=== PATIENT | female | born 1975 | race Caucasian/White ===

== ENCOUNTER 2023-11-06 14:30 | Emergency (ER) | payer BC, SELFPAY ==
[2023-11-06 14:32] VITALS: BP 127/82
[2023-11-06 15:23] LABS: % Basophils 0.5 % (0-2); % Eosinophils 1.4 % (0-6); % Immature Granulocytes 0.3 % (0-0.5); % Lymphocytes 10.4 % (20.5-51.1); % Monocytes 7.4 % (1.7-9.3); Absolute Basophils 0.1 10^3/uL (0-0.2); Absolute Eosinophils 0.2 10^3/uL (0-0.7); Absolute Lymphocytes 1.2 10^3/uL (1.2-3.4); Absolute Monocytes 0.9 10^3/uL (0.1-0.6); Absolute Neutrophils 9.5 10^3/uL (1.4-6.5); Hematocrit 40.9 % (37.0-47.0); Hemoglobin 13.7 g/dL (12.0-16.0); Mean Corp Hgb Conc. 33.5 g/dL (33.0-37.0); Mean Corpuscular Hgb 31.1 pg (27.0-31.0); Mean Platelet Volume 9.7 fL (7.4-10.4); Nucleated Red Blood Cells % 0 %; Platelet Count 326 10^3/uL (130-400); Red Cell Dist. Width 13.9 % (11.5-14.5); White Blood Cell Count 11.9 10^3/uL (4.8-10.8)
[2023-11-06 15:39] LABS: ALT (SGPT) 36 U/L (0-35); AST (SGOT) 44 U/L (14-36); Alkaline Phosphatase 41 U/L (38-126); Blood Urea Nitrogen 17 mg/dl (7-17); Calcium 9.9 mg/dl (8.4-10.2); Carbon Dioxide 29 mmol/L (22-30); Chloride 100 mmol/L (98-107); Glucose 119 mg/dl (70-99); Potassium 3.7 mmol/L (3.5-5.1); Sodium 139 mmol/L (135-145); Total Bilirubin 0.7 mg/dl (0.2-1.3); Total Protein 6.9 g/dl (6.3-8.2); eGFR > 60.00
[2023-11-06 15:49] LABS: Troponin I < 0.012 ng/ml
[2023-11-06 17:15] VITALS: BMI 37.0
[2023-11-06 17:21] VITALS: BP 145/67
[2023-11-06] MEDS: NSS 1000 IV (17:23)
[2023-11-06] MEDS: PEPCID 20 MG IV (17:23)
[2023-11-06] MEDS: ZOFRAN 4 MG IV (17:23)
[2023-11-06] MEDS: MAALOX 40 PO (17:24)
[2023-11-06 17:46] VITALS: BP 112/62
[2023-11-06 18:00] VITALS: BP 117/65
[2023-11-06 18:48] LABS: Troponin I < 0.012 ng/ml
[2023-11-06 19:00] VITALS: BP 120/67
--- NOTE | 2023-11-06 20:03 | ED.GENMED ---
History of Present Illness
General
Chief Complaint: Chest Pain
Source: patient
Exam Limitations: none
Time Seen by Provider: 11/06/23 16:43
Nursing documentation reviewed up to this point in time: agreed with
Travel History
Have you had any contact with someone who has COVID-19?: No
Do you have any symptoms of coronavirus? Fever > 100 degrees, chills, cough, shortness of breath, sore throat, loss of taste or smell, muscle aches, or headache?: No
History of Present Illness
History of Present Illness:
48-year-old female presenting the emergency department today with concerns of chest discomfort to left chest achiness rating to the left shoulder since yesterday claims that she also was vomiting yesterday and thinks he may have inhaled bile. She
denies significant shortness of breath fevers abdominal pain.
Past History
Past History
ED Past Medical History: Asthma, Cancer (ovarian), GERD, Hypercholesterolemia, Hypothyroidism, Psychiatric (anxiety, Bipolar, PTSD, Depression) and Other (Migraines, Sleep apnea uses CPAP, Bowel obstruction, Fissure, )
ED Past Surgical History: , Gynecological (hysterectomy, bilateral oophorectomy. Breast augmentation, ectopic , exploratory laparotomy with lymph node removal and lysis of adhesions in the right hemipelvis) and Other
(Abdominoplasty 2020, Hernia, Spincterotomy, Deviated septum surgery, Total hysterectomy)
Social History
Tobacco: Former smoker
Alcohol: None
Personal:
Living: with family
Employment: Not employed
Family History
Family History: Other (CAD, diabetes, thyroid disease, renal failure)
Review of Systems
Review of Systems
Allergies reviewed?: Yes
All Other Systems: ROS reviewed and negative except as documented in HPI and ROS
Phy Exam
Physical Exam
Physical Exam:
GENERAL: Alert , in no apparent distress
EYE: pupils equal and reactive
NECK: Supple, no significant adenopathy.
ENT: o/p clr, mmm.
CARDIAC: Regular rate and rhythm .
LUNGS: Clear breath sounds bilaterally, no acute respiratory distress, no wheezes/rales/rhonchi
ABDOMEN: Soft, without focal tenderness, no r/g, no cvat
NEUROLOGICAL: Alert and oriented, no focal neuro deficits
SKIN: Warm and dry, skin intact.
MUSCULOSKELETAL: No edema, well perfused.
PSYCH: Normal and appropriate interaction.
Scores
Heart Score for Chest Pain Patients
STEMI patient?: No
History: Slightly or Non-Suspicious
ECG: Normal
Age: >45 - <65 years
Risk Factors: 1 or 2 Risk Factors
Troponin: </= Normal Limit
Heart Score for Chest Pain Patients: 2
Heart Score Risk: 2.5% MACE over next 6 weeks
Course
Orders/Labs/Results
Orders:
Orders
11/06/23 14:34
EKG [Electrocardiogram (*1)] Urgent
Reason for Study: Chest Pain
EKG- Treatment ONCE
11/06/23 15:15
CMP [Comprehensive Metabolic Panel] Urgent
Complete Blood Count/With Diff Urgent
Troponin I Urgent
11/06/23 17:00
Chest [CR Chest - 2 Views ] Urgent
Comment:
Reason For Exam: sob
11/06/23 17:08
Famotidine [Pepcid] 20 mg IV NOW STA
Mag Hydrox/Al Hydrox/Simeth [Maalox] 30 ml Phenobarb/Hyoscy/Atropine/Scop [] 10 ml PO NOW
11/06/23 17:09
0.9% Sodium Chloride 1000 ml [Nss] 1,000 ml IV BOLUS
Ondansetron Injectable [Zofran] 4 mg IV NOW STA
11/06/23 17:11
Mag Hydrox/Al Hydrox/Simeth [Maalox] 30 ml .ROUTE .[facility]
Phenobarb/Hyoscy/Atropine/Scop [] 10 ml .ROUTE .[facility]
11/06/23 18:02
EKG [Electrocardiogram (*1)] Urgent
Reason for Study: Chest Pain
EKG- Treatment ONCE
11/06/23 18:14
Troponin I Urgent
11/06/23 20:02
Ketorolac [Toradol] 30 mg IV NOW STA
Abnormal Lab Results
11/06/23
15:15
WBC 11.9 H 10^3/uL
(4.8-10.8)
MCH 31.1 H pg
(27.0-31.0)
Absolute Neuts (auto) 9.5 H 10^3/uL
(1.4-6.5)
Absolute Monos (auto) 0.9 H 10^3/uL
(0.1-0.6)
Neutrophils % 80.0 H %
(42.2-75.2)
Lymphocytes % 10.4 L %
(20.5-51.1)
Creatinine 1.1 H mg/dL
(0.6-1.0)
Glucose 119 H mg/dl
(70-99)
AST 44 H U/L
(14-36)
ALT 36 H U/L
(0-35)
11/06/23 15:15
11/06/23 15:15
Vital Signs
Initial and Last Documented VS:
Initial Vital Signs
Temp Pulse Resp BP Pulse Ox
98.2 F 81 18 127/82 98
11/06/23 14:32 11/06/23 14:32 11/06/23 14:32 11/06/23 14:32 11/06/23 14:32
Last Documented Vital Signs
Temp Pulse Resp BP Pulse Ox
98.2 F 80 31 117/65 96
11/06/23 14:32 11/06/23 18:15 11/06/23 18:15 11/06/23 18:00 11/06/23 18:15
MDM/Problems Addressed
MDM/Problems Addressed:
48-year-old female presenting to the emergency department today with concerns of left-sided chest discomfort with radiation to left shoulder. On arrival vital signs normal heart rate normal pulse ox normal respiratory rate normal no history of
blood clots leg swelling. Patient generally well-appearing very slight white count 11.9 otherwise labs unremarkable troponin negative x 2 EKG normal x 2 chest x-ray without emergent findings. No signs of emergent process patient stable for
outpatient follow-up advised for close primary care follow-up return precautions given.
*Critical Care Note
Total Time (30-74mins, 75-104mins- exclusive of procedures): Not Applicable
ED Attending Note
-
Portions of this chart may have been created with voice recognition software.� Occasional wrong word or��sound alike� substitutions may have occurred due to the inherent limitations of voice recognition software.
Discharge Plan
Departure
Patient Disposition: Home (Routine Discharge)
Date of Disposition: 11/06/23
Time of Disposition: 20:04
Patient with high blood pressure during this ER visit?: No
Condition: Good
Covid-19: Not Applicable
Discharge Problem:
Chest pain
Instructions: Chest Pain PCP Follow Up
Prescriptions:
No Action
docusate sodium 100 MG capsule
300 mg PO HS
sertraline 100 MG tablet
100 mg PO HS
fenofibrate 160 MG tablet
160 mg PO HS
levothyroxine 175 MCG tablet
150 mcg PO HS
acetaminophen 325 MG tablet
650 mg PO DAILYPRN PRN (Reason: mild pain)
alprazolam 1 MG tablet
2 mg PO HS
Patient Comments:
06/28/2020: last filled 05/02/20, 60 tabs for 30 days from [place]
prazosin 1 MG capsule
4 mg PO HS
Vraylar 3 MG capsule
3 mg PO HS
famotidine 20 mg Tablet
20 mg PO HS
cholecalciferol (vitamin D3) [Vitamin D3] 125 mcg (5,000 unit) Tablet
5,000 unit PO HS
fluticasone propion-salmeterol [Advair Diskus] 500-50 mcg/dose Blister With Device
1 inh INHALATION BID PRN (Reason: ASTHMA)
trazodone 50 mg Tablet
50 mg PO HS
albuterol sulfate [ProAir HFA] 90 mcg/actuation Hfa Aerosol Inhaler
3 inh INHALATION PRN PRN (Reason: ASTHMA)
Rx Instructions:
Q3h if needed
ondansetron HCl 4 mg tablet
4 mg PO Q8H PRN (Reason: nausea and vomiting) 4 Days Qty: 12 0RF
diphenoxylate-atropine [Lomotil] 2.5-0.025 mg tablet
1 tab PO DAILY PRN (Reason: diarrhea) Qty: 10 0RF
omeprazole
40 mg PO DAILY
prednisone 50 mg tablet
50 mg PO DAILY Qty: 5 0RF
Referrals:
Jolanta Saavedra CRNP [Family Provider] -
Activity Restrictions/Additional Instructions:
You came to the emergency department today with concerns of chest discomfort. Here had a reassuring evaluation. Please have close with the primary care doctor. Return to the emergency department for any worsening, new or concerning symptoms.
Interventions
Interventions:
*Risk Screen - Suicide Last Done: 11/06/23 14:32
*General Assessment Last Done: 11/06/23 14:32
*Neglect/Abuse Screening Last Done: 11/06/23 14:32
ED- Fall Risk Assessment Last Done: 11/06/23 17:03
*ED COVID-19 Vaccine History Last Done: 11/06/23 14:32
ED- Cardiac Assessment Last Done: 11/06/23 17:15
[2023-11-06] MEDS: TORADOL 30 MG IV (20:07)
== END 2023-11-06 20:26 | disposition home or self-care (01) ==
LOC: EMR 14:30
PROVIDERS: Physician Assistant; EMERGENCY PHYSICIAN Student in an Organized Health Care Education/Training Program; FAMILY PHYSICIAN Nurse Practitioner Adult Health
DX: R07.89 Other chest pain (principal); J45.909 Unspecified asthma, uncomplicated; K21.9 Gastro-esophageal reflux disease without esophagitis; E78.00 Pure hypercholesterolemia, unspecified; E03.9 Hypothyroidism, unspecified; F31.9 Bipolar disorder, unspecified; F43.10 Post-traumatic stress disorder, unspecified; G47.30 Sleep apnea, unspecified; Z82.49 Family history of ischemic heart disease and other diseases of the circulatory system; Z83.3 Family history of diabetes mellitus; Z83.49 Family history of other endocrine, nutritional and metabolic diseases; Z85.43 Personal history of malignant neoplasm of ovary; Z87.59 Personal history of other complications of pregnancy, childbirth and the puerperium; Z87.891 Personal history of nicotine dependence; Z90.710 Acquired absence of both cervix and uterus; Z90.722 Acquired absence of ovaries, bilateral
CPT/HCPCS: 99283; 96374; 96375; 96361; 71046; 80053; 84484; 85025; 93005

== ENCOUNTER 2023-12-03 09:57 | Emergency (ER) | payer BC, SELFPAY ==
[2023-12-03 10:07] VITALS: BP 136/84
--- NOTE | 2023-12-03 11:00 | ED.GENMED ---
History of Present Illness
<Evelyn Browning PA-C - Last Filed: 12/03/23 17:59>
General
Chief Complaint: Throat Problem
Source: patient
Exam Limitations: none
Time Seen by Provider: 12/03/23 10:58
Nursing documentation reviewed up to this point in time: agreed with
Travel History
Have you had any contact with someone who has COVID-19?: No
Do you have any symptoms of coronavirus? Fever > 100 degrees, chills, cough, shortness of breath, sore throat, loss of taste or smell, muscle aches, or headache?: No
History of Present Illness
History of Present Illness:
48-year-old female with past medical history of asthma, hypertension, hyperlipidemia, GERD presenting emergency department today with right-sided neck/throat pain for the past 2 weeks. Patient originally saw her primary care provider who tested her
for flu/strep, patient tested negative at that time. Patient was started on 10-day course amoxicillin, patient stopped this last Friday. Patient saw her primary again a few days ago, who arranged for an ENT appointment for her in December.
However, patient states that her pain gets worse with each day, and she cannot swallow due to the severe pain, and she has pain turning her neck or opening her jaw. Patient describes the pain as a tearing in her neck. Patient has never had
anything like this before. Patient denies fevers or chills, abdominal pain, nausea, vomiting, coughing, shortness of breath, chest pain. Patient did not take anything today for the pain because of the severe pain with swallowing.
Past History
<Evelyn Browning PA-C - Last Filed: 12/03/23 17:59>
Past History
ED Past Medical History: Asthma, Cancer (ovarian), GERD, Hypercholesterolemia, Hypothyroidism, Psychiatric (anxiety, Bipolar, PTSD, Depression) and Other (Migraines, Sleep apnea uses CPAP, Bowel obstruction, Fissure, )
ED Past Surgical History: , Gynecological (hysterectomy, bilateral oophorectomy. Breast augmentation, ectopic , exploratory laparotomy with lymph node removal and lysis of adhesions in the right hemipelvis) and Other
(Abdominoplasty 2020, Hernia, Spincterotomy, Deviated septum surgery, Total hysterectomy)
Social History
Tobacco: Former smoker
Alcohol: None
Personal:
Living: with family
Employment: Not employed
Family History
Family History: Other (CAD, diabetes, thyroid disease, renal failure)
Review of Systems
<RORY Moreno Last Filed: 12/03/23 17:59>
Review of Systems
All Other Systems: ROS reviewed and negative except as documented in HPI and ROS
Phy Exam
<RORY Moreno Last Filed: 12/03/23 17:59>
Physical Exam
Physical Exam:
Vitals: Vital signs are stable, patient is afebrile
General: Patient is well appearing, no acute distress
Skin: No rashes or lesions. I am not able to appreciate any swelling of the right side of neck.
Head: Normocephalic, atraumatic
Eyes: Conjunctiva clear bilaterally
Nose: Nose are patent bilaterally
Throat/Mouth: Mild tonsillar hypertrophy, no pharyngeal erythema, no uvula deviation. No tenderness palpation of the lower teeth and gums bilaterally. No tenderness palpation of the mandible
Neck: Significant tenderness palpation of the right anterior neck. No palpable masses, no lymphadenopathy.
Cardiac: Regular rate and rhythm, no murmurs
Peripheral Vascular: No carotid bruits bilaterally
Pulm: Normal respiratory effort, no wheezes, rales, rhonchi
Neuro: CN II-XII intact. AAOx3.
Course
<RORY Moreno Last Filed: 12/03/23 17:59>
Orders/Labs/Results
Orders:
Orders
12/03/23 11:34
CT Neck Angio W/wo Iv Contrast Urgent
Comment:
Reason For Exam: tearing right sided anterior neck pain
12/03/23 13:14
Ketorolac [Toradol] 15 mg IV NOW STA
12/03/23 14:07
Rapid Strep Group A Urgent
CHASITY Source: Throat/Pharynx
Specimen Description:
Date Specimen was Collected: 12/03/23
Time Specimen was Collected: 14:00
Vital Signs
Initial and Last Documented VS:
Initial Vital Signs
Temp Pulse Resp BP Pulse Ox
98.3 F 80 18 136/84 96
12/03/23 10:07 12/03/23 10:07 12/03/23 10:07 12/03/23 10:07 12/03/23 10:07
Last Documented Vital Signs
Temp Pulse Resp BP Pulse Ox
98.3 F 78 18 137/80 98
12/03/23 10:07 12/03/23 14:43 12/03/23 14:43 12/03/23 14:43 12/03/23 14:43
<Randall Lewis, DO - Last Filed: 12/03/23 13:49>
Orders/Labs/Results
Orders:
Orders
12/03/23 11:34
CT Neck Angio W/wo Iv Contrast Urgent
Comment:
Reason For Exam: tearing right sided anterior neck pain
12/03/23 13:14
Ketorolac [Toradol] 15 mg IV NOW STA
12/03/23 14:07
Rapid Strep Group A Urgent
CHASITY Source: Throat/Pharynx
Specimen Description:
Date Specimen was Collected: 12/03/23
Time Specimen was Collected: 14:00
Vital Signs
Initial and Last Documented VS:
Initial Vital Signs
Temp Pulse Resp BP Pulse Ox
98.3 F 80 18 136/84 96
12/03/23 10:07 12/03/23 10:07 12/03/23 10:07 12/03/23 10:07 12/03/23 10:07
Last Documented Vital Signs
Temp Pulse Resp BP Pulse Ox
98.3 F 78 18 137/80 98
12/03/23 10:07 12/03/23 14:43 12/03/23 14:43 12/03/23 14:43 12/03/23 14:43
<Evelyn Browning PA-C - Last Filed: 12/03/23 17:59>
MDM/Problems Addressed
Differential Diagnosis Includes:
Differentials include PROGRAMMING SPECIALIST, pharyngitis, carotid dissection, lymphadenopathy, parotitis, submandibular gland infection, lymphoma, cervical muscle strain
MDM/Problems Addressed:
neck pain
Chronic conditions affecting care: HTN, Psychiatric illness and Other (hyperlipidemia )
Acute Exacerbation and/or Progression of Chronic Illness: HTN and Other (hyperlipidemia)
<Evelyn Browning PA-C - Last Filed: 12/03/23 17:59>
*Pulse Oximetry
Patient hypoxic: no
*Critical Care Note
Total Time (30-74mins, 75-104mins- exclusive of procedures): Not Applicable
Data Reviewed
Review of Other/Old Records Reveals: Records (Reviewed ER physician documentation from 11/06/2023, reviewed ER physician documentation from 09/27/2023)
Source: patient and records
<Evelyn Browning PA-C - Last Filed: 12/03/23 17:59>
Patient Management
Escalation/DeEscalation of care consider admission/obs:
48-year-old female with past medical history of asthma, hypertension, hyperlipidemia, GERD presenting emergency department today with right-sided neck/throat pain for the past 2 weeks. Patient originally saw her primary care provider who tested her
for flu/strep, patient tested negative at that time. Patient describes the pain in her neck is tearing and hurts when she turns her neck. She received a CT angiography study of her neck which was negative for carotid artery dissection, negative
for gross focal fluid collection or abnormal soft tissue gas. Patient's pain slightly improved with Toradol. Patient states that she cannot take prednisone because it makes her suicidal. I advised patient to alternate Tylenol and Motrin for pain
control, as well as trying Benadryl. Patient does have a follow-up with an ENT specialist next month, patient will keep a follow-up. Patient medically stable for discharge
ED Attending Note
<Evelyn Browning PA-C - Last Filed: 12/03/23 17:59>
-
Portions of this chart may have been created with voice recognition software.� Occasional wrong word or��sound alike� substitutions may have occurred due to the inherent limitations of voice recognition software.
<Randall Lewis DO - Last Filed: 12/03/23 13:49>
ED Attending Note
Patient seen and examined by attending physician: Yes
I performed a history and physical exam of patient and discussed management with resident, I reviewed resident's note and agree with documented findings and plan of care.: Yes
ED Attending Note:
I have reviewed and agree with history and treatment plan by Evelyn Browning. My exam reveals mild tenderness palpation on right submandibular region. No masses felt. CT geography no acute findings. Stable for discharge. Suspect viral cause.
Follow-up with ENT.
Discharge Plan
Departure
Patient Disposition: Home (Routine Discharge)
Date of Disposition: 12/03/23
Time of Disposition: 14:42
Patient with high blood pressure during this ER visit?: Yes
Condition: Good
Discharge Problem:
Neck pain on right side, Throat pain
Instructions: Neck pain, Sore Throat, Adult (DC), BLOOD PRESSURE
Prescriptions:
No Action
docusate sodium 100 MG capsule
300 mg PO HS
sertraline 100 MG tablet
100 mg PO HS
fenofibrate 160 MG tablet
160 mg PO HS
levothyroxine 175 MCG tablet
150 mcg PO HS
acetaminophen 325 MG tablet
650 mg PO DAILYPRN PRN (Reason: mild pain)
alprazolam 1 MG tablet
2 mg PO HS
Patient Comments:
06/28/2020: last filled 05/02/20, 60 tabs for 30 days from [place]
prazosin 1 MG capsule
4 mg PO HS
Vraylar 3 MG capsule
3 mg PO HS
famotidine 20 mg Tablet
20 mg PO HS
cholecalciferol (vitamin D3) [Vitamin D3] 125 mcg (5,000 unit) Tablet
5,000 unit PO HS
fluticasone propion-salmeterol [Advair Diskus] 500-50 mcg/dose Blister With Device
1 inh INHALATION BID PRN (Reason: ASTHMA)
trazodone 50 mg Tablet
50 mg PO HS
albuterol sulfate [ProAir HFA] 90 mcg/actuation Hfa Aerosol Inhaler
3 inh INHALATION PRN PRN (Reason: ASTHMA)
Rx Instructions:
Q3h if needed
ondansetron HCl 4 mg tablet
4 mg PO Q8H PRN (Reason: nausea and vomiting) 4 Days Qty: 12 0RF
diphenoxylate-atropine [Lomotil] 2.5-0.025 mg tablet
1 tab PO DAILY PRN (Reason: diarrhea) Qty: 10 0RF
omeprazole
40 mg PO DAILY
prednisone 50 mg tablet
50 mg PO DAILY Qty: 5 0RF
Referrals:
Jolanta Saavedra CRNP [Family Provider] -
Srinivasan Aguirre MD [Active] - Call in 1-3 days for appt
Activity Restrictions/Additional Instructions:
Please follow-up with your ENT appointment next month.
I have provided you with a referral for a new ENT to see if you can get in with them sooner. Please call tomorrow for an appointment, please let them know you were seen in the emergency department.
We gave you Toradol in the ER. Toradol is an NSAID. Please wait 4 hours before taking another NSAID (Ibuprofen). I recommended alternating acetaminophen and ibuprofen for your pain. Please do not exceed 4 g of acetaminophen in 1 day. Please do not
exceed 1200 mg of ibuprofen per day. You can also try Benadryl, which would be 25 mg every 4-6 hours. Please do not try when taking Benadryl, it can make you drowsy.
Please follow up with your primary care provider. Please return for any concerns.
Interventions
Interventions:
*Risk Screen - Suicide Last Done: 12/03/23 13:49
*General Assessment Last Done: 12/03/23 13:49
*Neglect/Abuse Screening Last Done: 12/03/23 13:49
ED- Fall Risk Assessment Last Done: 12/03/23 13:42
*ED COVID-19 Vaccine History Last Done: 12/03/23 10:09
*Nursing Disposition Last Done: 12/03/23 14:13
ED-EENT Assessment Last Done: 12/03/23 13:50
ED- Pulmonary Assessment Last Done: 12/03/23 13:50
Discharge Date and Time
Discharge Date/Time: 12/03/23 14:44
[2023-12-03] MEDS: TORADOL 15 MG IV (13:39)
[2023-12-03 13:52] VITALS: BMI 37.3
[2023-12-03 14:43] VITALS: BP 137/80
== END 2023-12-03 14:44 | disposition home or self-care (01) ==
LOC: EMR 09:57
PROVIDERS: EMERGENCY PHYSICIAN Emergency Medicine; FAMILY PHYSICIAN Nurse Practitioner Adult Health
DX: M54.2 Cervicalgia (principal); R07.0 Pain in throat; J45.909 Unspecified asthma, uncomplicated; I10 Essential (primary) hypertension; E78.00 Pure hypercholesterolemia, unspecified; K21.9 Gastro-esophageal reflux disease without esophagitis; E03.9 Hypothyroidism, unspecified; F31.9 Bipolar disorder, unspecified; F43.10 Post-traumatic stress disorder, unspecified; G47.30 Sleep apnea, unspecified; Z82.49 Family history of ischemic heart disease and other diseases of the circulatory system; Z83.3 Family history of diabetes mellitus; Z83.49 Family history of other endocrine, nutritional and metabolic diseases; Z85.43 Personal history of malignant neoplasm of ovary; Z87.59 Personal history of other complications of pregnancy, childbirth and the puerperium; Z87.891 Personal history of nicotine dependence; Z90.710 Acquired absence of both cervix and uterus; Z90.722 Acquired absence of ovaries, bilateral
CPT/HCPCS: 99284; 96374; 70498; 87070; 87880; Q9967

== ENCOUNTER → 2023-12-18 10:37 | Outpatient (REF) | payer BC, SELFPAY | LOC: RAD 10:37 | PROVIDERS: ATTENDING PHYSICIAN Internal Medicine Gastroenterology | DX: R19.7 Diarrhea, unspecified (principal) | CPT/HCPCS: 74019 ==

== ENCOUNTER 2023-12-19 10:56 | Emergency (ER) | payer BC, SELFPAY ==
[2023-12-19 11:07] VITALS: BP 129/85
--- NOTE | 2023-12-19 11:30 | ED.GENMED ---
History of Present Illness
General
Chief Complaint: Breathing Problem
Source: patient
Exam Limitations: none
Time Seen by Provider: 12/19/23 11:15
Travel History
Have you had any contact with someone who has COVID-19?: No
Do you have any symptoms of coronavirus? Fever > 100 degrees, chills, cough, shortness of breath, sore throat, loss of taste or smell, muscle aches, or headache?: No
History of Present Illness
History of Present Illness:
See MDM
Past History
Past History
ED Past Medical History: Asthma, Cancer (ovarian), GERD, Hypercholesterolemia, Hypothyroidism, Psychiatric (anxiety, Bipolar, PTSD, Depression) and Other (Migraines, Sleep apnea uses CPAP, Bowel obstruction, Fissure, )
ED Past Surgical History: , Gynecological (hysterectomy, bilateral oophorectomy. Breast augmentation, ectopic , exploratory laparotomy with lymph node removal and lysis of adhesions in the right hemipelvis) and Other
(Abdominoplasty 2020, Hernia, Spincterotomy, Deviated septum surgery, Total hysterectomy)
Social History
Tobacco: Former smoker
Alcohol: None
Personal:
Living: with family
Employment: Not employed
Family History
Family History: Other (CAD, diabetes, thyroid disease, renal failure)
Phy Exam
Physical Exam
Physical Exam:
See MDM
Scores
Heart Failure Risk
Heart Failure Risk Score: Not Applicable
Course
Orders/Labs/Results
Orders:
Orders
12/19/23 11:10
Electrocardiogram (*1) Urgent
Reason for Study: Shortness of Breath
EKG- Treatment ONCE
12/19/23 11:29
Amoxicillin 875 mg/Clav 125 mg [Augmentin 875 mg/125 mg] 1 tablet PO NOW STA
Ipratropium/Albuterol Sulfate [Duoneb] 3 ml INH R NOW STA
CR Chest - 2 Views Urgent
Comment:
Reason For Exam: Aspiration, R sided wheezing
12/19/23 12:49
Diazepam [Valium] 5 mg PO NOW STA
Vital Signs
Initial and Last Documented VS:
Initial Vital Signs
Temp Pulse Resp BP Pulse Ox
98.4 F 87 18 129/85 98
12/19/23 11:07 12/19/23 11:07 12/19/23 11:07 12/19/23 11:07 12/19/23 11:07
Last Documented Vital Signs
Temp Pulse Resp BP Pulse Ox
98.4 F 87 18 129/85 98
12/19/23 11:07 12/19/23 11:07 12/19/23 11:07 12/19/23 11:07 12/19/23 11:07
MDM/Problems Addressed
Differential Diagnosis Includes:
HPI and MDM Narrative:
48-year-old female presenting with shortness of breath and cough. Patient has been dealing with worsening reflux. She intermittently wakes up throughout the night and vomits. GI is aware and is closely following. She has endoscopy scheduled in 2
weeks. Patient states she woke up last night and believes she aspirated some of her vomit
On exam, patient does have wheezing to the right midlung. Will obtain x-ray but otherwise start DuoNeb and Augmentin
Physical exam
General: Well appearing and non-toxic
HEENT: protecting airway
Neck: appears supple
CV: No evidence of cyanosis
Resp: No accessory muscle use. Wheezing to right midlung
Abd: Non-distended
Extremities: No deformities
Neuro: alert
Psych: Normal affect
Skin: Intact
Problems Addressed including Acute and Chronic Conditions affecting care:
1. Aspiration pneumonitis
Acuity: acute
Prognosis: stable
Details: Will start Augmentin and breathing treatments. Will obtain chest x-ray
Updates
Chest x-ray appears clear. On reassessment, patient now complaining of back spasm which is likely from coughing. Will give 1 dose of Valium.
Differential Diagnosis (but not limited to): Aspiration, pneumonitis
Testing considered: Blood work
Drug therapy (if applicable): OTC meds, please see d/c instruction regarding Rx drugs
Amount and/or Complexity of Data Reviewed
Clinical info obtained from: Patient
External data reviewed: N/A
Labs I independently reviewed (but not limited to): N/A
Radiology: X-ray independently reviewed: No pneumonia noted
Pulse Ox: not hypoxic
EKG independently reviewed: N/A
Therapist Asst: N/A
Critical Care: N/A
Risk of Complication:
Social Determinants of health: Good social support
Discussed with other providers: N/A
Escalation of Care includes Admit/Obs: After being observed in the Emergency Department, pt stable for discharge.
Occasional wrong word or 'sound a like' substitutions may have occurred due to the inherent limitations of voice recognition software. Read the chart carefully and recognize, using context, where substitutions have occurred.
*Critical Care Note
Total Time (30-74mins, 75-104mins- exclusive of procedures): Not Applicable
ED Attending Note
-
Portions of this chart may have been created with voice recognition software.� Occasional wrong word or��sound alike� substitutions may have occurred due to the inherent limitations of voice recognition software.
Discharge Plan
Departure
Patient Disposition: Home (Routine Discharge)
Date of Disposition: 12/19/23
Time of Disposition: 12:49
Patient with high blood pressure during this ER visit?: No
Discharge Problem:
Aspiration pneumonitis
Prescriptions:
New
albuterol sulfate [ProAir HFA] 90 mcg/actuation Hfa Aerosol Inhaler
1 puff INHALATION Q4HPRN PRN (Reason: shortness of breath) Qty: 8.5 0RF
amoxicillin-pot clavulanate 875-125 mg tablet
1 tab PO BID Qty: 14 0RF
No Action
docusate sodium 100 MG capsule
300 mg PO HS
sertraline 100 MG tablet
100 mg PO HS
fenofibrate 160 MG tablet
160 mg PO HS
levothyroxine 175 MCG tablet
150 mcg PO HS
acetaminophen 325 MG tablet
650 mg PO DAILYPRN PRN (Reason: mild pain)
alprazolam 1 MG tablet
2 mg PO HS
Patient Comments:
06/28/2020: last filled 05/02/20, 60 tabs for 30 days from [facility]
prazosin 1 MG capsule
4 mg PO HS
Vraylar 3 MG capsule
3 mg PO HS
famotidine 20 mg Tablet
20 mg PO HS
cholecalciferol (vitamin D3) [Vitamin D3] 125 mcg (5,000 unit) Tablet
5,000 unit PO HS
fluticasone propion-salmeterol [Advair Diskus] 500-50 mcg/dose Blister With Device
1 inh INHALATION BID PRN (Reason: ASTHMA)
trazodone 50 mg Tablet
50 mg PO HS
albuterol sulfate [ProAir HFA] 90 mcg/actuation Hfa Aerosol Inhaler
3 inh INHALATION PRN PRN (Reason: ASTHMA)
Rx Instructions:
Q3h if needed
ondansetron HCl 4 mg tablet
4 mg PO Q8H PRN (Reason: nausea and vomiting) 4 Days Qty: 12 0RF
diphenoxylate-atropine [Lomotil] 2.5-0.025 mg tablet
1 tab PO DAILY PRN (Reason: diarrhea) Qty: 10 0RF
omeprazole
40 mg PO DAILY
prednisone 50 mg tablet
50 mg PO DAILY Qty: 5 0RF
Activity Restrictions/Additional Instructions:
Please return for any worsening symptoms.
You may return at any time if you have further concerns.
Please follow up with your doctor at the first available appointment, preferably this week.
Thank you for choosing [facility].
Interventions
Interventions:
*Risk Screen - Suicide Last Done: 12/19/23 11:09
*General Assessment Last Done: 12/19/23 11:09
*Neglect/Abuse Screening Last Done: 12/19/23 11:09
Discharge Date and Time
Print Language: FAROESE
[2023-12-19 11:39] VITALS: BMI 37.3
[2023-12-19 11:40] VITALS: BP 119/85
[2023-12-19] MEDS: AUGMENTIN 875 MG/125 MG 1 TABLET PO (11:41)
[2023-12-19] MEDS: DUONEB 3 ML INH (11:41)
[2023-12-19 12:00] VITALS: BP 118/60
[2023-12-19 13:06] VITALS: BP 108/64
[2023-12-19] MEDS: VALIUM 5 MG PO (13:11)
[2023-12-19 13:15] VITALS: BP 108/64
--- NOTE | 2023-12-19 13:15 | EDRN ---
Reviewed discharge instructions with patient. Verbalized understanding. Ambulated with steady gait to the lobby.
== END 2023-12-19 13:20 | disposition home or self-care (01) ==
LOC: EMR 10:56
PROVIDERS: EMERGENCY PHYSICIAN Student in an Organized Health Care Education/Training Program; FAMILY PHYSICIAN Nurse Practitioner Adult Health
DX: J69.0 Pneumonitis due to inhalation of food and vomit (principal); R06.2 Wheezing; M62.830 Muscle spasm of back; R06.02 Shortness of breath; R05.9 Cough, unspecified; K21.9 Gastro-esophageal reflux disease without esophagitis; E03.9 Hypothyroidism, unspecified; E78.00 Pure hypercholesterolemia, unspecified; J45.909 Unspecified asthma, uncomplicated; F41.9 Anxiety disorder, unspecified; F32.A Depression, unspecified; F31.9 Bipolar disorder, unspecified; F43.10 Post-traumatic stress disorder, unspecified; G47.30 Sleep apnea, unspecified; G43.909 Migraine, unspecified, not intractable, without status migrainosus; Z85.43 Personal history of malignant neoplasm of ovary; Z87.891 Personal history of nicotine dependence; Z88.1 Allergy status to other antibiotic agents; Z88.5 Allergy status to narcotic agent; Z91.013 Allergy to seafood; Z88.2 Allergy status to sulfonamides; Z88.8 Allergy status to other drugs, medicaments and biological substances; Z91.048 Other nonmedicinal substance allergy status
CPT/HCPCS: 99283; 94640; 71046; 93005

== ENCOUNTER → 2023-12-25 06:32 | Day surgery (SDC) | payer BC, SELFPAY | LOC: GI 06:32 | PROVIDERS: ATTENDING PHYSICIAN Internal Medicine Gastroenterology | DX: R10.13 Epigastric pain (principal); K31.89 Other diseases of stomach and duodenum; K29.50 Unspecified chronic gastritis without bleeding | CPT/HCPCS: 43239; 88305; 88342 ==

== ENCOUNTER 2023-12-27 18:37 | Emergency (ER) | payer BC, SELFPAY ==
[2023-12-27 18:39] VITALS: BP 155/85; BMI 37.3
--- NOTE | 2023-12-27 19:50 | ED.GENMED ---
History of Present Illness
General
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
Source: patient
Exam Limitations: none
Time Seen by Provider: 12/27/23 19:17
Travel History
Have you had any contact with someone who has COVID-19?: No
Do you have any symptoms of coronavirus? Fever > 100 degrees, chills, cough, shortness of breath, sore throat, loss of taste or smell, muscle aches, or headache?: No
History of Present Illness
History of Present Illness:
This is a 48 year old female that comes in with multiple complaints. States that she has had vomiting for over 6 weeks. States that she just had an endoscopy on and they think this is gastroparesis. States that now she thinks she has a
hemorrhoid or an abscess in the perineal area. States that when she is vomiting she is also getting pain in the right lower abd along her incision line and she feels a bubble. States that she has pain there with vomiting. States that she has also
occasionally felt SOB with vomiting. States that she also has diarrhea. Denies any fever, chills, chest pain, nausea, headache, dizziness, urinary burning.
Past History
Past History
ED Past Medical History: Asthma, Cancer (ovarian and cervical cancer ), GERD, Hypercholesterolemia, Hypothyroidism, Psychiatric (anxiety, Bipolar, PTSD, Depression) and Other (Migraines, Sleep apnea uses CPAP, Bowel obstruction, Fissure, Eczema)
ED Past Surgical History: , Gynecological (hysterectomy, bilateral oophorectomy. Breast augmentation, ectopic , exploratory laparotomy with lymph node removal and lysis of adhesions in the right hemipelvis) and Other
(Abdominoplasty 2020, Hernia, Spincterotomy, Deviated septum surgery, Hemorrhoids)
Social History
Tobacco: Former smoker
Alcohol: None
Personal:
Living: with family
Employment: Not employed
Family History
Family History: Other (CAD, diabetes, thyroid disease, renal failure)
Review of Systems
Review of Systems
All Other Systems: ROS reviewed and negative except as documented in HPI and ROS
Constitutional: Reports no symptoms; Denies fever or chills
EENT: Reports no symptoms
Respiratory: Reports trouble breathing (occasionally with vomiting); Denies cough
Cardiac: Denies chest pain
ABD/GI: Reports abdominal pain (Right lower abd), vomiting and diarrhea; Denies nausea
: Reports no symptoms; Denies dysuria, frequency or urgency
Musculoskeletal: Reports no symptoms
Skin: Reports no symptoms
Neurological: Reports no symptoms; Denies dizzy or headache
Psychiatric: Reports no symptoms
Phy Exam
General Physical Exam
General Presentation: well appearing and no apparent distress
General age: appears stated age
General Skin: warm and dry
General Habitus: normal
General Mental: alert
General Hydration: appears well hydrated
ENT Exam
ENT Exam: TM's normal, pharynx normal and neck supple
Eye Exam
Eye Exam: EOMI
Cardiovascular Exam
Cardiovascular Exam: regular rate/rhythm, no edema, no murmur and normal peripheral pulses
Pulmonary Exam
Pulmonary Exam: lungs clear, no respiratory distress, no rales, chest non tender, no crackles, no rhonchi, no wheezing and no cough
Gastrointestinal Exam
Gastrointestinal Exam: normal bowel sounds, soft, no organomegaly, no pulsatile mass, non distended, tender (scare tissue noted along incision line with small lump palpable. ) and other (Obese, Perineal area with hemorrhoid at the proximal rectal
area. Tender to palpation. Negative for any abscess. )
Musculoskeletal Exam
Musculoskeletal Exam: full ROM and no edema
Skin Exam
Skin Exam: normal color, warm/dry, no rash and no petechia
Psychiatric Exam
Psychiatric Exam: normal mood/affect
Course
Orders/Labs/Results
Orders:
Orders
12/27/23 19:49
CT Abd/pelvis W Iv Cont Urgent
Comment:
Reason For Exam: rIGHT LOWER ABD PAIN
Ketorolac [Toradol] 30 mg IV NOW STA
12/27/23 19:50
0.9% Sodium Chloride 500 ml [Nss] 500 ml IV BOLUS
12/27/23 19:51
Complete Blood Count/With Diff Urgent
Comprehensive Metabolic Panel Urgent
12/27/23 19:53
Urinalysis Reflex To Culture Urgent
Date Specimen was Collected: 12/27/23
Time Specimen was Collected: 19:52
Urine Microscopic Reflex Cult Urgent
Abnormal Lab Results
12/27/23 12/27/23
19:51 19:53
MCHC 32.8 L g/dL
(33.0-37.0)
Absolute Monos (auto) 0.7 H 10^3/uL
(0.1-0.6)
Monocytes % 11.0 H %
(1.7-9.3)
Creatinine 1.2 H mg/dL
(0.6-1.0)
AST 42 H U/L
(14-36)
ALT 45 H U/L
(0-35)
Leukocyte Esterase Rfl Trace A
(Negative)
12/27/23 19:51
12/27/23 19:51
Cr slightly elevated. AST/ALT elevation, Urine negative for infection.
Vital Signs
Initial and Last Documented VS:
Initial Vital Signs
Temp Pulse Resp BP Pulse Ox
98.2 F 88 16 155/85 99
12/27/23 18:39 12/27/23 18:39 12/27/23 18:39 12/27/23 18:39 12/27/23 18:39
Last Documented Vital Signs
Temp Pulse Resp BP Pulse Ox
98.7 F 71 16 141/74 99
12/27/23 21:10 12/27/23 21:10 12/27/23 21:10 12/27/23 21:10 04/13/24 21:10
MDM/Problems Addressed
Differential Diagnosis Includes:
Hemorrhoids, Scar Tissue, Appendicitis
MDM/Problems Addressed:
This is a 48 year old female that comes in with c/o right lower abd pain and possible a hemorrhoid or abscess in the perineal area.
Explained to patient that this is not an abscess that it appears to be a hemorrhoid. Patient to follow up with Colorectal for further evaluation. Will get CT for RLQ pain and medicate for pain.
Back into see patient. Reviewed CT findings. Explained that this could be the inguinal hernia that she is feeling or adhesion have developed again. Patient can follow up with Dr. Gonzalez for her rectal pain and use the Lidocaine cream that she was
given. Return with any concerns.
Chronic conditions affecting care:
history of Hemorrhoids, Rectal surgery
Acute Exacerbation and/or Progression of Chronic Illness:
Hemorrhoids, rectal surgery
*Radiology
Radiology exam reviewed: radiology read reviewed (CT night hawk-Normal heart size. No pleural effusion. 12mm nodular focus of consolidation posterolateral right lwoer lobe is new, possible reflecting postinflammatory change, but indeterminate. NO
free air or fluid. Posterior right hepatic lobe indeterminate 1cm hypoenhancing lesion axial image 17), all reviewed NAD by ED Provider (CT cont-stable. Contracted gallbladder and biliary tree unremarkable. Other solid organs are unremarkable. No
perineal inflammation or fluid collection identified. Hysterectomy with no adnexal mass. Minimally filled urinary bladder unremarkable. Mild fecal loading with normal appendix. Stomach and ) and other (CT cont-small boel are unremarkable. Vessels
unremarkable. Small-fat containing bilateral inguinal hernias stable. Minimal rectus diastasis. Fat-containing hernia along lower lateral right rectus muscle without inflammatory change stable. No acute osseous findings. )
*Pulse Oximetry
Patient hypoxic: no
*EKG
Interpreted by ED Provider?: NA
Rate: EKG- N/A
*Donor Technician Interpretation
Rate: Donor Technician- N/A
*Critical Care Note
Total Time (30-74mins, 75-104mins- exclusive of procedures): Not Applicable
ED Attending Note
-
Portions of this chart may have been created with voice recognition software.� Occasional wrong word or��sound alike� substitutions may have occurred due to the inherent limitations of voice recognition software.
Discharge Plan
Departure
Patient Disposition: Home (Routine Discharge)
Date of Disposition: 12/27/23
Time of Disposition: 22:39
Patient with high blood pressure during this ER visit?: Yes
Condition: Good
Covid-19: Not Applicable
Discharge Problem:
Bilateral inguinal hernia
Instructions: Groin Hernia (DC), BLOOD PRESSURE
Prescriptions:
No Action
docusate sodium 100 MG capsule
300 mg PO HS
sertraline 100 MG tablet
100 mg PO HS
fenofibrate 160 MG tablet
160 mg PO HS
levothyroxine 175 MCG tablet
150 mcg PO HS
acetaminophen 325 MG tablet
650 mg PO DAILYPRN PRN (Reason: mild pain)
alprazolam 1 MG tablet
2 mg PO HS
Patient Comments:
06/28/2020: last filled 05/02/20, 60 tabs for 30 days from [facility]
prazosin 1 MG capsule
4 mg PO HS
Vraylar 3 MG capsule
3 mg PO HS
famotidine 20 mg Tablet
20 mg PO HS
cholecalciferol (vitamin D3) [Vitamin D3] 125 mcg (5,000 unit) Tablet
5,000 unit PO HS
fluticasone propion-salmeterol [Advair Diskus] 500-50 mcg/dose Blister With Device
1 inh INHALATION BID PRN (Reason: ASTHMA)
trazodone 50 mg Tablet
50 mg PO HS
albuterol sulfate [ProAir HFA] 90 mcg/actuation Hfa Aerosol Inhaler
3 inh INHALATION PRN PRN (Reason: ASTHMA)
Rx Instructions:
Q3h if needed
ondansetron HCl 4 mg tablet
4 mg PO Q8H PRN (Reason: nausea and vomiting) 4 Days Qty: 12 0RF
diphenoxylate-atropine [Lomotil] 2.5-0.025 mg tablet
1 tab PO DAILY PRN (Reason: diarrhea) Qty: 10 0RF
omeprazole
40 mg PO DAILY
prednisone 50 mg tablet
50 mg PO DAILY Qty: 5 0RF
albuterol sulfate [ProAir HFA] 90 mcg/actuation Hfa Aerosol Inhaler
1 puff INHALATION Q4HPRN PRN (Reason: shortness of breath) Qty: 8.5 0RF
amoxicillin-pot clavulanate 875-125 mg tablet
1 tab PO BID Qty: 14 0RF
Referrals:
Conrad Gonzalez MD [Active] - Follow up in 2-3 days
Jolanta Saavedra CRNP [Family Provider] - Call in 1-3 days for appt
Activity Restrictions/Additional Instructions:
As discussed, your blood work shows that our liver enzymes are slightly elevated. Your urine is negative for infection. Your CT shows that you have bilateral inguinal hernia's. This may be what you are feeling with vomiting or this could also be
adhesion that have formed again. Please follow up with Dr. Gonzalez for the hemorrhoidal pain. Use the Lidocaine cream that you have been given and sitz baths to help decrease any swelling. IF YOU HAVE ANY OTHER CONCERNS PLEASE RETURN TO THE EMERGENCY
ROOM.
Interventions
Interventions:
*Risk Screen - Suicide Last Done: 12/27/23 18:39
*General Assessment Last Done: 12/27/23 19:36
*Neglect/Abuse Screening Last Done: 12/27/23 18:39
ED- Fall Risk Assessment Last Done: 12/27/23 19:36
*ED COVID-19 Vaccine History Last Done: 12/27/23 18:39
ED-Female Genitourinary Assessment Last Done: 12/27/23 19:36
Discharge Date and Time
Print Language: SAMOAN
[2023-12-27] MEDS: NSS 500 IV (19:53)
[2023-12-27] MEDS: TORADOL 30 MG IV (19:54)
[2023-12-27 20:04] LABS: % Basophils 1.6 % (0-2); % Eosinophils 2.5 % (0-6); % Immature Granulocytes 0.2 % (0-0.5); % Lymphocytes 32.6 % (20.5-51.1); % Neutrophils 52.1 % (42.2-75.2); Absolute Basophils 0.1 10^3/uL (0-0.2); Absolute Eosinophils 0.2 10^3/uL (0-0.7); Absolute Lymphocytes 2.1 10^3/uL (1.2-3.4); Absolute Monocytes 0.7 10^3/uL (0.1-0.6); Absolute Neutrophils 3.3 10^3/uL (1.4-6.5); Hemoglobin 13.1 g/dL (12.0-16.0); Mean Corp Hgb Conc. 32.8 g/dL (33.0-37.0); Mean Corpuscular Hgb 30.6 pg (27.0-31.0); Mean Corpuscular Volume 93.5 fL (81.0-99.0); Mean Platelet Volume 9.9 fL (7.4-10.4); Nucleated Red Blood Cells % 0 %; Platelet Count 313 10^3/uL (130-400); Red Blood Cell Count 4.28 10^6/uL (4.20-5.40); Red Cell Dist. Width 13.8 % (11.5-14.5); White Blood Cell Count 6.4 10^3/uL (4.8-10.8)
[2023-12-27 20:17] LABS: ALT (SGPT) 45 U/L (0-35); AST (SGOT) 42 U/L (14-36); Albumin 4.3 g/dl (3.5-5.0); Alkaline Phosphatase 42 U/L (38-126); Blood Urea Nitrogen 14 mg/dl (7-17); Calcium 10.1 mg/dl (8.4-10.2); Carbon Dioxide 30 mmol/L (22-30); Chloride 102 mmol/L (98-107); Estimated Creatinine Clearance 73 ml/min; Glucose 98 mg/dl (70-99); Potassium 4.1 mmol/L (3.5-5.1); Sodium 136 mmol/L (135-145); Total Bilirubin 0.5 mg/dl (0.2-1.3); Total Protein 7.1 g/dl (6.3-8.2); eGFR 55.84
[2023-12-27 20:41] LABS: Urine Albumin Negative (Neg - Trace); Urine Bilirubin Negative (Negative); Urine Character Slightly Cloudy (Clear); Urine Color Yellow; Urine Glucose Negative (Negative); Urine Ketone Negative (Negative); Urine Leukocyte Trace (Negative); Urine Nitrite Negative (Negative); Urine Occult Blood Negative (Negative); Urine Specific Gravity 1.015 (<1.030); Urine Urobilinogen Negative (Neg - 1+)
[2023-12-27 20:50] LABS: Urine Amorphous Seen; Urine Red Blood Cell None Seen /HPF (0-2); Urine White Cell 0-2 /HPF (0-5)
[2023-12-27 21:10] VITALS: BP 141/74
== END 2023-12-27 22:51 | disposition home or self-care (01) ==
LOC: EMR 18:37
PROVIDERS: Clinical Nurse Specialist Family Health; EMERGENCY PHYSICIAN Student in an Organized Health Care Education/Training Program; FAMILY PHYSICIAN Nurse Practitioner Adult Health
DX: K40.20 Bilateral inguinal hernia, without obstruction or gangrene, not specified as recurrent (principal); R03.0 Elevated blood-pressure reading, without diagnosis of hypertension; Z87.891 Personal history of nicotine dependence
CPT/HCPCS: 99285; 96374; 96361; 74177; 80053; 81003; 81015; 85025; Q9967

== ENCOUNTER 2024-01-05 18:29 | Emergency (ER) | payer BC, SELFPAY ==
[2024-01-05 18:33] VITALS: BP 111/77
[2024-01-05 22:45] VITALS: BMI 37.4
[2024-01-05 22:48] VITALS: BP 140/84
[2024-01-05 22:52] LABS: % Immature Granulocytes 0.2 % (0-0.5); % Lymphocytes 20.4 % (20.5-51.1); % Monocytes 7.9 % (1.7-9.3); % Neutrophils 67.5 % (42.2-75.2); Absolute Basophils 0.1 10^3/uL (0-0.2); Absolute Eosinophils 0.2 10^3/uL (0-0.7); Absolute Lymphocytes 1.7 10^3/uL (1.2-3.4); Absolute Monocytes 0.6 10^3/uL (0.1-0.6); Absolute Neutrophils 5.5 10^3/uL (1.4-6.5); Hemoglobin 13.6 g/dL (12.0-16.0); Mean Corp Hgb Conc. 34.9 g/dL (33.0-37.0); Mean Corpuscular Volume 88.8 fL (81.0-99.0); Mean Platelet Volume 9.7 fL (7.4-10.4); Nucleated Red Blood Cells % 0 %; Platelet Count 335 10^3/uL (130-400); Red Blood Cell Count 4.39 10^6/uL (4.20-5.40); Red Cell Dist. Width 13.6 % (11.5-14.5); White Blood Cell Count 8.1 10^3/uL (4.8-10.8)
[2024-01-05 23:07] LABS: ALT (SGPT) 36 U/L (0-35); AST (SGOT) 35 U/L (14-36); Albumin 4.5 g/dl (3.5-5.0); Alkaline Phosphatase 44 U/L (38-126); Blood Urea Nitrogen 21 mg/dl (7-17); Calcium 10.1 mg/dl (8.4-10.2); Carbon Dioxide 30 mmol/L (22-30); Chloride 101 mmol/L (98-107); Estimated Creatinine Clearance 67 ml/min; Glucose 121 mg/dl (70-99); Potassium 4.3 mmol/L (3.5-5.1); Sodium 135 mmol/L (135-145); Total Bilirubin 0.5 mg/dl (0.2-1.3); Total Protein 7.4 g/dl (6.3-8.2); eGFR 50.72
--- NOTE | 2024-01-05 23:12 | ED.GENMED ---
History of Present Illness
General
Chief Complaint: Abdominal Pain
Source: patient
Exam Limitations: none
Time Seen by Provider: 01/05/24 22:19
Travel History
Have you had any contact with someone who has COVID-19?: No
Do you have any symptoms of coronavirus? Fever > 100 degrees, chills, cough, shortness of breath, sore throat, loss of taste or smell, muscle aches, or headache?: No
History of Present Illness
History of Present Illness:
This is a 48 year old female that comes in with c/o right lower abd pain. States that she is having trouble having a BM as she has pain in the right lower abd when she has to push. State that she did see Dr. Mantilla and she has a follow up in March
for further evaluation. States that her pain is getting worse. State that she has pressure in the right groin. States that she has nausea and she did have diarrhea. States that she also is being treated for a UTI and started on Antibiotics 2 days
ago. Denies any fever, chills, chest pain, SOB, vomiting, headache, dizziness, urinary burning.
Past History
Past History
ED Past Medical History: Asthma, Cancer (ovarian and cervical cancer ), GERD, Hypercholesterolemia, Hypothyroidism, Psychiatric (anxiety, Bipolar, PTSD, Depression) and Other (Migraines, Sleep apnea uses CPAP, Bowel obstruction, Fissure, Eczema)
ED Past Surgical History: , Gynecological (hysterectomy, bilateral oophorectomy. Breast augmentation, ectopic , exploratory laparotomy with lymph node removal and lysis of adhesions in the right hemipelvis) and Other
(Abdominoplasty 2020, Hernia, Spincterotomy, Deviated septum surgery, Hemorrhoids)
Social History
Tobacco: Former smoker
Alcohol: None
Personal:
Living: with family
Employment: Not employed
Family History
Family History: Other (CAD, diabetes, thyroid disease, renal failure)
Review of Systems
Review of Systems
All Other Systems: ROS reviewed and negative except as documented in HPI and ROS
Constitutional: Reports no symptoms; Denies fever or chills
EENT: Reports no symptoms
Respiratory: Reports no symptoms; Denies cough or trouble breathing
Cardiac: Reports no symptoms; Denies chest pain
ABD/GI: Reports abdominal pain, nausea and diarrhea; Denies vomiting
: Reports no symptoms; Denies dysuria, frequency or urgency
Musculoskeletal: Reports no symptoms
Skin: Reports no symptoms
Neurological: Reports no symptoms; Denies dizzy or headache
Psychiatric: Reports no symptoms
Phy Exam
General Physical Exam
General Presentation: mild distress
General age: appears stated age
General Skin: warm and dry
General Habitus: normal
General Mental: alert
General Hydration: appears well hydrated
ENT Exam
ENT Exam: TM's normal, pharynx normal and neck supple
Eye Exam
Eye Exam: EOMI
Cardiovascular Exam
Cardiovascular Exam: regular rate/rhythm, no edema, no murmur and normal peripheral pulses
Pulmonary Exam
Pulmonary Exam: lungs clear, no respiratory distress, no rales, chest non tender, no crackles, no rhonchi, no wheezing and no cough
Gastrointestinal Exam
Gastrointestinal Exam: normal bowel sounds, soft, no organomegaly, no pulsatile mass, non distended and tender (Tender right lower tenderness with palpation)
Musculoskeletal Exam
Musculoskeletal Exam: full ROM and no edema
Skin Exam
Skin Exam: normal color, warm/dry, no rash and no petechia
Psychiatric Exam
Psychiatric Exam: normal mood/affect
Course
Orders/Labs/Results
Orders:
Orders
01/05/24 22:47
Complete Blood Count/With Diff Urgent
Comprehensive Metabolic Panel Urgent
01/05/24 23:10
Ketorolac [Toradol] 30 mg IV NOW STA
01/05/24 23:35
Lactic Acid Urgent
Abnormal Lab Results
01/05/24 01/05/24
22:47 23:35
Lymphocytes % 20.4 L %
(20.5-51.1)
BUN 21 H mg/dl
(7-17)
Creatinine 1.3 H mg/dL
(0.6-1.0)
Glucose 121 H mg/dl
(70-99)
Lactic Acid 0.6 L mmol/L
(0.7-2.0)
ALT 36 H U/L
(0-35)
01/05/24 22:47
01/05/24 22:47
Slight Dehydration. Glucose nonfasting. Lactic acid normal at 0.6,
Vital Signs
Initial and Last Documented VS:
Initial Vital Signs
Temp Pulse Resp BP Pulse Ox
98.2 F 99 22 111/77 97
01/05/24 18:33 01/05/24 18:33 01/05/24 18:33 01/05/24 18:33 01/05/24 18:33
Last Documented Vital Signs
Temp Pulse Resp BP Pulse Ox
98.2 F 85 20 140/84 96
01/05/24 18:33 01/05/24 22:48 01/05/24 22:48 01/05/24 22:48 01/05/24 22:48
MDM/Problems Addressed
Differential Diagnosis Includes:
Adhesion, Hernia
MDM/Problems Addressed:
This is a 48 year old female that comes in with c/o right lower abd pain. Patient states that when she pushes to have a BM she has discomfort. Patient was here on the and had a CT scan. State that she saw Dr. Mantilla after this and was to go
back to see him in March,
Explained to patient that she just had a CT which shows that her hernia's are fat filled. Patient lactic acid is normal. Encouraged patient to increase her water intake. Continue with her stool softners. Follow up with Dr. Mantilla. Return with any
concerns.
Chronic conditions affecting care:
Hernia
Acute Exacerbation and/or Progression of Chronic Illness:
Hernia
*Pulse Oximetry
Patient hypoxic: no
*EKG
Interpreted by ED Provider?: NA
Rate: EKG- N/A
*Binder Selector Interpretation
Rate: Binder Selector- N/A
*Critical Care Note
Total Time (30-74mins, 75-104mins- exclusive of procedures): Not Applicable
ED Attending Note
-
Portions of this chart may have been created with voice recognition software.� Occasional wrong word or��sound alike� substitutions may have occurred due to the inherent limitations of voice recognition software.
Discharge Plan
Departure
Patient Disposition: Home (Routine Discharge)
Date of Disposition: 01/06/24
Time of Disposition: 00:32
Patient with high blood pressure during this ER visit?: Yes
Condition: Good
Covid-19: Not Applicable
Discharge Problem:
Inguinal hernia
Instructions: Groin Hernia (DC), BLOOD PRESSURE
Prescriptions:
No Action
docusate sodium 100 MG capsule
300 mg PO HS
sertraline 100 MG tablet
100 mg PO HS
fenofibrate 160 MG tablet
160 mg PO HS
levothyroxine 175 MCG tablet
150 mcg PO HS
acetaminophen 325 MG tablet
650 mg PO DAILYPRN PRN (Reason: mild pain)
alprazolam 1 MG tablet
2 mg PO HS
Patient Comments:
06/28/2020: last filled 05/02/20, 60 tabs for 30 days from [facility]
prazosin 1 MG capsule
4 mg PO HS
Vraylar 3 MG capsule
3 mg PO HS
famotidine 20 mg Tablet
20 mg PO HS
cholecalciferol (vitamin D3) [Vitamin D3] 125 mcg (5,000 unit) Tablet
5,000 unit PO HS
fluticasone propion-salmeterol [Advair Diskus] 500-50 mcg/dose Blister With Device
1 inh INHALATION BID PRN (Reason: ASTHMA)
trazodone 50 mg Tablet
50 mg PO HS
albuterol sulfate [ProAir HFA] 90 mcg/actuation Hfa Aerosol Inhaler
3 inh INHALATION PRN PRN (Reason: ASTHMA)
Rx Instructions:
Q3h if needed
ondansetron HCl 4 mg tablet
4 mg PO Q8H PRN (Reason: nausea and vomiting) 4 Days Qty: 12 0RF
diphenoxylate-atropine [Lomotil] 2.5-0.025 mg tablet
1 tab PO DAILY PRN (Reason: diarrhea) Qty: 10 0RF
omeprazole
40 mg PO DAILY
prednisone 50 mg tablet
50 mg PO DAILY Qty: 5 0RF
albuterol sulfate [ProAir HFA] 90 mcg/actuation Hfa Aerosol Inhaler
1 puff INHALATION Q4HPRN PRN (Reason: shortness of breath) Qty: 8.5 0RF
amoxicillin-pot clavulanate 875-125 mg tablet
1 tab PO BID Qty: 14 0RF
Referrals:
Jolanta Saavedra CRNP [Family Provider] -
Activity Restrictions/Additional Instructions:
As discussed, you will need to follow up with Dr. Mantilla. Your blood work shows very slight Dehydration. Please increase your water intake to 8-8oz glasses daily. Continue with your stool softeners. Continue to alternate with Tylenol and Ibuprofen
for pain. IF YOU HAVE ANY OTHER CONCERNS PLEASE RETURN TO THE EMERGENCY ROOM
Interventions
Interventions:
*Risk Screen - Suicide Last Done: 01/05/24 18:30
*General Assessment Last Done: 01/05/24 18:30
*Neglect/Abuse Screening Last Done: 01/05/24 18:30
ED- Fall Risk Assessment Last Done: 01/05/24 22:58
*ED COVID-19 Vaccine History Last Done: 04/22/24 22:46
RT-Xamtjq-Jgtjdrcvvt Assessment Last Done: 01/05/24 22:58
Discharge Date and Time
Print Language: YAKUT
[2024-01-05] MEDS: TORADOL 30 MG IV (23:43)
[2024-01-06 00:04] LABS: Lactic Acid 0.6 mmol/L (0.7-2.0)
[2024-01-06 00:05] VITALS: BP 115/53
== END 2024-01-06 00:40 | disposition home or self-care (01) ==
LOC: EMR 18:29
PROVIDERS: Clinical Nurse Specialist Family Health; EMERGENCY PHYSICIAN Emergency Medicine; FAMILY PHYSICIAN Nurse Practitioner Adult Health
DX: K40.90 Unilateral inguinal hernia, without obstruction or gangrene, not specified as recurrent (principal); R11.0 Nausea; R19.7 Diarrhea, unspecified; R03.0 Elevated blood-pressure reading, without diagnosis of hypertension; N39.0 Urinary tract infection, site not specified; J45.909 Unspecified asthma, uncomplicated; E78.00 Pure hypercholesterolemia, unspecified; E03.9 Hypothyroidism, unspecified; F31.9 Bipolar disorder, unspecified; F43.10 Post-traumatic stress disorder, unspecified; G47.30 Sleep apnea, unspecified; K21.9 Gastro-esophageal reflux disease without esophagitis; Z85.41 Personal history of malignant neoplasm of cervix uteri; Z85.43 Personal history of malignant neoplasm of ovary; Z87.891 Personal history of nicotine dependence; Z88.1 Allergy status to other antibiotic agents; Z88.5 Allergy status to narcotic agent; Z91.013 Allergy to seafood; Z88.2 Allergy status to sulfonamides; Z88.8 Allergy status to other drugs, medicaments and biological substances; Z91.048 Other nonmedicinal substance allergy status
CPT/HCPCS: 99284; 96374; 80053; 83605; 85025

== ENCOUNTER → 2024-01-08 08:57 | Outpatient (REF) | payer BC, SELFPAY | LOC: RAD 08:57 | PROVIDERS: ATTENDING PHYSICIAN Internal Medicine Critical Care Medicine; FAMILY PHYSICIAN Nurse Practitioner Adult Health | DX: R93.89 Abnormal findings on diagnostic imaging of other specified body structures (principal); R91.1 Solitary pulmonary nodule | CPT/HCPCS: 71250 ==

== ENCOUNTER 2024-01-19 12:42 | Emergency (ER) | payer BC, SELFPAY ==
[2024-01-19 12:49] VITALS: BP 120/80
[2024-01-19 13:01] LABS: % Basophils 1.5 % (0-2); % Eosinophils 2.7 % (0-6); % Immature Granulocytes 0.2 % (0-0.5); % Lymphocytes 37.4 % (20.5-51.1); % Monocytes 8.4 % (1.7-9.3); % Neutrophils 49.8 % (42.2-75.2); Absolute Basophils 0.1 10^3/uL (0-0.2); Absolute Eosinophils 0.1 10^3/uL (0-0.7); Absolute Lymphocytes 1.8 10^3/uL (1.2-3.4); Absolute Monocytes 0.4 10^3/uL (0.1-0.6); Absolute Neutrophils 2.4 10^3/uL (1.4-6.5); Hematocrit 41.5 % (37.0-47.0); Mean Corp Hgb Conc. 33.7 g/dL (33.0-37.0); Mean Corpuscular Hgb 30.5 pg (27.0-31.0); Mean Corpuscular Volume 90.4 fL (81.0-99.0); Mean Platelet Volume 9.6 fL (7.4-10.4); Nucleated Red Blood Cells % 0 %; Platelet Count 329 10^3/uL (130-400); Red Blood Cell Count 4.59 10^6/uL (4.20-5.40); Red Cell Dist. Width 13.2 % (11.5-14.5); White Blood Cell Count 4.8 10^3/uL (4.8-10.8)
[2024-01-19 13:13] LABS: ALT (SGPT) 44 U/L (0-35); AST (SGOT) 55 U/L (14-36); Albumin 4.5 g/dl (3.5-5.0); Alkaline Phosphatase 40 U/L (38-126); Blood Urea Nitrogen 17 mg/dl (7-17); Calcium 9.8 mg/dl (8.4-10.2); Carbon Dioxide 29 mmol/L (22-30); Chloride 104 mmol/L (98-107); Glucose 113 mg/dl (70-99); Lipase 281 U/L (23-300); Potassium 3.9 mmol/L (3.5-5.1); Sodium 137 mmol/L (135-145); Total Bilirubin 0.4 mg/dl (0.2-1.3); Total Protein 7.4 g/dl (6.3-8.2); eGFR > 60.00
[2024-01-19] MEDS: OMNIPAQUE 50 ML PO (16:26)
[2024-01-19] MEDS: DILAUDID 0.5 MG IV (16:27)
[2024-01-19] MEDS: TORADOL 15 MG IV (16:27)
[2024-01-19] MEDS: NSS 1000 IV (16:29)
[2024-01-19] MEDS: ZOFRAN 4 MG IV (16:29)
[2024-01-19 16:37] VITALS: BP 133/76
[2024-01-19 16:39] VITALS: BMI 37.7
[2024-01-19 17:00] VITALS: BP 118/61
[2024-01-19 18:00] VITALS: BP 131/114
[2024-01-19 19:09] VITALS: BP 116/62
[2024-01-19 20:00] VITALS: BP 103/91
--- NOTE | 2024-01-19 20:43 | ED.GENMED ---
History of Present Illness
General
Chief Complaint: Abdominal Pain
Source: patient
Exam Limitations: none
Time Seen by Provider: 01/19/24 15:36
Travel History
Have you had any contact with someone who has COVID-19?: No
Do you have any symptoms of coronavirus? Fever > 100 degrees, chills, cough, shortness of breath, sore throat, loss of taste or smell, muscle aches, or headache?: No
History of Present Illness
History of Present Illness:
Patient with ongoing abdominal pain for months. However worse in the right lower quadrant and became much worse in the last 48 hours in the right lower quadrant. Scheduled for hernia and mesh repair surgery in February. Per the patient, her surgeon
feels it is the mesh that is causing the issue. No diarrhea no constipation no fever appetite has been relatively well
Past History
Past History
ED Past Medical History: Asthma, Cancer (ovarian and cervical cancer ), GERD, Hypercholesterolemia, Hypothyroidism, Psychiatric (anxiety, Bipolar, PTSD, Depression) and Other (Migraines, Sleep apnea uses CPAP, Bowel obstruction, Fissure, Eczema)
ED Past Surgical History: , Gynecological (hysterectomy, bilateral oophorectomy. Breast augmentation, ectopic , exploratory laparotomy with lymph node removal and lysis of adhesions in the right hemipelvis) and Other
(Abdominoplasty 2020, Hernia, Spincterotomy, Deviated septum surgery, Hemorrhoids)
Social History
Tobacco: Former smoker
Alcohol: None
Personal:
Living: with family
Employment: Not employed
Family History
Family History: Other (CAD, diabetes, thyroid disease, renal failure)
Review of Systems
Review of Systems
All Other Systems: Not applicable
Constitutional: Denies fever
Respiratory: Reports no symptoms
: Reports no symptoms
Phy Exam
Physical Exam
Physical Exam:
GENERAL: Alert and oriented in no apparent distress
EYE: Orbits normal.
NECK: Supple
CARDIAC: Regular rate and rhythm without any obvious murmurs.
LUNGS: Clear breath sounds,normal
ABDOMEN: Soft, elevated BMI. Bowel sounds present. Tenderness right lower quadrant near the incision palak. No clear-cut hernia or incarcerated hernia
NEUROLOGICAL: Alert and oriented , grossly non-focal
SKIN: Warm and dry, no rash or lesion, no discoloration, skin intact.
MUSCULOSKELETAL: No edema,no deformity.Good color
PSYCH: Normal and appropriate interaction.
Course
Orders/Labs/Results
Orders:
Orders
01/19/24 12:55
Complete Blood Count/With Diff Urgent
Comprehensive Metabolic Panel Urgent
Lipase Urgent
01/19/24 16:20
CT Abd/pel W Iv And Oral Contr Urgent
Comment:
Reason For Exam: Known hernias. Severe right inguinal/right lower
IV Insert/Care/Rem.- Treatment PRN
0.9% Sodium Chloride 1000 ml [Nss] 1,000 ml IV BOLUS
HYDROmorphone [Dilaudid] 0.5 mg IV NOW STA
Iohexol [Omnipaque] See Protocol PO NOW STA
Ketorolac [Toradol] 15 mg IV NOW STA
Ondansetron Injectable [Zofran] 4 mg IV NOW STA
Abnormal Lab Results
01/19/24
12:55
Creatinine 1.1 H mg/dL
(0.6-1.0)
Glucose 113 H mg/dl
(70-99)
AST 55 H U/L
(14-36)
ALT 44 H U/L
(0-35)
01/19/24 12:55
01/19/24 12:55
Vital Signs
Initial and Last Documented VS:
Initial Vital Signs
Temp Pulse Resp BP Pulse Ox
98.2 F 83 16 120/80 98
01/19/24 12:49 01/19/24 12:49 01/19/24 12:49 01/19/24 12:49 01/19/24 12:49
Last Documented Vital Signs
Temp Pulse Resp BP Pulse Ox
98.2 F 68 27 103/91 100
01/19/24 12:49 01/19/24 20:45 01/19/24 20:45 01/19/24 20:00 01/19/24 20:30
*Critical Care Note
Total Time (30-74mins, 75-104mins- exclusive of procedures): Not Applicable
Data Reviewed
Review of Other/Old Records Reveals: Labs, Records, Radiology Studies and Progress Notes
Update Note
Update Note:
Patient has remained stable and nontoxic. No acute findings on CT. No incarcerated hernia. Discussed previously with surgery. Pain management close follow-up. Patient is comfortable with this approach
ED Attending Note
-
Portions of this chart may have been created with voice recognition software.� Occasional wrong word or��sound alike� substitutions may have occurred due to the inherent limitations of voice recognition software.
Discharge Plan
Departure
Patient Disposition: Home (Routine Discharge)
Date of Disposition: 01/19/24
Time of Disposition: 20:44
Patient with high blood pressure during this ER visit?: Yes
Discharge Problem:
Recurring abdominal pain, History of hernia/mesh
Instructions: Abdominal Pain
Prescriptions:
New
hydrocodone-acetaminophen 5-300 mg tablet
1 tab PO Q8H PRN (Reason: Pain) Qty: 10 0RF
ondansetron 4 mg tablet,disintegrating
4 mg PO TIDPRN PRN (Reason: nausea/vomiting) Qty: 10 0RF
No Action
docusate sodium 100 MG capsule
300 mg PO HS
sertraline 100 MG tablet
100 mg PO HS
fenofibrate 160 MG tablet
160 mg PO HS
levothyroxine 175 MCG tablet
150 mcg PO HS
acetaminophen 325 MG tablet
650 mg PO DAILYPRN PRN (Reason: mild pain)
alprazolam 1 MG tablet
2 mg PO HS
Patient Comments:
06/28/2020: last filled 05/02/20, 60 tabs for 30 days from [facility]
prazosin 1 MG capsule
4 mg PO HS
Vraylar 3 MG capsule
3 mg PO HS
famotidine 20 mg Tablet
20 mg PO HS
cholecalciferol (vitamin D3) [Vitamin D3] 125 mcg (5,000 unit) Tablet
5,000 unit PO HS
fluticasone propion-salmeterol [Advair Diskus] 500-50 mcg/dose Blister With Device
1 inh INHALATION BID PRN (Reason: ASTHMA)
trazodone 50 mg Tablet
50 mg PO HS
albuterol sulfate [ProAir HFA] 90 mcg/actuation Hfa Aerosol Inhaler
3 inh INHALATION PRN PRN (Reason: ASTHMA)
Rx Instructions:
Q3h if needed
ondansetron HCl 4 mg tablet
4 mg PO Q8H PRN (Reason: nausea and vomiting) 4 Days Qty: 12 0RF
diphenoxylate-atropine [Lomotil] 2.5-0.025 mg tablet
1 tab PO DAILY PRN (Reason: diarrhea) Qty: 10 0RF
omeprazole
40 mg PO DAILY
prednisone 50 mg tablet
50 mg PO DAILY Qty: 5 0RF
albuterol sulfate [ProAir HFA] 90 mcg/actuation Hfa Aerosol Inhaler
1 puff INHALATION Q4HPRN PRN (Reason: shortness of breath) Qty: 8.5 0RF
amoxicillin-pot clavulanate 875-125 mg tablet
1 tab PO BID Qty: 14 0RF
Referrals:
Jolanta Saavedra CRNP [Family Provider] -
Home Mantilla MD [Active] - Tomorrow
Interventions
Interventions:
*Risk Screen - Suicide Last Done: 01/19/24 16:39
*General Assessment Last Done: 01/19/24 16:39
*Neglect/Abuse Screening Last Done: 01/19/24 16:39
ED- Fall Risk Assessment Last Done: 01/19/24 16:48
*ED COVID-19 Vaccine History Last Done: 01/19/24 16:39
*Nursing Disposition Last Done: 01/19/24 20:59
BR-Uowrhu-Tyshnduglf Assessment Last Done: 01/19/24 16:39
Discharge Date and Time
Discharge Date/Time: 01/19/24 20:59
Print Language: GREENLANDIC
== END 2024-01-19 20:59 | disposition home or self-care (01) ==
LOC: EMR 12:42
PROVIDERS: Emergency Medicine; EMERGENCY PHYSICIAN Emergency Medicine; FAMILY PHYSICIAN Nurse Practitioner Adult Health
DX: R10.9 Unspecified abdominal pain (principal); R03.0 Elevated blood-pressure reading, without diagnosis of hypertension; Z87.891 Personal history of nicotine dependence
CPT/HCPCS: 99285; 96374; 96375 ×2; 96361; 74177; 80053; 83690; 85025; Q9967

== ENCOUNTER → 2024-01-26 | Outpatient (REF) | payer BC, SELFPAY | LOC: DHSLP | PROVIDERS: ATTENDING PHYSICIAN Internal Medicine Critical Care Medicine; FAMILY PHYSICIAN Nurse Practitioner Adult Health | DX: G47.33 Obstructive sleep apnea (adult) (pediatric) (principal); R09.02 Hypoxemia | CPT/HCPCS: 95800 ==

== ENCOUNTER 2024-01-30 06:09 | Day surgery (SDC) | payer BC, SELFPAY ==
[2024-01-30] VITALS (12 sets, daily range): BP systolic 87–118; BP diastolic 53–69; BMI 42.2
[2024-01-30] MEDS: NORMOSOL-R 1000 IV (07:30)
--- NOTE | 2024-01-30 10:43 | W.IMMPOSTOP ---
Surgical Immed Post Op Note
-
Primary Surgeon: Annalee
Assisting: Anni PRATT
Pre-op Diagnosis: Recurrent ventral incisional hernia
Post-op Diagnosis: Same
Procedure Performed: Excision foreign body (old mesh); repair recurrent ventral incisional hernia; lysis of adhesions (70 min)
Anesthesia Type: GETA
Specimen / Cultures: None
Estimated Blood Loss: 10cc
Complications: None immediate
Operative Findings: Wad of mesh and scar tethered to several loops of small bowel in the right lower quadrant. Careful lysis with cold mike was uneventful. The outer layer was wrapped in the rectus muscle fibers. Old dual layer mesh completely
excised intact. No discrete defect identified superficial to the old mesh, however the tissue was thinned out and weak. This area was reinforced with 11cm round ventralight ST.
--- NOTE | 2024-01-30 10:56 | OR.RPT ---
Operative Report
Operative Report
Primary Surgeon: Annalee
Assisting: Anni PRATT
Pre-op Diagnosis: Recurrent ventral incisional hernia
Post-op Diagnosis: Same
Procedure Performed: Excision foreign body (old mesh); repair recurrent ventral incisional hernia; lysis of adhesions (70 min)
Anesthesia Type: GETA
Specimen / Cultures: None
Estimated Blood Loss: 10cc
Complications: None immediate
Operative Findings: Wad of mesh and scar tethered to several loops of small bowel in the right lower quadrant. Careful lysis with cold mike was uneventful. The outer layer was wrapped in the rectus muscle fibers. Old dual layer mesh completely
excised intact. No discrete defect identified superficial to the old mesh, however the tissue was thinned out and weak in a round area of about 8cm in diameter. This area was reinforced with 11cm round ventralight ST.
Indications:� This 49F developed�right lower quadrant pain. Cross sectional imaging did not reveal a good explanation, though there was evidence her previous mesh was malpositioned. Exploratory surgery waas planned with a likely excision of old mesh
and probable repair recurrent ventral incisional hernia. Repair was thus indicated and laparoscopic approach was elected.
Description of procedure:� The patient was marked in preop at the point of maximal pain and then taken to the operating room and the correct site of surgery was verified. General anesthesia was induced and the patient was placed supine on the
operating table with arms tucked.� The patient�s abdomen was prepped and draped in standard sterile fashion. A time-out was completed verifying correct patient, procedure, site, positioning, and implants and special equipment prior to beginning this
procedure. A stab incision was made in the left upper quadrant, a Veress needle was inserted and proper position was confirmed by aspiration and saline drop test. Following this, pneumoperitoneum was created with insufflation of carbon dioxide to 12
mmHg. Then a 8mm robotic trocar was inserted right of midline above of the umbilicus. A laparoscope was inserted and the area of initial trocar entry and Veress needle placement were both inspected and free of trauma. Two 8mm trocars were then
placed a hand's breadth on either side of the initial trocar under direct visualization.
An area of old mesh, scar and small bowel was identified deep to the marked area of the patient's pain. The small bowel was carefully lysed with blunt sweeps and cold mike. This took about 70 mins in total to dissect all the bowel off the mesh and
abdominal wall and create adequate safe working space. Some adhesions remained left of midline, these were not disturbed. The old mesh was then excised completely from the abdominal wall. The left side port was upsized to 12mm. A roughly 8cm round
area of weakened fascia was reinforced with an 11cm round ventralight ST mesh passed through the 12mm trocar and secured circumferentially to the abdominal wall with 2-0 PDS stratafix suture. An inner crown was created with the same suture, and a
monocryl stratafix 2-0 suture was then used to bring up the edge of the peritoneum over the outer edge of the mesh and secure it to the undersurface of the mesh. The entire bottom edge of the mesh was covered with peritoneum this way. A
transversus abdominis plane block was performed under laparoscopic vision using decadron/marcaine. The 12mm trocar site was closed laparoscopically with 2-0 PFDS suture. After ensuring adequate hemostasis, the trocars were removed and the
pneumoperitoneum allowed to escape. The trocar incisions were closed at the skin level using 4-0 monocryl and topical skin adhesive. The patient tolerated the procedure well and was taken to the postanesthesia care unit in stable condition.
The assistance of Anni PRATT was required due to the complexity of the procedure. During the procedure he assisted with retraction, resection, and closure of the wound.
--- NOTE | 2024-01-30 11:11 | SUR.PHASEI ---
02 sats low on arrival to PACU, 86-87 on 6/l via NC. Simple mask placed at 15l/min flow. Dr Steiner made aware of sats of 89%. No orders. Maria R Card RN BSN.
[2024-01-30] MEDS: ZOFRAN 4 MG IV (11:31)
--- NOTE | 2024-01-30 11:34 | SUR.PHASEI ---
Patient has Dilaudid listed as an allergy, TT DR Steiner as Dilaudid ordered for pain. Waiting for reply. Maria R Card RN BSN.
--- NOTE | 2024-01-30 11:42 | SUR.PHASEI ---
Given permission fron Dr Steiner to give Dilaudid despite it being listed as an allergy. Mraia R peck RN BSN.
[2024-01-30] MEDS: DILAUDID 0.5 MG IV ×2 (11:44→12:02)
== END 2024-01-30 13:19 | disposition home or self-care (01) ==
LOC: SDS 06:09
PROVIDERS: ATTENDING PHYSICIAN Surgery
DX: K43.2 Incisional hernia without obstruction or gangrene (principal)
CPT/HCPCS: 49613; C1781

== ENCOUNTER 2024-02-07 02:49 | Observation (INO) | payer BC, SELFPAY ==
[2024-02-06 21:14] VITALS: BP 121/89
--- NOTE | 2024-02-06 21:49 | ED.GENMED ---
History of Present Illness
General
Chief Complaint: Post Operative Problem(s)
Source: patient and records
Time Seen by Provider: 02/06/24 21:27
Travel History
Have you had any contact with someone who has COVID-19?: No
Do you have any symptoms of coronavirus? Fever > 100 degrees, chills, cough, shortness of breath, sore throat, loss of taste or smell, muscle aches, or headache?: No
History of Present Illness
History of Present Illness:
49-year-old female presenting to the emergency department for evaluation of generalized abdominal discomfort, persistent vomiting, diminished p.o. intake and unable to have a bowel movement. She had hernia repair performed last Friday here and
states she has had pain since but had still been able to have bowel movements and had intermittent nausea but today has had multiple episodes of vomiting despite oral Zofran. She has attempted Motrin, Tylenol and Vicodin with no relief of pain.
She has not had any fevers. Patient notes that she feels very bloated and distended, has not had any flatulence nor bowel movement today.
Past History
Past History
ED Past Medical History: Asthma, Cancer (ovarian and cervical cancer ), GERD, Hypercholesterolemia, Hypothyroidism, Psychiatric (anxiety, Bipolar, PTSD, Depression) and Other (Migraines, Sleep apnea uses CPAP, Bowel obstruction, Fissure, Eczema)
ED Past Surgical History: , Gynecological (hysterectomy, bilateral oophorectomy. Breast augmentation, ectopic , exploratory laparotomy with lymph node removal and lysis of adhesions in the right hemipelvis) and Other
(Abdominoplasty 2020, Hernia, Spincterotomy, Deviated septum surgery, Hemorrhoids)
Social History
Tobacco: Former smoker
Alcohol: None
Drug: None
Personal:
Living: with family
Employment: Not employed
Family History
Family History: Other (CAD, diabetes, thyroid disease, renal failure)
Review of Systems
Review of Systems
All Other Systems: ROS reviewed and negative except as documented in HPI and ROS
Phy Exam
Physical Exam
Physical Exam:
GENERAL: Alert , appears to be in pain and quite uncomfortable
EYE: clear conjunctiva b/l
HEAD: NCAT
ENT: o/p clr, mmm.
CARDIAC: Regular rate and rhythm .
LUNGS: Clear breath sounds bilaterally, no acute respiratory distress, no wheezes/rales/rhonchi
ABDOMEN: Firm, distended, well-healing surgical wounds without any evidence for surrounding cellulitic changes or infection. The left most abdominal incision has the most surrounding ecchymosis. Hypoactive bowel sounds
NEUROLOGICAL: Alert and oriented
SKIN: Warm and dry, skin intact.
MUSCULOSKELETAL: well perfused.
PSYCH: Normal and appropriate interaction.
Scores
Heart Failure Risk
Heart Failure Risk Score: Not Applicable
Heart Score for Chest Pain Patients
STEMI patient?: Not applicable
Withdrawal Assessment of Alcohol
Withdrawal Assessment Completed?: Not applicable
Course
Orders/Labs/Results
Orders:
Orders
02/06/24 21:36
0.9% Sodium Chloride 1000 ml [Nss] 1,000 ml IV BOLUS
HYDROmorphone [Dilaudid] 1 mg IV NOW STA
Ondansetron Injectable [Zofran] 4 mg IV NOW STA
Test Result ONCE
CR Obstruct Series W/pa Chest Urgent
Comment:
Reason For Exam: hernia repair, abd pain, vomiting, ? ileus
02/06/24 22:33
Complete Blood Count/With Diff Urgent
Comprehensive Metabolic Panel Urgent
HCG, Serum Qualitative Screen Urgent
Lipase Urgent
02/06/24 23:05
Pantoprazole [Protonix IV] 40 mg IV NOW STA
02/06/24 23:14
Ondansetron Injectable [Zofran] 4 mg IV NOW STA
02/06/24 23:31
Acetaminophen [Tylenol] 650 mg PO NOW STA
02/07/24 00:00
CT Abd/pelvis W Iv Cont Urgent
Reason For Exam: recent surgery, N/V, cannot tolerate PO
02/07/24 00:24
Ketorolac [Toradol] 30 mg IV NOW STA
Prochlorperazine [Compazine] 10 mg IV NOW STA
Abnormal Lab Results
02/06/24
22:33
MCH 31.1 H pg
(27.0-31.0)
Eosinophils % 9.3 H %
(0-6)
Carbon Dioxide 32 H mmol/L
(22-30)
Creatinine 1.3 H mg/dL
(0.6-1.0)
Glucose 109 H mg/dl
(70-99)
Calcium 10.6 H mg/dl
(8.4-10.2)
AST 69 H U/L
(14-36)
ALT 82 H U/L
(0-35)
02/06/24 22:33
02/06/24 22:33
Vital Signs
Initial and Last Documented VS:
Initial Vital Signs
Pulse Resp BP Pulse Ox
120 24 121/89 98
02/06/24 21:14 02/06/24 21:14 02/06/24 21:14 02/06/24 21:14
Last Documented Vital Signs
Pulse Resp BP Pulse Ox
120 24 108/70 94
02/06/24 21:14 02/06/24 21:14 02/06/24 23:00 02/06/24 23:30
MDM/Problems Addressed
Differential Diagnosis Includes:
Ileus, obstruction, postoperative pain, medication side effect
MDM/Problems Addressed:
49-year-old female presenting to the emergency department for evaluation of increased abdominal pain, nausea and vomiting and diminished p.o. intake in the setting of recent hernia repair. Her abdomen is firm and distended. Obstruction versus
ileus are certainly high on differential. Will treat patient's symptoms with Dilaudid (noted to have taken this before but states she needs Zofran with this for nausea), Zofran and fluids. X-ray of the abdomen ordered.
*Radiology
Radiology exam reviewed: radiology read reviewed
*Pulse Oximetry
Patient hypoxic: no
*Critical Care Note
Total Time (30-74mins, 75-104mins- exclusive of procedures): Not Applicable
Data Reviewed
Review of Other/Old Records Reveals: Labs, Records and Discharge Summary
Patient Management
Discussion with other providers: Hospitalist and Electrical Supervisor
Escalation/DeEscalation of care consider admission/obs:
Patient continuously uncomfortable despite multiple rounds of medications. Treated with additional Toradol and Compazine however still symptomatic. CT does not show any evidence of any acute complications. Given her persistent pain, mild acute
kidney injury and still remaining difficulty tolerating p.o. I do not feel patient can be safely dispositioned home. I discussed case with general surgery who requests the house provider to place orders and they will evaluate the patient in the
morning.
ED Attending Note
-
Portions of this chart may have been created with voice recognition software.� Occasional wrong word or��sound alike� substitutions may have occurred due to the inherent limitations of voice recognition software.
Discharge Plan
Departure
Patient Disposition: Admit
Date of Disposition: 02/07/24
Time of Disposition: 00:59
Presentation/result/management discussed w/ accepting MD/DO: Annalee
Discharge Problem:
Post-operative pain, CARMEN (acute kidney injury), Nausea and vomiting
Prescriptions:
No Action
docusate sodium 100 MG capsule
200 mg PO HS
sertraline 100 MG tablet
100 mg PO HS
fenofibrate 160 MG tablet
160 mg PO HS
acetaminophen 325 MG tablet
650 mg PO DAILYPRN PRN (Reason: mild pain)
alprazolam 1 MG tablet
2 mg PO HS
Patient Comments:
06/28/2020: last filled 05/02/20, 60 tabs for 30 days from [place]
prazosin 1 MG capsule
2 mg PO HS
Vraylar 3 MG capsule
3 mg PO HS
ondansetron 4 mg tablet,disintegrating
4 mg PO TIDPRN PRN (Reason: nausea/vomiting) Qty: 10 0RF
famotidine [Pepcid] 40 mg Tablet
40 mg PO HS
pantoprazole [Protonix] 40 mg Tablet,Delayed Release (Dr/Ec)
40 mg PO HS
trazodone 150 mg Tablet
150 mg PO HS
levothyroxine 150 mcg Tablet
150 mcg PO HS
fluticasone propion-salmeterol [Advair Diskus] 500-50 mcg/dose Blister With Device
2 inh INHALATION BID
cholecalciferol (vitamin D3) [Vitamin D3] 125 mcg (5,000 unit) Tablet
125 mcg PO HS
albuterol sulfate [ProAir HFA] 90 mcg/actuation HFA aerosol inhaler
2 puff INHALATION Q4HPRN PRN (Reason: shortness of breath)
oxycodone 5 mg tablet
5 - 10 mg PO Q4HPRN PRN (Reason: moderate to severe pain) Qty: 20 0RF
oxycodone 5 mg tablet
5 - 10 mg PO Q4HPRN PRN (Reason: moderate to severe pain) Qty: 20 0RF
Referrals:
Jolanta Saavedra CRNP [Family Provider] -
Interventions
Interventions:
*Risk Screen - Suicide Last Done: 02/06/24 21:14
*General Assessment Last Done: 02/06/24 21:14
*Neglect/Abuse Screening Last Done: 02/06/24 21:14
ED-Skin Assessment Last Done: 02/06/24 22:30
Discharge Date and Time
Print Language: TUVALUAN
[2024-02-06] MEDS: ZOFRAN 4 MG IV ×2 (22:36→23:16)
[2024-02-06] MEDS: DILAUDID 1 MG IV (22:38)
[2024-02-06] MEDS: NSS 1000 IV (22:39)
[2024-02-06 22:40] LABS: % Basophils 0.9 % (0-2); % Eosinophils 9.3 % (0-6); % Immature Granulocytes 0.5 % (0-0.5); % Lymphocytes 26.7 % (20.5-51.1); % Monocytes 6.8 % (1.7-9.3); % Neutrophils 55.8 % (42.2-75.2); Absolute Basophils 0.1 10^3/uL (0-0.2); Absolute Eosinophils 0.7 10^3/uL (0-0.7); Absolute Monocytes 0.5 10^3/uL (0.1-0.6); Absolute Neutrophils 4.2 10^3/uL (1.4-6.5); Hematocrit 39.7 % (37.0-47.0); Hemoglobin 13.7 g/dL (12.0-16.0); Mean Corp Hgb Conc. 34.5 g/dL (33.0-37.0); Mean Corpuscular Hgb 31.1 pg (27.0-31.0); Mean Corpuscular Volume 90.2 fL (81.0-99.0); Mean Platelet Volume 9.4 fL (7.4-10.4); Nucleated Red Blood Cells % 0 %; Platelet Count 345 10^3/uL (130-400); Red Cell Dist. Width 13.5 % (11.5-14.5); White Blood Cell Count 7.5 10^3/uL (4.8-10.8)
[2024-02-06 22:44] VITALS: BP 110/97
[2024-02-06 22:55] LABS: HCG, Serum Qualitative Screen Negative
[2024-02-06 23:00] VITALS: BP 108/70
[2024-02-06 23:03] LABS: ALT (SGPT) 82 U/L (0-35); AST (SGOT) 69 U/L (14-36); Albumin 4.6 g/dl (3.5-5.0); Alkaline Phosphatase 47 U/L (38-126); Blood Urea Nitrogen 17 mg/dl (7-17); Calcium 10.6 mg/dl (8.4-10.2); Carbon Dioxide 32 mmol/L (22-30); Chloride 98 mmol/L (98-107); Glucose 109 mg/dl (70-99); Lipase 273 U/L (23-300); Potassium 4.5 mmol/L (3.5-5.1); Sodium 139 mmol/L (135-145); Total Bilirubin 0.4 mg/dl (0.2-1.3); Total Protein 7.8 g/dl (6.3-8.2); eGFR 50.41
[2024-02-06] MEDS: PROTONIX IV 40 MG IV (23:11)
[2024-02-07] MEDS: TORADOL 30 MG IV (00:28)
[2024-02-07] MEDS: COMPAZINE 10 MG IV (00:28)
--- NOTE | 2024-02-07 01:53 | HPS.HSE ---
Family Physician
-
Family Physician: RAYMON Gomes
Chief Complaint
-
Abdominal pain, nausea, and vomiting
History of Present Illness
a 49 years old female present in ER with a complain of abdominal pain, nausea and vomiting. Patient had hernia repair that done last Friday and per patient she has abdominal pain that associated with nausea and vomiting since then. Patient mentioned
that her pain mostly at the LT side of abdomen where is the surgery site is and lower abdominal pain, she also feels that her belly is distended than usual. Patient had up to 15 episode of vomiting today despite oral Zofran. Patient was able move
her bowels Friday and small amount of bowel movement yesterday. Patient took Motrin, Tylenol, and Vicodin at home with no relief. Denied chest pain, SOB, urinary symptoms, or any other symptoms.
Medical History
Past Medical History
Past Medical History: Reports Asthma, Cancer (Ovarian and cervical cancer ), GERD, Hypercholesterolemia, Hyperthyroidism, Psychiatric (anxiety, Bipolar, PTSD, Depression ) and Other (Migraines, Sleep apnea uses CPAP, Bowel obstruction, Fissure,
Eczema)
Past Surgical History: Reports , Gynocological (hysterectomy, bilateral oophorectomy. Breast augmentation, ectopic , exploratory laparotomy with lymph node removal and lysis of adhesions in the right hemipelvis) and Other
(Abdominoplasty 2020, Hernia, Spincterotomy, Deviated septum surgery, Hemorrhoids)
Social History
Tobacco: Former Smoker
Alcohol: None
Drug: None
Personal:
Living: With Family
Employment: Not Employed
Family History
Family History: Not pertinent
Allergies / Home Medications
Allergies reflects when Allergies were last updated in [employer].
Home Medications with original date entered in [employer]
Allergy/Medication List:
Patient Allergies
Allergy/AdvReac Type Severity Reaction Status Date / Time
adhesive Allergy Rash Verified 01/30/24 07:12
doxycycline Allergy Shortness Verified 01/30/24 07:12
of Breath
escitalopram [From Lexapro] Allergy Tongue Verified 01/30/24 07:12
Swelling
hydromorphone [From Dilaudid] Allergy Itching Verified 01/30/24 07:12
methylprednisolone Allergy Rash Verified 01/30/24 07:12
[From Medrol]
prednisone Allergy suicidal Verified 01/30/24 07:12
tendencies
shellfish derived Allergy Anaphylaxis Verified 01/30/24 07:12
Sulfa (Sulfonamide Allergy Swelling, Verified 01/30/24 07:12
Antibiotics) vomits
triazolam Allergy anger Verified 01/30/24 07:12
issues,
'lashes
out'
Home Medications Table - record
�Medication �Instructions �Recorded �Confirmed
docusate sodium 100 mg capsule 200 mg PO HS Constipation 07/30/17 01/30/24
acetaminophen 325 mg tablet 650 mg PO DAILYPRN PRN mild pain 06/28/20 01/26/24
alprazolam 1 mg tablet 2 mg PO HS Mental Health/Anxiety 06/28/20 01/30/24
cariprazine 3 mg capsule (Vraylar) 3 mg PO HS Mental Health/Anxiety 06/28/20 01/30/24
fenofibrate 160 mg tablet 160 mg PO HS elevated triglycerides 06/28/20 01/30/24
prazosin 1 mg capsule 2 mg PO HS 06/28/20 01/30/24
sertraline 100 mg tablet 100 mg PO HS Mental Health/Anxiety 06/28/20 01/30/24
ondansetron 4 mg disintegrating 4 mg PO TIDPRN PRN nausea/vomiting 01/19/24 01/30/24
tablet #10 tabs
albuterol sulfate 90 mcg/actuation 2 puff inhalation Q4HPRN PRN 01/26/24 01/30/24
aerosol inhaler (ProAir HFA) shortness of breath
cholecalciferol (vitamin D3) 125 125 mcg PO HS 01/26/24 01/30/24
mcg (5,000 unit) tablet (Vitamin
D3)
famotidine 40 mg tablet (Pepcid) 40 mg PO HS 01/26/24 01/30/24
fluticasone 500 mcg-salmeterol 50 2 inh inhalation BID 01/26/24 01/30/24
mcg/dose blistr powdr for
inhalation (Advair Diskus)
levothyroxine 150 mcg tablet 150 mcg PO HS 01/26/24 01/30/24
pantoprazole 40 mg tablet,delayed 40 mg PO HS 01/26/24 01/30/24
release (Protonix)
trazodone 150 mg tablet 150 mg PO HS 01/26/24 01/30/24
oxycodone 5 mg tablet 5 - 10 mg (1 - 2 x 5 mg) PO Q4HPRN 01/30/24
PRN moderate to severe pain #20
tabs
oxycodone 5 mg tablet 5 - 10 mg (1 - 2 x 5 mg) PO Q4HPRN 02/05/24
PRN moderate to severe pain #20
tabs
Review of Systems
-
A 12 point ROS was completed and negative except as noted: Yes
Constitutional: Reports Chills
EENT: Reports No Symptoms
Respiratory: Reports No Symptoms
Cardiac: Reports No Symptoms
Abdomen/GI: Reports Abdominal Pain, Nausea, Vomiting and Pain
: Reports No Symptoms
Musculoskeletal: Reports No Symptoms
Skin: Reports No Symptoms
Neurological: Reports No Symptoms
Endocrine: Reports No Symptoms
Hematologic/Lymphatic: Reports No Symptoms
Psych: Reports Calm
Physical Exam
Vital Signs
Vital Signs
Pulse Resp BP Pulse Ox
120 24 108/70 94
02/06/24 21:14 02/06/24 21:14 02/06/24 23:00 02/06/24 23:30
Physical Exam
General: Pain
Respiratory: Clear
Cardiac: Regular Rhythm
GI: Tender (L side of abdomen incision site and lower abdomen), Distended and Other (hypoactive bowel sounds, ecchymosis noted at the lower of the abdomen. Incision site looks clean, dry, and no discharge noted. )
Musculoskeletal: No Edema
Neuro: Awake and AO x 3
Psych: Calm
Laboratory Results
-
02/06/24 22:33
02/06/24:
Laboratory Results
Total Bilirubin 0.4 mg/dl (0.2-1.3) 02/06/24:
AST 69 U/L (14-36) H 02/06/24:
ALT 82 U/L (0-35) H 02/06/24:
Alkaline Phosphatase 47 U/L (38-126) 02/06/24:
Lipase 273 U/L (23-300) 02/06/24:33
Data Reviewed
-
CT Scan: Discussed with Patient
Impression/Plan
-
Abdomen/ PLVS CT Shows
Changes of the RLQ ventral hernia mesh repair with small amount of loculated fluids associated with the mesh.
Areas of subcutaneous infiltration/small volume blood products, without terry-off collections.
Small amount extraperitoneal gas in the upper anterior abdomen, likely residual from recent surgery . No significant eddi pneumoperitoneum.
-No evidence of bowel obstruction, appendix is unremarkable. No signs of colitis.
Indeterminate RT hepatic lobe lesion again demonstrated.
Hysterectomy
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
Fat containing LT groin hernia.
On exam patient has firm distended abdomen with hypoactive bowel sound and ecchymosis noted at the lower side of the abdomen. Tenderness at the LT side of the abdomen around incision site and at the lower side of the abdomen.
IMPRESSION:
Postoperative complication (abdominal pain, nausea and vomiting), CARMEN.
possible ileus, versus obstruction.
PLAN:
Admit/observation/ med-surg (Dr. Mantilla/ surgical service)
NPO
IVF
Antiemetics
Analgesics as needed
CARMEN ---> Cr level 1.3 on admission received NSS bolus in ER will continue IVF and will repeat lab in am.
Asthma will continue with home meds
Anxiety, PTSD, Bipolar, Depression C/W home meds
Hypothyroidism C/W home meds
Hypercholesteremia C/W home meds
GERD C/W home meds
DVT prophylaxis SCDs
Code status Full code
--- NOTE | 2024-02-07 03:12 | W.PN.UPDATE ---
Update Note
Progress Note Update
At 3:10 am called to the patient`s room as the patient requested to leave AMA. Spoke to the patient, discussed the the risk of leaving AMA. Patient decided to leave AMA stating that she can see the surgeon outpatient and she has scheduled
appointment with Dr. Mantilla this Friday. AMA form signed, witnessed by the assigned nurse, and kept in the chart.
== END 2024-02-09 03:00 | disposition left against medical advice (07) ==
LOC: ED 02:49
PROVIDERS: Physician Assistant Medical; ADMITTING PHYSICIAN Surgery; EMERGENCY PHYSICIAN Emergency Medicine; FAMILY PHYSICIAN Nurse Practitioner Adult Health
DX: G89.18 Other acute postprocedural pain (principal); R10.9 Unspecified abdominal pain; R11.2 Nausea with vomiting, unspecified; K59.00 Constipation, unspecified; R14.0 Abdominal distension (gaseous); N17.9 Acute kidney failure, unspecified; F31.9 Bipolar disorder, unspecified; F41.9 Anxiety disorder, unspecified; J45.909 Unspecified asthma, uncomplicated; F43.10 Post-traumatic stress disorder, unspecified; E78.00 Pure hypercholesterolemia, unspecified; G47.30 Sleep apnea, unspecified; E03.9 Hypothyroidism, unspecified; K21.9 Gastro-esophageal reflux disease without esophagitis; G43.909 Migraine, unspecified, not intractable, without status migrainosus; Z79.890 Hormone replacement therapy; Z79.51 Long term (current) use of inhaled steroids; Z85.43 Personal history of malignant neoplasm of ovary; Z85.41 Personal history of malignant neoplasm of cervix uteri; Z87.891 Personal history of nicotine dependence; Z83.3 Family history of diabetes mellitus; Z83.49 Family history of other endocrine, nutritional and metabolic diseases; Z82.49 Family history of ischemic heart disease and other diseases of the circulatory system
CPT/HCPCS: 74022; 74177; 80053; 83690; 84703; 85025; 96361; 96374; 96375; 96376; 99285; G0378; Q9967

== ENCOUNTER 2024-02-20 17:57 | Emergency (ER) | payer BC, SELFPAY ==
[2024-02-20 17:59] VITALS: BP 131/81
[2024-02-20 19:02] VITALS: BP 121/67
[2024-02-20 19:05] VITALS: BMI 37.3
[2024-02-20] MEDS: ANTIVERT 25 MG PO (19:45)
--- NOTE | 2024-02-20 19:46 | ED.GENMED ---
History of Present Illness
General
Chief Complaint: Fainting/Passed Out
Source: patient
Exam Limitations: none
Time Seen by Provider: 02/20/24 19:12
Travel History
Have you had any contact with someone who has COVID-19?: No
Do you have any symptoms of coronavirus? Fever > 100 degrees, chills, cough, shortness of breath, sore throat, loss of taste or smell, muscle aches, or headache?: No
History of Present Illness
History of Present Illness:
49-year-old female presents with syncope x 2 earlier today. First episode was around 1230 this afternoon. She was urinating stood up to pull her pants up and passed out and found her self on the floor. She is uncertain if she hit her head. But
since then she has had dizziness which she describes as a room spinning she has been nauseous and has had vomiting as well. She was just walking in the house and passed out again. Again with dizziness. She denies chest pain or palpitations. She
denies shortness of breath. Of note, patient had a hernia repair with mesh revision on January 27 this year. Since falling this morning she has had increased pain in the upper abdomen. No fever.
Past History
Past History
ED Past Medical History: Asthma, Cancer (ovarian and cervical cancer ), GERD, Hypercholesterolemia, Hypothyroidism, Psychiatric (anxiety, Bipolar, PTSD, Depression) and Other (Migraines, Sleep apnea uses CPAP, Bowel obstruction, Fissure, Eczema)
ED Past Surgical History: , Gynecological (hysterectomy, bilateral oophorectomy. Breast augmentation, ectopic , exploratory laparotomy with lymph node removal and lysis of adhesions in the right hemipelvis) and Other
(Abdominoplasty 2020, Hernia, Spincterotomy, Deviated septum surgery, Hemorrhoids)
Social History
Tobacco: Former smoker
Alcohol: None
Drug: None
Personal:
Living: with family
Employment: Not employed
Family History
Family History: Other (CAD, diabetes, thyroid disease, renal failure)
Phy Exam
Physical Exam
Physical Exam:
General: Well-appearing female no acute respiratory distress
HEENT: Normocephalic pupils equal round reactive to light TMs normal
Heart: Regular rate and rhythm no murmurs
Lungs: Clear no wheeze or rales
Abdomen is sof but tender to the upper abdomen both sides. Mild guarding no rebound tenderness normal bowel soundt
Neurologic: Alert and oriented no facial asymmetry subtle horizontal nystagmus noted. Nik-Hallpike reproduces dizziness more so to the right than the left. No focal deficit otherwise
Course
Orders/Labs/Results
Orders:
Orders
02/20/24 18:05
Electrocardiogram (*1) Urgent
Reason for Study: Chest Pain
EKG- Treatment ONCE
02/20/24 19:35
CT Head W/o Iv Contrast Urgent
Comment:
Reason For Exam: dizzy, syncope
02/20/24 19:36
CT Abd/pelvis W Iv Cont Urgent
Comment:
Reason For Exam: abdominal pain, recent hernia repair
02/20/24 19:37
Meclizine [Antivert] 25 mg PO NOW STA
Ondansetron Injectable [Zofran] 4 mg IV NOW STA
02/20/24 19:38
0.9% Sodium Chloride 1000 ml [Nss] 1,000 ml IV BOLUS
02/20/24 19:45
Complete Blood Count/With Diff Urgent
Comprehensive Metabolic Panel Urgent
Lipase Urgent
Abnormal Lab Results
02/20/24
19:45
BUN 20 H mg/dl
(7-17)
Creatinine 1.2 H mg/dL
(0.6-1.0)
Glucose 103 H mg/dl
(70-99)
ALT 36 H U/L
(0-35)
Alkaline Phosphatase 37 L U/L
(38-126)
Lipase 356 H U/L
(23-300)
02/20/24 19:45
02/20/24 19:45
Vital Signs
Initial and Last Documented VS:
Initial Vital Signs
Temp Pulse Resp BP Pulse Ox
98.0 F 81 20 131/81 97
02/20/24 17:59 02/20/24 17:59 02/20/24 17:59 02/20/24 17:59 02/20/24 17:59
Last Documented Vital Signs
Temp Pulse Resp BP Pulse Ox
98.0 F 74 15 111/74 96
02/20/24 17:59 02/20/24 23:15 02/20/24 23:15 02/20/24 23:00 02/20/24 23:15
MDM/Problems Addressed
Differential Diagnosis Includes:
Syncope x 2 with dizziness and nausea. Question vasovagal versus arrhythmia versus electrolyte abnormality or anemia.
Dizziness question possible vertigo versus central cause. CT pending
Abdominal pain. Question strain from fall versus recurrent hernia CT abdomen pelvis pending.
Will check labs. Patient was admitted briefly about 2 weeks ago for possible acute kidney injury patient ended up leaving on her own account at that time. I reviewed the records from this visit
*Critical Care Note
Total Time (30-74mins, 75-104mins- exclusive of procedures): Not Applicable
Update Note
Update Note:
CT head without significant finding. CT abdomen pelvis shows postsurgical changes and a lung nodule. This information relayed to the patient. She already saw the information on her portal before he got back into the room. She is feeling much
better after treatment here with hydration Zofran and meclizine. Suspect possible positional vertigo causing nausea and vomiting and vasovagal episodes.
ED Attending Note
-
Portions of this chart may have been created with voice recognition software.� Occasional wrong word or��sound alike� substitutions may have occurred due to the inherent limitations of voice recognition software.
Discharge Plan
Departure
Patient Disposition: Home (Routine Discharge)
Date of Disposition: 02/20/24
Time of Disposition: 23:24
Patient with high blood pressure during this ER visit?: No
Discharge Problem:
Nausea and vomiting
Instructions: Syncope (Fainting) (DC)
Prescriptions:
New
ondansetron HCl 4 mg tablet
4 mg PO Q8H PRN (Reason: nausea and vomiting) Qty: 10 0RF
meclizine 25 mg tablet
25 mg PO TID PRN (Reason: dizziness) Qty: 10 0RF
No Action
docusate sodium 100 MG capsule
200 mg PO HS
sertraline 100 MG tablet
100 mg PO HS
fenofibrate 160 MG tablet
160 mg PO HS
acetaminophen 325 MG tablet
650 mg PO DAILYPRN PRN (Reason: mild pain)
alprazolam 1 MG tablet
2 mg PO HS
Patient Comments:
06/28/2020: last filled 05/02/20, 60 tabs for 30 days from [place]
prazosin 1 MG capsule
2 mg PO HS
Vraylar 3 MG capsule
3 mg PO HS
ondansetron 4 mg tablet,disintegrating
4 mg PO TIDPRN PRN (Reason: nausea/vomiting) Qty: 10 0RF
famotidine [Pepcid] 40 mg Tablet
40 mg PO HS
pantoprazole [Protonix] 40 mg Tablet,Delayed Release (Dr/Ec)
40 mg PO HS
trazodone 150 mg Tablet
150 mg PO HS
levothyroxine 150 mcg Tablet
150 mcg PO HS
fluticasone propion-salmeterol [Advair Diskus] 500-50 mcg/dose Blister With Device
2 inh INHALATION BID
cholecalciferol (vitamin D3) [Vitamin D3] 125 mcg (5,000 unit) Tablet
125 mcg PO HS
albuterol sulfate [ProAir HFA] 90 mcg/actuation HFA aerosol inhaler
2 puff INHALATION Q4HPRN PRN (Reason: shortness of breath)
oxycodone 5 mg tablet
5 - 10 mg PO Q4HPRN PRN (Reason: moderate to severe pain) Qty: 20 0RF
oxycodone 5 mg tablet
5 - 10 mg PO Q4HPRN PRN (Reason: moderate to severe pain) Qty: 20 0RF
oxycodone 5 mg tablet
5 - 10 mg PO Q4HPRN PRN (Reason: moderate to severe pain) Qty: 15 0RF
oxycodone 5 mg tablet
5 - 10 mg PO Q4HPRN PRN (Reason: moderate to severe pain) Qty: 15 0RF
Referrals:
Jolanta Saavedra CRNP [Family Provider] -
Activity Restrictions/Additional Instructions:
Stay hydrated. Use Zofran if needed for nausea and meclizine if needed for dizziness. Return if worse otherwise follow-up with your doctor and surgeon
Interventions
Interventions:
*Risk Screen - Suicide Last Done: 02/20/24 17:59
*General Assessment Last Done: 02/20/24 17:59
*Neglect/Abuse Screening Last Done: 02/20/24 17:59
ED- Fall Risk Assessment Last Done: 02/20/24 19:05
*ED COVID-19 Vaccine History Last Done: 02/20/24 19:05
ED- Cardiac Assessment Last Done: 02/20/24 23:05
ED- Neurological Assessment Last Done: 02/20/24 23:05
Discharge Date and Time
Print Language: BELARUSIAN
[2024-02-20] MEDS: ZOFRAN 4 MG IV (19:54)
[2024-02-20] MEDS: NSS 1000 IV (19:54)
[2024-02-20 20:00] VITALS: BP 123/66
[2024-02-20 20:00] LABS: % Basophils 1.3 % (0-2); % Eosinophils 3.8 % (0-6); % Immature Granulocytes 0.2 % (0-0.5); % Lymphocytes 29.3 % (20.5-51.1); % Monocytes 7.1 % (1.7-9.3); % Neutrophils 58.3 % (42.2-75.2); Absolute Basophils 0.1 10^3/uL (0-0.2); Absolute Eosinophils 0.2 10^3/uL (0-0.7); Absolute Lymphocytes 1.6 10^3/uL (1.2-3.4); Absolute Monocytes 0.4 10^3/uL (0.1-0.6); Absolute Neutrophils 3.3 10^3/uL (1.4-6.5); Hematocrit 38.9 % (37.0-47.0); Mean Corp Hgb Conc. 33.4 g/dL (33.0-37.0); Mean Corpuscular Hgb 30.8 pg (27.0-31.0); Mean Corpuscular Volume 92.2 fL (81.0-99.0); Mean Platelet Volume 9.7 fL (7.4-10.4); Nucleated Red Blood Cells % 0 %; Platelet Count 339 10^3/uL (130-400); Red Blood Cell Count 4.22 10^6/uL (4.20-5.40); Red Cell Dist. Width 13.3 % (11.5-14.5); White Blood Cell Count 5.6 10^3/uL (4.8-10.8)
[2024-02-20 20:31] LABS: ALT (SGPT) 36 U/L (0-35); AST (SGOT) 31 U/L (14-36); Albumin 4.6 g/dl (3.5-5.0); Alkaline Phosphatase 37 U/L (38-126); Blood Urea Nitrogen 20 mg/dl (7-17); Calcium 9.9 mg/dl (8.4-10.2); Carbon Dioxide 30 mmol/L (22-30); Chloride 101 mmol/L (98-107); Estimated Creatinine Clearance 72 ml/min; Glucose 103 mg/dl (70-99); Lipase 356 U/L (23-300); Potassium 4.3 mmol/L (3.5-5.1); Sodium 139 mmol/L (135-145); Total Bilirubin 0.4 mg/dl (0.2-1.3); Total Protein 7.3 g/dl (6.3-8.2); eGFR 55.49
[2024-02-20 22:57] VITALS: BP 111/65
[2024-02-20 23:00] VITALS: BP 111/74
== END 2024-02-20 23:35 | disposition home or self-care (01) ==
LOC: EMR 17:57
PROVIDERS: Physician Assistant; EMERGENCY PHYSICIAN Student in an Organized Health Care Education/Training Program; FAMILY PHYSICIAN Nurse Practitioner Adult Health
DX: R55 Syncope and collapse (principal); R11.2 Nausea with vomiting, unspecified; R10.10 Upper abdominal pain, unspecified; W18.30XA Fall on same level, unspecified, initial encounter; R91.1 Solitary pulmonary nodule; J45.909 Unspecified asthma, uncomplicated; K21.9 Gastro-esophageal reflux disease without esophagitis; E78.00 Pure hypercholesterolemia, unspecified; E03.9 Hypothyroidism, unspecified; F31.9 Bipolar disorder, unspecified; F41.9 Anxiety disorder, unspecified; F43.10 Post-traumatic stress disorder, unspecified; F32.A Depression, unspecified; G43.909 Migraine, unspecified, not intractable, without status migrainosus; G47.30 Sleep apnea, unspecified; Z85.41 Personal history of malignant neoplasm of cervix uteri; Z85.43 Personal history of malignant neoplasm of ovary; Z87.891 Personal history of nicotine dependence; Z88.1 Allergy status to other antibiotic agents; Z88.5 Allergy status to narcotic agent; Z91.013 Allergy to seafood; Z88.2 Allergy status to sulfonamides; Z88.8 Allergy status to other drugs, medicaments and biological substances; Z91.048 Other nonmedicinal substance allergy status
CPT/HCPCS: 99285; 96361; 96374; 70450; 74177; 80053; 83690; 85025; 93005; Q9967

== ENCOUNTER 2024-04-07 14:50 | Emergency (ER) | payer BC, SELFPAY ==
[2024-04-07 15:05] VITALS: BP 123/87; BMI 36.2
[2024-04-07 16:42] VITALS: BP 148/83
--- NOTE | 2024-04-07 16:57 | ED.GENMED ---
History of Present Illness
General
Chief Complaint: Cough
Source: patient
Exam Limitations: none
Time Seen by Provider: 04/07/24 16:57
Nursing documentation reviewed up to this point in time: agreed with
History of Present Illness
History of Present Illness:
49-year-old female with history of Bipolar, Depression, PTSD, sleep apnea using CPAP, asthma, HLD, GERD, IBS, Evelyn's thyroiditis, hx cervical and ovarian CA, pulmonary nodule on 02/[address] presents for 3 days of cough and pain in the right mid
thoracic area of her back, worse with cough 'like someone is punching me in the area.' She denies fever or chills. Denies productive cough. Denies chest pain. Does feel short of breath if she bends over to pick something up but not if she squats
to pick something up.
She has a history of chronic dizziness and is followed by neurologist Dr. Vyas and has an MRI of her brain scheduled for tomorrow and an EEG scheduled for next week.
She saw her water plant maintenance mechanic Dr. Alvarenga for an incidental right lung nodule and he scheduled her for follow up in June.
Her PCP Dr. Awad referred pt to Oncologist Dr. Peterson who ordered PET scan for 04/22 due to her hx of cancer.
Past History
Past History
ED Past Medical History: Asthma, Cancer (ovarian and cervical cancer ), GERD, Hypercholesterolemia, Hypothyroidism, Psychiatric (anxiety, Bipolar, PTSD, Depression) and Other (Migraines, Sleep apnea uses CPAP, Bowel obstruction, Fissure, Eczema)
ED Past Surgical History: , Gynecological (hysthysterectomy, bilateral oophorectomy. Breast augmentation, ectopic , exploratory laparotomy with lymph node removal and lysis of adhesions in the right hemipelvis) and Other
(Abdominoplasty 2020, Hernia, Spincterotomy, Deviated septum surgery, Hemorrhoids)
Social History
Tobacco: Former smoker
Alcohol: None
Drug: None
Personal:
Living: with family
Employment: Not employed
Family History
Family History: Other (CAD, diabetes, thyroid disease, renal failure)
Review of Systems
Review of Systems
Allergies reviewed?: Yes
All Other Systems: ROS reviewed and negative except as documented in HPI and ROS
Constitutional: Denies fever or chills
EENT: Denies sore throat
Respiratory: Reports cough; Denies trouble breathing
Cardiac: Denies chest pain
ABD/GI: Denies abdominal pain, nausea, vomiting or diarrhea
: Denies dysuria, difficulty voiding or urgency
Musculoskeletal: Reports back pain (Right mid thorax area)
Skin: Reports no symptoms
Neurological: Reports no symptoms
Phy Exam
Physical Exam
Physical Exam:
GENERAL: No acute distress. A&Ox3.
CONSTITUTIONAL: Afebrile.
EYES: Clear, conjunctivae normal
ENMT: moist mucus membranes, Pharynx nl
RESPIRATORY: Regular respirations, nonlabored, lungs clear. Pulse ox 98% room air. Dry hacking cough noted
CARDIOVASCULAR: Regular rate and rhythm, no murmurs, no rubs.
GI: Soft, nontender, normal BS
MUSCULOSKELETAL: Moves with ease. Well perfused.
SKIN: Warm, dry, pink
PSYCH: Normal mood and affect. Well kept, interactive and appropriate
NEUROLOGIC: Awake, alert and oriented. No focal neurological deficits
Course
Orders/Labs/Results
Orders:
Orders
04/07/24 18:03
COVID-19 Antigen Urgent
Source: Nasal Swab
Complete Blood Count/With Diff Urgent
Comprehensive Metabolic Panel Urgent
D-Dimer Urgent
04/07/24 19:45
CR Chest - 2 Views Urgent
Comment:
Reason For Exam: cough pain right mid thorax
Abnormal Lab Results
04/07/24
18:03
MCH 31.2 H pg
(27.0-31.0)
Carbon Dioxide 31 H mmol/L
(22-30)
Creatinine 1.2 H mg/dL
(0.6-1.0)
Glucose 118 H mg/dl
(70-99)
AST 56 H U/L
(14-36)
ALT 51 H U/L
(0-35)
04/07/24 18:03
04/07/24 18:03
Vital Signs
Initial and Last Documented VS:
Initial Vital Signs
Temp Pulse Resp BP Pulse Ox
97.2 F 75 18 123/87 98
04/07/24 15:05 04/07/24 15:05 04/07/24 15:05 04/07/24 15:05 04/07/24 15:05
Last Documented Vital Signs
Temp Pulse Resp BP Pulse Ox
98 F 73 26 128/67 98
04/07/24 16:42 04/07/24 19:45 04/07/24 19:45 04/07/24 19:00 04/07/24 19:45
MDM/Problems Addressed
Differential Diagnosis Includes:
Pneumonia, viral URI, PE, musculoskeletal pain
MDM/Problems Addressed:
49-year-old female with history of Bipolar, Depression, PTSD, sleep apnea using CPAP, asthma, HLD, GERD, IBS, Evelyn's thyroiditis, hx cervical and ovarian CA, pulmonary nodule on 02/[address] presents for 3 days of cough and pain in the right mid
thoracic area of her back, worse with cough 'like someone is punching me in the area.' She denies fever or chills. Denies productive cough. Denies chest pain. Does feel short of breath if she bends over to pick something up but not if she squats
to pick something up.
She has a history of chronic dizziness and is followed by neurologist Dr. Vyas and has an MRI of her brain scheduled for tomorrow and an EEG scheduled for next week.
She saw her water plant maintenance mechanic Dr. Alvarenga for an incidental right lung nodule and he scheduled her for follow up in June.
Her PCP Dr. Awad referred pt to Oncologist Dr. Peterson who ordered PET scan for 04/22 due to her hx of cancer.
she has no known active cancer now
Will check dimer to rule out PE
7:45 PM:
D dimer normal
CBC normal
CMP with no clinically significant abnormality creatinine is at her baseline, chronic mild elevation of AST and ALT
COVID-negative D-dimer negative
CXR: NAD
Thoracic back pain most likely musculoskeletal from her coughing spells
Given rx for Tessalon Perles
Pt ambulated out with normal gait.
*Critical Care Note
Total Time (30-74mins, 75-104mins- exclusive of procedures): Not Applicable
ED Attending Note
-
Portions of this chart may have been created with voice recognition software.� Occasional wrong word or��sound alike� substitutions may have occurred due to the inherent limitations of voice recognition software.
Discharge Plan
Departure
Patient Disposition: Home (Routine Discharge)
Date of Disposition: 04/07/24
Time of Disposition: 20:39
Patient with high blood pressure during this ER visit?: No
Condition: Good
Discharge Problem:
Cough in adult, Musculoskeletal back pain
Instructions: Cough, Adult ED, Musculoskeletal Pain
Prescriptions:
New
benzonatate 100 mg capsule
100 mg PO TID PRN (Reason: Cough) Qty: 20 0RF
No Action
docusate sodium 100 MG capsule
200 mg PO HS
sertraline 100 MG tablet
100 mg PO HS
fenofibrate 160 MG tablet
160 mg PO HS
acetaminophen 325 MG tablet
650 mg PO DAILYPRN PRN (Reason: mild pain)
alprazolam 1 MG tablet
2 mg PO HS
Patient Comments:
06/28/2020: last filled 05/02/20, 60 tabs for 30 days from [place]
prazosin 1 MG capsule
2 mg PO HS
Vraylar 3 MG capsule
3 mg PO HS
ondansetron 4 mg tablet,disintegrating
4 mg PO TIDPRN PRN (Reason: nausea/vomiting) Qty: 10 0RF
famotidine [Pepcid] 40 mg Tablet
40 mg PO HS
pantoprazole [Protonix] 40 mg Tablet,Delayed Release (Dr/Ec)
40 mg PO HS
trazodone 150 mg Tablet
150 mg PO HS
levothyroxine 150 mcg Tablet
150 mcg PO HS
fluticasone propion-salmeterol [Advair Diskus] 500-50 mcg/dose Blister With Device
2 inh INHALATION BID
cholecalciferol (vitamin D3) [Vitamin D3] 125 mcg (5,000 unit) Tablet
125 mcg PO HS
albuterol sulfate [ProAir HFA] 90 mcg/actuation HFA aerosol inhaler
2 puff INHALATION Q4HPRN PRN (Reason: shortness of breath)
oxycodone 5 mg tablet
5 - 10 mg PO Q4HPRN PRN (Reason: moderate to severe pain) Qty: 20 0RF
oxycodone 5 mg tablet
5 - 10 mg PO Q4HPRN PRN (Reason: moderate to severe pain) Qty: 20 0RF
oxycodone 5 mg tablet
5 - 10 mg PO Q4HPRN PRN (Reason: moderate to severe pain) Qty: 15 0RF
oxycodone 5 mg tablet
5 - 10 mg PO Q4HPRN PRN (Reason: moderate to severe pain) Qty: 15 0RF
ondansetron HCl 4 mg tablet
4 mg PO Q8H PRN (Reason: nausea and vomiting) Qty: 10 0RF
meclizine 25 mg tablet
25 mg PO TID PRN (Reason: dizziness) Qty: 10 0RF
Referrals:
D'Erik,Huma, COOK MESS [Family Provider] -
Activity Restrictions/Additional Instructions:
As we discussed, there is nothing worrisome in your workup here today.
Your back pain is probably musculoskeletal pain from your cough.
Try the Tessalon Perles for your cough
You chest xray is normal.
Your d dimer is normal, no sign of a blood clot
Your lab work shows nothing worrisome.
Your Covid test is negative.
Keep your upcoming appointments with your doctors.
Interventions
Interventions:
*Risk Screen - Suicide Last Done: 04/07/24 15:05
*General Assessment Last Done: 04/07/24 18:08
*Neglect/Abuse Screening Last Done: 04/07/24 15:05
*ED COVID-19 Vaccine History Last Done: 04/07/24 18:08
*Nursing Disposition Last Done: 04/07/24 21:00
ED- Pulmonary Assessment Last Done: 04/07/24 18:09
Discharge Date and Time
Discharge Date/Time: 04/07/24 21:00
Print Language: TAJIK
[2024-04-07 18:10] LABS: % Basophils 0.8 % (0-2); % Eosinophils 2.8 % (0-6); % Immature Granulocytes 0.2 % (0-0.5); % Lymphocytes 28.8 % (20.5-51.1); % Monocytes 6.4 % (1.7-9.3); Absolute Basophils 0.1 10^3/uL (0-0.2); Absolute Eosinophils 0.2 10^3/uL (0-0.7); Absolute Lymphocytes 1.7 10^3/uL (1.2-3.4); Absolute Monocytes 0.4 10^3/uL (0.1-0.6); Absolute Neutrophils 3.7 10^3/uL (1.4-6.5); Hematocrit 39.5 % (37.0-47.0); Hemoglobin 13.8 g/dL (12.0-16.0); Mean Corp Hgb Conc. 34.9 g/dL (33.0-37.0); Mean Corpuscular Hgb 31.2 pg (27.0-31.0); Mean Corpuscular Volume 89.2 fL (81.0-99.0); Mean Platelet Volume 9.7 fL (7.4-10.4); Nucleated Red Blood Cells % 0 %; Platelet Count 336 10^3/uL (130-400); Red Blood Cell Count 4.43 10^6/uL (4.20-5.40); Red Cell Dist. Width 13.5 % (11.5-14.5); White Blood Cell Count 6.1 10^3/uL (4.8-10.8)
[2024-04-07 18:16] VITALS: BP 135/65
[2024-04-07 18:26] LABS: ALT (SGPT) 51 U/L (0-35); AST (SGOT) 56 U/L (14-36); Albumin 4.8 g/dl (3.5-5.0); Alkaline Phosphatase 42 U/L (38-126); Blood Urea Nitrogen 14 mg/dl (7-17); Calcium 10.1 mg/dl (8.4-10.2); Carbon Dioxide 31 mmol/L (22-30); Chloride 100 mmol/L (98-107); Estimated Creatinine Clearance 71 ml/min; Glucose 118 mg/dl (70-99); Potassium 3.9 mmol/L (3.5-5.1); Sodium 139 mmol/L (135-145); Total Bilirubin 0.5 mg/dl (0.2-1.3); Total Protein 7.6 g/dl (6.3-8.2); eGFR 55.49
[2024-04-07 18:27] LABS: COVID-19 Antigen Negative (Negative)
[2024-04-07 18:29] LABS: D-Dimer < 0.27 ug/mlFEU (0.00-0.50)
[2024-04-07 19:00] VITALS: BP 128/67
== END 2024-04-07 21:00 | disposition home or self-care (01) ==
LOC: EMR 14:50
PROVIDERS: Registered Nurse; EMERGENCY PHYSICIAN Emergency Medicine; FAMILY PHYSICIAN Nurse Practitioner Adult Health
DX: R05.9 Cough, unspecified (principal); M54.9 Dorsalgia, unspecified; F31.9 Bipolar disorder, unspecified; Z87.891 Personal history of nicotine dependence; E78.00 Pure hypercholesterolemia, unspecified; K21.9 Gastro-esophageal reflux disease without esophagitis; Z11.52 Encounter for screening for COVID-19
CPT/HCPCS: 99284; 71046; 80053; 85025; 85379; 87811

== ENCOUNTER → 2024-04-08 11:18 | Outpatient (REF) | payer BC, SELFPAY | LOC: PAVMRI 11:18 | PROVIDERS: ATTENDING PHYSICIAN Specialist; FAMILY PHYSICIAN Nurse Practitioner Adult Health | DX: R55 Syncope and collapse (principal) | CPT/HCPCS: 70553; A9575 ==

== ENCOUNTER 2024-05-14 14:46 | Emergency (ER) | payer BC, SELFPAY ==
[2024-05-14 14:49] VITALS: BP 124/91
[2024-05-14 16:21] VITALS: BMI 35.9
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
[2024-05-14 16:39] VITALS: BP 119/75
[2024-05-14 17:00] VITALS: BP 106/73
[2024-05-14 18:03] LABS: % Basophils 0.7 % (0-2); % Eosinophils 2.4 % (0-6); % Immature Granulocytes 0.3 % (0-0.5); % Lymphocytes 20.1 % (20.5-51.1); % Monocytes 5.5 % (1.7-9.3); Absolute Basophils 0.1 10^3/uL (0-0.2); Absolute Eosinophils 0.2 10^3/uL (0-0.7); Absolute Lymphocytes 1.8 10^3/uL (1.2-3.4); Absolute Monocytes 0.5 10^3/uL (0.1-0.6); Absolute Neutrophils 6.3 10^3/uL (1.4-6.5); Hematocrit 40.8 % (37.0-47.0); Hemoglobin 14.2 g/dL (12.0-16.0); Mean Corp Hgb Conc. 34.8 g/dL (33.0-37.0); Mean Corpuscular Hgb 30.5 pg (27.0-31.0); Mean Corpuscular Volume 87.7 fL (81.0-99.0); Mean Platelet Volume 9.4 fL (7.4-10.4); Nucleated Red Blood Cells % 0 %; Platelet Count 372 10^3/uL (130-400); Red Blood Cell Count 4.65 10^6/uL (4.20-5.40); Red Cell Dist. Width 13.4 % (11.5-14.5); White Blood Cell Count 8.9 10^3/uL (4.8-10.8)
--- NOTE | 2024-05-14 18:07 | ED.GENMED ---
History of Present Illness
General
Chief Complaint: Fall
Time Seen by Provider: 05/14/24 17:18
History of Present Illness
History of Present Illness:
49-year-old female presents the emergency department for evaluation of multiple injuries after a syncopal event. She is currently being worked up on outpatient basis for her syncope, has previously seen neurology and undergone an EEG that was
unremarkable, also following with cardiology and had a negative Holter monitor. Upcoming plan is for an echocardiogram. She apparently syncopized after standing up from the toilet, did strike her head. She is complaining of left shoulder pain
with paresthesia-like pain radiating to the left hand as well as left knee pain.
Past History
Past History
ED Past Medical History: Asthma, Cancer (ovarian and cervical cancer ), GERD, Hypercholesterolemia, Hypothyroidism, Psychiatric (anxiety, Bipolar, PTSD, Depression) and Other (Migraines, Sleep apnea uses CPAP, Bowel obstruction, Fissure, Eczema)
ED Past Surgical History: , Gynecological (hysthysterectomy, bilateral oophorectomy. Breast augmentation, ectopic , exploratory laparotomy with lymph node removal and lysis of adhesions in the right hemipelvis) and Other
(Abdominoplasty 2020, Hernia, Spincterotomy, Deviated septum surgery, Hemorrhoids)
Social History
Tobacco: Former smoker
Alcohol: None
Drug: None
Personal:
Living: with family
Employment: Not employed
Family History
Family History: Other (CAD, diabetes, thyroid disease, renal failure)
Review of Systems
Review of Systems
Allergies reviewed?: Yes
All Other Systems: ROS reviewed and negative except as documented in HPI and ROS
Phy Exam
Physical Exam
Physical Exam:
GEN: Well appearing, NAD, WDWN
HEENT: Oral mucosa moist, no scleral icterus
Cardiac: Regular rate
Lung: No respiratory distress, no tachypnea
MSK: No gross deformity or injuries. The left shoulder is diffusely tender to palpation with no focal tenderness. The left shoulder is unable to be assessed otherwise based on range of motion due to pain. She does have intact sensation to the
left fingers and a strong radial pulse
Skin: Good color, no pallor or jaundice, no rashes
Neuro: AO x3, moves all extremities freely
Psych: Calm, cooperative
Course
Orders/Labs/Results
Orders:
Orders
05/14/24 14:53
Electrocardiogram (*1) Urgent
Reason for Study: Vertigo / Dizzy
EKG- Treatment ONCE
05/14/24 15:04
CT Cervical Spine W/o Iv Contr Urgent
Comment:
Reason For Exam: head strike
CT Head W/o Iv Contrast Urgent
Comment:
Reason For Exam: head strike
CR Knee - Left 4 Or More View* Urgent
Comment:
Reason For Exam: injury
CR Shoulder, Trauma - Left Urgent
Reason For Exam: injury
05/14/24 17:38
Complete Blood Count/With Diff Urgent
Comprehensive Metabolic Panel Urgent
05/14/24 18:44
Ketorolac [Toradol] 15 mg IV NOW STA
05/14/24 18:49
Ketorolac [Toradol] 30 mg IM NOW STA
05/14/24 19:03
Sling Left-Treatment ONCE
Abnormal Lab Results
05/14/24
17:38
Lymphocytes % 20.1 L %
(20.5-51.1)
AST 45 H U/L
(14-36)
ALT 46 H U/L
(0-35)
05/14/24 17:38
05/14/24 17:38
Vital Signs
Initial and Last Documented VS:
Initial Vital Signs
Temp Pulse Resp BP Pulse Ox
98.0 F 97 16 124/91 98
05/14/24 14:49 05/14/24 14:49 05/14/24 14:49 05/14/24 14:49 05/14/24 14:49
Last Documented Vital Signs
Temp Pulse Resp BP Pulse Ox
98.0 F 76 19 108/72 98
05/14/24 14:49 05/14/24 19:00 05/14/24 19:00 05/14/24 19:00 05/14/24 14:49
MDM/Problems Addressed
MDM/Problems Addressed:
Likely some component of vasovagal syncope, she is not obviously orthostatic in the emergency department and standing blood pressure measurement myself was 126/71. She has no evidence for acute osseous abnormality left shoulder but the superior
subluxation noted on x-ray may suggest a rotator cuff injury versus a transient dislocation normal since reduced. Patient is placed in a sling due to degree of discomfort. The radicular pain likely indicates brachial neuritis versus axillary nerve
injury but she has no obvious distal deficits concerning for severe neurologic injury. Will recommend close orthopedic follow-up. Syncope workup can be continued as an outpatient as planned
*Critical Care Note
Total Time (30-74mins, 75-104mins- exclusive of procedures): Not Applicable
ED Attending Note
-
Portions of this chart may have been created with voice recognition software.� Occasional wrong word or��sound alike� substitutions may have occurred due to the inherent limitations of voice recognition software.
Discharge Plan
Departure
Patient Disposition: Home (Routine Discharge)
Date of Disposition: 05/14/24
Time of Disposition: 18:53
Patient with high blood pressure during this ER visit?: No
Discharge Problem:
Sprain of left shoulder, Syncope
Instructions: Rotator Cuff Injury (DC)
Prescriptions:
New
diclofenac sodium 75 mg tablet,delayed release (DR/EC)
75 mg PO BID Qty: 20 0RF
hydrocodone-acetaminophen 5-325 mg tablet
1 tab PO Q8H PRN (Reason: pain) Qty: 8 0RF
No Action
docusate sodium 100 MG capsule
200 mg PO HS
sertraline 100 MG tablet
100 mg PO HS
fenofibrate 160 MG tablet
160 mg PO HS
acetaminophen 325 MG tablet
650 mg PO DAILYPRN PRN (Reason: mild pain)
alprazolam 1 MG tablet
2.5 mg PO HS
Vraylar 3 MG capsule
3 mg PO HS
ondansetron 4 mg tablet,disintegrating
4 mg PO TIDPRN PRN (Reason: nausea/vomiting) Qty: 10 0RF
famotidine [Pepcid] 40 mg Tablet
40 mg PO HS
pantoprazole [Protonix] 40 mg Tablet,Delayed Release (Dr/Ec)
40 mg PO HS
trazodone 150 mg Tablet
150 mg PO HS
levothyroxine 150 mcg Tablet
150 mcg PO HS
fluticasone propion-salmeterol [Advair Diskus] 500-50 mcg/dose Blister With Device
2 inh INHALATION DAILYPRN PRN (Reason: allergies)
cholecalciferol (vitamin D3) [Vitamin D3] 125 mcg (5,000 unit) Tablet
125 mcg PO HS
meclizine 25 mg tablet
25 mg PO TID PRN (Reason: dizziness) Qty: 10 0RF
ibuprofen 800 mg Tablet
800 mg PO DAILYPRN PRN (Reason: pain/headache)
gabapentin 300 mg Capsule
300 mg PO HS
Repatha Syringe 140 mg/mL Syringe
140 mg SC Q2W
Zepbound 5 mg/0.5 mL Pen Injector
5 mg SC WE
Referrals:
Meliton Constantino MD [Active] -
UNKNOWN - PT DOES,NOT KNOW [Family Provider] -
Interventions
Interventions:
*Risk Screen - Suicide Last Done: 05/14/24 14:49
*General Assessment Last Done: 05/14/24 14:49
*Neglect/Abuse Screening Last Done: 05/14/24 14:49
ED- Fall Risk Assessment Last Done: 05/14/24 16:43
*ED COVID-19 Vaccine History Last Done: 05/14/24 14:49
*Nursing Disposition Last Done: 05/14/24 19:18
ED-Musculoskeletal Assessment Last Done: 05/14/24 16:43
ED- Neurological Assessment Last Done: 05/14/24 16:43
ED-Skin Assessment Last Done: 05/14/24 16:43
Discharge Date and Time
Discharge Date/Time: 05/14/24 19:18
Print Language: KHMER
[2024-05-14 18:13] LABS: ALT (SGPT) 46 U/L (0-35); AST (SGOT) 45 U/L (14-36); Albumin 4.8 g/dl (3.5-5.0); Alkaline Phosphatase 48 U/L (38-126); Blood Urea Nitrogen 16 mg/dl (7-17); Calcium 10.1 mg/dl (8.4-10.2); Carbon Dioxide 28 mmol/L (22-30); Chloride 103 mmol/L (98-107); Estimated Creatinine Clearance 84 ml/min; Glucose 91 mg/dl (70-99); Potassium 4.2 mmol/L (3.5-5.1); Sodium 143 mmol/L (135-145); Total Bilirubin 0.6 mg/dl (0.2-1.3); Total Protein 7.5 g/dl (6.3-8.2); eGFR > 60.00
[2024-05-14] MEDS: TORADOL 30 MG IM (18:54)
[2024-05-14 19:00] VITALS: BP 108/72
== END 2024-05-14 19:18 | disposition home or self-care (01) ==
LOC: EMR 14:46
PROVIDERS: Physician Assistant; EMERGENCY PHYSICIAN Emergency Medicine
DX: R55 Syncope and collapse (principal); S43.402A Unspecified sprain of left shoulder joint, initial encounter; M25.562 Pain in left knee; W19.XXXA Unspecified fall, initial encounter; Z87.891 Personal history of nicotine dependence
CPT/HCPCS: 99285; 96372; 70450; 72125; 73030; 73564; 80053; 85025; 93005

== ENCOUNTER → 2024-06-02 12:51 | Outpatient (REF) | payer BC, SELFPAY | LOC: RAD 12:51 | PROVIDERS: ATTENDING PHYSICIAN Surgery | DX: R10.31 Right lower quadrant pain (principal) | CPT/HCPCS: 74177; Q9967 ==

== ENCOUNTER 2024-06-03 16:16 | Emergency (ER) | payer BC, SELFPAY ==
[2024-06-03 16:23] VITALS: BP 149/93
--- NOTE | 2024-06-03 17:13 | ED.GENMED ---
History of Present Illness
General
Chief Complaint: Allergic Reaction
Time Seen by Provider: 06/03/24 17:00
History of Present Illness
History of Present Illness:
49-year-old female presents the emergency department for evaluation of facial paresthesias and difficulty breathing after receiving a steroid injection in her left arm yesterday. Denies any difficulty swallowing or speech difficulty. No chest pain
or coughing. No rashes or skin itching.
Past History
Past History
ED Past Medical History: Asthma, Cancer (ovarian and cervical cancer ), GERD, Hypercholesterolemia, Hypothyroidism, Psychiatric (anxiety, Bipolar, PTSD, Depression) and Other (Migraines, Sleep apnea uses CPAP, Bowel obstruction, Fissure, Eczema)
ED Past Surgical History: , Gynecological (hysthysterectomy, bilateral oophorectomy. Breast augmentation, ectopic , exploratory laparotomy with lymph node removal and lysis of adhesions in the right hemipelvis) and Other
(Abdominoplasty 2020, Hernia, Spincterotomy, Deviated septum surgery, Hemorrhoids)
Social History
Tobacco: Former smoker
Alcohol: None
Drug: None
Personal:
Living: with family
Employment: Not employed
Family History
Family History: Other (CAD, diabetes, thyroid disease, renal failure)
Review of Systems
Review of Systems
Allergies reviewed?: Yes
All Other Systems: ROS reviewed and negative except as documented in HPI and ROS
Phy Exam
Physical Exam
Physical Exam:
GEN: Well appearing, NAD, WDWN
HEENT: Oral mucosa moist, no scleral icterus, oropharynx patent with no oral lesions, no swelling
Cardiac: Regular rate
Lung: No respiratory distress, no tachypnea, lungs clear to auscultation
MSK: No gross deformity or injuries
Skin: Good color, no pallor or jaundice, no rashes
Neuro: AO x3, moves all extremities freely
Psych: Calm, cooperative
Sepsis
Sepsis Screening
Sepsis Assessment: Sepsis Ruled Out
Sepsis Screen
Sepsis Screen: Sepsis Ruled Out
Date: 06/03/24
Time: 22:55
Course
Orders/Labs/Results
Orders:
Orders
06/03/24 17:12
Diphenhydramine [Benadryl] 25 mg IV NOW STA
Famotidine [Pepcid] 20 mg IV NOW STA
06/03/24 17:23
Complete Blood Count/With Diff Urgent
Comprehensive Metabolic Panel Urgent
Influenza A+B Rapid Molecular Urgent
CHASITY Source: Nasal Swab
Specimen Description:
Abnormal Lab Results
06/03/24
17:23
Absolute Neuts (auto) 7.0 H 10^3/uL
(1.4-6.5)
Neutrophils % 78.3 H %
(42.2-75.2)
Lymphocytes % 15.4 L %
(20.5-51.1)
Carbon Dioxide 20 L mmol/L
(22-30)
Creatinine 1.3 H mg/dL
(0.6-1.0)
Glucose 110 H mg/dl
(70-99)
Calcium 10.6 H mg/dl
(8.4-10.2)
AST 43 H U/L
(14-36)
ALT 44 H U/L
(0-35)
Total Protein 8.3 H g/dl
(6.3-8.2)
Albumin 5.4 H g/dl
(3.5-5.0)
06/03/24 17:23
06/03/24 17:23
Vital Signs
Initial and Last Documented VS:
Initial Vital Signs
Temp Pulse Resp BP Pulse Ox
97.8 F 83 16 149/93 100
06/03/24 16:23 06/03/24 16:23 06/03/24 16:23 06/03/24 16:23 06/03/24 16:23
Last Documented Vital Signs
Temp Pulse Resp BP Pulse Ox
97.8 F 74 20 116/71 100
06/03/24 16:23 06/03/24 18:40 06/03/24 18:30 06/03/24 18:40 06/03/24 18:40
MDM/Problems Addressed
MDM/Problems Addressed:
No objective signs of anaphylaxis or angioedema, patient's did reports a fever earlier in the day thus labs were obtained, workup was grossly unremarkable and she is improved after antihistamine therapy. Facial paresthesias very well could be
secondary to steroid administration yesterday
*Critical Care Note
Total Time (30-74mins, 75-104mins- exclusive of procedures): Not Applicable
ED Attending Note
-
Portions of this chart may have been created with voice recognition software.� Occasional wrong word or��sound alike� substitutions may have occurred due to the inherent limitations of voice recognition software.
Discharge Plan
Departure
Patient Disposition: Home (Routine Discharge)
Date of Disposition: 06/03/24
Time of Disposition: 18:31
Patient with high blood pressure during this ER visit?: No
Discharge Problem:
Facial paresthesia
Instructions: Paresthesia (DC)
Prescriptions:
No Action
docusate sodium 100 MG capsule
200 mg PO HS
sertraline 100 MG tablet
100 mg PO HS
fenofibrate 160 MG tablet
160 mg PO HS
acetaminophen 325 MG tablet
650 mg PO DAILYPRN PRN (Reason: mild pain)
alprazolam 1 MG tablet
2.5 mg PO HS
Vraylar 3 MG capsule
3 mg PO HS
ondansetron 4 mg tablet,disintegrating
4 mg PO TIDPRN PRN (Reason: nausea/vomiting) Qty: 10 0RF
famotidine [Pepcid] 40 mg Tablet
40 mg PO HS
pantoprazole [Protonix] 40 mg Tablet,Delayed Release (Dr/Ec)
40 mg PO HS
trazodone 150 mg Tablet
150 mg PO HS
levothyroxine 150 mcg Tablet
150 mcg PO HS
fluticasone propion-salmeterol [Advair Diskus] 500-50 mcg/dose Blister With Device
2 inh INHALATION DAILYPRN PRN (Reason: allergies)
cholecalciferol (vitamin D3) [Vitamin D3] 125 mcg (5,000 unit) Tablet
125 mcg PO HS
meclizine 25 mg tablet
25 mg PO TID PRN (Reason: dizziness) Qty: 10 0RF
ibuprofen 800 mg Tablet
800 mg PO DAILYPRN PRN (Reason: pain/headache)
gabapentin 300 mg Capsule
300 mg PO HS
Repatha Syringe 140 mg/mL Syringe
140 mg SC Q2W
Zepbound 5 mg/0.5 mL Pen Injector
5 mg SC WE
diclofenac sodium 75 mg tablet,delayed release (DR/EC)
75 mg PO BID Qty: 20 0RF
hydrocodone-acetaminophen 5-325 mg tablet
1 tab PO Q8H PRN (Reason: pain) Qty: 8 0RF
Referrals:
Jolanta Saavedra CRNP [Family Provider] -
Interventions
Interventions:
*Risk Screen - Suicide Last Done: 06/03/24 17:15
*General Assessment Last Done: 06/03/24 17:15
*Neglect/Abuse Screening Last Done: 06/03/24 17:15
ED- Fall Risk Assessment Last Done: 06/03/24 17:47
*ED COVID-19 Vaccine History Last Done: 06/03/24 17:15
*Nursing Disposition Last Done: 06/03/24 18:40
ED- Cardiac Assessment Last Done: 06/03/24 17:46
ED- Pulmonary Assessment Last Done: 06/03/24 17:46
ED-Skin Assessment Last Done: 06/03/24 17:46
Discharge Date and Time
Discharge Date/Time: 06/03/24 18:41
Print Language: KOSOVAN
[2024-06-03 17:15] VITALS: BMI 36.1
[2024-06-03] MEDS: BENADRYL 25 MG IV (17:32)
[2024-06-03] MEDS: PEPCID 20 MG IV (17:32)
[2024-06-03 17:33] VITALS: BP 96/83
[2024-06-03 17:39] LABS: % Basophils 0.9 % (0-2); % Eosinophils 0.1 % (0-6); % Immature Granulocytes 0.3 % (0-0.5); % Lymphocytes 15.4 % (20.5-51.1); % Neutrophils 78.3 % (42.2-75.2); Absolute Basophils 0.1 10^3/uL (0-0.2); Absolute Lymphocytes 1.4 10^3/uL (1.2-3.4); Absolute Monocytes 0.5 10^3/uL (0.1-0.6); Hematocrit 42.2 % (37.0-47.0); Hemoglobin 14.6 g/dL (12.0-16.0); Mean Corp Hgb Conc. 34.6 g/dL (33.0-37.0); Mean Corpuscular Hgb 30.4 pg (27.0-31.0); Mean Corpuscular Volume 87.9 fL (81.0-99.0); Mean Platelet Volume 9.8 fL (7.4-10.4); Nucleated Red Blood Cells % 0 %; Platelet Count 395 10^3/uL (130-400); Red Cell Dist. Width 13.3 % (11.5-14.5)
[2024-06-03 17:48] LABS: ALT (SGPT) 44 U/L (0-35); AST (SGOT) 43 U/L (14-36); Albumin 5.4 g/dl (3.5-5.0); Alkaline Phosphatase 52 U/L (38-126); Blood Urea Nitrogen 17 mg/dl (7-17); Calcium 10.6 mg/dl (8.4-10.2); Carbon Dioxide 20 mmol/L (22-30); Chloride 103 mmol/L (98-107); Estimated Creatinine Clearance 65 ml/min; Glucose 110 mg/dl (70-99); Sodium 144 mmol/L (135-145); Total Bilirubin 0.7 mg/dl (0.2-1.3); Total Protein 8.3 g/dl (6.3-8.2); eGFR 50.41
[2024-06-03 18:00] VITALS: BP 116/71
[2024-06-03 18:40] VITALS: BP 116/71
== END 2024-06-03 18:41 | disposition home or self-care (01) ==
LOC: EMR 16:16
PROVIDERS: Physician Assistant; EMERGENCY PHYSICIAN Student in an Organized Health Care Education/Training Program; FAMILY PHYSICIAN Nurse Practitioner Adult Health
DX: R20.2 Paresthesia of skin (principal); Z87.891 Personal history of nicotine dependence
CPT/HCPCS: 99284; 96374; 96375; 80053; 85025; 87502

== ENCOUNTER 2024-06-07 09:36 | Emergency (ER) | payer BC, SELFPAY ==
[2024-06-07 09:52] VITALS: BP 141/83
[2024-06-07 11:18] VITALS: BMI 36.3
[2024-06-07 11:24] LABS: % Basophils 0.9 % (0-2); % Eosinophils 0.4 % (0-6); % Immature Granulocytes 0.3 % (0-0.5); % Lymphocytes 20.7 % (20.5-51.1); % Monocytes 9.9 % (1.7-9.3); % Neutrophils 67.8 % (42.2-75.2); Absolute Basophils 0.1 10^3/uL (0-0.2); Absolute Lymphocytes 1.7 10^3/uL (1.2-3.4); Absolute Monocytes 0.8 10^3/uL (0.1-0.6); Absolute Neutrophils 5.4 10^3/uL (1.4-6.5); Hematocrit 42.6 % (37.0-47.0); Hemoglobin 14.5 g/dL (12.0-16.0); Mean Corpuscular Hgb 30.3 pg (27.0-31.0); Mean Corpuscular Volume 88.9 fL (81.0-99.0); Mean Platelet Volume 9.8 fL (7.4-10.4); Nucleated Red Blood Cells % 0 %; Platelet Count 334 10^3/uL (130-400); Red Blood Cell Count 4.79 10^6/uL (4.20-5.40); Red Cell Dist. Width 13.2 % (11.5-14.5)
--- NOTE | 2024-06-07 11:44 | ED.GENMED ---
History of Present Illness
General
Chief Complaint: Fainting/Passed Out
Source: patient
Exam Limitations: none
Time Seen by Provider: 06/07/24 10:53
Nursing documentation reviewed up to this point in time: agreed with
History of Present Illness
History of Present Illness:
49-year-old female with past medical history of thyroid disease IBS hyperlipidemia asthma anxiety bipolar frequent syncopal episodes with unclear etiology presenting to the emergency department today after syncopal episode a few hours prior to
arrival. She close she woke up went to the bathroom felt lightheaded and warm part of the ground hit her head. Her heard a thump and she quickly awakened thereafter. Denies any chest pain palpitations shortness of breath prior. Now feels
ongoing lightheadedness and left-sided facial pressure. She also vomited 2 times today. Had similar episodes multiple times over the past few months. Has been seen by neurology had an MRI EEG as well as cardiology assessment which included a
Holter monitor. No specific explanation for symptoms.
Past History
Past History
ED Past Medical History: Asthma, Cancer (ovarian and cervical cancer ), GERD, Hypercholesterolemia, Hypothyroidism, Psychiatric (anxiety, Bipolar, PTSD, Depression) and Other (Migraines, Sleep apnea uses CPAP, Bowel obstruction, Fissure, Eczema)
ED Past Surgical History: , Gynecological (hysthysterectomy, bilateral oophorectomy. Breast augmentation, ectopic , exploratory laparotomy with lymph node removal and lysis of adhesions in the right hemipelvis) and Other
(Abdominoplasty 2020, Hernia, Spincterotomy, Deviated septum surgery, Hemorrhoids)
Social History
Tobacco: Former smoker
Alcohol: None
Drug: None
Personal:
Living: with family
Employment: Not employed
Family History
Family History: Other (CAD, diabetes, thyroid disease, renal failure)
Review of Systems
Review of Systems
Allergies reviewed?: Yes
All Other Systems: ROS reviewed and negative except as documented in HPI and ROS
Phy Exam
Physical Exam
Physical Exam:
GENERAL: Alert , in no apparent distress
EYE: pupils equal and reactive
NECK: Supple, no significant adenopathy.
ENT: o/p clr, mmm.
CARDIAC: Regular rate and rhythm .
LUNGS: Clear breath sounds bilaterally, no acute respiratory distress, no wheezes/rales/rhonchi
ABDOMEN: Soft, without focal tenderness, no r/g, no cvat
NEUROLOGICAL: Alert and oriented, no focal neuro deficits
SKIN: Warm and dry, skin intact.
MUSCULOSKELETAL: No edema, well perfused.
PSYCH: Normal and appropriate interaction.
Course
Orders/Labs/Results
Orders:
Orders
06/07/24 09:42
Electrocardiogram (*1) Urgent
Reason for Study: Syncope
06/07/24 09:43
EKG- Treatment ONCE
06/07/24 09:57
CT Head W/o Iv Contrast Urgent
Comment:
Reason For Exam: passed out and hit head + dizzines vomitied twice
06/07/24 10:57
Test Result ONCE
06/07/24 11:15
Beta Hcg Serum Qualitative Screen [HCG, Serum Qualitative Screen] Urgent
CBC/With Diff [Complete Blood Count/With Diff] Urgent
CMP [Comprehensive Metabolic Panel] Urgent
TSH Reflex To Free T4 Urgent
Troponin I Urgent
06/07/24 11:49
Test Result ONCE
06/07/24 11:58
0.9% Sodium Chloride 1000 ml [Nss] 1,000 ml IV BOLUS
Diphenhydramine [Benadryl] 50 mg IV NOW STA
Ketorolac [Toradol] 15 mg IV NOW STA
Metoclopramide [Reglan] 10 mg IV NOW STA
06/07/24 12:21
HCG, Urine Qualitative Screen Urgent
Date Specimen was Collected: 06/07/24
Time Specimen was Collected: 12:10
Urinalysis Reflex To Culture Urgent
Date Specimen was Collected: 06/07/24
Time Specimen was Collected: 12:10
Urine Microscopic Reflex Cult Urgent
06/07/24 13:03
Ondansetron Injectable [Zofran] 4 mg IV NOW STA
06/07/24 13:06
Orthostatic VS- Treatment ONCE
Abnormal Lab Results
06/07/24 06/07/24
11:15 12:21
Absolute Monos (auto) 0.8 H 10^3/uL
(0.1-0.6)
Monocytes % 9.9 H %
(1.7-9.3)
BUN 21 H mg/dl
(7-17)
Creatinine 1.2 H mg/dL
(0.6-1.0)
Glucose 102 H mg/dl
(70-99)
Calcium 10.4 H mg/dl
(8.4-10.2)
Leukocyte Esterase Rfl Trace A
(Negative)
Urine Bacteria (Reflex) Few A
(Negative)
06/07/24 11:15
06/07/24 11:15
Vital Signs
Initial and Last Documented VS:
Initial Vital Signs
Temp Pulse Resp BP Pulse Ox
98.2 F 88 16 141/83 98
06/07/24 09:52 06/07/24 09:52 06/07/24 09:52 06/07/24 09:52 06/07/24 09:52
Last Documented Vital Signs
Temp Pulse Resp BP Pulse Ox
98.2 F 71 18 125/89 100
06/07/24 09:52 06/07/24 11:46 06/07/24 11:46 06/07/24 11:46 06/07/24 11:46
MDM/Problems Addressed
MDM/Problems Addressed:
49-year-old female presenting to the emergency department after syncopal episode after going to the bathroom earlier this morning. Denies chest pain shortness of breath loss of consciousness was very brief she believes she hit her head. Normal
neurologic evaluation here no visible signs of trauma. Vital signs are normal on arrival. Patient's had a workup via neurology as well as cardiology for previous syncopal episodes over the past few months with no findings. Physical examination
normal here. Head CT obtained without acute abnormalities EKG is normal. No evidence of emergent pathology. Patient has had a extensive workup for syncope as an outpatient she is advised for continued outpatient follow-up return precautions given.
*Critical Care Note
Total Time (30-74mins, 75-104mins- exclusive of procedures): Not Applicable
ED Attending Note
-
Portions of this chart may have been created with voice recognition software.� Occasional wrong word or��sound alike� substitutions may have occurred due to the inherent limitations of voice recognition software.
Discharge Plan
Departure
Patient Disposition: Home (Routine Discharge)
Date of Disposition: 06/07/24
Time of Disposition: 14:55
Patient with high blood pressure during this ER visit?: No
Condition: Good
Covid-19: Not Applicable
Discharge Problem:
Syncope
Instructions: Syncope (Fainting) (DC)
Prescriptions:
No Action
docusate sodium 100 MG capsule
200 mg PO HS
sertraline 100 MG tablet
100 mg PO HS
fenofibrate 160 MG tablet
160 mg PO HS
acetaminophen 325 MG tablet
650 mg PO DAILYPRN PRN (Reason: mild pain)
alprazolam 1 MG tablet
2.5 mg PO HS
Vraylar 3 MG capsule
3 mg PO HS
ondansetron 4 mg tablet,disintegrating
4 mg PO TIDPRN PRN (Reason: nausea/vomiting) Qty: 10 0RF
famotidine [Pepcid] 40 mg Tablet
40 mg PO HS
pantoprazole [Protonix] 40 mg Tablet,Delayed Release (Dr/Ec)
40 mg PO HS
trazodone 150 mg Tablet
150 mg PO HS
levothyroxine 150 mcg Tablet
150 mcg PO HS
fluticasone propion-salmeterol [Advair Diskus] 500-50 mcg/dose Blister With Device
2 inh INHALATION DAILYPRN PRN (Reason: allergies)
cholecalciferol (vitamin D3) [Vitamin D3] 125 mcg (5,000 unit) Tablet
125 mcg PO HS
meclizine 25 mg tablet
25 mg PO TID PRN (Reason: dizziness) Qty: 10 0RF
ibuprofen 800 mg Tablet
800 mg PO DAILYPRN PRN (Reason: pain/headache)
gabapentin 300 mg Capsule
300 mg PO HS
Repatha Syringe 140 mg/mL Syringe
140 mg SC Q2W
Zepbound 5 mg/0.5 mL Pen Injector
5 mg SC WE
diclofenac sodium 75 mg tablet,delayed release (DR/EC)
75 mg PO BID Qty: 20 0RF
hydrocodone-acetaminophen 5-325 mg tablet
1 tab PO Q8H PRN (Reason: pain) Qty: 8 0RF
Referrals:
NONE,* [Family Provider] -
Activity Restrictions/Additional Instructions:
You came to the emergency department today after syncopal episode. Here you had a reassuring assessment. Please follow closely with cardiology and primary care doctor. Return to the emergency department for any worsening, new or concerning
symptoms.
Interventions
Interventions:
*Risk Screen - Suicide Last Done: 06/07/24 09:56
*General Assessment Last Done: 06/07/24 11:18
*Neglect/Abuse Screening Last Done: 06/07/24 09:52
ED- Cardiac Assessment Last Done: 06/07/24 11:18
ED- Neurological Assessment Last Done: 06/07/24 11:18
Discharge Date and Time
Print Language: BERMUDIAN
[2024-06-07 11:46] VITALS: BP 125/89
[2024-06-07 11:49] LABS: ALT (SGPT) 34 U/L (0-35); AST (SGOT) 30 U/L (14-36); Albumin 4.8 g/dl (3.5-5.0); Alkaline Phosphatase 44 U/L (38-126); Blood Urea Nitrogen 21 mg/dl (7-17); Calcium 10.4 mg/dl (8.4-10.2); Carbon Dioxide 28 mmol/L (22-30); Chloride 100 mmol/L (98-107); Estimated Creatinine Clearance 71 ml/min; Glucose 102 mg/dl (70-99); Potassium 4.6 mmol/L (3.5-5.1); Sodium 143 mmol/L (135-145); Total Bilirubin 0.6 mg/dl (0.2-1.3); Total Protein 7.4 g/dl (6.3-8.2); eGFR 55.49
[2024-06-07 11:50] LABS: Troponin I < 0.012 ng/ml
[2024-06-07 11:58] LABS: HCG, Serum Qualitative Screen Negative
[2024-06-07] MEDS: NSS 1000 IV (12:06)
[2024-06-07] MEDS: TORADOL 15 MG IV (12:06)
[2024-06-07] MEDS: REGLAN 10 MG IV (12:06)
[2024-06-07] MEDS: BENADRYL 50 MG IV (12:07)
[2024-06-07 12:30] LABS: Urine Albumin Trace (Neg - Trace); Urine Bilirubin Negative (Negative); Urine Character Clear (Clear); Urine Color Yellow; Urine Glucose Negative (Negative); Urine Ketone Negative (Negative); Urine Leukocyte Trace (Negative); Urine Nitrite Negative (Negative); Urine Occult Blood Negative (Negative); Urine Specific Gravity 1.025 (<1.030); Urine Urobilinogen Negative (Neg - 1+)
[2024-06-07 12:43] LABS: Urine Bacteria Few (Negative); Urine Mucus Many; Urine Red Blood Cell 0-2 /HPF (0-2); Urine White Cell 0-2 /HPF (0-5)
[2024-06-07 12:45] LABS: HCG, Urine Qualitative Screen Negative
[2024-06-07] MEDS: ZOFRAN 4 MG IV (13:19)
[2024-06-07 13:36] VITALS: BP 116/67; BP 122/69; BP 125/73; PULSE 62; PULSE 66
== END 2024-06-07 15:11 | disposition home or self-care (01) ==
LOC: EMR 09:36
PROVIDERS: Physician Assistant; EMERGENCY PHYSICIAN Emergency Medicine
DX: R55 Syncope and collapse (principal); E03.9 Hypothyroidism, unspecified; E78.00 Pure hypercholesterolemia, unspecified; G47.30 Sleep apnea, unspecified; J45.909 Unspecified asthma, uncomplicated; K21.9 Gastro-esophageal reflux disease without esophagitis; Z85.41 Personal history of malignant neoplasm of cervix uteri; Z87.891 Personal history of nicotine dependence
CPT/HCPCS: 99284; 96374; 96375; 96361; 70450; 80053; 81003; 81015; 81025; 84443; 84484; 84703; 85025; 93005

== ENCOUNTER 2024-06-08 18:06 | Emergency (ER) | payer BC, SELFPAY ==
[2024-06-08 18:09] VITALS: BP 137/84
[2024-06-08 18:28] LABS: % Basophils 0.3 % (0-2); % Eosinophils 0.7 % (0-6); % Immature Granulocytes 0.2 % (0-0.5); % Lymphocytes 19.6 % (20.5-51.1); % Monocytes 10.3 % (1.7-9.3); % Neutrophils 68.9 % (42.2-75.2); Absolute Eosinophils 0.1 10^3/uL (0-0.7); Absolute Lymphocytes 1.8 10^3/uL (1.2-3.4); Absolute Monocytes 0.9 10^3/uL (0.1-0.6); Absolute Neutrophils 6.2 10^3/uL (1.4-6.5); Hematocrit 41.6 % (37.0-47.0); Mean Corp Hgb Conc. 33.7 g/dL (33.0-37.0); Mean Corpuscular Hgb 31.2 pg (27.0-31.0); Mean Corpuscular Volume 92.7 fL (81.0-99.0); Mean Platelet Volume 9.5 fL (7.4-10.4); Nucleated Red Blood Cells % 0 %; Platelet Count 354 10^3/uL (130-400); Red Blood Cell Count 4.49 10^6/uL (4.20-5.40); Red Cell Dist. Width 13.2 % (11.5-14.5)
[2024-06-08 18:45] LABS: ALT (SGPT) 29 U/L (0-35); AST (SGOT) 24 U/L (14-36); Albumin 4.8 g/dl (3.5-5.0); Alkaline Phosphatase 42 U/L (38-126); Blood Urea Nitrogen 28 mg/dl (7-17); Calcium 9.9 mg/dl (8.4-10.2); Carbon Dioxide 30 mmol/L (22-30); Chloride 100 mmol/L (98-107); Glucose 116 mg/dl (70-99); Lipase 1071 U/L (23-300); Potassium 4.4 mmol/L (3.5-5.1); Sodium 141 mmol/L (135-145); Total Bilirubin 0.4 mg/dl (0.2-1.3); Total Protein 7.3 g/dl (6.3-8.2); eGFR > 60.00
[2024-06-08 19:18] VITALS: BP 159/93
--- NOTE | 2024-06-08 20:04 | ED.GENMED ---
History of Present Illness
General
Chief Complaint: Rectal Bleeding
Source: patient
Time Seen by Provider: 06/08/24 19:37
History of Present Illness
History of Present Illness:
49-year-old female presents to the emergency room complaining of a pressure or fullness feeling in her lower abdomen, blood on the toilet paper, urgency to urinate and dribbling of urine. Patient also states that she has had many 'syncopal'
episodes over the past several weeks. She has been evaluated by multiple specialist including cardiology and neurology without a clear cause. Patient psychiatrist suspects it may be related to trazodone that she is taking and therefore it is being
weaned off. Today the patient noted blood when she urinated. She wiped after urinating and noted blood on the toilet paper. She had not attempted to have a bowel movement. Of note the patient has had a hysterectomy and bilateral oophorectomy.
This occurred a couple more times. No blood in her urine that she is observed. notes there is tremendous mount of stress in their lives. Currently patient is nauseous. Patient was seen here yesterday after a syncopal episode.
Past History
Past History
ED Past Medical History: Asthma, Cancer (ovarian and cervical cancer ), GERD, Hypercholesterolemia, Hypothyroidism, Psychiatric (anxiety, Bipolar, PTSD, Depression) and Other (Migraines, Sleep apnea uses CPAP, Bowel obstruction, Fissure, Eczema)
ED Past Surgical History: , Gynecological (hysthysterectomy, bilateral oophorectomy. Breast augmentation, ectopic , exploratory laparotomy with lymph node removal and lysis of adhesions in the right hemipelvis) and Other
(Abdominoplasty 2020, Hernia, Spincterotomy, Deviated septum surgery, Hemorrhoids)
Social History
Tobacco: Former smoker
Alcohol: None
Drug: None
Personal:
Living: with family
Employment: Not employed
Family History
Family History: Other (CAD, diabetes, thyroid disease, renal failure)
Phy Exam
Physical Exam
Physical Exam:
General: Awake, Alert, Oriented X3. No acute distress, anxious
Vitals: unremarkable
Head: Atraumatic
Eyes: Pupils equal, EOMI
Throat: Airway intact, no exudates
Neck: Trachea midline
Lungs: Clear and equal b/l
Heart: Regular rate, no murmurs
Abd: Soft, no significant tenderness on palpation, No pulsatile mass
Rectal: Small amount of bright red blood on rectal exam, normal stool
Neuro: Nonfocal
Skin: Warm, dry, no rash
Extremities: pulses equal b/l, no edema
Course
Orders/Labs/Results
Orders:
Orders
06/08/24 18:12
Electrocardiogram (*1) Urgent
Reason for Study: Syncope
EKG- Treatment ONCE
06/08/24 18:23
Type+Screen Urgent
Complete Blood Count/With Diff Urgent
Comprehensive Metabolic Panel Urgent
Lipase Urgent
06/08/24 19:24
ABO2 Urgent
BBK Wristband Number:
Associate notified that ABO2 has been ordered: [id number]
Date: 06/08/24
Time: 18:28
Restorative Aide ID: [id number]
06/08/24 19:55
CT Abd/pel W Iv And Oral Contr Urgent
Comment:
Reason For Exam: abdominal pain, elevated lipase, blood per rectum
Iohexol [Omnipaque] See Protocol PO NOW STA
06/08/24 20:04
0.9% Sodium Chloride 1000 ml [Nss] 1,000 ml IV BOLUS
Ondansetron Injectable [Zofran] 4 mg IV NOW STA
06/08/24 20:14
Urinalysis Reflex To Culture Urgent
Date Specimen was Collected: 06/08/24
Time Specimen was Collected: 20:13
06/08/24 21:00
Acetaminophen [Tylenol] 1,000 mg .ROUTE .[facility] [email or web address]
06/08/24 21:01
Acetaminophen [Tylenol] 1,000 mg PO NOW STA
06/08/24 22:20
Ondansetron Injectable [Zofran] 4 mg .ROUTE .[facility]
06/08/24 22:22
Ondansetron Injectable [Zofran] 4 mg IV NOW STA
06/08/24 23:01
Dicyclomine [Bentyl] 20 mg PO NOW STA
Abnormal Lab Results
06/08/24
18:23
MCH 31.2 H pg
(27.0-31.0)
Absolute Monos (auto) 0.9 H 10^3/uL
(0.1-0.6)
Lymphocytes % 19.6 L %
(20.5-51.1)
Monocytes % 10.3 H %
(1.7-9.3)
BUN 28 H mg/dl
(7-17)
Creatinine 1.1 H mg/dL
(0.6-1.0)
Glucose 116 H mg/dl
(70-99)
Lipase 1071 H* U/L
(23-300)
06/08/24 18:23
06/08/24 18:23
Vital Signs
Initial and Last Documented VS:
Initial Vital Signs
Temp Pulse Resp BP Pulse Ox
98.2 F 89 18 137/84 99
06/08/24 18:09 06/08/24 18:09 06/08/24 18:09 06/08/24 18:09 06/08/24 18:09
Last Documented Vital Signs
Temp Pulse Resp BP Pulse Ox
98.2 F 71 21 128/88 100
06/08/24 18:09 06/09/24 00:25 06/09/24 00:25 06/09/24 00:25 06/09/24 00:25
MDM/Problems Addressed
Differential Diagnosis Includes:
Anal fissure, hemorrhoid, colitis
MDM/Problems Addressed:
Patient presents with lower abdominal cramping and some blood on the toilet paper not associate with a bowel movement. Labs sent in triage included a lipase. Patient does not have a presentation which would lead me to believe the patient had
pancreatitis. Her lipase is elevated at 1071. Unclear what the clinical significance of this is. A CT was performed which does not show any evidence for pancreatic inflammation. Patient did have some nausea vomiting after consuming contrast.
The CT scan showed moderately distended stomach. The patient did vomit after CAT scan. Previous hospitalizations reviewed and there was some consideration for gastroparesis in the past. There is no evidence of an unstable process requiring
hospitalization. Patient is feeling better at the time of. She can follow-up with GI as an outpatient. Recommend she get the lipase repeated in 2 to 4 weeks.
*Pulse Oximetry
Patient hypoxic: no
*EKG
Interpreted by ED Provider?: Yes
Heart Rate: 78
Rate: normal
Rhythm: sinus
[place]: normal axis
Interval: normal interval
QRS Pattern: normal QRS
Ischemia: no ischemia
*Director Of Field Sales Interpretation
Rate: normal
Interpretation: normal
Rhythm: sinus
*Critical Care Note
Total Time (30-74mins, 75-104mins- exclusive of procedures): Not Applicable
ED Attending Note
-
Portions of this chart may have been created with voice recognition software.� Occasional wrong word or��sound alike� substitutions may have occurred due to the inherent limitations of voice recognition software.
Discharge Plan
Departure
Patient Disposition: Home (Routine Discharge)
Date of Disposition: 06/09/24
Time of Disposition: 00:21
Patient with high blood pressure during this ER visit?: Yes
Condition: Good
Discharge Problem:
Bleeding hemorrhoid, Abdominal pain
Instructions: Hemorrhoids (DC), Abdominal Pain
Prescriptions:
No Action
docusate sodium 100 MG capsule
200 mg PO HS
sertraline 100 MG tablet
100 mg PO HS
fenofibrate 160 MG tablet
160 mg PO HS
acetaminophen 325 MG tablet
650 mg PO DAILYPRN PRN (Reason: mild pain)
alprazolam 1 MG tablet
2 mg PO HS
Vraylar 3 MG capsule
3 mg PO HS
ondansetron 4 mg tablet,disintegrating
4 mg PO TIDPRN PRN (Reason: nausea/vomiting) Qty: 10 0RF
famotidine [Pepcid] 40 mg Tablet
40 mg PO HS
pantoprazole [Protonix] 40 mg Tablet,Delayed Release (Dr/Ec)
40 mg PO HS
trazodone 150 mg Tablet
150 mg PO HS
Patient Comments:
06/08/24: Patient had plans to decrease dose to 100mg tonight.
levothyroxine 150 mcg Tablet
150 mcg PO HS
cholecalciferol (vitamin D3) [Vitamin D3] 125 mcg (5,000 unit) Tablet
125 mcg PO HS
gabapentin 300 mg Capsule
300 mg PO HS
Repatha Syringe 140 mg/mL Syringe
140 mg SC Q2W
Zepbound 5 mg/0.5 mL Pen Injector
5 mg SC WE
Patient Comments:
06/08/24: patient has plans to decrease dosage to 2.5mg tomorrow(06/09/24)
meloxicam 15 mg Tablet
15 mg PO DAILYPRN PRN (Reason: moderate pain)
fluticasone propion-salmeterol [Wixela Inhub] 500-50 mcg/dose Blister With Device
1 inh INHALATION R DAILY
meclizine 25 mg tablet
25 mg PO TIDPRN PRN (Reason: dizziness)
Referrals:
NONE,* [Family Provider] -
Interventions
Interventions:
*Risk Screen - Suicide Last Done: 06/08/24 18:09
*General Assessment Last Done: 06/08/24 18:09
*Neglect/Abuse Screening Last Done: 06/08/24 18:09
ED- Fall Risk Assessment Last Done: 06/09/24 00:30
*ED COVID-19 Vaccine History Last Done: 06/08/24 18:09
*Nursing Disposition Last Done: 06/09/24 00:30
ZL-Kmfvir-Xgpgbpzryj Assessment Last Done: 06/08/24 20:15
ED- Cardiac Assessment Last Done: 06/08/24 20:15
ED- Pulmonary Assessment Last Done: 06/08/24 20:15
Discharge Date and Time
Discharge Date/Time: 06/09/24 00:30
Print Language: VINCENTIAN
[2024-06-08] MEDS: NSS 1000 IV (20:09)
[2024-06-08] MEDS: ZOFRAN 4 MG IV ×2 (20:09→22:22)
[2024-06-08] MEDS: OMNIPAQUE 50 ML PO (20:11)
[2024-06-08 20:21] LABS: Urine Albumin Negative (Neg - Trace); Urine Bilirubin Negative (Negative); Urine Character Clear (Clear); Urine Color Yellow; Urine Glucose Negative (Negative); Urine Ketone Negative (Negative); Urine Leukocyte Negative (Negative); Urine Nitrite Negative (Negative); Urine Occult Blood Negative (Negative); Urine Specific Gravity 1.015 (<1.030); Urine Urobilinogen Negative (Neg - 1+); Urine pH 6.5 (5.0-9.0)
[2024-06-08 21:00] VITALS: BP 150/70
[2024-06-08] MEDS: TYLENOL 1000 MG PO (21:02)
[2024-06-08] MEDS: BENTYL 20 MG PO (23:10)
[2024-06-08 23:48] VITALS: BP 160/78
[2024-06-09 00:25] VITALS: BP 128/88
== END 2024-06-09 00:30 | disposition home or self-care (01) ==
LOC: EMR 18:06
PROVIDERS: Student in an Organized Health Care Education/Training Program; EMERGENCY PHYSICIAN Emergency Medicine
DX: K64.9 Unspecified hemorrhoids (principal); R10.9 Unspecified abdominal pain; J45.909 Unspecified asthma, uncomplicated; K21.9 Gastro-esophageal reflux disease without esophagitis; E03.9 Hypothyroidism, unspecified; E78.00 Pure hypercholesterolemia, unspecified; F31.9 Bipolar disorder, unspecified; F41.9 Anxiety disorder, unspecified; F43.10 Post-traumatic stress disorder, unspecified; G47.30 Sleep apnea, unspecified; Z82.49 Family history of ischemic heart disease and other diseases of the circulatory system; Z83.3 Family history of diabetes mellitus; Z83.49 Family history of other endocrine, nutritional and metabolic diseases; Z85.41 Personal history of malignant neoplasm of cervix uteri; Z85.43 Personal history of malignant neoplasm of ovary; Z87.19 Personal history of other diseases of the digestive system; Z87.891 Personal history of nicotine dependence; Z90.722 Acquired absence of ovaries, bilateral
CPT/HCPCS: 99284; 74177; 80053; 81003; 83690; 85025; 86850; 86900; 86901; 93005; Q9967

== ENCOUNTER 2024-06-12 15:51 | Inpatient (IN) | payer BC, SELFPAY ==
[2024-06-11] VITALS (7 sets, daily range): BP systolic 109–150; BP diastolic 61–92; BMI 35.1
--- NOTE | 2024-06-11 11:30 | ED.GENMED ---
History of Present Illness
General
Chief Complaint: Abdominal Pain
Source: patient, records, previous radiology exam and previous hospital records
Exam Limitations: none
Time Seen by Provider: 06/11/24 10:48
Nursing documentation reviewed up to this point in time: agreed with
History of Present Illness
History of Present Illness:
49-year-old female returns for evaluation of abdominal pain nausea vomiting
She has had hysterectomy she has had inflamed abdominal mesh removed
History of mental illness thyroid disease, nondrinker non-smoker, seen here few days ago with rectal pain and bleeding had a CAT scan blood work that revealed elevated lipase, discharge to home, apparently her CAT scan did not show any inflammation
around her pancreas, she was in contact with her GI and her PCP there is concerned that she could have been constipated told to take some stool softeners, she does not feel constipated states she moves her bowels every day, states she has been
vomiting, does have some pain up in the right upper abdomen and back previously when she was being worked up for her abdominal hernia issue she was told that she could have gallbladder issue her gallbladder was never removed,
Past History
Past History
ED Past Medical History: Asthma, Cancer (ovarian and cervical cancer ), GERD, Hypercholesterolemia, Hypothyroidism, Psychiatric (anxiety, Bipolar, PTSD, Depression) and Other (Migraines, Sleep apnea uses CPAP, Bowel obstruction, Fissure, Eczema)
ED Past Surgical History: , Gynecological (hysthysterectomy, bilateral oophorectomy. Breast augmentation, ectopic , exploratory laparotomy with lymph node removal and lysis of adhesions in the right hemipelvis) and Other
(Abdominoplasty 2020, Hernia, Spincterotomy, Deviated septum surgery, Hemorrhoids)
Social History
Tobacco: Former smoker
Alcohol: None
Drug: None
Personal:
Living: with family
Employment: Not employed
Family History
Family History: Other (CAD, diabetes, thyroid disease, renal failure)
Review of Systems
Review of Systems
All Other Systems: Not applicable
Constitutional: Reports fever and fatigue
Respiratory: Reports no symptoms
Cardiac: Denies chest pain
ABD/GI: Reports abdominal pain, nausea and vomiting; Denies diarrhea
: Reports no symptoms
Musculoskeletal: Reports no symptoms
Skin: Reports no symptoms
Neurological: Reports no symptoms
Endocrine: Reports no symptoms
Phy Exam
Physical Exam
Physical Exam:
Physical Exam
General: no apparent distress, not acutely ill
Neck: No jaundice
Heart: s1/s2 regular rate and rhythm, no murmur. equal radial pulses.
Lungs: no acute respiratory distress. clear bilaterally
Abdomen: Mild tenderness in the right mid the right upper abdomen
Neuro: alert and oriented. no focal neurological deficits
Skin: no rash
Psychiatric: well kept. interactive and cooperative
Extremities: no edema.
Course
Orders/Labs/Results
Orders:
Orders
06/11/24 10:49
Test Result ONCE
06/11/24 11:21
US Abdomen Complete/Upper Urgent
Comment:
Reason For Exam: pain
06/11/24 11:22
Complete Blood Count/With Diff Urgent
Comprehensive Metabolic Panel Urgent
HCG, Serum Qualitative Screen Urgent
Lipase Urgent
06/11/24 11:34
0.9% Sodium Chloride 1000 ml [Nss] 1,000 ml IV BOLUS
Ondansetron Injectable [Zofran] 4 mg IV NOW STA
Pantoprazole [Protonix IV] 40 mg IV NOW STA
06/11/24 12:46
Electrocardiogram (*1) Urgent
Reason for Study: Abdominal Pain
EKG- Treatment ONCE
06/11/24 14:28
Obstruct Series W/PA Chest [CR Obstruct Series W/pa Chest] Urgent
Comment:
Reason For Exam: vomitign
06/11/24 14:32
Promethazine [Phenergan] 25 mg 0.9% Sodium Chloride 50 ml [Nss] 50 ml IV NOW
Abnormal Lab Results
06/11/24
11:22
Monocytes % 9.5 H %
(1.7-9.3)
Carbon Dioxide 32 H mmol/L
(22-30)
BUN 24 H mg/dl
(7-17)
Creatinine 1.2 H mg/dL
(0.6-1.0)
Lipase 606 H U/L
(23-300)
06/11/24 11:22
06/11/24 11:22
Vital Signs
Initial and Last Documented VS:
Initial Vital Signs
Temp Pulse Resp BP Pulse Ox
97.8 F 84 18 125/92 98
06/11/24 10:24 06/11/24 10:24 06/11/24 10:24 06/11/24 10:24 06/11/24 10:24
Last Documented Vital Signs
Temp Pulse Resp BP Pulse Ox
97.8 F 73 14 126/82 96
06/11/24 10:24 06/11/24 13:30 06/11/24 13:30 06/11/24 13:00 06/11/24 13:30
*Critical Care Note
Total Time (30-74mins, 75-104mins- exclusive of procedures): Not Applicable
Update Note
Update Note:
Update labs noted lipase is trending down ultrasound noted CT report from recently noted
2:30 PM labs noted including lipase which is trending down ultrasound report noted patient still nauseous with mid abdominal pain will try antiemetic Phenergan, and obstruction series
4 PM x-ray noted patient still not feeling well tells me is her third visit is keeps getting sent home she is afraid she is going to come back again not unreasonable to admit her at this point
ED Attending Note
-
Portions of this chart may have been created with voice recognition software.� Occasional wrong word or��sound alike� substitutions may have occurred due to the inherent limitations of voice recognition software.
Discharge Plan
Departure
Patient Disposition: Home (Routine Discharge)
Date of Disposition: 06/11/24
Time of Disposition: 15:51
Patient with high blood pressure during this ER visit?: No
Condition: Fair
Discharge Problem:
CARMEN (acute kidney injury), Nausea and vomiting, Abdominal pain
Prescriptions:
No Action
docusate sodium 100 MG capsule
200 mg PO HS
sertraline 100 MG tablet
100 mg PO HS
fenofibrate 160 MG tablet
160 mg PO HS
acetaminophen 325 MG tablet
650 mg PO DAILYPRN PRN (Reason: mild pain)
alprazolam 1 MG tablet
2 mg PO HS
Vraylar 3 MG capsule
3 mg PO HS
ondansetron 4 mg tablet,disintegrating
4 mg PO TIDPRN PRN (Reason: nausea/vomiting) Qty: 10 0RF
famotidine [Pepcid] 40 mg Tablet
40 mg PO HS
pantoprazole [Protonix] 40 mg Tablet,Delayed Release (Dr/Ec)
40 mg PO HS
trazodone 150 mg Tablet
150 mg PO HS
Patient Comments:
06/08/24: Patient had plans to decrease dose to 100mg tonight.
levothyroxine 150 mcg Tablet
150 mcg PO HS
cholecalciferol (vitamin D3) [Vitamin D3] 125 mcg (5,000 unit) Tablet
125 mcg PO HS
gabapentin 300 mg Capsule
300 mg PO HS
Repatha Syringe 140 mg/mL Syringe
140 mg SC Q2W
Zepbound 5 mg/0.5 mL Pen Injector
5 mg SC WE
Patient Comments:
06/08/24: patient has plans to decrease dosage to 2.5mg tomorrow(06/09/24)
meloxicam 15 mg Tablet
15 mg PO DAILYPRN PRN (Reason: moderate pain)
fluticasone propion-salmeterol [Wixela Inhub] 500-50 mcg/dose Blister With Device
1 inh INHALATION R DAILY
meclizine 25 mg tablet
25 mg PO TIDPRN PRN (Reason: dizziness)
oxycodone 5 mg tablet
5 mg PO Q6H PRN (Reason: Pain) Qty: 30 0RF
Referrals:
Jolanta Saavedra CRNP [Family Provider] -
Interventions
Interventions:
*Risk Screen - Suicide Last Done: 06/11/24 10:25
*General Assessment Last Done: 06/11/24 10:25
*Neglect/Abuse Screening Last Done: 06/11/24 10:25
DO-Bfwaej-Ivdcindwgd Assessment Last Done: 06/11/24 11:49
Discharge Date and Time
Print Language: CENTRAL AFRICAN
[2024-06-11 11:34] LABS: % Basophils 0.3 % (0-2); % Eosinophils 0.9 % (0-6); % Immature Granulocytes 0.3 % (0-0.5); % Lymphocytes 24.9 % (20.5-51.1); % Monocytes 9.5 % (1.7-9.3); % Neutrophils 64.1 % (42.2-75.2); Absolute Eosinophils 0.1 10^3/uL (0-0.7); Absolute Lymphocytes 1.6 10^3/uL (1.2-3.4); Absolute Monocytes 0.6 10^3/uL (0.1-0.6); Absolute Neutrophils 4.2 10^3/uL (1.4-6.5); Hemoglobin 13.8 g/dL (12.0-16.0); Mean Corp Hgb Conc. 33.7 g/dL (33.0-37.0); Mean Corpuscular Hgb 30.1 pg (27.0-31.0); Mean Corpuscular Volume 89.5 fL (81.0-99.0); Mean Platelet Volume 9.4 fL (7.4-10.4); Nucleated Red Blood Cells % 0 %; Platelet Count 361 10^3/uL (130-400); Red Blood Cell Count 4.58 10^6/uL (4.20-5.40); Red Cell Dist. Width 13.4 % (11.5-14.5); White Blood Cell Count 6.5 10^3/uL (4.8-10.8)
[2024-06-11 11:50] LABS: HCG, Serum Qualitative Screen Negative
[2024-06-11 11:56] LABS: ALT (SGPT) 25 U/L (0-35); AST (SGOT) 22 U/L (14-36); Albumin 4.5 g/dl (3.5-5.0); Alkaline Phosphatase 45 U/L (38-126); Blood Urea Nitrogen 24 mg/dl (7-17); Calcium 9.8 mg/dl (8.4-10.2); Carbon Dioxide 32 mmol/L (22-30); Chloride 99 mmol/L (98-107); Glucose 94 mg/dl (70-99); Potassium 4.3 mmol/L (3.5-5.1); Sodium 143 mmol/L (135-145); Total Bilirubin 0.5 mg/dl (0.2-1.3); Total Protein 6.9 g/dl (6.3-8.2); eGFR 55.49
[2024-06-11] MEDS: ZOFRAN 4 MG IV (12:25)
[2024-06-11] MEDS: PROTONIX IV 40 MG IV (12:26)
[2024-06-11] MEDS: NSS 1000 IV ×2 (12:29→20:31)
[2024-06-11 12:42] LABS: Lipase 606 U/L (23-300)
[2024-06-11] MEDS: PHENERGAN 51 MG IV (15:08)
--- NOTE | 2024-06-11 16:05 | HPS.HSE ---
Family Physician
-
Family Physician: RAYMON Gomes
Chief Complaint
-
Abdominal pain, persistent nausea, vomiting
History of Present Illness
49-year-old female who was seen in the ED 2 days ago complaining of abdominal cramping with nausea vomiting with lipase [address] did not show any evidence of pancreatic inflammation. Her lipase today is noted to be down at 606.
Previous hospitalization showed consideration for gastroparesis but she reports she was unable to complete the gastric emptying study due to texture issues trying to eat oatmeal that she vomited up.. She reports she has an appointment with GI on
June 17. She returns today to the ER for reoccurrence of abdominal pain right lower quadrant to right flank with nausea and vomiting along with temperature last night 100.7 then 100.4 this a.m. at 630 relieved with Tylenol. She reports
talking to her PCP who was concerned she was constipated advised her to take some stool softeners daily. She states she took MiraLAX yesterday had loose stool then to normal brown solid bowel movements. She reports to the ER she did not feel
constipated and has had bowel movements every day except for vomiting with some pain in her right upper abdomen. She also reports urinary frequency with dribbling past several days no hematuria although does have some right flank pain. No history
of renal calculi. Recent imaging studies including CT, ultrasound and obstruction series showed no renal calculi. Her past medical history of suspected gastroparesis, ovarian and cervical cancer status post hysterectomy bilateral oophorectomy
exploratory lap with lymph node removal and lysis of adhesions in the right hemipelvis, asthma, GERD, HLD, CKD 3 A, hypothyroidism, PTSD, bipolar disorder, anxiety, depression, migraines, sleep apnea/CPAP, bowel obstruction, fissure, eczema, former
smoker
Medical History
Past Medical History
Past Medical History: Reports Asthma, Cancer (Ovarian and cervical cancer ), GERD, Hypercholesterolemia, Hyperthyroidism, Psychiatric (anxiety, Bipolar, PTSD, Depression ) and Other (Migraines, Sleep apnea uses CPAP, Bowel obstruction, Fissure,
Eczema)
Additional Past Medical History:
asthma
GERD
Suspected gastroparesis
HLD
CKD 3 A
Hypothyroidism
PTSD
bipolar disorder
anxiety
depression
migraines
sleep apnea/CPAP
bowel obstruction 2020 self resolved
fissure
eczema
former smoker
Past Surgical History: Reports Other
Additional Past Surgical History:
Hysterectomy
Bilateral oophorectomy
Breast augmentation
Ectopic
Exploratory lap with lymph node removal and lysis of adhesions of the right hemipelvis
Abdominoplasty 2020
Hernia repair
Sphincterectomy
Deviated septum repair
Hemorrhoidectomy
Social History
Tobacco: Former Smoker (10 years 2 pack a day quit 2006)
Alcohol: None
Drug: None
Personal:
Living: With Family
Employment: Not Employed
Family History
Family History: Other (Mother [place] 69, father multiple myeloma age 71 history of kidney stone closing renal failure reportedly 1 brother patient estranged from)
Allergies / Home Medications
Allergies reflects when Allergies were last updated in [facility].
Home Medications with original date entered in [facility]
Allergy/Medication List:
Allergies
Allergy/AdvReac Type Severity Reaction Status Date / Time
adhesive Allergy Rash Verified 06/08/24 18:12
doxycycline Allergy Shortness Verified 06/08/24 18:12
of Breath
escitalopram [From Lexapro] Allergy Tongue Verified 06/08/24 18:12
Swelling
hydromorphone [From Dilaudid] Allergy Itching Verified 06/08/24 18:12
methylprednisolone Allergy Rash Verified 06/08/24 18:12
[From Medrol]
prednisone Allergy suicidal Verified 06/08/24 18:12
tendencies
shellfish derived Allergy Anaphylaxis Verified 06/08/24 18:12
Sulfa (Sulfonamide Allergy Swelling, Verified 06/08/24 18:12
Antibiotics) vomits
triazolam Allergy anger Verified 06/08/24 18:12
issues,
'lashes
out'
Home Medications
docusate sodium 100 mg capsule 200 mg PO HS Constipation 07/30/17
acetaminophen 325 mg tablet 650 mg PO DAILYPRN PRN mild pain 06/28/20
alprazolam 1 mg tablet 2 mg PO HS Mental Health/Anxiety 06/28/20
cariprazine 3 mg capsule (Vraylar) 3 mg PO HS Mental Health/Anxiety 06/28/20
fenofibrate 160 mg tablet 160 mg PO HS elevated triglycerides 06/28/20
sertraline 100 mg tablet 100 mg PO HS Mental Health/Anxiety 06/28/20
ondansetron 4 mg disintegrating tablet 4 mg PO TIDPRN PRN nausea/vomiting #10 tabs 01/19/24
cholecalciferol (vitamin D3) 125 mcg (5,000 unit) tablet (Vitamin D3) 125 mcg PO HS Supplement 01/26/24
famotidine 40 mg tablet (Pepcid) 40 mg PO HS Gastrointestinal Issue 01/26/24
levothyroxine 150 mcg tablet 150 mcg PO HS Thyroid 01/26/24
pantoprazole 40 mg tablet,delayed release (Protonix) 40 mg PO HS Gastrointestinal Issue 01/26/24
trazodone 150 mg tablet 150 mg PO HS sleep 01/26/24
evolocumab 140 mg/mL subcutaneous syringe (Repatha Syringe) 140 mg SC Q2W 05/14/24
gabapentin 300 mg capsule 300 mg PO HS 05/14/24
tirzepatide (weight loss) 5 mg/0.5 mL subcutaneous pen injector (Zepbound) 5 mg SC WE 05/14/24
fluticasone 500 mcg-salmeterol 50 mcg/dose blistr powdr for inhalation (Wixela Inhub) 1 inh inhalation R DAILY 06/08/24
meclizine 25 mg tablet 25 mg PO TIDPRN PRN dizziness 06/08/24
meloxicam 15 mg tablet 15 mg PO DAILYPRN PRN moderate pain 06/08/24
oxycodone 5 mg tablet 5 mg PO Q6HPRN PRN moderate pain 06/11/24
Review of Systems
-
History Source: Patient
A 12 point ROS was completed and negative except as noted: Yes
Constitutional: Reports Fever (Yesterday and this a.m. 100.4 subjective); Denies Chills
EENT: Denies Sore Throat or Runny Nose
Respiratory: Denies Cough or Trouble Breathing
Cardiac: Denies Chest Pain, Diaphoresis, Palpitations or Syncope
Abdomen/GI: Reports Abdominal Pain (Right flank, right upper right lower quadrant), Nausea, Vomiting and Constipated (Had bowel movement x 2 formed yesterday after MiraLAX); Denies Diarrhea, Bloody Stools, Black Stools or Anorexia
: Reports Frequency and Flank Pain (Right); Denies Dysuria, Incontinence, Difficulty Voiding, Urgency or Bleeding
Musculoskeletal: Denies Joint Pain, Joint Swelling or Edema
Skin: Denies Itching
Neurological: Denies Dizzy, Headache or Weakness
Endocrine: Reports No Symptoms
Hematologic/Lymphatic: Reports No Symptoms
Psych: Reports Calm
Physical Exam
Vital Signs
Vital Signs
Temp Pulse Resp BP Pulse Ox
97.8 F 73 14 126/82 96
06/11/24 10:24 06/11/24 13:30 06/11/24 13:30 06/11/24 13:00 06/11/24 13:30
Physical Exam
General: Conversant and Obese; No Fever or Chills
HEENT: NormoCephalic, Anicteric, PERRLA, [place] Conjunctivae and No Ptosis
Respiratory: Clear; No Wheezes, Rales or Rhonchi
Cardiac: S1/S2 and Regular Rhythm; No Murmur, Rub, Gallop or Peripheral Edema
GI: Soft, Non Distended, Normal Bowel Sounds, Tender (Right flank, right upper quadrant, right lower quadrant no rebound tenderness) and No Hepatosplenomegaly
Rectal: Deferred by Provider
Genito-urinary: Deferred by me
Musculoskeletal: No Clubbing, No Cyanosis and No Edema
Skin: Warm and Dry; No Rash or Jaundice
Neuro: AO x 3, No Motor Deficits, Cranial Nerves Intact and No Sensory Deficits; No Slurred Speech, Facial Droop or Tremors
Psych: Calm
Laboratory Results
-
06/11/24 11:22
06/11/24 11:22
Laboratory Results
Total Bilirubin 0.5 mg/dl (0.2-1.3) 06/11/24 11:22
AST 22 U/L (14-36) 06/11/24 11:22
ALT 25 U/L (0-35) 06/11/24 11:22
Alkaline Phosphatase 45 U/L (38-126) 06/11/24 11:22
Lipase 606 U/L (23-300) H 06/11/24 11:22
Impression/Plan
-
Impression/plan:
Observation MedSurg
#Intractable abdominal pain with nausea vomiting likely secondary to Acute constipation /IBS hx versus acute on chronic gastroparesis
-Patient denies any diarrhea was told constipated on CT took MiraLAX yesterday with 2 large formed brown stool
#Hx of bowel obstruction 2020 self resolved while inpatient
-Will give Reglan
-IV Zofran as needed
-IV NSS
-cont ppi
-Urinalysis on 06/08/2024 negative
-Colace, senna, MiraLAX
-Consult GI
Abdominal ultrasound
1. No evidence of cholelithiasis, acute cholecystitis, or biliary ductal dilation.
2. Diffuse fatty infiltration of the liver, also seen on prior CT.
CT abdomen pelvis with IV oral contrast 06/08/2024:
1. Moderate distention of the stomach without evidence for gastric outlet obstruction.
2. Moderate diffuse hepatic steatosis.
3. Previous anterior abdominal wall hernia repair.
4. Previous SOLOMON-BSO.
#Recent elevated lipase�unclear etiology but improving
Lipase 1071 on 06/09/2024> 606 today 06/11/2024
-
#CKD 3 A
Creat 1.2/bun 32 appears baseline
-Follow bmp
#Asthma-no acute exacerbation
-Continue Wixela or equivalent
#GERD
-IV PPI, continue Pepcid 40 mg at bedtime
# HLD
-Patient on Repatha 140 Mg SQ every 2 weeks
#Hypothyroidism
-Continue levothyroxine 150 mcg p.o. daily, continue fenofibrate
#PTSD
#Bipolar disorder
#Anxiety/Depression
-Continue alprazolam 2 mg p.o. at bedtime, Zoloft 100 mg at bedtime, Vraylar 3 mg at bedtime
#Migraines hx-no current headache
#Sleep apnea/CPAP
#Obesity due to excess calorie consumption
Patient on Zepbound 5 mg subcu Wednesdays last dose 2 weeks ago
#Insomnia
-Continue trazodone 150 mg at bedtime, gabapentin 300 mg at bedtime
Other PMH:
Ovarian and cervical cancer status post hysterectomy bilateral oophorectomy exploratory lap with lymph node removal and lysis of adhesions in the right hemipelvis
Bowel obstruction
Fissure
Eczema
Former smoker quit 2006 prior 10-year 2 pack a day
DVT prophylaxis
SCDs
Full code
--- NOTE | 2024-06-11 18:22 | W.PN.UPDATE ---
Update Note
Progress Note Update
The patient is seen and examined. I have reviewed the patient's history and physical by Cyn, and agree with this, along with her assessment and plan of care. Please see her note for details. The patient has had intractable nausea, some vomiting,
and right-sided abdominal pain, seen here several time this month;
CT imaging 06/08 showed:
1. Moderate distention of the stomach without evidence for gastric outlet obstruction.
2. Moderate diffuse hepatic steatosis.
3. Previous anterior abdominal wall hernia repair.
4. Previous SOLOMON-BSO.
US 05/2024 w fatty liver, no gallstones
VSS, AF
CV RRR, no m/r/g
Lungs CTA b/l no w/r/r
Abd, soft, no peritoneal signs
A/P
#N/v, abdominal pain, possibly due to gastroparesis from recent Wegovy (she stopped this 2 weeks ago), versus delayed emptying
-consider emptying study
-GI consultation appreciated
-supportive management , bowel regimen
-capsaicin apply to abdomen
-IVF, NPO for now
-trial of IV Reglan
[2024-06-11] MEDS: REGLAN 10 MG IV (20:30)
[2024-06-11] MEDS: ZOSTRIX-HP 0.075% CREAM 1 APPLIC TOPICAL (20:35)
[2024-06-11] MEDS: TRICOR 145 MG PO (22:20)
[2024-06-11] MEDS: XANAX 2 MG PO (22:20)
[2024-06-11] MEDS: PROTONIX 40 MG PO (22:20)
[2024-06-11] MEDS: SENOKOT-S 1 TABLET PO (22:20)
[2024-06-11] MEDS: NEURONTIN 300 MG PO (22:20)
[2024-06-11] MEDS: PEPCID 40 MG PO (22:21)
[2024-06-11] MEDS: ZOLOFT 100 MG PO (22:21)
[2024-06-11] MEDS: VITAMIN D3 (cholecalciferol) 125 MCG PO (22:21)
[2024-06-11] MEDS: SYNTHROID 150 MCG PO (22:21)
[2024-06-11] MEDS: DESYREL 150 MG PO (22:21)
[2024-06-11] MEDS: ZOSTRIX-HP 0.075% CREAM TOPICAL (22:22)
[2024-06-11] MEDS: TYLENOL 650 MG PO (22:23)
--- NOTE | 2024-06-12 06:03 | PTCARENOTE ---
~20:35 This RN applied Capsaicin to pt's right side abdomen. Less than 30 minutes after application, pt reports the site of application is 'burning, itching, and hot.' On assessment, skin is red. Pt reports 'scratching' the site of application. This
RN cleaned the site of application with soap and water. Notified RAYMON Gannon. No new orders at this time. Pt reports relief of 'burning and itching but it's still hot.' Pt is given an ice pack. Reassessment of site of application, redness
decreased. Plan of care ongoing.
[2024-06-12] MEDS: NSS 1000 IV ×2 (06:46→20:08)
[2024-06-12] MEDS: ADVAIR HFA 230/21 MCG INHALER 2 PUFF INH (07:21)
[2024-06-12 07:30] VITALS: BP 126/62
[2024-06-12] MEDS: REGLAN 10 MG IV ×3 (07:46→23:11)
[2024-06-12 08:00] LABS: % Basophils 0.3 % (0-2); % Immature Granulocytes 0.3 % (0-0.5); % Lymphocytes 22.2 % (20.5-51.1); % Monocytes 6.4 % (1.7-9.3); % Neutrophils 69.8 % (42.2-75.2); Absolute Eosinophils 0.1 10^3/uL (0-0.7); Absolute Lymphocytes 1.4 10^3/uL (1.2-3.4); Absolute Monocytes 0.4 10^3/uL (0.1-0.6); Absolute Neutrophils 4.4 10^3/uL (1.4-6.5); Hematocrit 36.7 % (37.0-47.0); Hemoglobin 12.7 g/dL (12.0-16.0); Mean Corp Hgb Conc. 34.6 g/dL (33.0-37.0); Mean Corpuscular Hgb 31.6 pg (27.0-31.0); Mean Corpuscular Volume 91.3 fL (81.0-99.0); Mean Platelet Volume 9.6 fL (7.4-10.4); Nucleated Red Blood Cells % 0 %; Platelet Count 285 10^3/uL (130-400); Red Blood Cell Count 4.02 10^6/uL (4.20-5.40); Red Cell Dist. Width 13.3 % (11.5-14.5); White Blood Cell Count 6.3 10^3/uL (4.8-10.8)
[2024-06-12 08:14] LABS: ALT (SGPT) 20 U/L (0-35); AST (SGOT) 20 U/L (14-36); Albumin 3.7 g/dl (3.5-5.0); Alkaline Phosphatase 39 U/L (38-126); Blood Urea Nitrogen 22 mg/dl (7-17); Calcium 8.9 mg/dl (8.4-10.2); Carbon Dioxide 25 mmol/L (22-30); Chloride 105 mmol/L (98-107); Estimated Creatinine Clearance 83 ml/min; Glucose 82 mg/dl (70-99); Sodium 142 mmol/L (135-145); Total Bilirubin 0.5 mg/dl (0.2-1.3); Total Protein 5.9 g/dl (6.3-8.2); eGFR > 60.00
[2024-06-12] MEDS: ZOSTRIX-HP 0.075% CREAM TOPICAL ×4 (09:00→23:13)
[2024-06-12] MEDS: SENOKOT-S PO (09:00)
--- NOTE | 2024-06-12 09:21 | CON.GI ---
Addendum entered and electronically signed by Berkley Greene MD 06/12/24 14:32:
I saw and examined the patient.
The INVESTIGATOR VICE's note was reviewed and I agree with the note.
Comment: This is a 48-year-old female with past medical history of cervical cancer s/p tx, ovarian cancer in her late 20'/early 30s status post hysterectomy/ oophorectomy/ chemotherapy and radiation(genetic testing neg per patient) also has a
history of ex lap with KIRSTIN abdominoplasty, hernia repair, GERD, sleep apnea on CPAP rest as below known to Dr. Monahan as outpatient who has been having recurrent symptoms of abdominal pain, n/ vomiting and has had extensive workup in the recent past.
She also had multiple visits to the ER for multiple symptoms recently. She had rectal bleeding about 2 days prior to admission and is also been having symptoms of right sided pain with nausea vomiting which prompted her to come into the ER. She
started Zepbound about 3 months ago and last dose was 3 weeks ago and also recently on Repatha. No fevers or chills. No melena. She was scheduled for a gastric emptying scan but she says that she was unable to tolerate the consistency of the
oatmeal given so was unable to complete the test. Had recent imaging study including CAT scan and ultrasound with no obvious etiology found for the pain no bowel obstruction noted she also had an obstruction series which was negative from
yesterday. No gallstones also noted on ultrasound.
Assessment and plan 1. recurrent refractory symptoms of intermittent episodes of epigastric and right-sided abdominal pain with nausea and vomiting ? functional, ? related to decreased motility and possible gastroparesis will reschedule for gastric
emptying scan as outpatient. Continue supportive care IV hydration and Zofran continue PPI. Also was r/o for partial small bowel obstruction she does have prior history of surgery and pain could also be related to adhesions and possibly radiation
enteritis although there was no colitis or enteritis seen on recent CT. Her lipase was elevated but pancreas appeared normal on recent imaging and no GS seen either on US. will repeat lipase tomorrow if still elevated may need MRI. May also be
related to Zepbound. given her chronic symptoms of nausea vomiting likely will not be a candidate for GLP 1 agonist's.
2.Constipation continue MiraLAX and senna follow-up with Dr. Monahan after discharge
Original Note:
Consultation
-
Date/Time Consultation Requested: 06/12/24924
Date/Time Consultation Performed: 06/12/24924
Requesting Provider: Orquidea Bowden MD
Performing Provider: RAYMON Cid, Berkley Greene MD
Reason for Consultation: nausea
Medical History
Chief Complaint / HPI
Chief Complaint: nausea/vomiting
History of Present Illness:
Pt is a 48yo with hx suspected gastroparesis, ovarian/cervical CA,- surgery/chemo/radiation, prior hysterectomy/oophorectomy, exp lap with KIRSTIN/abdominoplasty, hernia repair, GERD, sleep apnea-cpap, CKD, anxiety/bipolar, fissures,
hemorrhoidectomy with onset of abdominal pain with nausea/vomiting. In review of records she is noted with periods symptoms. She admits to recent bout over last 1-2 weeks some worsening symptoms with difficulty eating. she also admit to some
abdominal pain with pressure with radiation to right flank, recent rectal bleeding now resolved and diarrhea with recent concern for constipation with laxative use. She has attempted gastric emptying scan in past with inability to tolerate
oatmeal. In review of recent labs she was noted with lipase 1071 on 06/08 then 606 on 06/11. She has had multiple recent ER visit with parathesia, rectal bleeding and now nausea/vomiting. She has had multiple diagnostic testing with 06/11 mild
colonic stool burden, 06/11 US fatty liver No evidence of cholelithiasis, acute cholecystitis, or biliary ductal dilation., 06/08 CT stomach distention without GOO, fatty liver, post surg anatomy, 06/02 CT with limited without oral contrast- small
inguinal hernia,The liver and spleen are within the limits of normal in size. There is mild diffuse decreased hepatic attenuation. There is no focal abnormality of the gallbladder or pancreas and no findings to suggest biliary tract dilatation. Pt
also admits to recent start of Zepbound with last dose 3 weeks ago and total of 3 doses taken and repatha 2-3 months ago.
Pt otherwise admits to stable GERD on PPI and Pepcid. She has completed EGD 12/2023 erythema in antrum otherwise neg, colon 2021 with hemorrhoids, flex 2022 with hemorrhoid neg bx.
Past Medical History
Past Medical History: Asthma, Cancer (ovarian/cervical CA with prior surgery, chemo and radiation), GERD, Hypercholesterolemia, Renal Failure (CKD), Psychiatric (anxiety/bipolar disorder, PTSD, depression) and Other (migraines, sleep apnea, C-pap,
bowel obstruction, fissure, exzema, suspected gastroparesis )
Past Surgical History: Gynecological (hysterectomy, oophorectomy, breast Augmentation, ectopic ) and Other (exp lap with lymph node removal and lysis of adhesions right hemipelvis, abdominoplasty, hernia repair, deviated septum repair,
hemorrhoidectomy)
Social History
Tobacco: Non-Smoker
Alcohol: None
Drug: None
Personal:
Living: With Family
Family History
Family History: Other (father with colon CA in 60's. )
Allergies / Home Medications
Allergy/AdvReac Type Severity Reaction Status Date / Time
adhesive Allergy Rash Verified 06/08/24 18:12
doxycycline Allergy Shortness Verified 06/08/24 18:12
of Breath
escitalopram [From Lexapro] Allergy Tongue Verified 06/08/24 18:12
Swelling
hydromorphone [From Dilaudid] Allergy Itching Verified 06/08/24 18:12
methylprednisolone Allergy Rash Verified 06/08/24 18:12
[From Medrol]
prednisone Allergy suicidal Verified 06/08/24 18:12
tendencies
shellfish derived Allergy Anaphylaxis Verified 06/08/24 18:12
Sulfa (Sulfonamide Allergy Swelling, Verified 06/08/24 18:12
Antibiotics) vomits
triazolam Allergy anger Verified 06/08/24 18:12
issues,
'lashes
out'
�Medication �Instructions �Recorded
docusate sodium 100 mg capsule 200 mg PO HS Constipation 07/30/17
acetaminophen 325 mg tablet 650 mg PO DAILYPRN PRN mild pain 06/28/20
alprazolam 1 mg tablet 2 mg PO HS Mental Health/Anxiety 06/28/20
cariprazine 3 mg capsule (Vraylar) 3 mg PO HS Mental Health/Anxiety 06/28/20
fenofibrate 160 mg tablet 160 mg PO HS elevated triglycerides 06/28/20
sertraline 100 mg tablet 100 mg PO HS Mental Health/Anxiety 06/28/20
ondansetron 4 mg disintegrating 4 mg PO TIDPRN PRN nausea/vomiting 01/19/24
tablet #10 tabs
cholecalciferol (vitamin D3) 125 125 mcg PO HS Supplement 01/26/24
mcg (5,000 unit) tablet (Vitamin
D3)
famotidine 40 mg tablet (Pepcid) 40 mg PO HS Gastrointestinal Issue 01/26/24
levothyroxine 150 mcg tablet 150 mcg PO HS Thyroid 01/26/24
pantoprazole 40 mg tablet,delayed 40 mg PO HS Gastrointestinal Issue 01/26/24
release (Protonix)
trazodone 150 mg tablet 150 mg PO HS sleep 01/26/24
evolocumab 140 mg/mL subcutaneous 140 mg SC Q2W High Cholesterol 05/14/24
syringe (Repatha Syringe)
gabapentin 300 mg capsule 300 mg PO HS neuropathic pain 05/14/24
tirzepatide (weight loss) 5 mg/0.5 5 mg SC WE weight loss 05/14/24
mL subcutaneous pen injector
(Zepbound)
fluticasone 500 mcg-salmeterol 50 1 inh inhalation R DAILY 06/08/24
mcg/dose blistr powdr for Lung/Breathing Issues
inhalation (Wixela Inhub)
meclizine 25 mg tablet 25 mg PO TIDPRN PRN dizziness 06/08/24
meloxicam 15 mg tablet 15 mg PO DAILYPRN PRN moderate pain 06/08/24
oxycodone 5 mg tablet 5 mg PO Q6HPRN PRN moderate pain 06/11/24
Review of Systems
-
History Source: Patient
Constitutional: Reports Fever (low grade )
EENT: Reports No Symptoms
Respiratory: Reports No Symptoms
Abdomen/GI: Reports Abdominal Pain, Nausea, Vomiting, Diarrhea and Constipated
: Reports Difficulty Voiding
Musculoskeletal: Reports No Symptoms
Skin: Reports No Symptoms
Neurological: Reports Weakness
Endocrine: Reports No Symptoms
Hematologic/Lymphatic: Reports No Symptoms
Vital Signs
Temp Pulse Resp BP Pulse Ox
97.9 F 73 18 126/62 94
06/12/24 07:30 06/12/24 07:30 06/12/24 07:30 06/12/24 07:30 06/12/24 07:30
Physical Exam
Exam
General: Well Developed, Well Nourished and No Apparent Distress
HEENT: Normocephalic and Anicteric
Respiratory: Clear
Cardiac: Regular Rhythm
GI: Soft, Non Distended and Tender (diffuse upper abdomen )
Rectal: Deferred by Provider
Musculoskeletal: No Clubbing and No Cyanosis
Skin: Warm and Dry
Neuro: Awake, Alert and AO x 3
Psych: Calm
Results
WBC 6.3 10^3/uL (4.8-10.8) 06/12/24 07:10
Hgb 12.7 g/dL (12.0-16.0) 06/12/24 07:10
Hct 36.7 % (37.0-47.0) L 06/12/24 07:10
MCV 91.3 fL (81.0-99.0) 06/12/24 07:10
Plt Count 285 10^3/uL (130-400) D 06/12/24 07:10
Absolute Neuts (auto) 4.4 10^3/uL (1.4-6.5) 06/12/24 07:10
Sodium 142 mmol/L (135-145) 06/12/24 07:10
Potassium 4.0 mmol/L (3.5-5.1) 06/12/24 07:10
Chloride 105 mmol/L (98-107) 06/12/24 07:10
Carbon Dioxide 25 mmol/L (22-30) 06/12/24 07:10
BUN 22 mg/dl (7-17) H 06/12/24 07:10
Creatinine 1.0 mg/dL (0.6-1.0) 06/12/24 07:10
Calcium 8.9 mg/dl (8.4-10.2) 06/12/24 07:10
Total Bilirubin 0.5 mg/dl (0.2-1.3) 06/12/24 07:10
AST 20 U/L (14-36) 06/12/24 07:10
ALT 20 U/L (0-35) 06/12/24 07:10
Alkaline Phosphatase 39 U/L (38-126) 06/12/24 07:10
Lipase 606 U/L (23-300) H 06/11/24 11:22
Diagnostic Image Results:
06/11/24 CR Obstruct Series W/pa Chest
IMPRESSION: No acute disease of the chest.
No evidence of intestinal obstruction.
Mild fecal material in the colon.
06/11/24 US Abdomen Complete/Upper
1. No evidence of cholelithiasis, acute cholecystitis, or biliary ductal dilation.
2. Diffuse fatty infiltration of the liver, also seen on prior CT.
06/08/24 CT Abd/pel W Iv And Oral Contr
1. Moderate distention of the stomach without evidence for gastric outlet obstruction.
2. Moderate diffuse hepatic steatosis.
3. Previous anterior abdominal wall hernia repair.
4. Previous SOLOMON-BSO.
06/02 - CT Abd/pelvis W Iv Cont
Unremarkable appendix.
Limited evaluation of intestinal tract without oral contrast, without intestinal obstruction or free air.
Small bilateral fat only containing inguinal hernias.
Decrease in size now subcentimeter right lower lobe groundglass opacity and additional 0.2 cm right lower lobe pulmonary nodule lateral which likely obscured on prior study by some subsegmental atelectasis
The liver and spleen are within the limits of normal in size. There is mild diffuse decreased hepatic attenuation. There is no focal abnormality of the gallbladder or pancreas and no findings to suggest biliary tract dilatation
Prior GI Procedures:
EGD: 12/2023- DO - Normal esophagus. Biopsied.
- Z-line regular, 38 cm from the incisors.
- Erythematous mucosa in the antrum. Biopsied.
- Normal examined duodenum. Biopsied.
bx neg
Colonoscopy: 01/222 do - Hemorrhoids found on perianal exam.
- The entire examined rectum and sigmoid colon is
normal. Random biopsies taken.
- No specimens collected.
repeat 5 years
sigmoidosocpy: 06/2023 do - Hemorrhoids found on perianal exam.
- The entire examined rectum and sigmoid colon is
normal. Random biopsies taken.
- No specimens collected.
Assessment / Plan
-
Pt is a 48yo with hx suspected gastroparesis, ovarian/cervical CA surgery/chemo/radiation, prior hysterectomy/oophorectomy, exp lap with KIRSTIN/abdominoplasty, hernia repair, GERD, sleep apnea-cpap, CKD, anxiety/bipolar, fissures, hemorrhoidectomy
with onset of abdominal pain with nausea/vomiting. In review of records she is noted with periods symptoms. She admits to recent bout over last 1-2 weeks some worsening symptoms with difficulty eating. she also admit to some abdominal pain with
pressure with radiation to right flank , recent rectal bleeding now resolved and diarrhea with recent concern for constipation with laxative use. She has attempted gastric emptying scan in past with inability to tolerate oatmeal. In review of
recent labs she was noted with lipase 1071 on 06/08 then 606 on 06/11. She has had multiple recent ER visit with parathesia, rectal bleeding and now nausea/vomiting. She has had multiple diagnostic testing with 06/11 mild colonic stool burden, 06/11
US fatty liver No evidence of cholelithiasis, acute cholecystitis, or biliary ductal dilation., 06/08 CT stomach distention without GOO, fatty liver, post surg anatomy, 06/02 CT with limited without oral contrast- small inguinal hernia,The liver and
spleen are within the limits of normal in size. There is mild diffuse decreased hepatic attenuation. There is no focal abnormality of the gallbladder or pancreas and no findings to suggest biliary tract dilatation. Pt also admits to recent start of
Zepbound with last dose 3 weeks ago and total of 3 doses taken and repatha 2-3 months ago.
-Right sided abdominal pain
-nausea/vomiting with some chronic syptoms
-elevated lipase with normal pancreas on imaging
-suspected gastroparesis-- CT 06/08 with stomach distention without GOO
-recent start of Zepbound and Repatha
-hx ovarian/cervical CA with prior radiation/chemo/surgery
-recent rectal bleeding with hx fissures, hemorrhoids
-constipation
other med problems:
-Prior hysterectomy/oophorectomy, exp lap with KIRSTIN/abdominoplasty, hernia repair
-GERD
-sleep apnea
-CKD
-anxiety/bipolar
-fatty liver
-obesity
PLAN:
Pt some chronic intermittent symptoms related to baseline gastroparesis, adhesive disease with hx multiple surgeries, cervical/ovarian CA with prior chemo/rad, vs other
she now has worsening symptoms with lipase elevation in setting of new Zepbound and repatha-- would be concerned this is playing a role along with constipation
imaging not noted with pancreatitis or gallbladder pathology
start clear diet with supplement advance to gastroparesis diet (low in fat and in nondigestible (insoluble) fiber; avoid carbonated beverages, avoid ETOH and smoking.
consider eventual formal gastric emptying scan with alternative to oatmeal if able
discussed staying off of Zepbound-- less likely Repatha as only 2 % nausea risk
reglan as needed , pt also given capsaicin cream QID
cont PPI and pepcid -- change protonix to AM as not effective without eating will give dose now prior to lunch
monitor for recurrent rectal bleeding ? hemorrhoidal
avoid constipation - cont mIralax daily and senna BID
NSAID avoidance
due follow up this week with Dr. Monahan 06/17 - monitor need for close follow up vs reschedule
Zepound: per up to date
Gastrointestinal: Abdominal distention (3% to 4%), abdominal pain (5% to 10%)�, dyspepsia (5% to 10%)�, eructation (3% to 5%), flatulence (1% to 4%), gallbladder disease (acute; including biliary colic, cholecystectomy [0.2%]� cholecystitis
[0.2%]�and cholelithiasis [<=%])), gastroesophageal reflux disease (2% to 5%) Frequency not defined: Gastrointestinal: Acute pancreatitis, increased serum amylase, increase serum lipase
repatha
Gastrointestinal: Gastroenteritis (children, adolescents, adults: 3% to 6%), nausea (2%)
-
-
Thank you for consultation and allowing me to participate in the patient's care. Please call the medical receptionist biller GI physician during the after hours with any questions or concerns.
[2024-06-12] MEDS: TORADOL 15 MG IV (10:29)
[2024-06-12 10:40] LABS: Urine Albumin Negative (Neg - Trace); Urine Bilirubin Negative (Negative); Urine Character Clear (Clear); Urine Color Yellow; Urine Glucose Negative (Negative); Urine Ketone Negative (Negative); Urine Leukocyte 1+ (Negative); Urine Nitrite Negative (Negative); Urine Occult Blood Negative (Negative); Urine Specific Gravity 1.015 (<1.030); Urine Urobilinogen Negative (Neg - 1+); Urine pH 6.5 (5.0-9.0)
[2024-06-12 11:01] LABS: Urine Squamous Cell >30 /LPF (Few); Urine Urothelial Cell 0-2 /LPF (FEW)
[2024-06-12 11:09] LABS: Urine Bacteria Few (Negative); Urine Red Blood Cell None Seen /HPF (0-2)
[2024-06-12] MEDS: PROTONIX IV 40 MG IV (11:12)
[2024-06-12] MEDS: MORPHINE SULFATE 1 MG IV ×2 (14:58→21:01)
[2024-06-12] MEDS: ZOFRAN 4 MG IV (14:58)
[2024-06-12 15:00] VITALS: BP 114/70
--- NOTE | 2024-06-12 15:18 | W.PN.HOSP.TC ---
Today's Communication/Plan
-
continue supportive care
trial of dulcolax suppos
Assessment / Plan
Assessment / Plan
1. Intractable nausea/vomiting
Possible recovering pancreatitis
r/o Ileus
h/o of SBO
-patient was in ER 06/08 for abd pain/n/v and lipase elevated to ~1100, CT a/p did not show pancreatic inflammation.
-patient was discharged home with f/u in GI office
-came back for persistent n/v and repeat lipase improving to ~ 600
-Abd xr did not show distended bowel loops
-Clinically patient may had an episode of acute pancreatitis that patient possibly recovering from
-On exam does not have BS, not passing gas from morning, developing ileus? monitor.
-Potential differential of Zepbound related n/v, last dose on 05/25, half life of ~ 5 days and should get low level by 06/14-06/19
-Repeat abd imaging if clinically not improved in next 24-48 hrs.
-Continue on symptomatic care with anti-emetics/IVF/Pain meds for now
-GI consulted and help appreciated
2. Constipation
-cant tolerate oral meds, try Dulcolax suppository
3 CKD 3 A
-Cr close to baseline, continue monitor
Asthma-no acute exacerbation
GERD
HLD
Hypothyroidism
PTSD
Bipolar disorder
Anxiety/Depression
Migraines hx-no current headache
Sleep apnea/CPAP
Obesity due to excess calorie consumption
Insomnia
Ovarian and cervical cancer status post hysterectomy bilateral oophorectomy exploratory lap with lymph node removal and lysis of adhesions in the right hemipelvis
Bowel obstruction
Fissure
Eczema
Former smoker quit 2006 prior 10-year 2 pack a day
DVT prophylaxis -SCDs
Full code
Change to inpatient level.
Anticipated Discharge: 24 - 48 hours
Subjective/Interval History
-
Date of Service: June 12, 2024
having significant abd pain/nausea/vomiting
afebrile in night
Objective Data
-
Labs:
Laboratory Results
06/12/24
07:10
WBC 6.3
Hgb 12.7
Hct 36.7 L
Plt Count 285 D
Sodium 142
Potassium 4.0
Chloride 105
Carbon Dioxide 25
BUN 22 H
Creatinine 1.0
Glucose 82
Calcium 8.9
Total Bilirubin 0.5
AST 20
ALT 20
Alkaline Phosphatase 39
Vital Signs:
Vital Signs
Temp Pulse Resp BP Pulse Ox
97.9 F 73 18 126/62 94
06/12/24 07:30 06/12/24 07:30 06/12/24 07:30 06/12/24 07:30 06/12/24 07:30
I&O
06/11/24 06/12/24 06/13/24
06:59 06:59 06:59
Intake Total 1200 / 1200
Balance 1200 / 1200
Review of Systems
-
Respiratory: Reports No Symptoms
Cardiac: Reports No Symptoms
Abdomen/GI: Reports No Symptoms
Physical Exam
-
General: No Apparent Distress and Comfortable
HEENT: Negative Oxygen
Respiratory: Clear to Auscultation
Cardiac: Regular Rhythm and S1/S2; Negative Murmur or Rub
GI: Soft and Tender; Negative Distended
Musculoskeletal: No Edema
Neuro: Awake, Alert, Oriented, No Motor Deficits and Nonfocal/Grossly Intact
Psych: Calm
--- NOTE | 2024-06-12 15:21 | CM ---
CM met with pt beside
Pt resides with her spouse, 14 y/o dtr, and inlaws in a 2SH with 4+2 ALENA
Full flight to second floor
Pt is independent with her ADLs
Only DMEs is working nebulizer
Pt notes general financial difficulties
[email or web address] placed in dc folder per her request
PCP- Jolanta Saavedra
Rx- [facility]
Pt is OBS- OBS form completed
Copy provided to pt
Discharge Disposition- anticipate home no needs
[2024-06-12] MEDS: SENOKOT-S 1 TABLET PO (18:21)
[2024-06-12 23:07] VITALS: BP 127/75
[2024-06-12] MEDS: NEURONTIN 300 MG PO (23:09)
[2024-06-12] MEDS: ZOLOFT 100 MG PO (23:09)
[2024-06-12] MEDS: TRICOR 145 MG PO (23:09)
[2024-06-12] MEDS: XANAX 2 MG PO (23:10)
[2024-06-12] MEDS: VITAMIN D3 (cholecalciferol) 125 MCG PO (23:10)
[2024-06-12] MEDS: DESYREL 150 MG PO (23:10)
[2024-06-12] MEDS: PEPCID 40 MG PO (23:10)
[2024-06-12] MEDS: SYNTHROID 150 MCG PO (23:10)
[2024-06-13] MEDS: NSS 1000 IV ×2 (06:21→12:31)
[2024-06-13] MEDS: MORPHINE SULFATE 1 MG IV ×3 (06:25→18:13)
[2024-06-13] MEDS: ADVAIR HFA 230/21 MCG INHALER 2 PUFF INH (06:58)
[2024-06-13 07:24] LABS: Hematocrit 33.8 % (37.0-47.0); Hemoglobin 11.4 g/dL (12.0-16.0); Mean Corp Hgb Conc. 33.7 g/dL (33.0-37.0); Mean Corpuscular Hgb 30.5 pg (27.0-31.0); Mean Corpuscular Volume 90.4 fL (81.0-99.0); Mean Platelet Volume 9.8 fL (7.4-10.4); Platelet Count 293 10^3/uL (130-400); Red Blood Cell Count 3.74 10^6/uL (4.20-5.40); Red Cell Dist. Width 13.4 % (11.5-14.5); White Blood Cell Count 5.7 10^3/uL (4.8-10.8)
[2024-06-13 07:49] VITALS: BP 119/52
[2024-06-13] MEDS: ZOSTRIX-HP 0.075% CREAM TOPICAL ×4 (07:50→22:00)
[2024-06-13] MEDS: REGLAN 10 MG IV (07:52)
[2024-06-13] MEDS: PROTONIX 40 MG PO (07:53)
[2024-06-13] MEDS: SENOKOT-S 1 TABLET PO ×2 (07:53→21:53)
[2024-06-13 08:07] LABS: Blood Urea Nitrogen 23 mg/dl (7-17); Calcium 8.5 mg/dl (8.4-10.2); Carbon Dioxide 23 mmol/L (22-30); Chloride 107 mmol/L (98-107); Estimated Creatinine Clearance 76 ml/min; Glucose 86 mg/dl (70-99); Potassium 4.2 mmol/L (3.5-5.1); Sodium 140 mmol/L (135-145); eGFR > 60.00
[2024-06-13 08:55] LABS: Lipase 332 U/L (23-300)
[2024-06-13] MEDS: TORADOL 15 MG IV (10:09)
--- NOTE | 2024-06-13 11:18 | W.PN.GI.CBS2 ---
Today's Communication / Plan
-
advance diet and OK for DC if tolerates
f/u as OP as scheduled with DR. Monahan
Assessment / Plan
-
Pt is a 48yo with hx suspected gastroparesis, ovarian/cervical CA surgery/chemo/radiation, prior hysterectomy/oophorectomy, exp lap with KIRSTIN/abdominoplasty, hernia repair, GERD, sleep apnea-cpap, CKD, anxiety/bipolar, fissures, hemorrhoidectomy
with onset of abdominal pain with nausea/vomiting. In review of records she is noted with periods symptoms. She admits to recent bout over last 1-2 weeks some worsening symptoms with difficulty eating. she also admit to some abdominal pain with
pressure with radiation to right flank , recent rectal bleeding now resolved and diarrhea with recent concern for constipation with laxative use. She has attempted gastric emptying scan in past with inability to tolerate oatmeal. In review of
recent labs she was noted with lipase 1071 on 06/08 then 606 on 06/11. She has had multiple recent ER visit with parathesia, rectal bleeding and now nausea/vomiting. She has had multiple diagnostic testing with 06/11 mild colonic stool burden, 06/11
US fatty liver No evidence of cholelithiasis, acute cholecystitis, or biliary ductal dilation., 06/08 CT stomach distention without GOO, fatty liver, post surg anatomy, 06/02 CT with limited without oral contrast- small inguinal hernia,The liver and
spleen are within the limits of normal in size. There is mild diffuse decreased hepatic attenuation. There is no focal abnormality of the gallbladder or pancreas and no findings to suggest biliary tract dilatation. Pt also admits to recent start of
Zepbound with last dose 3 weeks ago and total of 3 doses taken and repatha 2-3 months ago.
-Right sided abdominal pain
-nausea/vomiting with some chronic syptoms
-elevated lipase with normal pancreas on imaging
-suspected gastroparesis-- CT 06/08 with stomach distention without GOO
-recent start of Zepbound and Repatha
-hx ovarian/cervical CA with prior radiation/chemo/surgery
-recent rectal bleeding with hx fissures, hemorrhoids
-constipation
other med problems:
-Prior hysterectomy/oophorectomy, exp lap with KIRSTIN/abdominoplasty, hernia repair
-GERD
-sleep apnea
-CKD
-anxiety/bipolar
-fatty liver
-obesity
PLAN:
Pt some chronic intermittent symptoms related to baseline gastroparesis, adhesive disease with hx multiple surgeries, cervical/ovarian CA with prior chemo/rad, vs other
she now has worsening symptoms with lipase elevation in setting of new Zepbound-- would be concerned this is playing a role along with constipation
imaging not noted with pancreatitis or gallbladder pathology
start clear diet with supplement advance to gastroparesis diet (low in fat and in nondigestible (insoluble) fiber; avoid carbonated beverages, avoid ETOH and smoking.
consider eventual formal gastric emptying scan with alternative to oatmeal if able
discussed staying off of Zepbound-- less likely Repatha as only 2 % nausea risk
reglan as needed , pt also given capsaicin cream QID
cont PPI and pepcid
monitor for recurrent rectal bleeding ? hemorrhoidal
avoid constipation - cont mIralax daily and senna BID
NSAID avoidance
due follow up this week with Dr. Monahan 06/17
If tolerates diet OK to DC home today or in AM
Subjective
Subjective
Date of Service: June 13, 2024
No further nausea or vomiting still complains of right sided abdominal pain
Objective
Data Reviewed
Laboratory Data:
Laboratory Results
06/13/24 05:22
06/13/24 05:22
Laboratory Results
Total Bilirubin 0.5 mg/dl (0.2-1.3) 06/12/24 07:10
AST 20 U/L (14-36) 06/12/24 07:10
ALT 20 U/L (0-35) 06/12/24 07:10
Alkaline Phosphatase 39 U/L (38-126) 06/12/24 07:10
Lipase 332 U/L (23-300) H 06/13/24 05:22
Vital Signs and I&O:
Vital Signs
Temp Pulse Resp BP Pulse Ox
97.9 F 75 18 119/52 96
06/13/24 07:49 06/13/24 07:49 06/13/24 07:49 06/13/24 07:49 06/13/24 07:49
I&O
06/12/24 06/13/24 06/14/24
06:59 06:59 06:59
Intake Total 1200 / 1200 1440 / 1440
Balance 1200 / 1200 1440 / 1440
Physical Exam
Physical Exam
Cardiology: Normal Sinus Rhythm
Pulmonary: Clear
GI: Soft, Non Distended, Tender (Mild epigastric and right upper quadrant tenderness) and Normal Bowel Sounds
[2024-06-13] MEDS: ROXICODONE 5 MG PO ×2 (12:31→22:00)
--- NOTE | 2024-06-13 13:38 | W.PN.HOSP.TC ---
Today's Communication/Plan
-
continue Reglan
provide Dulcolax suppository
lipase continue to improve
further abd imaging in 24-48 hrs if no improvement
Assessment / Plan
Assessment / Plan
1. Intractable nausea/vomiting
Possible recovering pancreatitis
r/o Ileus
h/o of SBO
-patient was in ER 06/08 for abd pain/n/v and lipase elevated to ~1100, CT a/p did not show pancreatic inflammation.
-patient was discharged home with f/u in GI office
-came back for persistent n/v and repeat lipase improving and 332 today
-Abd xr did not show distended bowel loops
-Clinically patient may had an episode of acute pancreatitis that patient possibly recovering from
-Potential differential of Zepbound related n/v, last dose on 05/25, half life of ~ 5 days and should get low level by 06/14-06/19
-Continue on symptomatic care with anti-emetics/IVF/Pain meds for now
-Abd xr showing some stool in colon, no ileus/obstruction.
-GI consulted and help appreciated
2. Constipation
-provide dulcolax suppository
3 CKD 3 A
-Cr close to baseline, continue monitor
Asthma-no acute exacerbation
GERD
HLD
Hypothyroidism
PTSD
Bipolar disorder
Anxiety/Depression
Migraines hx-no current headache
Sleep apnea/CPAP
Obesity due to excess calorie consumption
Insomnia
Ovarian and cervical cancer status post hysterectomy bilateral oophorectomy exploratory lap with lymph node removal and lysis of adhesions in the right hemipelvis
Bowel obstruction
Fissure
Eczema
Former smoker quit 2006 prior 10-year 2 pack a day
DVT prophylaxis -SCDs
Full code
Remain symptomatic and will need further monintoring
Anticipated Discharge: 24 - 48 hours
Subjective/Interval History
-
Date of Service: June 13, 2024
continues to have right sided abd pain
continues to have nausea/no vomiting
poor apetite
Objective Data
-
Labs:
Laboratory Results
06/13/24
05:22
WBC 5.7
Hgb 11.4 L
Hct 33.8 L
Plt Count 293
Sodium 140
Potassium 4.2
Chloride 107
Carbon Dioxide 23
BUN 23 H
Creatinine 1.1 H
Glucose 86
Calcium 8.5
Vital Signs:
Vital Signs
Temp Pulse Resp BP Pulse Ox
97.9 F 75 18 119/52 96
06/13/24 07:49 06/13/24 07:49 06/13/24 07:49 06/13/24 07:49 06/13/24 07:49
I&O
06/12/24 06/13/24 06/14/24
06:59 06:59 06:59
Intake Total 1200 / 1200 1440 / 1440
Balance 1200 / 1200 1440 / 1440
Review of Systems
-
Respiratory: Reports No Symptoms
Cardiac: Reports No Symptoms
Abdomen/GI: Reports Abdominal Pain, Nausea and Constipated; Denies Vomiting
Physical Exam
-
General: No Apparent Distress and Comfortable
HEENT: Negative Oxygen
Respiratory: Clear to Auscultation
Cardiac: Regular Rhythm and S1/S2; Negative Murmur or Rub
GI: Soft and Tender; Negative Distended
Musculoskeletal: No Edema
Neuro: Awake, Alert, Oriented, No Motor Deficits and Nonfocal/Grossly Intact
Psych: Calm
[2024-06-13 16:00] VITALS: BP 125/70
[2024-06-13] MEDS: ZOFRAN 4 MG IV (18:13)
[2024-06-13] MEDS: NON-FORMULARY ITEM PO ×2 (19:37→21:57)
[2024-06-13] MEDS: XANAX 2 MG PO (21:53)
[2024-06-13] MEDS: NEURONTIN 300 MG PO (21:53)
[2024-06-13] MEDS: ZOLOFT 100 MG PO (21:54)
[2024-06-13] MEDS: DESYREL 150 MG PO (21:54)
[2024-06-13] MEDS: VITAMIN D3 (cholecalciferol) 125 MCG PO (21:54)
[2024-06-13] MEDS: TRICOR 145 MG PO (21:54)
[2024-06-13] MEDS: SYNTHROID 150 MCG PO (21:54)
[2024-06-13] MEDS: PEPCID 40 MG PO (21:55)
[2024-06-13] MEDS: NON-FORMULARY ITEM 3 MG PO (21:57)
[2024-06-13] MEDS: DUPHALAC/CHRONULAC 20 GRAMS PO (21:59)
[2024-06-13 22:35] VITALS: BP 120/48
[2024-06-14] MEDS: ZOFRAN 4 MG IV ×2 (06:10→12:31)
[2024-06-14] MEDS: TORADOL 15 MG IV (06:11)
[2024-06-14] MEDS: ADVAIR HFA 230/21 MCG INHALER 2 PUFF INH (07:17)
[2024-06-14 08:00] VITALS: BP 143/70
[2024-06-14 08:06] LABS: Hematocrit 36.3 % (37.0-47.0); Hemoglobin 12.1 g/dL (12.0-16.0); Mean Corp Hgb Conc. 33.3 g/dL (33.0-37.0); Mean Corpuscular Hgb 30.5 pg (27.0-31.0); Mean Corpuscular Volume 91.4 fL (81.0-99.0); Mean Platelet Volume 9.7 fL (7.4-10.4); Platelet Count 326 10^3/uL (130-400); Red Blood Cell Count 3.97 10^6/uL (4.20-5.40); Red Cell Dist. Width 13.7 % (11.5-14.5)
[2024-06-14 08:22] LABS: Blood Urea Nitrogen 17 mg/dl (7-17); Carbon Dioxide 28 mmol/L (22-30); Chloride 106 mmol/L (98-107); Estimated Creatinine Clearance 70 ml/min; Glucose 85 mg/dl (70-99); Sodium 141 mmol/L (135-145); eGFR 55.49
[2024-06-14] MEDS: DUPHALAC/CHRONULAC 20 GRAMS PO ×2 (08:44→15:02)
[2024-06-14] MEDS: SENOKOT-S 1 TABLET PO (08:45)
[2024-06-14] MEDS: PROTONIX 40 MG PO ×2 (08:45→21:58)
[2024-06-14] MEDS: ZOSTRIX-HP 0.075% CREAM TOPICAL ×3 (08:47→18:28)
[2024-06-14] MEDS: TYLENOL 650 MG PO (08:52)
--- NOTE | 2024-06-14 08:59 | W.PN.GI.CBS2 ---
Addendum entered and electronically signed by Berkley Greene MD 06/14/24 16:52:
Discussed with pharmacist given that she is also on Vraylar increased risk of TD with Reglan and Compazine and Vraylar also increased risk of EPS and NMS will DC Compazine and Zofran and use Reglan, she is going to continue on Vraylar but still need
to watch for dystonic movements and EPS symptoms.
Addendum entered and electronically signed by Berkley Greene MD 06/14/24 15:59:
Was called back to see patient since she was unable to tolerate the low residue diet and also to discuss with her who I did talk to at length over the telephone. Symptoms may be related to possible ileus and gastroparesis versus cyclic
vomiting syndrome. Recent CT and obstruction series were negative for bowel obstruction and ultrasound was negative for gallstones. started on Reglan today and if symptoms are not improving may need to consider inpatient gastric emptying scan off
of Reglan. Will switch Zofran to Compazine has had some improvement in the past with this but will need to watch for tardive dyskinesia with Reglan and also anticholinergic side effects from compazine and QTc monitoring. She is also on other
psychiatric medications. May need to consider evaluation at a tertiary center if symptoms persist and will DW Dr. Monahan also her OP. Doubt biliary dyskinesia but consider HIDA with CCK if continues to have right upper quadrant pain. Will start on
lidocaine patch. Would not recommend use of GLP-1 agonist moving forward with her symptoms of chronic nausea and vomiting. Lipase has been trending down doubt acute pancreatitis but will get MRI given persistent pain, LFTs are normal.
Original Note:
Today's Communication / Plan
-
adv diet as tolerated
f/u with Dr. Monahan as scheduled
Maalox now
chest pain eval per primary team
Assessment / Plan
-
Pt is a 48yo with hx suspected gastroparesis, ovarian/cervical CA surgery/chemo/radiation, prior hysterectomy/oophorectomy, exp lap with KIRSTIN/abdominoplasty, hernia repair, GERD, sleep apnea-cpap, CKD, anxiety/bipolar, fissures, hemorrhoidectomy
with onset of abdominal pain with nausea/vomiting. In review of records she is noted with periods symptoms. She admits to recent bout over last 1-2 weeks some worsening symptoms with difficulty eating. she also admit to some abdominal pain with
pressure with radiation to right flank , recent rectal bleeding now resolved and diarrhea with recent concern for constipation with laxative use. She has attempted gastric emptying scan in past with inability to tolerate oatmeal. In review of
recent labs she was noted with lipase 1071 on 06/08 then 606 on 06/11. She has had multiple recent ER visit with parathesia, rectal bleeding and now nausea/vomiting. She has had multiple diagnostic testing with 06/11 mild colonic stool burden, 06/11
US fatty liver No evidence of cholelithiasis, acute cholecystitis, or biliary ductal dilation., 06/08 CT stomach distention without GOO, fatty liver, post surg anatomy, 06/02 CT with limited without oral contrast- small inguinal hernia,The liver and
spleen are within the limits of normal in size. There is mild diffuse decreased hepatic attenuation. There is no focal abnormality of the gallbladder or pancreas and no findings to suggest biliary tract dilatation. Pt also admits to recent start of
Zepbound with last dose 3 weeks ago and total of 3 doses taken and repatha 2-3 months ago.
-Right sided abdominal pain
-nausea/vomiting with some chronic syptoms
-elevated lipase with normal pancreas on imaging
-suspected gastroparesis-- CT 06/08 with stomach distention without GOO
-recent start of Zepbound and Repatha
-hx ovarian/cervical CA with prior radiation/chemo/surgery
-recent rectal bleeding with hx fissures, hemorrhoids
-constipation
other med problems:
-Prior hysterectomy/oophorectomy, exp lap with KIRSTIN/abdominoplasty, hernia repair
-GERD
-sleep apnea
-CKD
-anxiety/bipolar
-fatty liver
-obesity
PLAN:
chronic intermittent symptoms of RUQ pain/n/v related to ? gastroparesis, adhesive disease with hx multiple surgeries,( cervical/ovarian CA with prior chemo/rad), functional exacerbated by anxiety, constipation
worsening symptoms with lipase elevation in setting of new Zepbound-- would be concerned this is playing a role along with constipation
imaging not noted with pancreatitis or gallbladder pathology
advance to gastroparesis diet (low in fat and in nondigestible (insoluble) fiber; avoid carbonated beverages, avoid ETOH and smoking.
consider eventual formal gastric emptying scan with alternative to oatmeal if able
discussed staying off of Zepbound-- less likely Repatha as only 2 % nausea risk
reglan as needed , pt also given capsaicin cream QID
cont PPI and pepcid
cont mIralax daily and senna BID, lactulose also added, X ray yesterday neg for PSBO/ileus
NSAID avoidance
chest pain today ? from GERD/anxiety primary team informed may need EKG and troponins
due follow up this week with Dr. Monahan 06/17
If tolerates diet OK to DC home today if chest pain w/u neg and resolves
GI will s/o and will be available as needed
Subjective
Subjective
Date of Service: June 14, 2024
She is having mild chest pain no diaphoresis or shortness of breath.
She says she had a bowel movement today
Objective
Data Reviewed
Laboratory Data:
Laboratory Results
06/14/24 06:57
06/14/24 06:57
Laboratory Results
Total Bilirubin 0.5 mg/dl (0.2-1.3) 06/12/24 07:10
AST 20 U/L (14-36) 06/12/24 07:10
ALT 20 U/L (0-35) 06/12/24 07:10
Alkaline Phosphatase 39 U/L (38-126) 06/12/24 07:10
Lipase 332 U/L (23-300) H 06/13/24 05:22
Vital Signs and I&O:
Vital Signs
Temp Pulse Resp BP Pulse Ox
97.5 F 63 20 143/70 97
06/14/24 08:00 06/14/24 08:00 06/14/24 08:00 06/14/24 08:00 06/14/24 08:00
I&O
06/13/24 06/14/24 06/15/24
06:59 06:59 06:59
Intake Total 1440 / 1440 1200 / 1200
Balance 1440 / 1440 1200 / 1200
06/13/24 Abd X ray
IMPRESSION: Abdominal radiograph is within normal limits.
Physical Exam
Physical Exam
Cardiology: Normal Sinus Rhythm
Pulmonary: Clear
GI: Soft, Non Distended, Tender (Tender in the right upper quadrant) and Normal Bowel Sounds
--- NOTE | 2024-06-14 09:13 | PTCARENOTE ---
patient is complaining of left sided chest pain she describes as 'tightness', non-radiating, at a 4/10. 143/70 pulse is 63 respirations are 20/min temp is 97.5. Hospitalist notified, EKG completed, Tylenol administered. GI is aware and a stat dose
of Maalox ordered.
[2024-06-14] MEDS: MAALOX 30 ML PO (09:17)
[2024-06-14 09:51] LABS: Troponin I < 0.012 ng/ml
[2024-06-14 10:11] LABS: Benzodiazepines Positive (Negative); Opiates Positive (Negative)
[2024-06-14 10:12] LABS: Amphetamines Negative (Negative); Barbiturates Negative (Negative); Buprenorphine Negative (Negative); Cocaine Negative (Negative); Marijuana Negative (Negative); Methadone Negative (Negative); Methamphetamines Negative (Negative); Phencyclidine Negative (Negative); Tricyclic Antidepressants Negative (Negative)
[2024-06-14] MEDS: ROXICODONE 5 MG PO (10:25)
[2024-06-14 10:45] LABS: Fentanyl, Urine Negative (Negative)
--- NOTE | 2024-06-14 12:27 | CM ---
Chart reviewed and plan is to home when stable, no needs.
Plan; Home no needs.
[2024-06-14 15:00] VITALS: BP 114/62
[2024-06-14] MEDS: REGLAN 10 MG IV (15:02)
--- NOTE | 2024-06-14 15:20 | W.PN.HOSP.TC ---
Today's Communication/Plan
-
Change back to clears
Discharge when she can tolerate PO
Assessment / Plan
Assessment / Plan
48-year-old presented to the hospital with abdominal pain nausea and vomiting. She has also had some difficulty eating. Abdominal pain.
CVS: S1-S2 normal
Chest: CTA B/L
Abdomen: Complains of mild epigastric discomfort, bowel sounds present
Extremities: No edema, normal pulses
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
# Right-sided abdominal pain
Nausea vomiting
Was recently started on Zepbound which is known to cause nausea- Can take weeks to settle.
Avoid NSAIDs
Patient is supposed to follow-up with Dr. Monahan on 06/17/2024
NOT TOLERATING SOLID DIET, SO CHANGED TO CLEARS with Clear Ensure
# History of bowel obstructions-current x-ray no obstruction
# Chest pain-EKG negative. Troponin negative. Likely secondary to GERD/nausea backwash esophagitis. Check ECHO
# Lipase 1071 on 06/08/2024-Normal pancreas on imaging
# Suspected gastroparesis CT 06/08/2024 with dilatation of the stomach without gastric outlet obstruction
# History of ovarian cervical cancer with surgery/radiation/chemo
# History of rectal fissures and hemorrhoids and constipation
# GERD-continue Pepcid, PPI
# Acute kidney injury-Avoid NSAIDs. Follow creatinine. IVF
# Sleep apnea-continue CPAP
# Hyperlipidemia on Repatha, fenofibrate as OP
# Anxiety/PTSD and bipolar disease-continue Xanax, sertraline, trazodone, Vraylar
# Asthma-continue albuterol as needed, Wixela
# History of Evelyn's thyroiditis and subsequent hypothyroidism-continue Synthroid
# Hepatic steatosis
# Obesity per BMI - Started on Zepbound
# Ex-smoker
Discussed with GI
D/W RN
Discussed with patient's who had concerns and asked if patient needs an endoscopy. Reasoning of the current treatment discussed with the patient. He is requesting a call from GI also , texted.
Time spent over 50 min
Anticipated Discharge: 24 - 48 hours
Subjective/Interval History
-
Date of Service: June 14, 2024
Objective Data
-
Labs:
Laboratory Results
06/14/24
06:57
WBC 6.0
Hgb 12.1
Hct 36.3 L
Plt Count 326
Sodium 141
Potassium 4.0
Chloride 106
Carbon Dioxide 28
BUN 17
Creatinine 1.2 H
Glucose 85
Calcium 9.0
Vital Signs:
Vital Signs
Temp Pulse Resp BP Pulse Ox
97.5 F 63 20 143/70 97
06/14/24 08:00 06/14/24 08:00 06/14/24 08:00 06/14/24 08:00 06/14/24 08:00
I&O
06/13/24 06/14/24 06/15/24
06:59 06:59 06:59
Intake Total 1440 / 1440 1200 / 1200
Balance 1440 / 1440 1200 / 1200
[2024-06-14] MEDS: NSS 1000 IV (16:50)
[2024-06-14] MEDS: LIDOCAINE 4% PATCH 1 PATCH TOPICAL (18:24)
[2024-06-14 23:02] VITALS: BP 121/66
[2024-06-15] MEDS: REGLAN 10 MG IV ×4 (00:20→23:35)
[2024-06-15] MEDS: TRICOR 145 MG PO ×2 (01:03→22:03)
[2024-06-15] MEDS: PEPCID 40 MG PO ×2 (01:03→22:03)
[2024-06-15] MEDS: XANAX 2 MG PO ×2 (01:03→22:02)
[2024-06-15] MEDS: VITAMIN D3 (cholecalciferol) 125 MCG PO ×2 (01:03→22:03)
[2024-06-15] MEDS: SENOKOT-S PO (01:03)
[2024-06-15] MEDS: SYNTHROID 150 MCG PO ×2 (01:04→22:03)
[2024-06-15] MEDS: DESYREL 150 MG PO ×2 (01:04→22:03)
[2024-06-15] MEDS: NEURONTIN 300 MG PO ×2 (01:04→22:03)
[2024-06-15] MEDS: ZOLOFT 100 MG PO ×2 (01:04→22:03)
[2024-06-15] MEDS: ZOSTRIX-HP 0.075% CREAM TOPICAL ×2 (01:06→08:17)
[2024-06-15] MEDS: NON-FORMULARY ITEM 3 MG PO ×2 (01:06→22:03)
[2024-06-15] MEDS: NSS 1000 IV ×3 (02:53→22:02)
[2024-06-15 07:05] VITALS: BP 117/58
[2024-06-15] MEDS: ADVAIR HFA 230/21 MCG INHALER 2 PUFF INH (07:20)
[2024-06-15] MEDS: LIDOCAINE 4% PATCH 1 PATCH TOPICAL (07:37)
[2024-06-15] MEDS: PROTONIX 40 MG PO ×2 (07:39→20:32)
[2024-06-15] MEDS: SENOKOT-S 1 TABLET PO ×2 (07:39→20:32)
[2024-06-15 07:50] LABS: Hematocrit 36.2 % (37.0-47.0); Hemoglobin 12.4 g/dL (12.0-16.0); Mean Corp Hgb Conc. 34.3 g/dL (33.0-37.0); Mean Corpuscular Hgb 31.6 pg (27.0-31.0); Mean Corpuscular Volume 92.3 fL (81.0-99.0); Mean Platelet Volume 9.9 fL (7.4-10.4); Platelet Count 278 10^3/uL (130-400); Red Blood Cell Count 3.92 10^6/uL (4.20-5.40); Red Cell Dist. Width 13.7 % (11.5-14.5); White Blood Cell Count 6.5 10^3/uL (4.8-10.8)
[2024-06-15 08:39] LABS: Blood Urea Nitrogen 12 mg/dl (7-17); Carbon Dioxide 24 mmol/L (22-30); Chloride 109 mmol/L (98-107); Estimated Creatinine Clearance 76 ml/min; Glucose 77 mg/dl (70-99); Magnesium 2.4 mg/dl (1.6-2.3); Potassium 4.2 mmol/L (3.5-5.1); Sodium 143 mmol/L (135-145); eGFR > 60.00
--- NOTE | 2024-06-15 09:57 | W.PN.HOSP.TC ---
Today's Communication/Plan
-
MRI ABDOMEN
ECHO results pending.
Trial of full liquids
Assessment / Plan
Assessment / Plan
48-year-old presented to the hospital with abdominal pain nausea and vomiting. She has also had some difficulty eating. Abdominal pain still present.
CVS: S1-S2 normal
Chest: CTA B/L
Abdomen: Complains of mild diffuse discomfort, bowel sounds present
Extremities: No edema, normal pulses
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
# Right-sided abdominal pain
Nausea vomiting
Was recently started on Zepbound which is known to cause nausea- Can take weeks to settle. Will not restart at discharge
Avoid NSAIDs-advised to avoid at discharge
Patient is supposed to follow-up with Dr. Monahan on 06/17/2024
Change clear liquids to full liquids and see how patient can tolerate
MRI of the abdomen ordered to evaluate the pancreas with elevation lipase on admission
Reglan IV started to treat gastroparesis-needs gastric emptying study as outpatient
PPI changed to twice daily
History of bowel obstructions-current x-ray no obstruction seen on imaging
# Chest pain-EKG negative. Troponin negative. Likely secondary to GERD/nausea backwash esophagitis. Check ECHO-Results pending
# Lipase 1071 on 06/08/2024-Normal pancreas on imaging
# Suspected gastroparesis CT 06/08/2024 with dilatation of the stomach without gastric outlet obstruction
# History of ovarian cervical cancer with surgery/radiation/chemo
# History of rectal fissures and hemorrhoids and constipation
# GERD-continue Pepcid, PPI
# Acute kidney injury-Avoid NSAIDs. Follow creatinine. IVF
# Sleep apnea-continue CPAP
# Hyperlipidemia on Repatha, fenofibrate as OP
# Anxiety/PTSD and bipolar disease-continue Xanax, sertraline, trazodone, Vraylar
# Asthma-continue albuterol as needed, Wixela or equivalant
# History of Evelyn's thyroiditis and subsequent hypothyroidism-continue Synthroid
# Hepatic steatosis
# Obesity per BMI - Started on Zepbound
# Ex-smoker
Discussed with GI
D/W RN
Discussed with patient's in detail yesterday on 06/14/2024
Anticipated Discharge: 24 - 48 hours
Subjective/Interval History
-
Date of Service: June 15, 2024
Objective Data
-
Labs:
Laboratory Results
06/15/24
06:41
WBC 6.5
Hgb 12.4
Hct 36.2 L
Plt Count 278
Sodium 143
Potassium 4.2
Chloride 109 H
Carbon Dioxide 24
BUN 12
Creatinine 1.1 H
Glucose 77
Calcium 9.0
Vital Signs:
Vital Signs
Temp Pulse Resp BP Pulse Ox
97.7 F 63 16 117/58 97
06/15/24 07:05 06/15/24 07:25 06/15/24 07:25 06/15/24 07:05 06/15/24 07:25
I&O
06/14/24 06/15/24 06/16/24
06:59 06:59 06:59
Intake Total 1200 / 1200 980 / 980 1200 / 1200
Output Total 100 / 100
Balance 1200 / 1200 880 / 880 1200 / 1200
[2024-06-15 10:04] VITALS: BMI 35.1
--- NOTE | 2024-06-15 10:16 | CM ---
Home when stable.
Plan; Home when stable, no needs, find.help.org provided to patient for resources after discharge.
--- NOTE | 2024-06-15 10:24 | PN.CDI ---
Addendum entered and electronically signed by Kristopher Stratton MD 06/15/24 13:48:
Documentation is complete at this time.
Original Note:
CDI
- -
CDI:
Physician Documentation Request
Admit Date: 06/12/24 15:51
Dear Doctor Chayito,
Patient admitted for nausea.
06/15 Hospitalist PN: 'Acute kidney injury-Avoid NSAIDs. Follow creatinine. IVF'
Laboratory Tests
06/11/24 06/12/24 06/14/24
11:22 07:10 06:57
Creatinine 1.2 H 1.0 1.2 H
The purpose of this query is not to question medical judgement, but to ensure the accuracy of the conditions reported for your patient.
There is either a lack of clinical support for this condition in the current medical record, or there is a lack of recognized standard criteria to support the condition.
Criteria for CARMEN*
1 Increase in serum creatinine by > or = to 0.3 mg/dL (> or = to 26.5 micromol/L) within 48 hours, OR
2 Increase in serum creatinine to > or = to 1.5 times baseline, which is known or presumed to have occurred within 7 days, OR
3 Urine volume < 0.5 nL/kg/hour for six hours
The request is for one of the following:
- Additional documentation to support the condition. Indicate if this is in lieu of what may be considered standard criteria, and/or support why the standard criteria may not be present for this patient.
- A more appropriate diagnosis, reflecting the patient's condition
- CARMEN remains a known or suspected condition for this patient and is further supported by (include additional documentation in the medical record)
- CARMEN has been ruled out and a more appropriate diagnosis for this patient's condition is .
- Other (please specify)
Use of terms such as suspected, likely, concern for, or probable (associated with a specific diagnosis that is being evaluated, monitored, or treated as if it exists) are acceptable and can be coded in the inpatient setting, when documented at the
time of discharge.
Thank you,
Margareth Arriaga RN, BSN
CDI Specialist
Available [facility] [place] text
Please use your independent medical judgment in providing your response.
--- NOTE | 2024-06-15 11:24 | W.PN.GI.CBS2 ---
Today's Communication / Plan
-
chronic intermittent symptoms of RUQ pain/n/v related to ? gastroparesis, adhesive disease with hx multiple surgeries including KIRSTIN/removal of mesh/hernia repair in January,,( cervical/ovarian CA with prior chemo/rad), functional exacerbated by anxiety,
constipation
-with elevated lipase check MRI to confirm no true pancreatitis with recent Zepbound use
-cont to hold Zepbound -- may take a few weeks off medication for improvement if underlying cause
-possible gastroparesis-- cont Reglan no TD noted -discussed if tolerating liquid can change to PO for more longer lasting effect as report reglan short lived effects
pt reports vomiting 06/14 -- reviewed with nursing to record all emesis and volume monitor for recurrent symptoms
ok to trial full liquid diet as not vomiting today
pt now reports pain with swallowing-- s/p EGD in December cont to monitor symptoms
consider eventual formal gastric emptying scan with alternative to oatmeal if able --need to be outpatient and hold narcotic/antiemetics/reglan for true results
if symptoms persist with distant hx radiation can consider OP MRE to exclude radiation enteritis
less likely Repatha as only 2 % nausea risk
stop capsaicin cream as pt declines use
cont PPI and pepcid
cont mIralax daily and senna BID, lactulose also added TID X ray remains stable
NSAID avoidance
chest pain work up per hospitalist
due follow up this week with Dr. Monahan 06/17 may need to reschedule
Assessment / Plan
-
Pt is a 48yo with hx suspected gastroparesis, ovarian/cervical CA surgery/chemo/radiation, prior hysterectomy/oophorectomy, exp lap with KIRSTIN/abdominoplasty, hernia repair, GERD, sleep apnea-cpap, CKD, anxiety/bipolar, fissures, hemorrhoidectomy
with onset of abdominal pain with nausea/vomiting. In review of records she is noted with periods symptoms. She admits to recent bout over last 1-2 weeks some worsening symptoms with difficulty eating. she also admit to some abdominal pain with
pressure with radiation to right flank , recent rectal bleeding now resolved and diarrhea with recent concern for constipation with laxative use. She has attempted gastric emptying scan in past with inability to tolerate oatmeal. In review of
recent labs she was noted with lipase 1071 on 06/08 then 606 on 06/11. She has had multiple recent ER visit with parathesia, rectal bleeding and now nausea/vomiting. She has had multiple diagnostic testing with 06/11 mild colonic stool burden, 06/11
US fatty liver No evidence of cholelithiasis, acute cholecystitis, or biliary ductal dilation., 06/08 CT stomach distention without GOO, fatty liver, post surg anatomy, 06/02 CT with limited without oral contrast- small inguinal hernia,The liver and
spleen are within the limits of normal in size. There is mild diffuse decreased hepatic attenuation. There is no focal abnormality of the gallbladder or pancreas and no findings to suggest biliary tract dilatation. Pt also admits to recent start of
Zepbound with last dose 3 weeks ago and total of 3 doses taken and repatha 2-3 months ago.
-Right sided abdominal pain
-nausea/vomiting with some chronic syptoms
-elevated lipase with normal pancreas on imaging
-suspected gastroparesis-- CT 06/08 with stomach distention without GOO
-recent start of Zepbound and Repatha
-hx ovarian/cervical CA with prior radiation/chemo/surgery
-recent rectal bleeding with hx fissures, hemorrhoids
-hx abdominal surgery with removal of old mesh, repair of ventral hernia, KIRSTIN 01/[address] Mantilla
-constipation
-chest pain after admission
other med problems:
-Prior hysterectomy/oophorectomy, exp lap with KIRSTIN/abdominoplasty, hernia repair
-GERD
-sleep apnea
-CKD
-anxiety/bipolar
-fatty liver
-obesity
PLAN:
chronic intermittent symptoms of RUQ pain/n/v related to ? gastroparesis, adhesive disease with hx multiple surgeries including KIRSTIN/removal of mesh/hernia repair in January,,( cervical/ovarian CA with prior chemo/rad), functional exacerbated by anxiety,
constipation
-with elevated lipase check MRI to confirm no true pancreatitis with recent Zepbound use
-cont to hold Zepbound -- may take a few weeks off medication for improvement if underlying cause
-possible gastroparesis-- cont Reglan no TD noted -discussed if tolerating liquid can change to PO for more longer lasting effect as report reglan short lived effects
pt reports vomiting 06/14 -- reviewed with nursing to record all emesis and volume monitor for recurrent symptoms
ok to trial full liquid diet as not vomiting today
pt now reports pain with swallowing-- s/p EGD in December cont to monitor symptoms
consider eventual formal gastric emptying scan with alternative to oatmeal if able --need to be outpatient and hold narcotic/antiemetics/reglan for true results
if symptoms persist with distant hx radiation can consider OP MRE to exclude radiation enteritis
less likely Repatha as only 2 % nausea risk
stop capsaicin cream as pt declines use
cont PPI and pepcid
cont mIralax daily and senna BID, lactulose also added TID X ray remains stable
NSAID avoidance
chest pain work up per hospitalist
due follow up this week with Dr. Monahan 06/17 may need to reschedule
Subjective
Subjective
Date of Service: June 15, 2024
tolerating some sips of clears advancing to full liquid lunch + stools with laxative regiment-- still with multiple complaints with some pain with swallowing, abdominal pain, and nausea . She reports vomiting yesterday x 2
Objective
Data Reviewed
Laboratory Data:
Laboratory Results
06/15/24 06:41
06/15/24 06:41
Laboratory Results
Magnesium 2.4 mg/dl (1.6-2.3) H 06/15/24 06:41
Total Bilirubin 0.5 mg/dl (0.2-1.3) 06/12/24 07:10
AST 20 U/L (14-36) 06/12/24 07:10
ALT 20 U/L (0-35) 06/12/24 07:10
Alkaline Phosphatase 39 U/L (38-126) 06/12/24 07:10
Lipase 332 U/L (23-300) H 06/13/24 05:22
Vital Signs and I&O:
Vital Signs
Temp Pulse Resp BP Pulse Ox
97.7 F 63 16 117/58 97
06/15/24 07:05 06/15/24 07:25 06/15/24 07:25 06/15/24 07:05 06/15/24 07:25
I&O
06/14/24 06/15/24 06/16/24
06:59 06:59 06:59
Intake Total 1200 / 1200 980 / 980 1200 / 1200
Output Total 100 / 100
Balance 1200 / 1200 880 / 880 1200 / 1200
Physical Exam
Physical Exam
HEENT: Anicteric and Moist mucous membranes
Cardiology: Normal Sinus Rhythm
Pulmonary: Clear
GI: Soft, Non Distended and Tender (upper abdominal tenderness )
Extremities: No Edema
Neuro: Non Focal
[2024-06-15 15:26] VITALS: BP 120/65
[2024-06-15] MEDS: TYLENOL 650 MG PO (20:30)
--- NOTE | 2024-06-15 20:59 | VATNOTE ---
CALLED TO ASSESS IV SITE IN R MAB POST MRI CONTRAST INJECTION. SITE APPEARS INFILTRATED, PINK, BLANCHED AND SWOLLEN. PT STATES IT IS PAINFUL AND FEELS'THICK'. PT STATES IT WAS SEEN AND ASSESSED BY MRI STAFF DURING SCAN. SITE REMOVED AND NEW IV
ESTABLISHED DOCUMENTED. SUGGESTED TO PCN TO APPLY WARM COMPRESSES FOR PT COMFORT. VAT TO FOLLOW.
[2024-06-15 22:42] VITALS: BP 129/75
[2024-06-16 07:10] VITALS: BP 135/76
[2024-06-16] MEDS: NSS 1000 IV (07:41)
[2024-06-16] MEDS: LIDOCAINE 4% PATCH 1 PATCH TOPICAL (07:43)
[2024-06-16] MEDS: PROTONIX 40 MG PO (07:44)
[2024-06-16] MEDS: SENOKOT-S 1 TABLET PO (07:44)
[2024-06-16] MEDS: REGLAN 10 MG IV (07:46)
[2024-06-16 07:52] LABS: Hematocrit 34.9 % (37.0-47.0); Hemoglobin 11.9 g/dL (12.0-16.0); Mean Corp Hgb Conc. 34.1 g/dL (33.0-37.0); Mean Corpuscular Hgb 30.4 pg (27.0-31.0); Mean Corpuscular Volume 89.3 fL (81.0-99.0); Mean Platelet Volume 9.4 fL (7.4-10.4); Platelet Count 302 10^3/uL (130-400); Red Blood Cell Count 3.91 10^6/uL (4.20-5.40); Red Cell Dist. Width 13.8 % (11.5-14.5); White Blood Cell Count 6.1 10^3/uL (4.8-10.8)
[2024-06-16] MEDS: ADVAIR HFA 230/21 MCG INHALER 2 PUFF INH (08:15)
--- NOTE | 2024-06-16 08:22 | W.PN.GI.CBS2 ---
Addendum entered and electronically signed by Berkley Greene MD 06/16/24 10:17:
06/15/24 MRI
IMPRESSION:
Fatty infiltration of liver. Small hepatic hemangioma. Unremarkable gallbladder. No bile duct dilatation. normal pancreas
Original Note:
Today's Communication / Plan
-
DC today if tolerates diet
Assessment / Plan
-
Pt is a 48yo with hx suspected gastroparesis, ovarian/cervical CA surgery/chemo/radiation, prior hysterectomy/oophorectomy, exp lap with KIRSTIN/abdominoplasty, hernia repair, GERD, sleep apnea-cpap, CKD, anxiety/bipolar, fissures, hemorrhoidectomy
with onset of abdominal pain with nausea/vomiting. In review of records she is noted with periods symptoms. She admits to recent bout over last 1-2 weeks some worsening symptoms with difficulty eating. she also admit to some abdominal pain with
pressure with radiation to right flank , recent rectal bleeding now resolved and diarrhea with recent concern for constipation with laxative use. She has attempted gastric emptying scan in past with inability to tolerate oatmeal. In review of
recent labs she was noted with lipase 1071 on 06/08 then 606 on 06/11. She has had multiple recent ER visit with parathesia, rectal bleeding and now nausea/vomiting. She has had multiple diagnostic testing with 06/11 mild colonic stool burden, 06/11
US fatty liver No evidence of cholelithiasis, acute cholecystitis, or biliary ductal dilation., 06/08 CT stomach distention without GOO, fatty liver, post surg anatomy, 06/02 CT with limited without oral contrast- small inguinal hernia,The liver and
spleen are within the limits of normal in size. There is mild diffuse decreased hepatic attenuation. There is no focal abnormality of the gallbladder or pancreas and no findings to suggest biliary tract dilatation. Pt also admits to recent start of
Zepbound with last dose 3 weeks ago and total of 3 doses taken and repatha 2-3 months ago.
-Right sided abdominal pain
-nausea/vomiting with some chronic syptoms
-elevated lipase with normal pancreas on imaging
-suspected gastroparesis-- CT 06/08 with stomach distention without GOO
-recent start of Zepbound and Repatha
-hx ovarian/cervical CA with prior radiation/chemo/surgery
-recent rectal bleeding with hx fissures, hemorrhoids
-hx abdominal surgery with removal of old mesh, repair of ventral hernia, KIRSTIN 01/[address] Mantilla
-constipation
-chest pain after admission
other med problems:
-Prior hysterectomy/oophorectomy, exp lap with KIRSTIN/abdominoplasty, hernia repair
-GERD
-sleep apnea
-CKD
-anxiety/bipolar
-fatty liver
-obesity
PLAN:
chronic intermittent symptoms of RUQ pain/n/v related to ? gastroparesis, adhesive disease with hx multiple surgeries including KIRSTIN/removal of mesh/hernia repair in January,,( cervical/ovarian CA with prior chemo/rad), functional exacerbated by anxiety,
constipation vs cutaneous nerve entrapment syndrome
-with elevated lipase check MRI to confirm no true pancreatitis with recent Zepbound use- results P
-cont to hold Zepbound -- may take a few weeks off medication for improvement if underlying cause
-possible gastroparesis-- DC Reglan today
-consider eventual formal gastric emptying scan with alternative to oatmeal if able --need to be outpatient and hold narcotic/antiemetics/reglan for true results
-if symptoms persist with distant hx radiation can consider OP MRE to exclude radiation enteritis
-less likely Repatha as only 2 % nausea risk
-cont PPI bid and pepcid HS, could not tolerate Carafate in past
-cont mIralax daily and senna BID, lactulose also added TID X ray remains stable
-NSAID avoidance
-due follow up this week with Dr. Monahan 06/17 patient wants to try to keep this appointment and possible DC today if MRI negative
-Had extensive lengthy discussion with patient today and also discussed with Dr. Monahan yesterday about options moving forward if her symptoms recur or persist. Would recommend a tertiary center evaluation and she is going to follow-up with Dr. Mantilla
to see if it is possible cutaneous nerve entrapment syndrome from prior mesh and hernia repair and may need referral to pain management for possible injection but she is allergic to prednisone
Subjective
Subjective
Date of Service: June 16, 2024
Still with right-sided abdominal pain nausea slightly improved last episode of vomiting was yesterday.
Awaiting results of MRI she had it last night
Objective
Data Reviewed
Laboratory Data:
Laboratory Results
06/16/24 07:19
Laboratory Results
Magnesium 2.4 mg/dl (1.6-2.3) H 06/15/24 06:41
Total Bilirubin 0.5 mg/dl (0.2-1.3) 06/12/24 07:10
AST 20 U/L (14-36) 06/12/24 07:10
ALT 20 U/L (0-35) 06/12/24 07:10
Alkaline Phosphatase 39 U/L (38-126) 06/12/24 07:10
Lipase 332 U/L (23-300) H 06/13/24 05:22
Vital Signs and I&O:
Vital Signs
Temp Pulse Resp BP Pulse Ox
97.4 F 62 18 135/76 97
06/16/24 07:10 06/16/24 08:20 06/16/24 08:20 06/16/24 07:10 06/16/24 08:20
I&O
06/15/24 06/16/24 06/17/24
06:59 06:59 06:59
Intake Total 980 / 980 6040 / 6040
Output Total 100 / 100 100 / 100
Balance 880 / 880 5940 / 5940
Physical Exam
Physical Exam
Cardiology: Normal Sinus Rhythm
Pulmonary: Clear
GI: Soft, Non Distended, Tender (RUQ and RLQ) and Normal Bowel Sounds
[2024-06-16 08:47] LABS: ALT (SGPT) 19 U/L (0-35); AST (SGOT) 20 U/L (14-36); Albumin 3.4 g/dl (3.5-5.0); Alkaline Phosphatase 31 U/L (38-126); Blood Urea Nitrogen 9 mg/dl (7-17); Calcium 9.2 mg/dl (8.4-10.2); Carbon Dioxide 27 mmol/L (22-30); Chloride 108 mmol/L (98-107); Estimated Creatinine Clearance 83 ml/min; Glucose 90 mg/dl (70-99); Potassium 4.3 mmol/L (3.5-5.1); Sodium 142 mmol/L (135-145); Total Bilirubin 0.4 mg/dl (0.2-1.3); Total Protein 5.6 g/dl (6.3-8.2); eGFR > 60.00
--- NOTE | 2024-06-16 11:35 | W.PN.HOSP.TC ---
Today's Communication/Plan
-
Advance diet as tolerated
Possible discharge later
Assessment / Plan
Assessment / Plan
#Right-sided abdominal pain
-Unclear etiology, may be related to GLP-1 agonist versus gastroparesis versus functional bowel disease
-Did have elevated lipase on admission, MRI of the abdomen was without any acute findings and no tenderness on exam
-CT scan on 06/08 showed dilation of stomach without gastric outlet obstruction suspicious for gastroparesis
-Needs gastric emptying study though likely would be falsely positive here
-GI following, planning for outpatient follow-up if she tolerates diet today
-Will continue to advance diet as tolerated, plan for outpatient gastric emptying study
-Continue with PPI, Reglan; avoid NSAIDs and GLP-1 agonist at discharge
#History of ovarian cervical cancer with surgery/radiation/chemo
-Question if previous chemotherapy could have contributed to neuropathy/gastroparesis
#GERD
-No known history of Hall's esophagus or erosive disease
-Home regimen includes PPI and antihistamine
#Asthma
-No signs of exacerbation
-Remains on LABA/ICS and as needed URIAH
#Sleep apnea
-continue CPAP
#Hyperlipidemia
-No known history of ASCVD
-Home regimen includes Repatha, fenofibrate
#History of Evelyn's thyroiditis
#Hypothyroidism
-No evidence of abnormal thyroid function at this time
-Appears stable on home Synthroid dose
#Hepatic steatosis
-Suspect this is related to metabolic state, no significant alcohol history
-Will need to follow-up as outpatient, consider SGLT inhibitor
#Anxiety/PTSD and bipolar disease
-continue Xanax, sertraline, trazodone, Vraylar
#History of rectal fissures and hemorrhoids and constipation
#Obesity per BMI
#Ex-smoker
DVT prophylaxis: SCDs
Diet advance as tolerated
CODE STATUS: Full code
Anticipated Discharge: Today
Subjective/Interval History
-
Date of Service: June 16, 2024
Seen and examined at the bedside. No acute events overnight. AFVSS this morning.
She states she feels slightly better, still has some right sided abdomen discomfort. States she is ready to try a full diet, excited about possibility of leaving hospital today.
She denies chest pain, shortness of breath, fevers or chills, abnormal bleeding or bruising, diarrhea, paresthesias or weakness, urinary issues.
Objective Data
-
Labs:
Laboratory Results
06/16/24
07:19
WBC 6.1
Hgb 11.9 L
Hct 34.9 L
Plt Count 302
Sodium 142
Potassium 4.3
Chloride 108 H
Carbon Dioxide 27
BUN 9
Creatinine 1.0
Glucose 90
Calcium 9.2
Total Bilirubin 0.4
AST 20
ALT 19
Alkaline Phosphatase 31 L
Vital Signs:
Vital Signs
Temp Pulse Resp BP Pulse Ox
97.4 F 62 18 135/76 97
06/16/24 07:10 06/16/24 08:20 06/16/24 08:20 06/16/24 07:10 06/16/24 08:20
I&O
06/15/24 06/16/24 06/17/24
06:59 06:59 06:59
Intake Total 980 / 980 6040 / 6040
Output Total 100 / 100 100 / 100
Balance 880 / 880 5940 / 5940
Review of Systems
-
History Source: Patient
All other systems: Reviewed and negative
Physical Exam
-
General: No Apparent Distress, Comfortable and Obese
HEENT: Normocephalic, Atraumatic, Moist Mucous Membranes and Anicteric
Respiratory: Clear to Auscultation and Non Labored Respirations
Cardiac: Regular Rhythm and S1/S2; Negative Murmur, Rub or Gallop
GI: Soft, Nondistended, Tender (Right-sided, no peritoneal signs) and Other; Negative Normal Bowel Sounds (Reduced to absent bowel sounds)
Musculoskeletal: No Clubbing, No Cyanosis and No Edema
Skin: Warm, Dry and Normal Turgor; Negative Rash
Neuro: AO x 3, Nonfocal/Grossly Intact and Central Nerve's Intact
Psych: Calm
Data Reviewed
-
Labs: Labs Reviewed by me and Discussed with Patient
--- NOTE | 2024-06-16 12:15 | CM ---
Home when stable.
Plan; Home at discharge.
--- NOTE | 2024-06-16 12:35 | VATNOTE ---
During routine assessment, site of IV contrast infiltrate from 06/15 assessed. Bruising and erythema noted. Pt reports discomfort at the site. Heat applied and pt instructed to ask nursing staff for heat PRN to apply to site for comfort. IV in
patent's L dorsal wrist noted to be painful, IV discontinued and heat applied for pt comfort.
[2024-06-16] MEDS: AFLURIA (36 mos+) 2024-2025 FORMULA 0.5 ML IM (14:46)
[2024-06-16 14:47] VITALS: BP 131/75
--- NOTE | 2024-06-17 13:49 | W.DCSUMMARY ---
Discharge Summary
Discharge Data
Date of Admission: 06/12/24
Date of Discharge: 06/17/24
-
Pending Results: No
Hospital Course
49-year-old female with GERD, HTN, HLD, CKD 3 AA, asthma, psychiatric issues, MADDY on CPAP, H/O bowel obstruction, H/O ovarian cancer, H/O cervical cancer, s/p SOLOMON�SPO that presented to the emergency department with intractable right-sided abdomen
pain associated with nausea and vomiting. Has had previous occurrences of similar issue. Was recently started on GLP-1 agonist for obesity and weight loss. Abdomen MRI without signs of pancreatitis or process. Previous EGD this year was without
any signs of obstruction. Recommendation made for gastric emptying study though in-hospital testing would have been likely false positive due to use of narcotics/antiemetics. Symptomatically improved gastroparesis friendly diet, increased
pantoprazole, and lidocaine patch.
Was recommended to follow-up with gastroenterology as an outpatient for gastric emptying study. Will need to be off of antiemetics and opioid medications for highest possible diagnostic yield. Does have a distant history of radiation,
gastroenterology recommending potential MRE for radiation enteritis if other testing is unyielding
Discharge Plan
-
Patient Disposition: Home (Routine Discharge)
Discharge Diagnosis/Procedures: Abdomen pain
Acute kidney injury
Condition: Good
Diet: Low Residue and Other diet
Additional Diets: gastroparesis diet (low in fat and in nondigestible (insoluble) fiber; avoid carbonated beverages, avoid alcohol
Activity: As tolerated
Driving Restrictions: No driving for 24 hours
Blood Work: None
Others Tests: Gastric emptying study, with tobacco drummer
Activity Restrictions/Additional Instructions:
Schedule follow-up appointment with primary care doctor and GI referral within 7 days of being discharged from the hospital.
Instructions: Abdominal pain in adults - Discharge instructions
Referrals:
Jolanta Saavedra CRNP [Family Provider] -
Berkley Greene MD [Active] - in less than 1 week
Additional Discharge Medication Instructions: Stop meloxicam and other NSAIDs until you see your primary care doctor
Stop Zepbound
Increased pantoprazole to 40 mg twice daily
Continue with lidocaine patch as needed for
Prescriptions:
New
lidocaine 4 % Adhesive Patch,Medicated
1 patch topical DAILY 7 Days Qty: 10 0RF
pantoprazole 40 mg Tablet,Delayed Release (Dr/Ec)
40 mg PO BID 30 Days Qty: 60 0RF
Continued
docusate sodium 100 MG capsule
200 mg PO HS
sertraline 100 MG tablet
100 mg PO HS
fenofibrate 160 MG tablet
160 mg PO HS
acetaminophen 325 MG tablet
650 mg PO DAILYPRN PRN (Reason: mild pain)
alprazolam 1 MG tablet
2 mg PO HS
Patient Comments:
06/11/2024: last filled 06/10/24, 60 tabs for 30 days from [place]
Vraylar 3 MG capsule
3 mg PO HS
ondansetron 4 mg tablet,disintegrating
4 mg PO TIDPRN PRN (Reason: nausea/vomiting) Qty: 10 0RF
famotidine [Pepcid] 40 mg Tablet
40 mg PO HS
pantoprazole [Protonix] 40 mg Tablet,Delayed Release (Dr/Ec)
40 mg PO HS
trazodone 150 mg Tablet
150 mg PO HS
Patient Comments:
06/08/24: Patient had plans to decrease dose to 100mg tonight.
levothyroxine 150 mcg Tablet
150 mcg PO HS
cholecalciferol (vitamin D3) [Vitamin D3] 125 mcg (5,000 unit) Tablet
125 mcg PO HS
gabapentin 300 mg Capsule
300 mg PO HS
Repatha Syringe 140 mg/mL Syringe
140 mg SC Q2W
fluticasone propion-salmeterol [Wixela Inhub] 500-50 mcg/dose Blister With Device
1 inh INHALATION R DAILY
meclizine 25 mg tablet
25 mg PO TIDPRN PRN (Reason: dizziness)
oxycodone 5 mg tablet
5 mg PO Q6HPRN PRN (Reason: moderate pain)
Patient Comments:
06/11/2024: last filled 02/16/24, 15 tabs for 2 days from [facility][id number]
Discontinued
Zepbound 5 mg/0.5 mL Pen Injector
5 mg SC WE
Patient Comments:
06/08/24: patient has plans to decrease dosage to 2.5mg tomorrow(06/09/24)
meloxicam 15 mg Tablet
15 mg PO DAILYPRN PRN (Reason: moderate pain)
Discharge Orders:
Discharge Patient (As Directed); Ordered 06/16/24
Ordered By: Amadeo Faust
Discharge Date and Time
Discharge Date/Time: 06/16/24 15:07
Print Language: MONGOLIAN
== END 2024-06-16 15:07 | disposition home or self-care (01) | DRG 391 ==
LOC: 4 WEST ACU 15:51
PROVIDERS: Clinical Nurse Specialist Family Health; Hospitalist; ADMITTING PHYSICIAN Internal Medicine; ATTENDING PHYSICIAN Internal Medicine; CONSULT PHYSICIAN Internal Medicine Gastroenterology; EMERGENCY PHYSICIAN Emergency Medicine; FAMILY PHYSICIAN Nurse Practitioner Adult Health; REFERRING PHYSICIAN Internal Medicine Gastroenterology
DX: K31.84 Gastroparesis (principal); K85.90 Acute pancreatitis without necrosis or infection, unspecified; N17.9 Acute kidney failure, unspecified; Z87.891 Personal history of nicotine dependence; K21.9 Gastro-esophageal reflux disease without esophagitis; J45.909 Unspecified asthma, uncomplicated; G47.33 Obstructive sleep apnea (adult) (pediatric); E78.00 Pure hypercholesterolemia, unspecified; E78.1 Pure hyperglyceridemia; K76.0 Fatty (change of) liver, not elsewhere classified; F41.9 Anxiety disorder, unspecified; F31.9 Bipolar disorder, unspecified; E66.09 Other obesity due to excess calories; Z68.35 Body mass index [BMI] 35.0-35.9, adult
CPT/HCPCS: 74018; 74022; 74183; 76700; 80048; 80053; 80306; 80307; 81003; 81015; 83690; 83735; 84484; 84703; 85025; 85027; 87086; 90686; 93005; 93306; 94640; 96361; 96374; 96375; 99285; A9575; G0008

== ENCOUNTER → 2024-07-22 15:14 | Outpatient (REF) | payer BC, SELFPAY | LOC: RAD 15:14 | PROVIDERS: ATTENDING PHYSICIAN Nurse Practitioner Adult Health | DX: R11.10 Vomiting, unspecified (principal); R06.02 Shortness of breath; R05.1 Acute cough | CPT/HCPCS: 71046 ==

== ENCOUNTER 2024-09-13 12:50 | Emergency (ER) | payer BC, SELFPAY ==
[2024-09-13 12:53] VITALS: BP 146/85
[2024-09-13 14:51] VITALS: BP 141/93
--- NOTE | 2024-09-13 17:07 | ED.GENMED ---
History of Present Illness
General
Chief Complaint: Rectal Bleeding
Time Seen by Provider: 09/13/24 16:28
History of Present Illness
History of Present Illness:
49-year-old female presents to the emergency department for evaluation of rectal bleeding associated with lower abdominal discomfort. States she developed flulike symptoms yesterday and lower abdominal discomfort. She is concerned for a possible
complication of her known inguinal hernias. No objective fevers. Did have 1 bout of vomiting but none today. Does not take any blood thinners.
Past History
Past History
ED Past Medical History: Asthma, Cancer (ovarian and cervical cancer ), GERD, Hypercholesterolemia, Hypothyroidism, Psychiatric (anxiety, Bipolar, PTSD, Depression) and Other (Migraines, Sleep apnea uses CPAP, Bowel obstruction, Fissure, Eczema)
ED Past Surgical History: , Gynecological (hysthysterectomy, bilateral oophorectomy. Breast augmentation, ectopic , exploratory laparotomy with lymph node removal and lysis of adhesions in the right hemipelvis) and Other
(Abdominoplasty 2020, Hernia, Spincterotomy, Deviated septum surgery, Hemorrhoids)
Social History
Tobacco: Former smoker
Alcohol: None
Drug: None
Personal:
Living: with family
Employment: Not employed
Family History
Family History: Other (CAD, diabetes, thyroid disease, renal failure)
Review of Systems
Review of Systems
Allergies reviewed?: Yes
All Other Systems: ROS reviewed and negative except as documented in HPI and ROS
Phy Exam
Physical Exam
Physical Exam:
GEN: Well appearing, NAD, WDWN
HEENT: Oral mucosa moist, no scleral icterus
Cardiac: Regular rate
Lung: No respiratory distress, no tachypnea
Abdomen: Soft, tender to the right lower abdomen at the incision site from prior SOLOMON/BSO
MSK: No gross deformity or injuries
Skin: Good color, no pallor or jaundice, no rashes
Neuro: AO x3, moves all extremities freely
Psych: Calm, cooperative
Course
Orders/Labs/Results
Orders:
Orders
09/13/24 17:09
Type+Screen Urgent
Complete Blood Count/With Diff Urgent
Comprehensive Metabolic Panel Urgent
PTT Urgent
Prothrombin Time Urgent
09/13/24 17:38
Ketorolac [Toradol] 15 mg IV NOW STA
09/13/24 18:23
0.9% Sodium Chloride 1000 ml [Nss] 1,000 ml IV BOLUS
Abnormal Lab Results
09/13/24
17:09
BUN 23 H mg/dl
(7-17)
Creatinine 1.2 H mg/dL
(0.6-1.0)
AST 56 H U/L
(14-36)
ALT 47 H U/L
(0-35)
09/13/24 17:09
09/13/24 17:09
Vital Signs
Initial and Last Documented VS:
Initial Vital Signs
Temp Pulse Resp BP Pulse Ox
97.7 F 85 18 146/85 96
09/13/24 12:53 09/13/24 12:53 09/13/24 12:53 09/13/24 12:53 09/13/24 12:53
Last Documented Vital Signs
Temp Pulse Resp BP Pulse Ox
97.7 F 86 16 106/77 96
09/13/24 12:53 09/13/24 17:20 09/13/24 14:51 09/13/24 19:00 09/13/24 19:00
MDM/Problems Addressed
MDM/Problems Addressed:
Suspect acute colitis, discussed pros and cons of CT scan with the patient, given recency of numerous radiating studies the patient and I elected to withhold CT which is reasonable given that she is clinically stable. She has GI follow-up in 3
days. Will send home for outpatient stool studies
*Critical Care Note
Total Time (30-74mins, 75-104mins- exclusive of procedures): Not Applicable
ED Attending Note
-
Portions of this chart may have been created with voice recognition software.� Occasional wrong word or��sound alike� substitutions may have occurred due to the inherent limitations of voice recognition software.
Discharge Plan
Departure
Patient Disposition: Home (Routine Discharge)
Date of Disposition: 09/13/24
Time of Disposition: 18:49
Patient with high blood pressure during this ER visit?: No
Discharge Problem:
Rectal bleeding
Instructions: Bloody Stools, Adult (DC)
Prescriptions:
No Action
docusate sodium 100 MG capsule
200 mg PO HS
sertraline 100 MG tablet
100 mg PO HS
fenofibrate 160 MG tablet
160 mg PO HS
acetaminophen 325 MG tablet
650 mg PO DAILYPRN PRN (Reason: mild pain)
alprazolam 1 MG tablet
2 mg PO HS
Patient Comments:
06/11/2024: last filled 06/10/24, 60 tabs for 30 days from [place]
Vraylar 3 MG capsule
3 mg PO HS
ondansetron 4 mg tablet,disintegrating
4 mg PO TIDPRN PRN (Reason: nausea/vomiting) Qty: 10 0RF
famotidine [Pepcid] 40 mg Tablet
40 mg PO HS
pantoprazole [Protonix] 40 mg Tablet,Delayed Release (Dr/Ec)
40 mg PO HS
trazodone 150 mg Tablet
150 mg PO HS
Patient Comments:
06/08/24: Patient had plans to decrease dose to 100mg tonight.
levothyroxine 150 mcg Tablet
150 mcg PO HS
cholecalciferol (vitamin D3) [Vitamin D3] 125 mcg (5,000 unit) Tablet
125 mcg PO HS
gabapentin 300 mg Capsule
300 mg PO HS
Repatha Syringe 140 mg/mL Syringe
140 mg SC Q2W
fluticasone propion-salmeterol [Wixela Inhub] 500-50 mcg/dose Blister With Device
1 inh INHALATION R DAILY
meclizine 25 mg tablet
25 mg PO TIDPRN PRN (Reason: dizziness)
oxycodone 5 mg tablet
5 mg PO Q6HPRN PRN (Reason: moderate pain)
Patient Comments:
06/11/2024: last filled 02/16/24, 15 tabs for 2 days from [id number]
lidocaine 4 % Adhesive Patch,Medicated
1 patch topical DAILY 7 Days Qty: 10 0RF
pantoprazole 40 mg Tablet,Delayed Release (Dr/Ec)
40 mg PO BID 30 Days Qty: 60 0RF
Referrals:
Jolanta Saavedra CRNP [Family Provider] -
Activity Restrictions/Additional Instructions:
Return the stool specimen at your earliest convenience
Interventions
Interventions:
*Risk Screen - Suicide Last Done: 09/13/24 12:56
*General Assessment Last Done: 09/13/24 19:28
*Neglect/Abuse Screening Last Done: 09/13/24 19:28
ED- Fall Risk Assessment Last Done: 09/13/24 19:28
*ED COVID-19 Vaccine History Last Done: 09/13/24 19:28
*Nursing Disposition Last Done: 09/13/24 19:28
MD-Cvxxwr-Zwqthqteay Assessment Last Done: 09/13/24 19:28
Discharge Date and Time
Discharge Date/Time: 09/13/24 19:39
Print Language: AMHARIC
[2024-09-13 17:20] VITALS: BP 116/94
[2024-09-13 17:31] LABS: % Basophils 1.3 % (0-2); % Immature Granulocytes 0.2 % (0-0.5); % Lymphocytes 28.3 % (20.5-51.1); % Monocytes 8.6 % (1.7-9.3); % Neutrophils 58.6 % (42.2-75.2); Absolute Basophils 0.1 10^3/uL (0-0.2); Absolute Eosinophils 0.2 10^3/uL (0-0.7); Absolute Lymphocytes 1.5 10^3/uL (1.2-3.4); Absolute Monocytes 0.5 10^3/uL (0.1-0.6); Absolute Neutrophils 3.1 10^3/uL (1.4-6.5); Hematocrit 39.4 % (37.0-47.0); Mean Corpuscular Hgb 30.4 pg (27.0-31.0); Mean Corpuscular Volume 92.3 fL (81.0-99.0); Mean Platelet Volume 9.7 fL (7.4-10.4); Nucleated Red Blood Cells % 0 %; Platelet Count 358 10^3/uL (130-400); Red Blood Cell Count 4.27 10^6/uL (4.20-5.40); Red Cell Dist. Width 13.2 % (11.5-14.5); White Blood Cell Count 5.3 10^3/uL (4.8-10.8)
[2024-09-13 17:36] LABS: ALT (SGPT) 47 U/L (0-35); AST (SGOT) 56 U/L (14-36); Albumin 4.5 g/dl (3.5-5.0); Alkaline Phosphatase 43 U/L (38-126); Blood Urea Nitrogen 23 mg/dl (7-17); Calcium 9.5 mg/dl (8.4-10.2); Carbon Dioxide 30 mmol/L (22-30); Chloride 98 mmol/L (98-107); Glucose 96 mg/dl (70-99); Potassium 4.1 mmol/L (3.5-5.1); Sodium 138 mmol/L (135-145); Total Bilirubin 0.6 mg/dl (0.2-1.3); Total Protein 7.3 g/dl (6.3-8.2); eGFR 55.49
[2024-09-13 17:45] LABS: INR 1.04; PT 14.1 Sec (11.4-14.6)
[2024-09-13 17:46] LABS: APTT 32.9 Sec (23.4-35.0)
[2024-09-13] MEDS: TORADOL 15 MG IV (17:58)
[2024-09-13 18:00] VITALS: BP 119/81
[2024-09-13] MEDS: NSS 1000 IV (18:23)
[2024-09-13 19:00] VITALS: BP 106/77
== END 2024-09-13 19:39 | disposition home or self-care (01) ==
LOC: EMR 12:50
PROVIDERS: Emergency Medicine; EMERGENCY PHYSICIAN Emergency Medicine; FAMILY PHYSICIAN Nurse Practitioner Adult Health
DX: K62.5 Hemorrhage of anus and rectum (principal); R10.30 Lower abdominal pain, unspecified; R11.10 Vomiting, unspecified; E03.9 Hypothyroidism, unspecified; E78.00 Pure hypercholesterolemia, unspecified; F31.9 Bipolar disorder, unspecified; F41.9 Anxiety disorder, unspecified; F43.10 Post-traumatic stress disorder, unspecified; G47.30 Sleep apnea, unspecified; J45.909 Unspecified asthma, uncomplicated; K21.9 Gastro-esophageal reflux disease without esophagitis; F32.A Depression, unspecified; G43.909 Migraine, unspecified, not intractable, without status migrainosus; Z85.41 Personal history of malignant neoplasm of cervix uteri; Z85.43 Personal history of malignant neoplasm of ovary; Z87.891 Personal history of nicotine dependence; Z88.1 Allergy status to other antibiotic agents; Z88.5 Allergy status to narcotic agent; Z91.013 Allergy to seafood; Z88.8 Allergy status to other drugs, medicaments and biological substances; Z91.048 Other nonmedicinal substance allergy status
CPT/HCPCS: 99284; 96374; 96361; 80053; 85025; 85610; 85730; 86850; 86900; 86901

== ENCOUNTER → 2024-09-16 10:41 | Outpatient (REF) | payer BC, SELFPAY | LOC: REG 10:41 | PROVIDERS: ATTENDING PHYSICIAN Physician Assistant; FAMILY PHYSICIAN Nurse Practitioner Adult Health; REFERRING PHYSICIAN Emergency Medicine | DX: K92.1 Melena (principal) | CPT/HCPCS: 87045; 87046; 87324; 87427; 87449 ==

== ENCOUNTER → 2024-09-21 11:14 | Outpatient (REF) | payer BC, SELFPAY | LOC: HWRAD 11:14 | PROVIDERS: ATTENDING PHYSICIAN Internal Medicine Critical Care Medicine; FAMILY PHYSICIAN Nurse Practitioner Adult Health | DX: R91.1 Solitary pulmonary nodule (principal) | CPT/HCPCS: 71250 ==

== ENCOUNTER 2024-09-24 13:30 | Emergency (ER) | payer BC, SELFPAY ==
[2024-09-24 13:31] VITALS: BP 137/85
--- NOTE | 2024-09-24 13:37 | ED.GENMED ---
ED Provider Triage
<Paramjit Gordon PA-C - Last Filed: 09/24/24 13:39>
-
Patient seen by provider in Triage?: Seen in Triage
49-year-old female presents with increased cough and shortness of breath worsening over the past several days. She had a CT scan of her chest 4 days ago. She was told she had mucous plugs. She has not been getting any mucus up despite use of
Mucinex and inhalers nebulizers and antibiotic. She notes a low-grade fever. She denies any hemoptysis. She is not anticoagulated
Vital signs are stable at triage. Will start workup with labs COVID and flu tests chest x-ray
Seen by healthcare provider at triage warrants further assessment
History of Present Illness
<Paramjit Gordon PA-C - Last Filed: 09/24/24 13:39>
General
Chief Complaint: Breathing Problem
Time Seen by Provider: 09/24/24 18:02
<Edilia Kent, [employer] - Last Filed: 09/24/24 18:41>
General
Source: patient and spouse
Exam Limitations: none
Nursing documentation reviewed up to this point in time: agreed with
History of Present Illness
History of Present Illness:
Patient to ED with complaint of chest pain, SOB. Symptoms started 1 week ago. She had a scheduled OP chest CT on Friday (monitoring nodules) and was told she has mucous plugs. She was placed on Doxycycline 100mg bid, has had 2 days worth and
reports no improvement. States he pulse ox was low at home when she would attempt ot lie flat. Denies fever/chills. Unable to take deep breaths due to pain. States pain is bilateral but reports right is worse than left. Brought to ED by spouse
for eval.
Past History
<Paramjit Gordon PA-C - Last Filed: 09/24/24 13:39>
Past History
ED Past Medical History: Asthma, Cancer (ovarian and cervical cancer ), GERD, Hypercholesterolemia, Hypothyroidism, Psychiatric (anxiety, Bipolar, PTSD, Depression) and Other (Migraines, Sleep apnea uses CPAP, Bowel obstruction, Fissure, Eczema)
ED Past Surgical History: , Gynecological (hysthysterectomy, bilateral oophorectomy. Breast augmentation, ectopic , exploratory laparotomy with lymph node removal and lysis of adhesions in the right hemipelvis) and Other
(Abdominoplasty 2020, Hernia, Spincterotomy, Deviated septum surgery, Hemorrhoids)
Social History
Tobacco: Former smoker
Alcohol: None
Drug: None
Personal:
Living: with family
Employment: Not employed
Family History
Family History: Other (CAD, diabetes, thyroid disease, renal failure)
Review of Systems
<Edilia Kent [employer] - Last Filed: 09/24/24 18:41>
Review of Systems
Allergies reviewed?: Yes
All Other Systems: ROS reviewed and negative except as documented in HPI and ROS
Constitutional: Reports no symptoms
EENT: Reports no symptoms
Respiratory: Reports trouble breathing
Cardiac: Reports chest pain
ABD/GI: Reports no symptoms
: Reports no symptoms
Musculoskeletal: Reports no symptoms
Skin: Reports no symptoms
Neurological: Reports no symptoms
Psychiatric: Reports no symptoms
Phy Exam
<Edilia Kent [employer] - Last Filed: 09/24/24 18:41>
General Physical Exam
General Presentation: well appearing and no apparent distress
General age: appears stated age
General Skin: warm and dry
General Habitus: normal
General Mental: alert
Cardiovascular Exam
Cardiovascular Exam: regular rate/rhythm and no edema
Pulmonary Exam
Pulmonary Exam: no respiratory distress, chest non tender, no rhonchi, no stridor, no wheezing and other (Pulse ox 99% RA)
Breath Sounds: Crackles: left lower and right lower
Gastrointestinal Exam
Gastrointestinal Exam: normal bowel sounds, non tender, soft and no organomegaly
Musculoskeletal Exam
Musculoskeletal Exam: full ROM and neuro vasc intact
Skin Exam
Skin Exam: normal color, warm/dry and no rash
Psychiatric Exam
Psychiatric Exam: normal mood/affect
Scores
<Edilia Kent NP - Last Filed: 09/24/24 18:41>
Heart Failure Risk
Heart Failure Risk Score: Not Applicable
Course
<Paramjit Gordon PA-C - Last Filed: 09/24/24 13:39>
Orders/Labs/Results
Orders:
Orders
09/24/24 13:36
CR Chest - 2 Views Urgent
Comment:
Reason For Exam: cough, sob
09/24/24 13:37
Electrocardiogram (*1) Urgent
Reason for Study: Shortness of Breath
EKG- Treatment ONCE
09/24/24 13:49
COVID-19 Antigen Urgent
Source: Nasal Swab
Complete Blood Count/With Diff Urgent
Comprehensive Metabolic Panel Urgent
Influenza A+B Rapid Molecular Urgent
CHASITY Source: Nasal Swab
Specimen Description:
09/24/24 18:22
Dexamethasone Pf [Decadron] 10 mg PO NOW STA
Spirometry, Incentive [Rx Incentive Spirometry] [RESP] Urgent
Frequency: q1h while awake
Abnormal Lab Results
09/24/24
13:49
RBC 4.19 L 10^6/uL
(4.20-5.40)
Immature Gran % 0.6 H %
(0-0.5)
BUN 18 H mg/dl
(7-17)
Creatinine 1.2 H mg/dL
(0.6-1.0)
Glucose 120 H mg/dl
(70-99)
AST 61 H U/L
(14-36)
ALT 50 H U/L
(0-35)
09/24/24 13:49
09/24/24 13:49
Vital Signs
Initial and Last Documented VS:
Initial Vital Signs
Temp Pulse Resp BP Pulse Ox
98.2 F 97 16 137/85 97
09/24/24 13:31 09/24/24 13:31 09/24/24 13:31 09/24/24 13:31 09/24/24 13:31
Last Documented Vital Signs
Temp Pulse Resp BP Pulse Ox
97.8 F 87 21 136/73 100
09/24/24 16:26 09/24/24 18:00 09/24/24 18:00 09/24/24 18:00 09/24/24 18:02
<Edilia Kent [employer] - Last Filed: 09/24/24 18:41>
Orders/Labs/Results
Orders:
Orders
09/24/24 13:36
CR Chest - 2 Views Urgent
Comment:
Reason For Exam: cough, sob
09/24/24 13:37
Electrocardiogram (*1) Urgent
Reason for Study: Shortness of Breath
EKG- Treatment ONCE
09/24/24 13:49
COVID-19 Antigen Urgent
Source: Nasal Swab
Complete Blood Count/With Diff Urgent
Comprehensive Metabolic Panel Urgent
Influenza A+B Rapid Molecular Urgent
CHASITY Source: Nasal Swab
Specimen Description:
09/24/24 18:22
Dexamethasone Pf [Decadron] 10 mg PO NOW STA
Spirometry, Incentive [Rx Incentive Spirometry] [RESP] Urgent
Frequency: q1h while awake
Abnormal Lab Results
09/24/24
13:49
RBC 4.19 L 10^6/uL
(4.20-5.40)
Immature Gran % 0.6 H %
(0-0.5)
BUN 18 H mg/dl
(7-17)
Creatinine 1.2 H mg/dL
(0.6-1.0)
Glucose 120 H mg/dl
(70-99)
AST 61 H U/L
(14-36)
ALT 50 H U/L
(0-35)
09/24/24 13:49
09/24/24 13:49
Vital Signs
Initial and Last Documented VS:
Initial Vital Signs
Temp Pulse Resp BP Pulse Ox
98.2 F 97 16 137/85 97
09/24/24 13:31 09/24/24 13:31 09/24/24 13:31 09/24/24 13:31 09/24/24 13:31
Last Documented Vital Signs
Temp Pulse Resp BP Pulse Ox
97.8 F 87 21 136/73 100
09/24/24 16:26 09/24/24 18:00 09/24/24 18:00 09/24/24 18:00 09/24/24 18:02
<Edilia Kent NP - Last Filed: 09/24/24 18:41>
*Radiology
Radiology exam reviewed: radiology read reviewed
*Pulse Oximetry
Patient hypoxic: no
*Critical Care Note
Total Time (30-74mins, 75-104mins- exclusive of procedures): Not Applicable
<Edilia Kent NP - Last Filed: 09/24/24 18:41>
Update Note
Update Note:
Patient to ED with complaint of bilateral chest pain, R>L x 1 week[address] Had an OP [address] of chest (hx of nodules) on Friday which revealed endobronchial thickening concerning for infection. Also bibasilar atelectasis. She was placed on DOxy, on day #2.
COntinues to remain afebrile. HRR, normotensive. No evidence of hypoxemia. NO leg pain or swelling. No DVT history. WIll pplacedon steroid taper. She states she has taken decadron and prednisone in past without issue. Unable to take
methylprednisone. She will be discharged home. Given incentive spirometer with instructions by RN. Has scheduled appt with pulmonololgy next week. Given instructions on s/s to return to ED and she is agreeable to plan.
ED Attending Note
<Paramjit Gordon PA-C - Last Filed: 09/24/24 13:39>
-
Portions of this chart may have been created with voice recognition software.� Occasional wrong word or��sound alike� substitutions may have occurred due to the inherent limitations of voice recognition software.
Discharge Plan
Departure
Patient Disposition: Home (Routine Discharge)
Date of Disposition: 09/24/24
Time of Disposition: 18:26
Patient with high blood pressure during this ER visit?: No
Condition: Good
Covid-19: Not Applicable
Discharge Problem:
Pulmonary infection
Instructions: Acute Bronchitis, Adult (DC)
Prescriptions:
New
prednisone 10 mg tablet
10 mg PO DIRECTED Qty: 14 0RF
Rx Instructions:
Take 2 tablets every 12 hours x 2 days, then 2 tablets daily x 2 days, then 1 tablet daily x 2 days.
No Action
docusate sodium 100 MG capsule
200 mg PO HS
sertraline 100 MG tablet
100 mg PO HS
fenofibrate 160 MG tablet
160 mg PO HS
acetaminophen 325 MG tablet
650 mg PO DAILYPRN PRN (Reason: mild pain)
alprazolam 1 MG tablet
2 mg PO HS
Patient Comments:
06/11/2024: last filled 06/10/24, 60 tabs for 30 days from [place]
Vraylar 3 MG capsule
3 mg PO HS
ondansetron 4 mg tablet,disintegrating
4 mg PO TIDPRN PRN (Reason: nausea/vomiting) Qty: 10 0RF
famotidine [Pepcid] 40 mg Tablet
40 mg PO HS
pantoprazole [Protonix] 40 mg Tablet,Delayed Release (Dr/Ec)
40 mg PO HS
trazodone 150 mg Tablet
150 mg PO HS
Patient Comments:
06/08/24: Patient had plans to decrease dose to 100mg tonight.
levothyroxine 150 mcg Tablet
150 mcg PO HS
cholecalciferol (vitamin D3) [Vitamin D3] 125 mcg (5,000 unit) Tablet
125 mcg PO HS
gabapentin 300 mg Capsule
300 mg PO HS
Repatha Syringe 140 mg/mL Syringe
140 mg SC Q2W
fluticasone propion-salmeterol [Wixela Inhub] 500-50 mcg/dose Blister With Device
1 inh INHALATION R DAILY
meclizine 25 mg tablet
25 mg PO TIDPRN PRN (Reason: dizziness)
oxycodone 5 mg tablet
5 mg PO Q6HPRN PRN (Reason: moderate pain)
Patient Comments:
06/11/2024: last filled 02/16/24, 15 tabs for 2 days from [id number]
lidocaine 4 % Adhesive Patch,Medicated
1 patch topical DAILY 7 Days Qty: 10 0RF
pantoprazole 40 mg Tablet,Delayed Release (Dr/Ec)
40 mg PO BID 30 Days Qty: 60 0RF
Referrals:
Jolanta Saavedra CRNP [Family Provider] - Follow up in 2-3 days
Vijay Mcallister MD [Active] - Keep scheduled appt
Activity Restrictions/Additional Instructions:
Continue Doxycycline as directed. Return to the emergency department immediately for any changes in/worsening of your symptoms
Interventions
Interventions:
*Risk Screen - Suicide Last Done: 09/24/24 13:31
*General Assessment Last Done: 09/24/24 18:03
*Neglect/Abuse Screening Last Done: 09/24/24 13:31
*ED COVID-19 Vaccine History Last Done: 09/24/24 18:03
ED- Cardiac Assessment Last Done: 09/24/24 18:00
ED- Pulmonary Assessment Last Done: 09/24/24 18:00
Discharge Date and Time
Print Language: TAJIK
[2024-09-24 14:09] LABS: % Basophils 1.4 % (0-2); % Eosinophils 3.2 % (0-6); % Immature Granulocytes 0.6 % (0-0.5); % Lymphocytes 33.2 % (20.5-51.1); % Monocytes 8.9 % (1.7-9.3); % Neutrophils 52.7 % (42.2-75.2); Absolute Basophils 0.1 10^3/uL (0-0.2); Absolute Eosinophils 0.2 10^3/uL (0-0.7); Absolute Lymphocytes 1.7 10^3/uL (1.2-3.4); Absolute Monocytes 0.5 10^3/uL (0.1-0.6); Absolute Neutrophils 2.7 10^3/uL (1.4-6.5); Hematocrit 38.8 % (37.0-47.0); Hemoglobin 12.9 g/dL (12.0-16.0); Mean Corp Hgb Conc. 33.2 g/dL (33.0-37.0); Mean Corpuscular Hgb 30.8 pg (27.0-31.0); Mean Corpuscular Volume 92.6 fL (81.0-99.0); Mean Platelet Volume 10.1 fL (7.4-10.4); Nucleated Red Blood Cells % 0 %; Platelet Count 323 10^3/uL (130-400); Red Blood Cell Count 4.19 10^6/uL (4.20-5.40); Red Cell Dist. Width 13.3 % (11.5-14.5); White Blood Cell Count 5.1 10^3/uL (4.8-10.8)
[2024-09-24 14:18] LABS: ALT (SGPT) 50 U/L (0-35); AST (SGOT) 61 U/L (14-36); Albumin 4.5 g/dl (3.5-5.0); Alkaline Phosphatase 50 U/L (38-126); Blood Urea Nitrogen 18 mg/dl (7-17); Calcium 9.3 mg/dl (8.4-10.2); Carbon Dioxide 30 mmol/L (22-30); Chloride 101 mmol/L (98-107); Glucose 120 mg/dl (70-99); Potassium 4.3 mmol/L (3.5-5.1); Sodium 141 mmol/L (135-145); Total Bilirubin 0.6 mg/dl (0.2-1.3); Total Protein 7.3 g/dl (6.3-8.2); eGFR 55.49
[2024-09-24 14:22] LABS: COVID-19 Antigen Negative (Negative)
[2024-09-24 16:26] VITALS: BP 158/87
[2024-09-24 17:56] VITALS: BP 131/88
[2024-09-24 18:00] VITALS: BP 136/73
[2024-09-24] MEDS: DECADRON 10 MG PO (18:37)
== END 2024-09-24 18:53 | disposition home or self-care (01) ==
LOC: EMR 13:30
PROVIDERS: Physician Assistant; EMERGENCY PHYSICIAN Emergency Medicine; FAMILY PHYSICIAN Nurse Practitioner Adult Health
DX: J18.9 Pneumonia, unspecified organism (principal); J45.909 Unspecified asthma, uncomplicated; K21.9 Gastro-esophageal reflux disease without esophagitis; F41.9 Anxiety disorder, unspecified; E03.9 Hypothyroidism, unspecified; E78.00 Pure hypercholesterolemia, unspecified; F31.9 Bipolar disorder, unspecified; F43.10 Post-traumatic stress disorder, unspecified; G47.30 Sleep apnea, unspecified; Z82.49 Family history of ischemic heart disease and other diseases of the circulatory system; Z83.3 Family history of diabetes mellitus; Z83.49 Family history of other endocrine, nutritional and metabolic diseases; Z85.41 Personal history of malignant neoplasm of cervix uteri; Z85.43 Personal history of malignant neoplasm of ovary; Z87.19 Personal history of other diseases of the digestive system; Z87.891 Personal history of nicotine dependence; Z90.722 Acquired absence of ovaries, bilateral
CPT/HCPCS: 99283; 71046; 80053; 85025; 87502; 87811; 93005

== ENCOUNTER 2024-10-18 06:32 | Day surgery (SDC) | payer BC, SELFPAY ==
[2024-10-18] VITALS (14 sets, daily range): BP systolic 100–130; BP diastolic 50–90; BMI 38.3
[2024-10-18] MEDS: NORMOSOL-R/PLASMALYTE-A 1000 IV (11:06)
[2024-10-18] MEDS: TRANSDERM-SCOP 1 PATCH TRANSDERM (11:13)
--- NOTE | 2024-10-18 16:38 | W.IMMPOSTOP ---
Surgical Immed Post Op Note
-
Primary Surgeon: Annalee
Assisting Surgeon: Glenda
Assisting: Zhanna VALADEZ
Pre-op Diagnosis: Incarcerated bilateral inguinal hernias
Post-op Diagnosis: Same
Procedure Performed: Robot assisted laparoscopic repair incarcerated bilateral inguinal hernias, lysis of adhesions (60 mins)
Anesthesia Type: GETA
Specimen / Cultures: None
Estimated Blood Loss: 20cc
Complications: None immediate
Operative Findings: Extensive adhesions from small bowel to old mesh, old mesh well incorporated into into abdominal wall and came down with the flap; very large round ligament lipomas bilaterally, reduced, round ligaments sacrificed; right iliac
vein densely scarred up, mesh was slit about 1cm to accommodate it, ultimately laid nice and flat around the vein; B/L MID XL 3D max
--- NOTE | 2024-10-18 16:47 | OR.RPT ---
Operative Report
Operative Report
Primary Surgeon: Annalee
Assisting Surgeon: Glenda
Assisting: Zhanna VALADEZ
Pre-op Diagnosis: Incarcerated bilateral inguinal hernias
Post-op Diagnosis: Same
Procedure Performed: Robot assisted laparoscopic repair incarcerated bilateral inguinal hernias, lysis of adhesions (60 mins)
Anesthesia Type: GETA
Specimen / Cultures: None
Estimated Blood Loss: 20cc
Complications: None immediate
Operative Findings: Extensive adhesions from small bowel to old mesh, old mesh well incorporated into into abdominal wall and came down with the flap; very large round ligament lipomas bilaterally, reduced, round ligaments sacrificed; right iliac
vein densely scarred up, mesh was slit about 1cm to accommodate it, ultimately laid nice and flat around the vein; B/L MID XL 3D max
Date of surgery: 10/18/24
Indications:� This 49F developed a symptomatic right inguinal hernia. Imaging showed a left groin hernia as well. She is known to me from prior mesh explanation and ventral incisional hernia repair. She also has a long history of chronic pain that
affects her ability to ambulate. Robot assisted laparoscopic repair of bilateral inguinal hernias was planned.
Description of procedure:� The patient was taken to the operating room and positioned into supine position. The patient�s abdomen was prepped and draped in standard sterile fashion. A time-out was completed verifying correct patient, procedure,
site, positioning, and implants and special equipment prior to beginning this procedure.
A stab incision was made in the left upper quadrant, a Veress needle was inserted and proper position was confirmed by aspiration and saline drop test. Following this, pneumoperitoneum was created with insufflation of carbon dioxide to 12 mmHg. Then
a 8mm robotic trocar was inserted above and to the left of the umbilicus. A laparoscope was inserted and the area of initial trocar entry and Veress needle placement were both inspected and no injuries were found. Two 8mm trocars were then placed
lateral to the rectus sheath under direct visualization.
A wall of omentum and small bowel was encountered, scarred up to the anterior abdominal wall and old mesh. Lysis of adhesions commenced, using gentle traction without grasping the bowel and cold mike and took 60 minutes to adequately expose the
abdominal wall.
Both inguinal regions were inspected and the median umbilical ligament, medial umbilical ligament, and lateral umbilical fold were identified. Attention was turned to the right groin. The peritoneum was incised transversely above the old mesh and a
flap was developed in the caudad direction. The mesh came down with the flap. Gonzalo�s ligament was identified ultimately dissected to its junction with the iliac vein and the space of Retzius was developed bluntly.� There was dense scarring in the
space of retzius. The dissection was continued inferiorly to the iliopubic tract, with care taken to avoid injury to the femoral branch of the genitofemoral nerve and the lateral femoral cutaneous nerve. The round ligament was parietalized and
sacrificed low.
The direct space was inspected and a hernia defect was not identified. The femoral space was inspected no defect was identified.� The indirect space was inspected and no hernia was identified. The canal was inspected and a moderate large lipoma was
identified and reduced by gentle traction. The iliac vein was scarred high in the orifice. Dr. Doshi helped with limited dissection around the vein. Ultimately the decision was made to cut a slit in the mesh to accommodate the vessel.
Attention was turned to the left groin and the above process was repeated. There was no scarring on this side. A large cord lipoma was totally reduced. The round ligament was sacrificed low.
Extra large left and right MID 3D max mesh was passed through a trocar. The mesh was placed into the preperitoneal space and moved into position to lay flat and completely cover the direct, indirect, and femoral spaces with overlap at the midline.
On the right, a slit was made in the mesh for about 1cm over the vessel and the medial and lateral flaps of mesh then laid flat and flush with the preperitoneal soft tissue. The mesh was secured into place using 2-0 vicryl suture to Gonzalo�s
ligament medially and laterally. Care was taken to avoid the inferolateral triangles containing the iliac vessels and genital nerves. The peritoneal flap with old mesh incorporated was closed over the mesh and secured with 2-0 monocryl stratafix
suture in similar positions of safety. A 14g angiocath was used to decompress the preperitoneal space revealing good seal and all mesh in good position without folding or curling.
After ensuring adequate hemostasis, the trocars were removed and the pneumoperitoneum allowed to escape. The trocar incisions were closed at the skin level using 4-0 monocryl and topical skin adhesive. All counts were correct and the patient
tolerated the procedure well and was taken to the postanesthesia care unit in stable condition.
The assistance of Zhanna VALADEZ was required due to the complexity of the procedure. During the procedure she assisted with retraction, resection, and closure of the wound.
[2024-10-18] MEDS: SUBLIMAZE 50 MCG IV ×2 (16:59→17:22)
[2024-10-18] MEDS: TYLENOL 1000 MG PO (17:11)
[2024-10-18] MEDS: SUBLIMAZE 25 MCG IV (17:59)
[2024-10-18] MEDS: LOVENOX 40 MG SC (18:37)
--- NOTE | 2024-10-18 18:46 | TRANSFER ---
Pt transferred from PACU to [facility]-. Vitals obtained, VSS, pt oriented to room. Admission complete by this RN.
--- NOTE | 2024-10-18 19:15 | SUR.PHASEI ---
medicated for pain with some relief in pacu - repositioned for comfort. Denies use of CPAP at home, kept on nasal cannula O2 with use of narcotics for pain. scopalamine patch remains behind left ear.
[2024-10-18] MEDS: COLACE 200 MG PO (21:33)
[2024-10-18] MEDS: TRICOR 145 MG PO (21:34)
[2024-10-18] MEDS: NEURONTIN 300 MG PO (21:34)
[2024-10-18] MEDS: PROTONIX 40 MG PO (21:34)
[2024-10-18] MEDS: DESYREL 150 MG PO (21:34)
[2024-10-18] MEDS: PEPCID 40 MG PO (21:35)
[2024-10-18] MEDS: ZOLOFT 100 MG PO (21:36)
[2024-10-18] MEDS: XANAX 2 MG PO (21:36)
[2024-10-18] MEDS: ROXICODONE 5 MG PO (21:38)
[2024-10-18] MEDS: NON-FORMULARY ITEM 3 MG PO (21:41)
[2024-10-18] MEDS: TYLENOL PO (23:38)
[2024-10-19] MEDS: ROXICODONE 5 MG PO (01:17)
[2024-10-19] MEDS: SYNTHROID 150 MCG PO (04:57)
[2024-10-19] MEDS: TYLENOL 1000 MG PO ×2 (04:57→10:15)
[2024-10-19] MEDS: ROXICODONE 10 MG PO (07:34)
[2024-10-19] MEDS: PROTONIX 40 MG PO (07:34)
[2024-10-19 07:53] VITALS: BP 111/59
[2024-10-19] MEDS: ADVAIR HFA 230/21 MCG INHALER 2 PUFF INH (08:07)
--- NOTE | 2024-10-19 12:40 | W.PN.GS2 ---
Today's Communication / Plan
-
DC home
Assessment / Plan
-
49F POD1 s/p RAL KIRSTIN and BIHR
AFVSS, meets criteria for DC
DC home
Subjective Data
-
Date of Service: October 19, 2024
AFVSS, pain controlled with PO meds, ambulating, voiding, passing flatus, bro LRD, denies n/v
Objective Data
-
Intake and Output
10/18/24 10/19/24 10/20/24
06:59 06:59 06:59
Intake Total 350 / 350
Balance 350 / 350
Intake:
Oral fluids 100 / 100
IV fluids (Total) 250 / 250
normosol 250 / 250
Other:
Number of approximated MODERATE 3
amounts of urine
Vital Signs
Temp Pulse Resp BP Pulse Ox
98 F 83 16 111/59 98
10/19/24 07:53 10/19/24 08:12 10/19/24 08:12 10/19/24 07:53 10/19/24 08:12
Physical Exam
-
Gen: NAD
Abd: soft, approp ttp, incisions cdi
Patient has a hall catheter: No
Patient has a central line: No
--- NOTE | 2024-10-19 12:46 | W.DS.TRANS ---
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
-
Discharge Instructions:
Discharge Diagnosis/Procedures Bilateral inguinal hernia repair
Diet No restrictions
Activity No strenuous activity
Bathing Restrictions OK to Shower
Wound Care Allow skin glue to flake off on its own
Instructions: Groin hernia repair - Discharge instructions
Stand-Alone Forms:
Changes to Home Medications: No
Discharge Medications:
DC Medications w/original date entered in [facility]
docusate sodium 100 mg capsule 200 mg PO HS Constipation 07/30/17
acetaminophen 325 mg tablet 650 mg PO DAILYPRN PRN mild pain 06/28/20
alprazolam 1 mg tablet 2 mg PO HS Mental Health/Anxiety 06/28/20
cariprazine 3 mg capsule (Vraylar) 3 mg PO HS Mental Health/Anxiety 06/28/20
fenofibrate 160 mg tablet 160 mg PO HS elevated triglycerides 06/28/20
sertraline 100 mg tablet 100 mg PO HS Mental Health/Anxiety 06/28/20
ondansetron 4 mg disintegrating tablet 4 mg PO TIDPRN PRN nausea/vomiting #10 tabs 01/19/24
cholecalciferol (vitamin D3) 125 mcg (5,000 unit) tablet (Vitamin D3) 125 mcg PO HS Supplement 01/26/24
famotidine 40 mg tablet (Pepcid) 40 mg PO HS Gastrointestinal Issue 01/26/24
levothyroxine 150 mcg tablet 150 mcg PO HS Thyroid 01/26/24
trazodone 150 mg tablet 150 mg PO HS sleep 01/26/24
gabapentin 300 mg capsule 300 mg PO HS neuropathic pain 05/14/24
fluticasone 500 mcg-salmeterol 50 mcg/dose blistr powdr for inhalation (Wixela Inhub) 1 inh inhalation R DAILY Lung/Breathing Issues 06/08/24
pantoprazole 40 mg tablet,delayed release 40 mg PO BID Gastrointestinal issue 1 month #60 tabs 06/16/24
oxycodone 5 mg tablet 5 - 10 mg (1 - 2 x 5 mg) PO Q4HPRN PRN moderate to severe pain #40 tabs 10/19/24
Home Medication Changes
Pending Results: No
--- NOTE | 2024-10-19 13:21 | CM ---
Patient seen at bedside. Patient states that she lives with and family in a 3 story home. Patient stated that she plans to go home with no needs. Patient PCP is from [facility] and [facility] on [address] Patient also has a stair lift
that is for her parents but she can use. Patient is planning for discharge home today.
Plan; home with no needs.
[2024-10-19 13:34] VITALS: BP 119/67
== END 2024-10-19 13:32 | disposition home or self-care (01) ==
LOC: SDS 06:32
PROVIDERS: ATTENDING PHYSICIAN Surgery
PROC: 0YUA4JZ Supplement Bilateral Inguinal Region with Synthetic Substitute, Percutaneous Endoscopic Approach (ICD-10-PCS; 2024-10-18)
PROC: 8E0W4CZ Robotic Assisted Procedure of Trunk Region, Percutaneous Endoscopic Approach (ICD-10-PCS; 2024-10-18)
DX: K40.00 Bilateral inguinal hernia, with obstruction, without gangrene, not specified as recurrent (principal); N73.6 Female pelvic peritoneal adhesions (postinfective); G89.29 Other chronic pain
CPT/HCPCS: 49650; 94640; C1781

== ENCOUNTER → 2024-11-23 13:25 | Outpatient (REF) | payer BC, SELFPAY | LOC: WDC 13:25 | PROVIDERS: ATTENDING PHYSICIAN Surgery; FAMILY PHYSICIAN Nurse Practitioner Adult Health | DX: Z12.31 Encounter for screening mammogram for malignant neoplasm of breast (principal) | CPT/HCPCS: 77063; 77067 ==

== ENCOUNTER → 2024-11-26 09:12 | Outpatient (REF) | payer BC, SELFPAY | LOC: RAD 09:12 | PROVIDERS: ATTENDING PHYSICIAN Surgery | DX: R10.30 Lower abdominal pain, unspecified (principal) | CPT/HCPCS: 74177; Q9967 ==

== ENCOUNTER 2025-01-14 11:29 | Emergency (ER) | payer BC, SELFPAY ==
[2025-01-14 11:31] VITALS: BP 147/79
[2025-01-14 11:52] LABS: % Basophils 1.4 % (0-2); % Eosinophils 2.8 % (0-6); % Immature Granulocytes 0.2 % (0-0.5); % Lymphocytes 28.9 % (20.5-51.1); % Monocytes 8.9 % (1.7-9.3); % Neutrophils 57.8 % (42.2-75.2); Absolute Basophils 0.1 10^3/uL (0-0.2); Absolute Eosinophils 0.1 10^3/uL (0-0.7); Absolute Lymphocytes 1.5 10^3/uL (1.2-3.4); Absolute Monocytes 0.5 10^3/uL (0.1-0.6); Absolute Neutrophils 2.9 10^3/uL (1.4-6.5); Hematocrit 41.6 % (37.0-47.0); Hemoglobin 13.8 g/dL (12.0-16.0); Mean Corp Hgb Conc. 33.2 g/dL (33.0-37.0); Mean Corpuscular Hgb 30.7 pg (27.0-31.0); Mean Corpuscular Volume 92.7 fL (81.0-99.0); Mean Platelet Volume 9.9 fL (7.4-10.4); Nucleated Red Blood Cells % 0 %; Platelet Count 330 10^3/uL (130-400); Red Blood Cell Count 4.49 10^6/uL (4.20-5.40); Red Cell Dist. Width 12.7 % (11.5-14.5); White Blood Cell Count 5.1 10^3/uL (4.8-10.8)
[2025-01-14 12:03] LABS: INR 1.01; PT 13.6 Sec (11.4-14.6)
[2025-01-14 12:04] LABS: APTT 27.8 Sec (23.4-35.0)
[2025-01-14 12:06] VITALS: BP 145/75
[2025-01-14 12:07] LABS: ALT (SGPT) 36 U/L (0-35); AST (SGOT) 33 U/L (14-36); Albumin 4.9 g/dl (3.5-5.0); Alkaline Phosphatase 38 U/L (38-126); Blood Urea Nitrogen 19 mg/dl (7-17); Calcium 10.1 mg/dl (8.4-10.2); Carbon Dioxide 28 mmol/L (22-30); Chloride 103 mmol/L (98-107); Glucose 94 mg/dl (70-99); Potassium 4.2 mmol/L (3.5-5.1); Sodium 143 mmol/L (135-145); Total Bilirubin 0.6 mg/dl (0.2-1.3); Total Protein 7.6 g/dl (6.3-8.2); eGFR > 60.00
[2025-01-14 12:10] VITALS: BP 145/75; BMI 35.9
--- NOTE | 2025-01-14 12:52 | ED.GENMED ---
History of Present Illness
General
Chief Complaint: Rectal Bleeding
Source: patient
Exam Limitations: none
Time Seen by Provider: 01/14/25 12:38
History of Present Illness
History of Present Illness:
See MDM
Past History
Past History
ED Past Medical History: Asthma, Cancer (ovarian and cervical cancer ), GERD, Hypercholesterolemia, Hypothyroidism, Psychiatric (anxiety, Bipolar, PTSD, Depression) and Other (Migraines, Sleep apnea uses CPAP, Bowel obstruction, Fissure, Eczema)
ED Past Surgical History: , Gynecological (hysthysterectomy, bilateral oophorectomy. Breast augmentation, ectopic , exploratory laparotomy with lymph node removal and lysis of adhesions in the right hemipelvis) and Other
(Abdominoplasty 2020, Hernia, Spincterotomy, Deviated septum surgery, Hemorrhoids)
Social History
Tobacco: Former smoker
Alcohol: None
Drug: None
Personal:
Living: with family
Employment: Not employed
Family History
Family History: Other (CAD, diabetes, thyroid disease, renal failure)
Phy Exam
Physical Exam
Physical Exam:
See MDM
Course
Orders/Labs/Results
Orders:
Orders
01/14/25 11:39
PTT Urgent
Prothrombin Time Urgent
01/14/25 11:40
Type+Screen Urgent
01/14/25 11:41
Complete Blood Count/With Diff Urgent
01/14/25 11:42
Comprehensive Metabolic Panel Urgent
01/14/25 12:47
CT Abd/pelvis W Iv Cont Urgent
Comment:
Reason For Exam: abd pain and rectal bleed
01/14/25 13:58
GASTROINTESTINAL CONSULT Urgent
Consulting Provider: Adela Mena
Was physician already notified: Yes
01/14/25 14:33
Ketorolac [Toradol] 30 mg IV NOW STA
Abnormal Lab Results
01/14/25
11:42
BUN 19 H mg/dl
(7-17)
Creatinine 1.1 H mg/dL
(0.6-1.0)
ALT 36 H U/L
(0-35)
01/14/25 11:41
01/14/25 11:42
Vital Signs
Initial and Last Documented VS:
Initial Vital Signs
Temp Pulse Resp BP Pulse Ox
98.5 F 85 16 147/79 98
01/14/25 11:31 01/14/25 11:31 01/14/25 11:31 01/14/25 11:31 01/14/25 11:31
Last Documented Vital Signs
Temp Pulse Resp BP Pulse Ox
98.5 F 74 16 128/70 97
01/14/25 11:31 01/14/25 13:39 01/14/25 13:39 01/14/25 14:00 01/14/25 14:00
MDM/Problems Addressed
Differential Diagnosis Includes:
HPI and MDM Narrative:
49-year-old female presenting with rectal bleeding. She noted a week or 2 of diarrhea. Over the past 2 days, she has now noted blood-tinged stool. She denies being on blood thinners. Patient states she has had this issue in the past but has had
a negative workup by GI. Patient is more concerned now she has abdominal pain and cramping. On my exam, she is a soft and nontender abdomen. Blood work is without significant clinically relevant abnormalities. Rectal exam was performed with
nurse and at bedside. No rectal fissure noted. No hemorrhoid noted. Clear mucus noted on rectal exam that is guaiac negative
Physical exam
General: Well appearing and non-toxic
HEENT: protecting airway
Neck: appears supple
CV: No evidence of cyanosis
Resp: No accessory muscle use
Abd: Non-distended. Soft nontender
Rectal: No fissure or hemorrhoid. No blood noted
Extremities: No deformities
Neuro: alert
Psych: Normal affect
Skin: Intact
Problems Addressed including Acute and Chronic Conditions affecting care:
1. Rectal bleeding and abdominal pain
Acuity: acute
Prognosis: stable
Details: Given the pain, will obtain CT. Rectal exam negative for any obvious bleeding
Updates
GI did evaluate patient and agreed patient safe for discharge
Differential Diagnosis (but not limited to): Colitis, internal hemorrhoid, diverticulosis
Testing considered: CT abdomen pelvis angiogram but low concern for brisk GI bleed
Drug therapy (if applicable): OTC meds, please see d/c instruction regarding Rx drugs
Amount and/or Complexity of Data Reviewed
Clinical info obtained from: Patient
External data reviewed: N/A
Labs I independently reviewed (but not limited to): Hemoglobin stable
Radiology: N/A
Pulse Ox: not hypoxic
EKG independently reviewed: N/A
Telephone Collector: N/A
Critical Care: N/A
Risk of Complication:
Social Determinants of health: Good social support
Discussed with other providers: Gastroenterology
Escalation of Care includes Admit/Obs: After being observed in the Emergency Department, pt stable for discharge.
Occasional wrong word or 'sound a like' substitutions may have occurred due to the inherent limitations of voice recognition software. Read the chart carefully and recognize, using context, where substitutions have occurred.
*Critical Care Note
Total Time (30-74mins, 75-104mins- exclusive of procedures): Not Applicable
ED Attending Note
-
Portions of this chart may have been created with voice recognition software.� Occasional wrong word or��sound alike� substitutions may have occurred due to the inherent limitations of voice recognition software.
Discharge Plan
Departure
Patient Disposition: Home (Routine Discharge)
Date of Disposition: 01/14/25
Time of Disposition: 15:10
Patient with high blood pressure during this ER visit?: No
Discharge Problem:
Rectal bleeding
Instructions: Bloody Stools, Adult (DC)
Prescriptions:
No Action
docusate sodium 100 MG capsule
200 mg PO HS
sertraline 100 MG tablet
100 mg PO HS
fenofibrate 160 MG tablet
160 mg PO HS
acetaminophen 325 MG tablet
650 mg PO DAILYPRN PRN (Reason: mild pain)
alprazolam 1 MG tablet
2 mg PO HS
Patient Comments:
06/11/2024: last filled 06/10/24, 60 tabs for 30 days from [place]
Vraylar 3 MG capsule
3 mg PO HS
ondansetron 4 mg tablet,disintegrating
4 mg PO TIDPRN PRN (Reason: nausea/vomiting) Qty: 10 0RF
famotidine [Pepcid] 40 mg Tablet
40 mg PO HS
trazodone 150 mg Tablet
100 mg PO HS
Patient Comments:
06/08/24: Patient had plans to decrease dose to 100mg tonight.
levothyroxine 150 mcg Tablet
150 mcg PO HS
cholecalciferol (vitamin D3) [Vitamin D3] 125 mcg (5,000 unit) Tablet
125 mcg PO HS
gabapentin 300 mg Capsule
300 mg PO HS
fluticasone propion-salmeterol [Wixela Inhub] 500-50 mcg/dose Blister With Device
1 inh INHALATION R DAILY PRN (Reason: Lung/Breathing Issues)
pantoprazole 40 mg Tablet,Delayed Release (Dr/Ec)
40 mg PO BID 30 Days Qty: 60 0RF
hyoscyamine sulfate 0.125 mg Tablet
0.125 mg PO Q4H
metoclopramide HCl [Reglan] 10 mg Tablet
10 mg PO Q4H
Referrals:
DJolanta Ponce CRNP [Family Provider] -
Activity Restrictions/Additional Instructions:
Please return for any worsening symptoms.
You may return at any time if you have further concerns.
Please follow up with your doctor at the first available appointment, preferably this week.
Please keep your appointment with your service advocate contact later this month.
Thank you for choosing [facility].
Interventions
Interventions:
*Risk Screen - Suicide Last Done: 01/14/25 11:31
*General Assessment Last Done: 01/14/25 12:11
*Neglect/Abuse Screening Last Done: 01/14/25 11:31
*ED- Fall Risk Assessment Last Done: 01/14/25 12:11
*ED COVID-19 Vaccine History Last Done: 01/14/25 12:11
AT-Upeptu-Wrfvdxailp Assessment Last Done: 01/14/25 13:03
ED- Pulmonary Assessment Last Done: 01/14/25 12:11
Discharge Date and Time
Print Language: LITHUANIAN
[2025-01-14 13:34] VITALS: BP 125/64
[2025-01-14 13:39] VITALS: BP 125/64
[2025-01-14 14:00] VITALS: BP 128/70
--- NOTE | 2025-01-14 14:33 | CON.GI ---
Consultation
-
Date/Time Consultation Requested: 01/14/25 3518
Date/Time Consultation Performed: 01/14/25 1445
Requesting Provider: Dr. Ortiz
Performing Provider: Dr. Mena / Jenny Hernandez PA-C
Reason for Consultation: rectal bleeding, abdominal pain
Medical History
Chief Complaint / HPI
Chief Complaint: abdominal pain, rectal bleeding
History of Present Illness:
Carol is a 49 year old female with a past medical history of asthma, h/o ovarian and cervical cancer (s/p hysterectomy, b/l oophorectomy), prior h/o anal fissure (s/ps fissurectomy and sphincterotomy 2021), and hemorrhoids who presented to the ER
with rectal bleeding for the past 2 days. Also complaining of lower abdominal pain, worse on the right, that feels crampy in nature. She is well-known to our GI group and follows with Dr. Monahan. I saw patient recently in October and she was
experiencing some diarrhea and episodes of fecal incontinence at that time. Stool studies then were done, normal/negative, with the exception of a mildly elevated fecal calprotectin. She had a normal colonoscopy in 2021, and flexible sigmoidoscopy
in 2022 which showed hemorrhoids. Colon biopsies were negative for microscopic colitis. It was suspected that patient had IBS. She has a prescription for Bentyl but did not take this for her current abdominal pain/cramping. She denies diarrhea now,
states her stools have been soft but formed. She did see some mucus. She currently denies any rectal pain, states this feels different from her prior anal fissure.
Workup in the ER included labs and imaging. Labs showed stable hemoglobin and no leukocytosis. CT abdomen/pelvis showed no acute abdominal process, appendix noted to be normal. The rectal bleeding has stopped. Patient feels OK to be discharged home.
Past Medical History
Past Medical History: Other (asthma, h/o ovarian and cervical cancer (s/p hysterectomy, b/l oophorectomy), prior h/o anal fissure (s/ps fissurectomy and sphincterotomy 2021), and hemorrhoids )
Social History
Tobacco: Non-Smoker
Alcohol: None
Living: With Family
Allergies / Home Medications
Allergy/AdvReac Type Severity Reaction Status Date / Time
adhesive Allergy Rash Verified 01/14/25 11:30
doxycycline Allergy Shortness Verified 01/14/25 11:30
of Breath
escitalopram [From Lexapro] Allergy Tongue Verified 01/14/25 11:30
Swelling
hydromorphone [From Dilaudid] Allergy Itching Verified 01/14/25 11:30
methylprednisolone Allergy Rash Verified 01/14/25 11:30
[From Medrol]
prednisone Allergy suicidal Verified 01/14/25 11:30
tendencies
shellfish derived Allergy Anaphylaxis Verified 01/14/25 11:30
Sulfa (Sulfonamide Allergy Swelling, Verified 01/14/25 11:30
Antibiotics) vomits
triazolam Allergy anger Verified 01/14/25 11:30
issues,
'lashes
out'
�Medication �Instructions �Recorded
docusate sodium 100 mg capsule 200 mg PO HS Constipation 07/30/17
acetaminophen 325 mg tablet 650 mg PO DAILYPRN PRN mild pain 06/28/20
alprazolam 1 mg tablet 2 mg PO HS Mental Health/Anxiety 06/28/20
cariprazine 3 mg capsule (Vraylar) 3 mg PO HS Mental Health/Anxiety 06/28/20
fenofibrate 160 mg tablet 160 mg PO HS elevated triglycerides 06/28/20
sertraline 100 mg tablet 100 mg PO HS Mental Health/Anxiety 06/28/20
ondansetron 4 mg disintegrating 4 mg PO TIDPRN PRN nausea/vomiting 01/19/24
tablet #10 tabs
cholecalciferol (vitamin D3) 125 125 mcg PO HS Supplement 01/26/24
mcg (5,000 unit) tablet (Vitamin
D3)
famotidine 40 mg tablet (Pepcid) 40 mg PO HS Gastrointestinal Issue 01/26/24
levothyroxine 150 mcg tablet 150 mcg PO HS Thyroid 01/26/24
trazodone 150 mg tablet 100 mg PO HS sleep 01/26/24
gabapentin 300 mg capsule 300 mg PO HS neuropathic pain 05/14/24
fluticasone 500 mcg-salmeterol 50 1 inh inhalation R DAILY PRN 06/08/24
mcg/dose blistr powdr for Lung/Breathing Issues
inhalation (Wixela Inhub)
pantoprazole 40 mg tablet,delayed 40 mg PO BID Gastrointestinal 06/16/24
release issue 1 month #60 tabs
hyoscyamine sulfate 0.125 mg tablet 0.125 mg PO Q4H 01/14/25
metoclopramide HCl 10 mg tablet 10 mg PO Q4H 01/14/25
(Reglan)
Review of Systems
-
History Source: Patient
All other systems: A 12 pt ROS was Negative except as stated above in HPI
Vital Signs
Temp Pulse Resp BP Pulse Ox
98.5 F 74 16 125/64 98
01/14/25 11:31 01/14/25 13:39 01/14/25 13:39 01/14/25 13:39 01/14/25 13:39
Physical Exam
Exam
General: Well Developed, Well Nourished and No Apparent Distress
Respiratory: Clear
Cardiac: Regular Rhythm
GI: Soft, Non Tender, Non Distended and Normal Bowel Sounds
Rectal: Other (no hemorrhoids or anal fissure; internal RODNEY without palpable lesion or tenderness, no stool or blood present in rectal vault - hemoccult negative)
Skin: Warm, Dry and Rash
Neuro: AO x 3
Psych: Calm
Results
WBC 5.1 10^3/uL (4.8-10.8) 01/14/25 11:41
Hgb 13.8 g/dL (12.0-16.0) 01/14/25 11:41
Hct 41.6 % (37.0-47.0) 01/14/25 11:41
MCV 92.7 fL (81.0-99.0) 01/14/25 11:41
Plt Count 330 10^3/uL (130-400) 01/14/25 11:41
Absolute Neuts (auto) 2.9 10^3/uL (1.4-6.5) 01/14/25 11:41
PT 13.6 Sec (11.4-14.6) 01/14/25 11:39
INR 1.01 01/14/25 11:39
APTT 27.8 Sec (23.4-35.0) 01/14/25 11:39
Sodium 143 mmol/L (135-145) 01/14/25 11:42
Potassium 4.2 mmol/L (3.5-5.1) 01/14/25 11:42
Chloride 103 mmol/L (98-107) 01/14/25 11:42
Carbon Dioxide 28 mmol/L (22-30) 01/14/25 11:42
BUN 19 mg/dl (7-17) H 01/14/25 11:42
Creatinine 1.1 mg/dL (0.6-1.0) H 01/14/25 11:42
Calcium 10.1 mg/dl (8.4-10.2) 01/14/25 11:42
Total Bilirubin 0.6 mg/dl (0.2-1.3) 01/14/25 11:42
AST 33 U/L (14-36) 01/14/25 11:42
ALT 36 U/L (0-35) H 01/14/25 11:42
Alkaline Phosphatase 38 U/L (38-126) 01/14/25 11:42
Diagnostic Image Results:
CT Abdomen/Pelvis: 01/14/25
1. Moderate diffuse hepatic steatosis.
2. Mild splenomegaly.
3. Previous SOLOMON-BSO and abdominoplasty.
Prior GI Procedures:
Colonoscopy:
06/2023 (Dr Monahan- flex sig) - hemorrhoids, otherwise normal and random colon biopsies negative for microscopic colitis
01/2022 (Dr Solis) - normal
Assessment / Plan
-
Carol is a 49 year old female with a past medical history of asthma, h/o ovarian and cervical cancer (s/p hysterectomy, b/l oophorectomy), prior h/o anal fissure (s/ps fissurectomy and sphincterotomy 2021), and hemorrhoids who presented to the ER
with rectal bleeding for the past 2 days. Also complaining of lower abdominal pain, worse on the right, that feels crampy in nature. She is well-known to our GI group and follows with Dr. Monahan. I saw patient recently in October and she was
experiencing some diarrhea and episodes of fecal incontinence at that time. Stool studies then were done, normal/negative, with the exception of a mildly elevated fecal calprotectin. She had a normal colonoscopy in 2021, and flexible sigmoidoscopy
in 2022 which showed hemorrhoids. Colon biopsies were negative for microscopic colitis. It was suspected that patient had IBS. She has a prescription for Bentyl but did not take this for her current abdominal pain/cramping. She denies diarrhea now,
states her stools have been soft but formed. She did see some mucus. She currently denies any rectal pain, states this feels different from her prior anal fissure.
Workup in the ER included labs and imaging. Labs showed stable hemoglobin and no leukocytosis. CT abdomen/pelvis showed no acute abdominal process, appendix noted to be normal. The rectal bleeding has stopped. Patient feels OK to be discharged home.
Rectal Bleeding/abdominal cramping
- suspect etiology secondary to hemorrhoids vs anal fissure (although not seen on examination today) with underlying IBS
- continue Benefiber daily
- avoid straining
- dicyclomine for abdominal pain, as needed (patient has a prescription at home)
- she already has an outpatient OV scheduled with Dr. Monahan on 02/02/25
- to consider repeat colonoscopy if symptoms persist
-
-
Thank you for consultation and allowing me to participate in the patient's care. Please call the laborer concrete paving GI physician during the after hours with any questions or concerns.
[2025-01-14] MEDS: TORADOL 30 MG IV (14:40)
== END 2025-01-14 15:21 | disposition home or self-care (01) ==
LOC: EMR 11:29
PROVIDERS: Emergency Medicine; CONSULT PHYSICIAN Internal Medicine; EMERGENCY PHYSICIAN Student in an Organized Health Care Education/Training Program; FAMILY PHYSICIAN Nurse Practitioner Adult Health
DX: K62.5 Hemorrhage of anus and rectum (principal); J45.909 Unspecified asthma, uncomplicated; Z87.891 Personal history of nicotine dependence
CPT/HCPCS: 99285; 96374; 74177; 80053; 85025; 85610; 85730; 86850; 86900; 86901; Q9967

== ENCOUNTER → 2025-01-19 15:21 | Outpatient (REF) | payer BC, SELFPAY | LOC: RAD 15:21 | PROVIDERS: ATTENDING PHYSICIAN Internal Medicine Nephrology; FAMILY PHYSICIAN Nurse Practitioner Adult Health | DX: N28.9 Disorder of kidney and ureter, unspecified (principal) | CPT/HCPCS: 76775 ==

== ENCOUNTER → 2025-01-25 13:10 | Outpatient (REF) | payer BC, SELFPAY | LOC: RAD 13:10 | PROVIDERS: ATTENDING PHYSICIAN Nurse Practitioner Adult Health | DX: M79.651 Pain in right thigh (principal) | CPT/HCPCS: 73552 ==

== ENCOUNTER 2025-02-23 06:25 | Day surgery (SDC) | payer BC, SELFPAY | END 2025-02-23 13:55 | disposition home or self-care (01) | LOC: GI 06:25 | PROVIDERS: ATTENDING PHYSICIAN Internal Medicine Gastroenterology | DX: K62.5 Hemorrhage of anus and rectum (principal); R19.4 Change in bowel habit; K57.30 Diverticulosis of large intestine without perforation or abscess without bleeding; K64.8 Other hemorrhoids; K62.1 Rectal polyp | CPT/HCPCS: 45380; 88305 ==

== ENCOUNTER 2025-02-24 10:33 | Emergency (ER) | payer BC, SELFPAY ==
[2025-02-24 10:33] VITALS: BP 145/84
[2025-02-24 11:52] VITALS: BP 121/70
--- NOTE | 2025-02-24 11:52 | ED.GENMED ---
History of Present Illness
<RAYMON Rios - Last Filed: 02/24/25 14:15>
General
Chief Complaint: Rectal Bleeding
Source: patient
Exam Limitations: none
Time Seen by Provider: 02/24/25 11:04
Nursing documentation reviewed up to this point in time: agreed with
History of Present Illness
History of Present Illness:
Patient is a 50-year-old female past medical history of ovarian cancer ,rectal fissure/ sphincterectomy hyperlipidemia, chronic kidney disease stage II from polyuria, bowel obstruction currently being followed by nephrology presents to the ER for
evaluation. She had a colonoscopy yesterday by Dr. Ivan and reports after the colonoscopy she had rectal pressure and this morning she has had blood mixed with stool she reports also she passed gas this morning and then after the gas had bright red
blood per rectum and when she wiped her bright red blood per rectum. When she did move her bowels she had brown stool mixed with bright red blood. She still continues to have rectal pressure and now has lower abdominal pain.
Colonoscopy report reviewed; she did have a 3 mm polyp that was found in the rectum and removed.
Past History
<RAYMON Rios - Last Filed: 02/24/25 14:15>
Past History
ED Past Medical History: Asthma, Cancer (ovarian and cervical cancer ), GERD, Hypercholesterolemia, Hypothyroidism, Psychiatric (anxiety, Bipolar, PTSD, Depression) and Other (Migraines, Sleep apnea uses CPAP, Bowel obstruction, Fissure, Eczema)
ED Past Surgical History: , Gynecological (hysthysterectomy, bilateral oophorectomy. Breast augmentation, ectopic , exploratory laparotomy with lymph node removal and lysis of adhesions in the right hemipelvis) and Other
(Abdominoplasty 2020, Hernia, Spincterotomy, Deviated septum surgery, Hemorrhoids)
Social History
Tobacco: Former smoker
Alcohol: None
Drug: None
Personal:
Living: with family
Employment: Not employed
Family History
Family History: Other (CAD, diabetes, thyroid disease, renal failure)
Phy Exam
<RAYMON Rios - Last Filed: 02/24/25 14:15>
General Physical Exam
General Presentation: no apparent distress
General age: appears stated age
General Skin: warm and dry
General Habitus: normal
General Mental: alert
General Hydration: appears well hydrated
Gastrointestinal Exam
Gastrointestinal Exam: soft and other (Tender throughout the lower abdominal region rectal exam negative no stool in the vault)
Neurological Exam
Neurological Exam: alert and oriented x3
Musculoskeletal Exam
Musculoskeletal Exam: full ROM
Skin Exam
Skin Exam: normal color and warm/dry
Psychiatric Exam
Psychiatric Exam: normal mood/affect
Course
<RAYMON Rios - Last Filed: 02/24/25 14:15>
Orders/Labs/Results
Orders:
Orders
02/24/25 11:57
IV Insert/Care/Rem.- Treatment PRN
02/24/25 11:59
0.9% Sodium Chloride 1000 ml [Nss] 1,000 ml IV BOLUS
Ondansetron Injectable [Zofran] 4 mg IV NOW STA
02/24/25 12:03
Complete Blood Count/With Diff Urgent
Comprehensive Metabolic Panel Urgent
Lipase Urgent
02/24/25 12:35
CT Abd/pel W Iv And Oral Contr Urgent
Comment:
Reason For Exam: abd pain s/p colonoscopy
Iohexol [Omnipaque] See Protocol PO NOW STA
02/24/25 12:41
Morphine Sulfate 4 mg IV NOW STA
02/24/25 14:14
Dicyclomine HCl [Bentyl] 20 mg IM NOW STA
Abnormal Lab Results
02/24/25
12:03
WBC 4.3 L 10^3/uL
(4.8-10.8)
Chloride 108 H mmol/L
(98-107)
AST 37 H U/L
(14-36)
ALT 60 H U/L
(0-35)
02/24/25 12:03
02/24/25 12:03
Vital Signs
Initial and Last Documented VS:
Initial Vital Signs
Temp Pulse Resp BP Pulse Ox
98.2 F 79 16 145/84 97
02/24/25 10:33 02/24/25 10:33 02/24/25 10:33 02/24/25 10:33 02/24/25 10:33
Last Documented Vital Signs
Temp Pulse Resp BP Pulse Ox
98.2 F 69 18 124/87 96
02/24/25 10:33 02/24/25 16:15 02/24/25 16:15 02/24/25 16:00 02/24/25 16:15
<Deepak Vu PA-C - Last Filed: 02/24/25 18:17>
Orders/Labs/Results
Orders:
Orders
02/24/25 11:57
IV Insert/Care/Rem.- Treatment PRN
02/24/25 11:59
0.9% Sodium Chloride 1000 ml [Nss] 1,000 ml IV BOLUS
Ondansetron Injectable [Zofran] 4 mg IV NOW STA
02/24/25 12:03
Complete Blood Count/With Diff Urgent
Comprehensive Metabolic Panel Urgent
Lipase Urgent
02/24/25 12:35
CT Abd/pel W Iv And Oral Contr Urgent
Comment:
Reason For Exam: abd pain s/p colonoscopy
Iohexol [Omnipaque] See Protocol PO NOW STA
02/24/25 12:41
Morphine Sulfate 4 mg IV NOW STA
02/24/25 14:14
Dicyclomine HCl [Bentyl] 20 mg IM NOW STA
Abnormal Lab Results
02/24/25
12:03
WBC 4.3 L 10^3/uL
(4.8-10.8)
Chloride 108 H mmol/L
(98-107)
AST 37 H U/L
(14-36)
ALT 60 H U/L
(0-35)
02/24/25 12:03
02/24/25 12:03
Vital Signs
Initial and Last Documented VS:
Initial Vital Signs
Temp Pulse Resp BP Pulse Ox
98.2 F 79 16 145/84 97
02/24/25 10:33 02/24/25 10:33 02/24/25 10:33 02/24/25 10:33 02/24/25 10:33
Last Documented Vital Signs
Temp Pulse Resp BP Pulse Ox
98.2 F 69 18 124/87 96
02/24/25 10:33 02/24/25 16:15 02/24/25 16:15 02/24/25 16:00 02/24/25 16:15
<RAYMON Rios - Last Filed: 02/24/25 14:15>
MDM/Problems Addressed
MDM/Problems Addressed:
Patient is a 50-year-old female who had a colonoscopy yesterday had a polyp removed from the rectum and presents intermittent bright red blood per rectum rectal bleeding and abdominal pain and rectal pressure. Case reviewed with GI. Will obtain
CAT scan with oral and IV contrast. Rectal pressure may be simply from colonoscopy however will order CAT scan for evaluation abdominal pain. She denies any fever she has nauseous.
Rectal exam negative there is no stool in the rectum abdomen soft mild lower abdominal tenderness
1410:CAre of pt at this time transferred to [facility]
<RAYMON Rios - Last Filed: 02/24/25 14:15>
*Pulse Oximetry
Patient hypoxic: no
<Deepak Vu PA-C - Last Filed: 02/24/25 18:17>
*Critical Care Note
Total Time (30-74mins, 75-104mins- exclusive of procedures): Not Applicable
<RAYMON Rios - Last Filed: 02/24/25 14:15>
Patient Management
Discussion with other providers: Scientific Publications Editor (Gi Dr Gusman )
<Deepak Vu PA-C - Last Filed: 02/24/25 18:17>
Update Note
Update Note:
Assumed care of patient from prior provider awaiting CT scan for rectal pressure, abdominal bloating, and rectal bleeding after colonoscopy yesterday. Imaging ultimately was unremarkable, bleeding is expected in the setting of recent polypectomy as
well as biopsy. Will advise Bentyl and Gas-X use with outpatient GI follow-up
ED Attending Note
<RAYMON Rios - Last Filed: 02/24/25 14:15>
-
Portions of this chart may have been created with voice recognition software.� Occasional wrong word or��sound alike� substitutions may have occurred due to the inherent limitations of voice recognition software.
Discharge Plan
Departure
Patient Disposition: Home (Routine Discharge)
Date of Disposition: 02/24/25
Time of Disposition: 16:17
Patient with high blood pressure during this ER visit?: No
Discharge Problem:
Abdominal distension
Instructions: Abdominal Pain
Prescriptions:
No Action
docusate sodium 100 MG capsule
200 mg PO HS
sertraline 100 MG tablet
100 mg PO HS
fenofibrate 160 MG tablet
160 mg PO HS
acetaminophen 325 MG tablet
650 mg PO DAILYPRN PRN (Reason: mild pain)
alprazolam 1 MG tablet
2 mg PO HS
Patient Comments:
06/11/2024: last filled 06/10/24, 60 tabs for 30 days from [place]
Vraylar 3 MG capsule
3 mg PO HS
ondansetron 4 mg tablet,disintegrating
4 mg PO TIDPRN PRN (Reason: nausea/vomiting) Qty: 10 0RF
famotidine [Pepcid] 40 mg Tablet
40 mg PO HS
trazodone 150 mg Tablet
100 mg PO HS
Patient Comments:
06/08/24: Patient had plans to decrease dose to 100mg tonight.
levothyroxine 150 mcg Tablet
150 mcg PO HS
cholecalciferol (vitamin D3) [Vitamin D3] 125 mcg (5,000 unit) Tablet
125 mcg PO HS
gabapentin 300 mg Capsule
300 mg PO HS
fluticasone propion-salmeterol [Wixela Inhub] 500-50 mcg/dose Blister With Device
1 inh INHALATION R DAILY PRN (Reason: Lung/Breathing Issues)
pantoprazole 40 mg Tablet,Delayed Release (Dr/Ec)
40 mg PO BID 30 Days Qty: 60 0RF
hyoscyamine sulfate 0.125 mg Tablet
0.125 mg PO Q4H
metoclopramide HCl [Reglan] 10 mg Tablet
10 mg PO Q4H
Referrals:
Jolanta Saavedra CRNP [Family Provider, Internal Medicine]
Activity Restrictions/Additional Instructions:
Try Bentyl and Gas X
Interventions
Interventions:
*Risk Screen - Suicide Last Done: 02/24/25 10:35
*General Assessment Last Done: 02/24/25 12:03
*Neglect/Abuse Screening Last Done: 02/24/25 10:35
*ED- Fall Risk Assessment Last Done: 02/24/25 12:03
*ED COVID-19 Vaccine History Last Done: 02/24/25 12:03
*Nursing Disposition Last Done: 02/24/25 17:50
DS-Mqrrix-Ckyizvrdmz Assessment Last Done: 02/24/25 12:03
ED- Cardiac Assessment Last Done: 02/24/25 12:03
ED- Pulmonary Assessment Last Done: 02/24/25 12:03
Discharge Date and Time
Discharge Date/Time: 02/24/25 17:51
Print Language: COLOMBIAN
[2025-02-24 12:00] VITALS: BP 127/70
[2025-02-24] MEDS: ZOFRAN 4 MG IV (12:05)
[2025-02-24] MEDS: NSS 1000 IV (12:05)
[2025-02-24 12:36] LABS: ALT (SGPT) 60 U/L (0-35); AST (SGOT) 37 U/L (14-36); Albumin 4.2 g/dl (3.5-5.0); Alkaline Phosphatase 38 U/L (38-126); Blood Urea Nitrogen 14 mg/dl (7-17); Calcium 9.9 mg/dl (8.4-10.2); Carbon Dioxide 30 mmol/L (22-30); Chloride 108 mmol/L (98-107); Glucose 97 mg/dl (70-99); Lipase 264 U/L (23-300); Potassium 4.3 mmol/L (3.5-5.1); Sodium 143 mmol/L (135-145); Total Bilirubin 0.6 mg/dl (0.2-1.3); Total Protein 6.8 g/dl (6.3-8.2); eGFR > 60.00
[2025-02-24 12:42] LABS: % Basophils 1.4 % (0-2); % Eosinophils 4.2 % (0-6); % Immature Granulocytes 0.2 % (0-0.5); % Lymphocytes 33.6 % (20.5-51.1); % Monocytes 8.7 % (1.7-9.3); % Neutrophils 51.9 % (42.2-75.2); Absolute Basophils 0.1 10^3/uL (0-0.2); Absolute Eosinophils 0.2 10^3/uL (0-0.7); Absolute Lymphocytes 1.4 10^3/uL (1.2-3.4); Absolute Monocytes 0.4 10^3/uL (0.1-0.6); Absolute Neutrophils 2.2 10^3/uL (1.4-6.5); Hematocrit 39.8 % (37.0-47.0); Hemoglobin 13.3 g/dL (12.0-16.0); Mean Corp Hgb Conc. 33.4 g/dL (33.0-37.0); Mean Corpuscular Hgb 30.3 pg (27.0-31.0); Mean Corpuscular Volume 90.7 fL (81.0-99.0); Mean Platelet Volume 9.9 fL (7.4-10.4); Nucleated Red Blood Cells % 0 %; Platelet Count 312 10^3/uL (130-400); Red Blood Cell Count 4.39 10^6/uL (4.20-5.40); Red Cell Dist. Width 13.3 % (11.5-14.5); White Blood Cell Count 4.3 10^3/uL (4.8-10.8)
[2025-02-24] MEDS: MORPHINE SULFATE 4 MG IV (12:45)
[2025-02-24] MEDS: OMNIPAQUE 50 ML PO (12:45)
[2025-02-24 13:00] VITALS: BP 119/72
[2025-02-24 14:00] VITALS: BP 106/60
[2025-02-24] MEDS: BENTYL 20 MG IM (15:57)
[2025-02-24 16:00] VITALS: BP 124/87
== END 2025-02-24 17:51 | disposition home or self-care (01) ==
LOC: EMR 10:33
PROVIDERS: Nurse Practitioner; EMERGENCY PHYSICIAN Student in an Organized Health Care Education/Training Program; FAMILY PHYSICIAN Nurse Practitioner Adult Health
DX: R14.0 Abdominal distension (gaseous) (principal); K62.89 Other specified diseases of anus and rectum; E03.9 Hypothyroidism, unspecified; E78.00 Pure hypercholesterolemia, unspecified; G47.30 Sleep apnea, unspecified; J45.909 Unspecified asthma, uncomplicated; Z87.891 Personal history of nicotine dependence; Z90.722 Acquired absence of ovaries, bilateral; Z85.41 Personal history of malignant neoplasm of cervix uteri; N18.2 Chronic kidney disease, stage 2 (mild); Z98.890 Other specified postprocedural states
CPT/HCPCS: 96374; 96375; 96372; 96361; 99284; 74177; 80053; 83690; 85025; Q9967

== ENCOUNTER 2025-05-02 10:20 | Emergency (ER) | payer BC, SELFPAY ==
[2025-05-02 10:42] VITALS: BP 146/78
--- NOTE | 2025-05-02 11:50 | ED.GENMED ---
History of Present Illness
General
Chief Complaint: Abdominal Symptoms
Source: patient
Exam Limitations: none
Time Seen by Provider: 05/02/25 11:46
Nursing documentation reviewed up to this point in time: agreed with
History of Present Illness
History of Present Illness:
50-year-old female here for right-sided abdominal pain, diarrhea, nausea and vomiting for the past 2 and half weeks.
With remote history of small bowel obstruction x 2 (over 10 yrs ago, treated medically/NGT), h/o ovarian and cervical cancer (s/p hysterectomy, b/l oophorectomy), rectal fissure/sphincterectomy 2021, She had inguinal hernia repair 1 year ago and a
right abdominal hernia mesh replaced 2 years ago. hx HLD, CKD stage II, had a colonoscopy 02/2025 that revealed a 3 mm polyp that was in the rectum and removed. Followed by Driller Operator Dr. Meneds for diabetes insipidus.
Patient states she has not had a normal bowel movement for the past 3 weeks. She states she has diarrhea 4-5 times a day. Last episode of diarrhea 830 this a.m. She states she has been vomiting 4-5 times a day, last emesis was 7:30 AM today.
She has taken Zofran with no improvement. Last dose was 2 days ago. She states the nausea and vomiting can occur anytime, does not seem to be related to the diarrhea which can also occur at any time. She is also had right-sided abdominal pain for
the past 4 to 5 days. She states the pain waxes and wanes gets to 8/10 and is now 5/10. Pain does not seem to be related to her vomiting or diarrhea.
She admits to having chronic intermittent abdominal pain with nausea and vomiting and is followed by GI Dr. Monahan. Has been worked up for gastroparesis and is now taking Bentyl.
Past History
Past History
ED Past Medical History: Asthma, Cancer (ovarian and cervical cancer ), GERD, Hypercholesterolemia, Hypothyroidism, Psychiatric (anxiety, Bipolar, PTSD, Depression) and Other (Migraines, Sleep apnea uses CPAP, Bowel obstruction, Fissure, Eczema)
ED Past Surgical History: , Gynecological (hysthysterectomy, bilateral oophorectomy. Breast augmentation, ectopic , exploratory laparotomy with lymph node removal and lysis of adhesions in the right hemipelvis) and Other
(Abdominoplasty 2020, Hernia, Spincterotomy, Deviated septum surgery, Hemorrhoids)
Social History
Tobacco: Former smoker
Alcohol: None
Drug: None
Personal:
Living: with family
Employment: Not employed
Family History
Family History: Other (CAD, diabetes, thyroid disease, renal failure)
Review of Systems
Review of Systems
Allergies reviewed?: Yes
All Other Systems: ROS reviewed and negative except as documented in HPI and ROS
Constitutional: Denies fever
ABD/GI: Reports abdominal pain, nausea, diarrhea and constipated; Denies vomiting
: Denies dysuria
Musculoskeletal: Reports no symptoms
Skin: Reports no symptoms
Neurological: Reports no symptoms
Phy Exam
Physical Exam
Physical Exam:
GENERAL: No acute distress. A&Ox3.
CONSTITUTIONAL: Afebrile.
EYES: clear, conjunctivae normal
ENMT: moist mucus membranes
RESPIRATORY: Regular respirations, nonlabored, lungs clear.
CARDIOVASCULAR: Regular rate and rhythm, no murmurs, no rubs.
GI: Soft, obese, tender mid to right abdomen, no guarding or rebound. Hypoactive bowel sounds
MUSCULOSKELETAL: Moves with ease. Well perfused.
SKIN: Warm, dry, pink
PSYCH: Normal mood and affect. Well kept, interactive and appropriate
NEUROLOGIC: Awake, alert and oriented. No focal neurological deficits
Course
Orders/Labs/Results
Orders:
Orders
05/02/25 12:27
CT Abd/Pel (IV only)-DH only Urgent
Comment:
Reason For Exam: R side abd pain
05/02/25 12:37
Complete Blood Count/With Diff Urgent
Comprehensive Metabolic Panel Urgent
Lipase Urgent
05/02/25 12:50
Urine Microscopic Reflex Cult Urgent
Urine Reflex Culture from [facility] [Urinalysis Reflex To Culture] Urgent
Date Specimen was Collected: 05/02/25
Time Specimen was Collected: 12:47
05/02/25 12:52
Ondansetron Injectable [Zofran] 4 mg IV NOW STA
05/02/25 12:53
Ondansetron Injectable [Zofran] 4 mg .ROUTE .STK-MED ONE
05/02/25 14:19
Ketorolac [Toradol] 15 mg IV NOW STA
Abnormal Lab Results
05/02/25 05/02/25
12:37 12:50
MCHC 32.7 L g/dL
(33.0-37.0)
Immature Gran % 0.6 H %
(0-0.5)
Glucose 102 H mg/dl
(70-99)
AST 66 H U/L
(14-36)
ALT 75 H U/L
(0-35)
Lipase 305 H U/L
(23-300)
Urine Bacteria (Reflex) Few A
(Negative)
Urine Albumin (Reflex) 1+ A
(Neg - Trace)
05/02/25 12:37
05/02/25 12:37
Vital Signs
Initial and Last Documented VS:
Initial Vital Signs
Temp Pulse Resp BP Pulse Ox
97.6 F 94 16 146/78 100
05/02/25 10:42 05/02/25 10:42 05/02/25 10:42 05/02/25 10:42 05/02/25 10:42
Last Documented Vital Signs
Temp Pulse Resp BP Pulse Ox
97.6 F 82 18 148/80 99
05/02/25 10:42 05/02/25 15:49 05/02/25 15:49 05/02/25 15:49 05/02/25 15:49
MDM/Problems Addressed
Differential Diagnosis Includes:
Gastroenteritis, bowel obstruction or ileus, gastroparesis, irritable bowel
MDM/Problems Addressed:
50-year-old female here for right-sided abdominal pain, diarrhea, nausea and vomiting for the past 2 and half weeks. No known sick contacts, no recent travel
With remote history of small bowel obstruction x 2 (over 10 yrs ago, treated medically/NGT), h/o ovarian and cervical cancer (s/p hysterectomy, b/l oophorectomy), rectal fissure/sphincterectomy 2021, She had inguinal hernia repair 1 year ago and a
right abdominal hernia mesh replaced 2 years ago. hx HLD, CKD stage II, had a colonoscopy 02/2025 that revealed a 3 mm polyp that was in the rectum and removed. Followed by Driller Operator Dr. Mendes for diabetes insipidus.
Patient states she has not had a normal bowel movement for the past 3 weeks. She states she has diarrhea 4-5 times a day. Last episode of diarrhea 830 this a.m. She states she has been vomiting 4-5 times a day, last emesis was 7:30 AM today.
She has taken Zofran with no improvement. Last dose was 2 days ago. She states the nausea and vomiting can occur anytime, does not seem to be related to the diarrhea which can also occur at any time. She is also had right-sided abdominal pain for
the past 4 to 5 days. She states the pain waxes and wanes gets to 8/10 and is now 5/10. Pain does not seem to be related to her vomiting or diarrhea.
She admits to having chronic intermittent abdominal pain with nausea and vomiting and is followed by GI Dr. Monahan. Has been worked up for gastroparesis and is now taking Bentyl.
Afebrile, NAD
Abdomen obese, tender mid to right abdomen. No guarding or rebound
Numerous CT scans in past, Discussed risk of radiation with yet another CT scan, she has had this conversation in the past and states she understands and would like to proceed w the CT scan.
1:00 PM:
CBC normal
CMP: AST, ALT minimally elevated she (has had this in the past).
Lipase 305 (chronically mildly elevated)
4:00 PM:
CT abdomen pelvis with IV only contrast radiology report read: No acute intra-abdominal process identified.
Pt given copy of report.
States Toradol helped, pain now 11/22.
She will F/U with Dr. Monahan.
Has Zofran at home if needed.
No diarrhea or vomiting since arrival.
Stable for discharge
Ambulated out with normal gait at discharge
*Pulse Oximetry
SaO2: 100
Oxygen Mode of Delivery: Room air
Patient hypoxic: not evaluated
*Critical Care Note
Total Time (30-74mins, 75-104mins- exclusive of procedures): Not Applicable
ED Attending Note
-
Portions of this chart may have been created with voice recognition software.� Occasional wrong word or��sound alike� substitutions may have occurred due to the inherent limitations of voice recognition software.
Discharge Plan
Departure
Patient Disposition: Home (Routine Discharge)
Date of Disposition: 05/02/25
Time of Disposition: 16:01
Patient with high blood pressure during this ER visit?: No
Condition: Good
Discharge Problem:
Abdominal pain
Instructions: Diarrhea in teens and adults, Nausea and Vomiting, Adult (DC), Abdominal Pain
Prescriptions:
No Action
docusate sodium 100 MG capsule
200 mg PO HS
sertraline 100 MG tablet
100 mg PO HS
fenofibrate 160 MG tablet
160 mg PO HS
acetaminophen 325 MG tablet
650 mg PO DAILYPRN PRN (Reason: mild pain)
alprazolam 1 MG tablet
2 mg PO HS
Patient Comments:
06/11/2024: last filled 06/10/24, 60 tabs for 30 days from [place]
Vraylar 3 MG capsule
3 mg PO HS
ondansetron 4 mg tablet,disintegrating
4 mg PO TIDPRN PRN (Reason: nausea/vomiting) Qty: 10 0RF
famotidine [Pepcid] 40 mg Tablet
40 mg PO HS
trazodone 150 mg Tablet
100 mg PO HS
Patient Comments:
06/08/24: Patient had plans to decrease dose to 100mg tonight.
levothyroxine 150 mcg Tablet
150 mcg PO HS
cholecalciferol (vitamin D3) [Vitamin D3] 125 mcg (5,000 unit) Tablet
125 mcg PO HS
gabapentin 300 mg Capsule
300 mg PO HS
fluticasone propion-salmeterol [Wixela Inhub] 500-50 mcg/dose Blister With Device
1 inh INHALATION R DAILY PRN (Reason: Lung/Breathing Issues)
pantoprazole 40 mg Tablet,Delayed Release (Dr/Ec)
40 mg PO BID 30 Days Qty: 60 0RF
hyoscyamine sulfate 0.125 mg Tablet
0.125 mg PO Q4H
metoclopramide HCl [Reglan] 10 mg Tablet
10 mg PO Q4H
Referrals:
Jolanta Saavedra CRNP [Family Provider, Internal Medicine]
Radha Monahan MD [Active, Gastroenterology] - Next open appointment
Activity Restrictions/Additional Instructions:
As we discussed, nothing worrisome in your workup here today.
Since the Toradol helped, you may try ibuprofen 600 mg, with food, every 6 hours as needed for pain for the next 3 days.
Follow-up with your family doctor or your GI doctor if your pain persists beyond 3 days.
Interventions
Interventions:
*General Assessment Last Done: 05/02/25 11:48
*Nursing Disposition Last Done: 05/02/25 16:22
PT-Scaslb-Twtjplkapq Assessment Last Done: 05/02/25 11:48
Discharge Date and Time
Discharge Date/Time: 05/02/25 16:50
Print Language: AMHARIC
[2025-05-02] MEDS: ZOFRAN 4 MG IV (12:55)
[2025-05-02 12:58] LABS: Urine Character Clear (Clear)
[2025-05-02 13:02] LABS: Hematocrit 39.5 % (37.0-47.0); Hemoglobin 12.9 g/dL (12.0-16.0); Mean Corp Hgb Conc. 32.7 g/dL (33.0-37.0); Mean Corpuscular Volume 92.9 fL (81.0-99.0); Nucleated Red Blood Cells % 0 %; Platelet Count 340 10^3/uL (130-400); Red Cell Dist. Width 14.4 % (11.5-14.5)
[2025-05-02 13:07] LABS: Urine Red Blood Cell 0-2 /HPF (0-2); Urine Squamous Cell 21-25 /LPF (Few)
[2025-05-02 13:11] LABS: ALT (SGPT) 75 U/L (0-35); AST (SGOT) 66 U/L (14-36); Albumin 4.5 g/dl (3.5-5.0); Alkaline Phosphatase 53 U/L (38-126); Blood Urea Nitrogen 15 mg/dl (7-17); Calcium 9.6 mg/dl (8.4-10.2); Carbon Dioxide 29 mmol/L (22-30); Chloride 106 mmol/L (98-107); Glucose 102 mg/dl (70-99); Lipase 305 U/L (23-300); Potassium 4.2 mmol/L (3.5-5.1); Sodium 142 mmol/L (135-145); Total Protein 7.4 g/dl (6.3-8.2); eGFR > 60.00
[2025-05-02] MEDS: TORADOL 15 MG IV (14:30)
[2025-05-02 15:49] VITALS: BP 148/80
== END 2025-05-02 16:50 | disposition home or self-care (01) ==
LOC: EMR 10:20
PROVIDERS: Registered Nurse; EMERGENCY PHYSICIAN Emergency Medicine; FAMILY PHYSICIAN Nurse Practitioner Adult Health
DX: R10.9 Unspecified abdominal pain (principal); R11.2 Nausea with vomiting, unspecified; R19.7 Diarrhea, unspecified; J45.909 Unspecified asthma, uncomplicated; K21.9 Gastro-esophageal reflux disease without esophagitis; E78.00 Pure hypercholesterolemia, unspecified; F31.9 Bipolar disorder, unspecified; F41.9 Anxiety disorder, unspecified; F43.10 Post-traumatic stress disorder, unspecified; G47.30 Sleep apnea, unspecified; N18.2 Chronic kidney disease, stage 2 (mild); Z82.49 Family history of ischemic heart disease and other diseases of the circulatory system; Z83.3 Family history of diabetes mellitus; Z83.49 Family history of other endocrine, nutritional and metabolic diseases; Z85.41 Personal history of malignant neoplasm of cervix uteri; Z85.43 Personal history of malignant neoplasm of ovary; K59.00 Constipation, unspecified; E66.9 Obesity, unspecified; E23.2 Diabetes insipidus; E03.9 Hypothyroidism, unspecified; Z86.0100 Personal history of colon polyps, unspecified; Z87.19 Personal history of other diseases of the digestive system; Z87.59 Personal history of other complications of pregnancy, childbirth and the puerperium; Z87.891 Personal history of nicotine dependence; Z90.722 Acquired absence of ovaries, bilateral
CPT/HCPCS: 99284; 96374; 96375; 74177; 80053; 81003; 81015; 83690; 85025; Q9967

== ENCOUNTER 2025-05-06 19:46 | Emergency (ER) | payer BC, SELFPAY ==
[2025-05-06 19:49] VITALS: BP 119/66
[2025-05-06 20:21] LABS: Urine Character Clear (Clear)
[2025-05-06 20:26] LABS: Hematocrit 37.2 % (37.0-47.0); Hemoglobin 12.3 g/dL (12.0-16.0); Mean Corp Hgb Conc. 33.1 g/dL (33.0-37.0); Mean Corpuscular Volume 90.7 fL (81.0-99.0); Nucleated Red Blood Cells % 0 %; Platelet Count 371 10^3/uL (130-400); Red Cell Dist. Width 14.4 % (11.5-14.5)
[2025-05-06 20:39] LABS: Urine Red Blood Cell 0-2 /HPF (0-2)
[2025-05-06 20:48] LABS: ALT (SGPT) 68 U/L (0-35); AST (SGOT) 68 U/L (14-36); Albumin 4.5 g/dl (3.5-5.0); Alkaline Phosphatase 56 U/L (38-126); Blood Urea Nitrogen 15 mg/dl (7-17); Calcium 9.8 mg/dl (8.4-10.2); Carbon Dioxide 30 mmol/L (22-30); Chloride 102 mmol/L (98-107); Glucose 98 mg/dl (70-99); Lipase 398 U/L (23-300); Potassium 4.3 mmol/L (3.5-5.1); Sodium 140 mmol/L (135-145); Total Protein 7.2 g/dl (6.3-8.2); eGFR > 60.00
--- NOTE | 2025-05-06 21:53 | ED.GENMED ---
History of Present Illness
<RAYMON Rios - Last Filed: 05/08/25 02:47>
General
Chief Complaint: Abdominal Pain
Source: patient
Exam Limitations: none
Time Seen by Provider: 05/06/25 21:52
Nursing documentation reviewed up to this point in time: agreed with
History of Present Illness
History of Present Illness:
Patient is a 50-year-old female with history of small bowel obstruction ovarian/ cervical cancer hysterectomy and bilateral nephrectomy rectal sphincter chronic kidney disease stage II, chronic abdominal issues, ventral hernia previous lysis of
adhesions from ventral hernia (lst colonoscopy February 2025 with removal of polyp) presently being worked up for diabetes insipidus presents to the ER with continued right lower quadrant abdominal pain. Patient was seen here Friday however pain has
worsened. She is nauseous. She has had diarrhea for the past 2 to 3 weeks about 4-5 times a day.
Past History
<RAYMON Rios - Last Filed: 05/08/25 02:47>
Past History
ED Past Medical History: Asthma, Cancer (ovarian and cervical cancer ), GERD, Hypercholesterolemia, Hypothyroidism, Psychiatric (anxiety, Bipolar, PTSD, Depression) and Other (Migraines, Sleep apnea uses CPAP, Bowel obstruction, Fissure, Eczema)
ED Past Surgical History: , Gynecological (hysthysterectomy, bilateral oophorectomy. Breast augmentation, ectopic , exploratory laparotomy with lymph node removal and lysis of adhesions in the right hemipelvis) and Other
(Abdominoplasty 2020, Hernia, Spincterotomy, Deviated septum surgery, Hemorrhoids)
Social History
Tobacco: Former smoker
Alcohol: None
Drug: None
Personal:
Living: with family
Employment: Not employed
Family History
Family History: Other (CAD, diabetes, thyroid disease, renal failure)
Phy Exam
<RAYMON Rios - Last Filed: 05/08/25 02:47>
General Physical Exam
General Presentation: no apparent distress
General age: appears stated age
General Skin: warm and dry
General Habitus: normal
General Mental: alert
General Hydration: appears well hydrated
Cardiovascular Exam
Cardiovascular Exam: regular rate/rhythm, no murmur and normal peripheral pulses
Pulmonary Exam
Pulmonary Exam: lungs clear and no respiratory distress
Gastrointestinal Exam
Gastrointestinal Exam: soft and other (rlq tenderness )
Neurological Exam
Neurological Exam: alert
Musculoskeletal Exam
Musculoskeletal Exam: full ROM
Skin Exam
Skin Exam: normal color and warm/dry
Psychiatric Exam
Psychiatric Exam: normal mood/affect
Course
<RAYMON Rios - Last Filed: 05/08/25 02:47>
Orders/Labs/Results
Orders:
Orders
05/06/25 20:08
Complete Blood Count/With Diff Urgent
Comprehensive Metabolic Panel Urgent
Lactic Acid Urgent
Lipase Urgent
05/06/25 20:11
Urinalysis Reflex To Culture Urgent
Date Specimen was Collected: 05/06/25
Time Specimen was Collected: 19:54
Urine Microscopic Reflex Cult Urgent
Urine Culture Urgent
CHASITY Source: U
Specimen Description:
Date Specimen was Collected: 05/06/25
Time Specimen was Collected: 19:54
05/06/25 22:28
0.9% Sodium Chloride 1000 ml [Nss] 1,000 ml IV BOLUS
Iohexol [Omnipaque] See Protocol PO NOW STA
Ondansetron Injectable [Zofran] 4 mg IV NOW STA
05/06/25 22:30
Morphine Sulfate 4 mg IV NOW STA
05/07/25 00:45
CT Abd/pel W Iv And Oral Contr Urgent
Reason For Exam: rlq abd pain hx of hernia /mesh
05/07/25 02:03
Morphine Sulfate 4 mg IV NOW STA
Ondansetron Injectable [Zofran] 4 mg IV NOW STA
Abnormal Lab Results
05/06/25 05/06/25
20:08 20:11
RBC 4.10 L 10^6/uL
(4.20-5.40)
Monocytes % 9.7 H %
(1.7-9.3)
AST 68 H U/L
(14-36)
ALT 68 H U/L
(0-35)
Lipase 398 H U/L
(23-300)
Urine Bacteria (Reflex) Moderate A
(Negative)
Urine Albumin (Reflex) 1+ A
(Neg - Trace)
05/06/25 20:08
05/06/25 20:08
Vital Signs
Initial and Last Documented VS:
Initial Vital Signs
Temp Pulse Resp BP Pulse Ox
97.9 F 86 16 119/66 97
05/06/25 19:49 05/06/25 19:49 05/06/25 19:49 05/06/25 19:49 05/06/25 19:49
Last Documented Vital Signs
Temp Pulse Resp BP Pulse Ox
97.9 F 86 16 102/65 91
05/06/25 19:49 05/06/25 19:49 05/06/25 19:49 05/07/25 03:00 05/07/25 03:00
[employer] Worker Helper consulted with Physician
[employer] Worker Helper consulted with physician?: Yes
Name of Physician Consulted: Sesar
<Gonzalez Kaba, DO - Last Filed: 05/07/25 02:11>
Orders/Labs/Results
Orders:
Orders
05/06/25 20:08
Complete Blood Count/With Diff Urgent
Comprehensive Metabolic Panel Urgent
Lactic Acid Urgent
Lipase Urgent
05/06/25 20:11
Urinalysis Reflex To Culture Urgent
Date Specimen was Collected: 05/06/25
Time Specimen was Collected: 19:54
Urine Microscopic Reflex Cult Urgent
Urine Culture Urgent
CHASITY Source: U
Specimen Description:
Date Specimen was Collected: 05/06/25
Time Specimen was Collected: 19:54
05/06/25 22:28
0.9% Sodium Chloride 1000 ml [Nss] 1,000 ml IV BOLUS
Iohexol [Omnipaque] See Protocol PO NOW STA
Ondansetron Injectable [Zofran] 4 mg IV NOW STA
05/06/25 22:30
Morphine Sulfate 4 mg IV NOW STA
05/07/25 00:45
CT Abd/pel W Iv And Oral Contr Urgent
Reason For Exam: rlq abd pain hx of hernia /mesh
05/07/25 02:03
Morphine Sulfate 4 mg IV NOW STA
Ondansetron Injectable [Zofran] 4 mg IV NOW STA
Abnormal Lab Results
05/06/25 05/06/25
20:08 20:11
RBC 4.10 L 10^6/uL
(4.20-5.40)
Monocytes % 9.7 H %
(1.7-9.3)
AST 68 H U/L
(14-36)
ALT 68 H U/L
(0-35)
Lipase 398 H U/L
(23-300)
Urine Bacteria (Reflex) Moderate A
(Negative)
Urine Albumin (Reflex) 1+ A
(Neg - Trace)
05/06/25 20:08
05/06/25 20:08
Vital Signs
Initial and Last Documented VS:
Initial Vital Signs
Temp Pulse Resp BP Pulse Ox
97.9 F 86 16 119/66 97
05/06/25 19:49 05/06/25 19:49 05/06/25 19:49 05/06/25 19:49 05/06/25 19:49
Last Documented Vital Signs
Temp Pulse Resp BP Pulse Ox
97.9 F 86 16 102/65 91
05/06/25 19:49 05/06/25 19:49 05/06/25 19:49 05/07/25 03:00 05/07/25 03:00
<RAYMON Rios - Last Filed: 05/08/25 02:47>
MDM/Problems Addressed
MDM/Problems Addressed:
As documented patient is a 50-year-old female with worsening abdominal pain. Patient was seen here on Friday presents back with worsening right lower quadrant pain. She does have a history of chronic abdominal issues, GI diarrhea issues. She is
followed by GI here [employer]. In addition patient has been seen by surgery in the past for lysis of adhesions (DR Mantilla) .
With increasing pain since Friday repeat CAT scan was done with oral contrast. CAT scan is pending at this time. Patient is scheduled to go soon. She has nauseous and was given Zofran fluids and pain medicine. She is afebrile here with normal
white lipase minimally elevated to 398 urinalysis negative for infection. Care of patient at this time transferred DR Kaba.
<RAYMON Rios - Last Filed: 05/08/25 02:47>
*Radiology
Radiology exam reviewed: radiology read reviewed
*Pulse Oximetry
SaO2: 97
Oxygen Mode of Delivery: Room air
Patient hypoxic: no
*Critical Care Note
Total Time (30-74mins, 75-104mins- exclusive of procedures): Not Applicable
ED Attending Note
<RAYMON Rios - Last Filed: 05/08/25 02:47>
-
Portions of this chart may have been created with voice recognition software.� Occasional wrong word or��sound alike� substitutions may have occurred due to the inherent limitations of voice recognition software.
<Gonzalez Delgado Sesar, DO - Last Filed: 05/07/25 02:11>
ED Attending Note
Patient seen and examined by attending physician: Yes
I performed the substantive portion of visit, reviewed & personally made and approve the management plan that is documented in note by myself or NATALYA.: Yes
ED Attending Note:
I evaluated the patient at bedside. The patient was taken to the OR in October 2024 with incarcerated bilateral inguinal hernias and at that time she had extensive adhesions from small bowel to the old mesh. The following month the patient had
imaging that suggested small abscesses bilateral groin. She has had a few more CAT scans since that time and also had a CAT scan with IV contrast 5 days ago that was unremarkable. Today she had a CAT scan with oral and IV contrast.
CT imaging relatively unremarkable. I then notified Dr. Mantilla. Dr. Mantilla felt there is no clear indication for admission to the hospital. The patient however has been doing poorly as an outpatient with ongoing pain and vomiting. We give
additional morphine and Zofran.
Discharge Plan
Departure
Patient Disposition: Home (Routine Discharge)
Date of Disposition: 05/07/25
Time of Disposition: 02:43
Patient with high blood pressure during this ER visit?: Yes
Discharge Problem:
Abdominal pain
Instructions: Abdominal Pain
Prescriptions:
New
ondansetron HCl 4 mg tablet
4 mg PO Q8H PRN (Reason: nausea and vomiting) Qty: 15 0RF
No Action
docusate sodium 100 MG capsule
200 mg PO HS
sertraline 100 MG tablet
100 mg PO HS
fenofibrate 160 MG tablet
160 mg PO HS
acetaminophen 325 MG tablet
650 mg PO DAILYPRN PRN (Reason: mild pain)
alprazolam 1 MG tablet
2 mg PO HS
Patient Comments:
06/11/2024: last filled 06/10/24, 60 tabs for 30 days from [place]
Vraylar 3 MG capsule
3 mg PO HS
ondansetron 4 mg tablet,disintegrating
4 mg PO TIDPRN PRN (Reason: nausea/vomiting) Qty: 10 0RF
famotidine [Pepcid] 40 mg Tablet
40 mg PO HS
trazodone 150 mg Tablet
100 mg PO HS
Patient Comments:
06/08/24: Patient had plans to decrease dose to 100mg tonight.
levothyroxine 150 mcg Tablet
150 mcg PO HS
cholecalciferol (vitamin D3) [Vitamin D3] 125 mcg (5,000 unit) Tablet
125 mcg PO HS
gabapentin 300 mg Capsule
300 mg PO HS
fluticasone propion-salmeterol [Wixela Inhub] 500-50 mcg/dose Blister With Device
1 inh INHALATION R DAILY PRN (Reason: Lung/Breathing Issues)
pantoprazole 40 mg Tablet,Delayed Release (Dr/Ec)
40 mg PO BID 30 Days Qty: 60 0RF
hyoscyamine sulfate 0.125 mg Tablet
0.125 mg PO Q4H
metoclopramide HCl [Reglan] 10 mg Tablet
10 mg PO Q4H
Referrals:
Jolanta Saavedra CRNP [Family Provider, Internal Medicine]
Home Mantilla MD [Active, Surgical]
Activity Restrictions/Additional Instructions:
The cause of your symptoms is unclear. CAT scan of the abdomen pelvis did not show any clear cause of your symptoms. This is obtained tonight with oral and IV contrast. Return here if worse or other concerns. I communicated with Dr. Mantilla he
said that he will call you tomorrow.
Interventions
Interventions:
*Risk Screen - Suicide Last Done: 05/06/25 23:16
*General Assessment Last Done: 05/06/25 23:16
*Neglect/Abuse Screening Last Done: 05/06/25 23:16
*ED- Fall Risk Assessment Last Done: 05/06/25 23:16
*ED COVID-19 Vaccine History Last Done: 05/06/25 23:16
*Nursing Disposition Last Done: 05/07/25 03:18
RC-Cicrsa-Yedjxibjsh Assessment Last Done: 05/06/25 23:16
Discharge Date and Time
Discharge Date/Time: 05/07/25 03:19
Print Language: LUXEMBOURG[place]
[2025-05-06] MEDS: OMNIPAQUE 50 ML PO (22:44)
[2025-05-06 22:49] VITALS: BP 124/72
[2025-05-06 22:52] VITALS: BMI 33.9
[2025-05-06 23:00] VITALS: BP 123/74
[2025-05-06] MEDS: NSS 1000 IV (23:10)
[2025-05-06] MEDS: ZOFRAN 4 MG IV (23:11)
[2025-05-06] MEDS: MORPHINE SULFATE 4 MG IV (23:13)
[2025-05-07] VITALS: BP 106/69
[2025-05-07 02:00] VITALS: BP 134/74
[2025-05-07] MEDS: ZOFRAN 4 MG IV (02:08)
[2025-05-07] MEDS: MORPHINE SULFATE 4 MG IV (02:11)
[2025-05-07 03:00] VITALS: BP 102/65
== END 2025-05-07 03:19 | disposition home or self-care (01) ==
LOC: EMR 19:46
PROVIDERS: Student in an Organized Health Care Education/Training Program; EMERGENCY PHYSICIAN Emergency Medicine; FAMILY PHYSICIAN Nurse Practitioner Adult Health
DX: R10.31 Right lower quadrant pain (principal); R11.2 Nausea with vomiting, unspecified; C53.9 Malignant neoplasm of cervix uteri, unspecified; E03.9 Hypothyroidism, unspecified; E78.00 Pure hypercholesterolemia, unspecified; G47.30 Sleep apnea, unspecified; N18.2 Chronic kidney disease, stage 2 (mild); J45.909 Unspecified asthma, uncomplicated; Z90.5 Acquired absence of kidney; Z92.21 Personal history of antineoplastic chemotherapy; Z98.890 Other specified postprocedural states
CPT/HCPCS: 96374; 96375; 96376; 96361; 99284; 74177; 80053; 81003; 81015; 83605; 83690; 85025; 87086; Q9967

== ENCOUNTER 2025-06-23 19:52 | Emergency (ER) | payer BC, SELFPAY ==
[2025-06-23 19:58] VITALS: BP 149/78
[2025-06-23 20:31] LABS: Hematocrit 39.4 % (37.0-47.0); Hemoglobin 13.0 g/dL (12.0-16.0); Mean Corp Hgb Conc. 33.0 g/dL (33.0-37.0); Mean Corpuscular Volume 91.8 fL (81.0-99.0); Nucleated Red Blood Cells % 0 %; Platelet Count 354 10^3/uL (130-400); Red Cell Dist. Width 13.4 % (11.5-14.5)
[2025-06-23 20:53] LABS: ALT (SGPT) 38 U/L (0-35); AST (SGOT) 39 U/L (14-36); Albumin 4.8 g/dl (3.5-5.0); Alkaline Phosphatase 56 U/L (38-126); Blood Urea Nitrogen 20 mg/dl (7-17); Calcium 10.2 mg/dl (8.4-10.2); Carbon Dioxide 33 mmol/L (22-30); Chloride 102 mmol/L (98-107); Estimated Creatinine Clearance 75 ml/min; Glucose 98 mg/dl (70-99); Potassium 4.5 mmol/L (3.5-5.1); Sodium 140 mmol/L (135-145); Total Protein 7.6 g/dl (6.3-8.2); eGFR > 60.00
[2025-06-23 21:05] LABS: Troponin I < 0.012 ng/ml
[2025-06-23 21:36] VITALS: BP 134/73
[2025-06-23 22:00] VITALS: BP 134/80
[2025-06-23 23:00] VITALS: BP 123/90
--- NOTE | 2025-06-24 00:12 | ED.GENMED ---
History of Present Illness
General
Chief Complaint: Back Pain
Source: patient
Exam Limitations: none
Time Seen by Provider: 06/23/25 21:55
Nursing documentation reviewed up to this point in time: agreed with
History of Present Illness
History of Present Illness:
Note:
CHIEF COMPLAINT(S)
Pain in the left middle back, exacerbated by deep breaths or yawning.
HISTORY OF PRESENT ILLNESS
The patient is a 50-year-old female who presented with pain located in the left middle back region, which she first noticed upon waking the previous day. She describes the pain as sharp and notes it is particularly pronounced when attempting to take
a deep breath or yawn, stating, 'literally it was like the most painful thing like Gillian got sitting here trying to yawn and take a deep breath at times.' The patient reports that the pain persists and worsened, prompting her visit due to concerns
about a possible pulmonary embolism, as advised by a prior healthcare provider after an X-ray revealed no significant findings. The patient does not recall experiencing similar symptoms in the past.
PAST MEDICAL AND SURIGICAL HISTORY
The patient has a history of a deep vein thrombosis (DVT) extending from the armpit to the elbow, secondary to an intravenous line. She reported being told that she had nodules in the right lung, suspected to be fibrotic changes from COVID-19
infection.
SOCIAL HISTORY
The patient reports no history of smoking cigarettes.
PLAN
1. Review available chest X-ray and compare with prior images to assess any changes, particularly for signs of pneumothorax or pleural effusion.
2. Consider further imaging modalities, such as a CT scan, to rule out pulmonary embolism or other thoracic pathology if initial investigations are inconclusive.
3. Continue monitoring vital signs and pain levels, and re-evaluate based on imaging findings.
DIFFERENTIAL DIAGNOSIS
The differential diagnosis includes, in no particular order and is not limited to:
1. Pulmonary embolism ruled out with CT
2. Small pneumonia not seen on CAT scan
3. Partial pneumothorax not seen on CAT scan
4. Pleural effusion CT scan negative
5. Musculoskeletal strain or injury
6. Rib fracture
7. Pulmonary nodules or neoplasm
8. Fibrotic lung disease
9. Costochondritis possibility versus pleurisy
10. Esophageal spasm or reflux
Disposition:
SUMMARY OF ENCOUNTER
A 50-year-old female presented with left-sided back pain, worse with inspiration. Given her concern for a pulmonary embolism, a CT chest with PE protocol was conducted, which returned negative. The patient was treated with ketorolac, which
alleviated her pain. The likely diagnosis was considered to be pleuritis versus costochondritis.
DISPOSITION
Discharge to home.
ASSESSMENT
Pleuritis versus costochondritis.
EMERGENCY TREATMENTS ADMINISTERED
Ketorolac (as per patients statement of receiving tort all).
PLAN
Discharge with appropriate pain management and follow-up for further evaluation if symptoms persist or worsen.
PATIENT EDUCATION AND COUNSELING
The patient was instructed on the nature of pleuritis and costochondritis and advised on pain management strategies.
MEDICATION RECONCILIATION
Ketorolac was administered during the visit.
MEDICAL DECISION MAKING
- Number and Complexity of Problems Addressed: Chronic conditions affecting care: History of DVT, nodules in the right lung suspected to be fibrotic changes from COVID-19. Differential Diagnosis: Pulmonary embolism, small pneumonia, partial
pneumothorax, pleural effusion, musculoskeletal strain or injury, rib fracture, pulmonary nodules or neoplasm, fibrotic lung disease, costochondritis, esophageal spasm or reflux.
- Data:
Category 1
-Clinical information obtained and reviewed from imaging studies: CT chest with PE protocol, negative findings.
- Risk: Consideration of Admission/Observation: Escalation of care including admission/observation was considered given the complexity and risk of the patients presenting complaint and underlying comorbidities. However, ultimately it was determined
the patient is safe for outpatient management with close follow-up. Reasoning: Work-up was reassuring, did not reveal any acute life/organ threatening processes, patients symptoms well controlled upon reevaluation, and the patient was agreeable with
discharge and reliable for follow-up.
DIAGNOSIS
Pleuritis (ICD-10: R09.89)
Costochondritis (ICD-10: M94.0)
Past History
Past History
ED Past Medical History: Asthma, Cancer (ovarian and cervical cancer ), GERD, Hypercholesterolemia, Hypothyroidism, Psychiatric (anxiety, Bipolar, PTSD, Depression) and Other (Migraines, Sleep apnea uses CPAP, Bowel obstruction, Fissure, Eczema)
ED Past Surgical History: , Gynecological (hysthysterectomy, bilateral oophorectomy. Breast augmentation, ectopic , exploratory laparotomy with lymph node removal and lysis of adhesions in the right hemipelvis) and Other
(Abdominoplasty 2020, Hernia, Spincterotomy, Deviated septum surgery, Hemorrhoids)
Social History
Tobacco: Former smoker
Alcohol: None
Drug: None
Personal:
Living: with family
Employment: Not employed
Family History
Family History: Other (CAD, diabetes, thyroid disease, renal failure)
Course
Orders/Labs/Results
Orders:
Orders
06/23/25 20:02
Electrocardiogram (*1) Urgent
Reason for Study: Chest Pain
EKG- Treatment ONCE
06/23/25 20:19
Complete Blood Count/With Diff Urgent
Comprehensive Metabolic Panel Urgent
Troponin I Urgent
06/23/25 22:03
CT Chest PE Study Urgent
Comment:
Reason For Exam: left lung pain, sent in from
06/24/25 00:24
Ketorolac [Toradol] 15 mg IV NOW STA
Abnormal Lab Results
06/23/25
20:19
Carbon Dioxide 33 H mmol/L
(22-30)
BUN 20 H mg/dl
(7-17)
Creatinine 1.1 H mg/dL
(0.6-1.0)
AST 39 H U/L
(14-36)
ALT 38 H U/L
(0-35)
06/23/25 20:19
06/23/25 20:19
Vital Signs
Initial and Last Documented VS:
Initial Vital Signs
Temp Pulse Resp BP Pulse Ox
97.5 F 74 20 149/78 100
06/23/25 19:58 06/23/25 19:58 06/23/25 19:58 06/23/25 19:58 06/23/25 19:58
Last Documented Vital Signs
Temp Pulse Resp BP Pulse Ox
97.5 F 76 20 134/73 96
06/23/25 19:58 06/23/25 21:36 06/23/25 21:40 06/23/25 21:36 06/24/25 00:12
*Pulse Oximetry
SaO2: 96
Oxygen Mode of Delivery: Room air
*Critical Care Note
Total Time (30-74mins, 75-104mins- exclusive of procedures): Not Applicable
Update Note
Update Note:
NAME: MELISSA ZAIDI
DATE OF EXAM: 06/23/2025
Patient No: [id number]
Physician: RAFAEL
Date of : 1975
Past Medical History (entered by Technologist):
Reason For Exam (entered by Technologist): luq pain
Other Notes (entered by Technologist): discomfort on inspiration
Additional Information (per Vision Radiologist):
CTA chest with intravenous contrast, pulmonary artery protocol
Comparison exam: None
IMPRESSION:
No evidence of pulmonary artery embolus.
Mild linear atelectasis/scarring in lungs.
No consolidation or effusion
Case finalized on 06/23/25 23:48 EDT
Kimberly Swartz M.D.
This report has been electronically signed and verified by the Radiologist whose name is printed above.
ED Attending Note
-
Portions of this chart may have been created with voice recognition software.� Occasional wrong word or��sound alike� substitutions may have occurred due to the inherent limitations of voice recognition software.
Discharge Plan
Departure
Patient Disposition: Home (Routine Discharge)
Date of Disposition: 06/24/25
Time of Disposition: 01:25
Patient with high blood pressure during this ER visit?: Yes
Condition: Good
Discharge Problem:
Pleurisy
Instructions: Pleuritic chest pain - ED (DC), BLOOD PRESSURE, Pleurisy
Prescriptions:
New
diclofenac sodium 75 mg tablet,delayed release (DR/EC)
75 mg PO BID Qty: 10 0RF
No Action
docusate sodium 100 MG capsule
200 mg PO HS
sertraline 100 MG tablet
100 mg PO HS
fenofibrate 160 MG tablet
160 mg PO HS
acetaminophen 325 MG tablet
650 mg PO DAILYPRN PRN (Reason: mild pain)
alprazolam 1 MG tablet
2 mg PO HS
Patient Comments:
06/11/2024: last filled 06/10/24, 60 tabs for 30 days from [facility]
Vraylar 3 MG capsule
3 mg PO HS
ondansetron 4 mg tablet,disintegrating
4 mg PO TIDPRN PRN (Reason: nausea/vomiting) Qty: 10 0RF
famotidine [Pepcid] 40 mg Tablet
40 mg PO HS
trazodone 150 mg Tablet
100 mg PO HS
Patient Comments:
06/08/24: Patient had plans to decrease dose to 100mg tonight.
levothyroxine 150 mcg Tablet
150 mcg PO HS
cholecalciferol (vitamin D3) [Vitamin D3] 125 mcg (5,000 unit) Tablet
125 mcg PO HS
gabapentin 300 mg Capsule
300 mg PO HS
fluticasone propion-salmeterol [Wixela Inhub] 500-50 mcg/dose Blister With Device
1 inh INHALATION R DAILY PRN (Reason: Lung/Breathing Issues)
pantoprazole 40 mg Tablet,Delayed Release (Dr/Ec)
40 mg PO BID 30 Days Qty: 60 0RF
hyoscyamine sulfate 0.125 mg Tablet
0.125 mg PO Q4H
metoclopramide HCl [Reglan] 10 mg Tablet
10 mg PO Q4H
ondansetron HCl 4 mg tablet
4 mg PO Q8H PRN (Reason: nausea and vomiting) Qty: 15 0RF
Referrals:
Jolanta Saavedra CRNP [Family Provider, Internal Medicine]
Activity Restrictions/Additional Instructions:
Thank You for choosing [facility].
It was a pleasure meeting you and taking part in your care. We hope for your continued healing and wellness.
Please read discharge instructions in their entirety. However, they are for general education and may not describe your exact diagnosis at discharge. Information on your ER visit and medical conditions were discussed with you along with appropriate
follow up information...
If indicated, please take your medications as instructed and indicated on discharge paperwork.
Please schedule a follow up appointment as directed. Call to schedule an appointment
Please return to the emergency department with ANY change in, persisting, or worsening of symptoms. If any of your symptoms do not improve, or persist, or become more severe within 6-12 hours, please return to the emergency department for further
care.
Please return to the emergency department if you develop a headache, neck pain/stiffness, fever greater than 100.4F, chest pain, shortness of breath, persistent nausea, vomiting, slurred speech, difficulty walking, numbness/tingling, weakness, signs
of infection or any other symptoms that are worrisome to you.
If you have any questions or concerns please do not hesitate to call the Hospital at .
Interventions
Interventions:
*Risk Screen - Suicide Last Done: 06/23/25 19:58
Discharge Date and Time
Print Language: CITIZEN [place]
[2025-06-24] MEDS: TORADOL 15 MG IV (00:56)
== END 2025-06-24 01:46 | disposition home or self-care (01) ==
LOC: EMR 19:52
PROVIDERS: Emergency Medicine; EMERGENCY PHYSICIAN Student in an Organized Health Care Education/Training Program; FAMILY PHYSICIAN Nurse Practitioner Adult Health
DX: M94.0 Chondrocostal junction syndrome [Tietze] (principal); R09.1 Pleurisy; J45.909 Unspecified asthma, uncomplicated; G47.30 Sleep apnea, unspecified; E03.9 Hypothyroidism, unspecified; Z87.891 Personal history of nicotine dependence; Z87.19 Personal history of other diseases of the digestive system; Z87.59 Personal history of other complications of pregnancy, childbirth and the puerperium
CPT/HCPCS: 96374; 99284; 71275; 80053; 84484; 85025; 93005; Q9967

== ENCOUNTER 2025-06-30 16:25 | Emergency (ER) | payer BC, SELFPAY ==
[2025-06-30 16:32] VITALS: BP 133/89
[2025-06-30 17:01] LABS: Hematocrit 40.3 % (37.0-47.0); Hemoglobin 13.0 g/dL (12.0-16.0); Mean Corp Hgb Conc. 32.3 g/dL (33.0-37.0); Mean Corpuscular Volume 94.8 fL (81.0-99.0); Nucleated Red Blood Cells % 0 %; Platelet Count 339 10^3/uL (130-400); Red Cell Dist. Width 13.4 % (11.5-14.5)
[2025-06-30 17:12] LABS: ALT (SGPT) 31 U/L (0-35); AST (SGOT) 34 U/L (14-36); Albumin 4.7 g/dl (3.5-5.0); Alkaline Phosphatase 41 U/L (38-126); Blood Urea Nitrogen 17 mg/dl (7-17); Calcium 9.8 mg/dl (8.4-10.2); Carbon Dioxide 30 mmol/L (22-30); Chloride 103 mmol/L (98-107); Glucose 132 mg/dl (70-99); Potassium 4.5 mmol/L (3.5-5.1); Sodium 139 mmol/L (135-145); Total Protein 7.7 g/dl (6.3-8.2); eGFR > 60.00
[2025-06-30 17:18] LABS: HCG, Serum Qualitative Screen Negative; Troponin I < 0.012 ng/ml
[2025-06-30 18:59] VITALS: BMI 36.7
[2025-06-30 19:00] VITALS: BP 120/73
[2025-06-30] MEDS: TORADOL 15 MG IM (19:40)
[2025-06-30] MEDS: ZOFRAN 4 MG PO (19:42)
--- NOTE | 2025-06-30 19:51 | ED.GENMED ---
History of Present Illness
General
Chief Complaint: Chest Pain
Source: patient
Time Seen by Provider: 06/30/25 18:00
History of Present Illness
History of Present Illness:
50-year-old female presents emergency department with complaints of discomfort that started today. Of note, patient was in the emergency department on with complaints of pain at the back and chest that was worse with a deep breath. She
had an extensive workup here including a CT to rule out a PE. She was diagnosed with pleurisy and states that she was asymptomatic by Friday or Friday. Then, today, she developed a gradual onset of discomfort at the left axilla and under her
breast with tingling in the elbow and hand area on the left side. This pain lasts for seconds at a time and then resolves completely without specific provoking or relieving factors. She denies associated back pain, neck pain, headache, dizziness,
vomiting, diaphoresis, dyspnea, abdominal pain, cough, fever, chills, or other complaints.
Past History
Past History
ED Past Medical History: Asthma, Cancer (ovarian and cervical cancer ), GERD, Hypercholesterolemia, Hypothyroidism, Psychiatric (anxiety, Bipolar, PTSD, Depression) and Other (Migraines, Sleep apnea uses CPAP, Bowel obstruction, Fissure, Eczema,
ovarian and cervical cancer, Crohn's)
ED Past Surgical History: , Gynecological (hysthysterectomy, bilateral oophorectomy. Breast augmentation, ectopic , exploratory laparotomy with lymph node removal and lysis of adhesions in the right hemipelvis) and Other
(Abdominoplasty 2020, Hernia, Spincterotomy, Deviated septum surgery, Hemorrhoids)
Social History
Tobacco: Former smoker
Alcohol: None
Drug: None
Personal:
Living: with family
Employment: Not employed
Family History
Family History: Other (CAD, diabetes, thyroid disease, renal failure)
Phy Exam
Physical Exam
Physical Exam:
GENERAL: Alert , in no apparent distress, nontoxic, extremely well-appearing
EYE: pupils equal and reactive
NECK: Supple, no significant adenopathy.
ENT: o/p clr, mmm.
CARDIAC: Regular rate and rhythm .
LUNGS: Clear breath sounds bilaterally, no acute respiratory distress, no wheezes/rales/rhonchi
ABDOMEN: Soft, without focal tenderness, no r/g, no cvat
NEUROLOGICAL: Alert and oriented, no focal neuro deficits
SKIN: Warm and dry, skin intact, no rash noted.
MUSCULOSKELETAL: No edema, well perfused.
PSYCH: Normal and appropriate interaction.
Scores
Heart Score for Chest Pain Patients
STEMI patient?: Not applicable
Course
Orders/Labs/Results
Orders:
Orders
06/30/25 16:26
Electrocardiogram (*1) Urgent
Reason for Study: Chest Pain
EKG- Treatment ONCE
06/30/25 16:36
Test Result ONCE
06/30/25 16:45
Complete Blood Count/With Diff Urgent
Comprehensive Metabolic Panel Urgent
HCG, Serum Qualitative Screen Urgent
Comment: Notify provider if positive test present
Troponin I Urgent
06/30/25 19:33
Ketorolac [Toradol] 15 mg IM NOW STA
Ondansetron HCl [Zofran] 4 mg PO NOW STA
06/30/25 19:48
Troponin I Urgent
Abnormal Lab Results
06/30/25
16:45
MCHC 32.3 L g/dL
(33.0-37.0)
Glucose 132 H mg/dl
(70-99)
06/30/25 16:45
06/30/25 16:45
Vital Signs
Initial and Last Documented VS:
Initial Vital Signs
Temp Pulse Resp BP Pulse Ox
98 F 84 16 133/89 100
06/30/25 16:32 06/30/25 16:32 06/30/25 16:32 06/30/25 16:32 06/30/25 16:32
Last Documented Vital Signs
Temp Pulse Resp BP Pulse Ox
98 F 81 19 107/74 95
06/30/25 16:32 06/30/25 20:15 06/30/25 20:15 06/30/25 20:00 06/30/25 20:15
*Pulse Oximetry
SaO2: 100
Oxygen Mode of Delivery: Room air
Patient hypoxic: no
*Critical Care Note
Total Time (30-74mins, 75-104mins- exclusive of procedures): Not Applicable
Update Note
Update Note:
Patient presents to the Emergency Department with ___pain
Number and Complexity of Problems Addressed at the Encounter
� Chronic conditions affecting care:
� Acute Exacerbation and/or Progression of Chronic Illness:
� Differential Diagnosis includes: But not limited to musculoskeletal pain, ACS, pleurisy, pericarditis, rib fracture, etc. etc.
Amount and/or Complexity of Data to be Reviewed and Analyzed
� I performed an independent evaluation of and my interpretation is:
EKG: Read by me, normal sinus rhythm, normal rate, normal axis, no acute ischemia
CT:
Xrays:
Laboratory Studies: Unremarkable, troponin x 2 normal
Other:
� Review of other/old records reveals:
� Clinical information was obtained by an independent historian: who is at bedside
� Prescriptions/Medications Considered but not given:
� Further testing considered but not performed:
Risk of Complications and/or Morbidity or Mortality of Patient Management
� Social determinants of health affecting care:
� Discussion with other providers (PCP, Hospitalists, Consultants, etc):
� Escalation of care including admission/observation vs risk of discharge considered: 8:27 PM multiple reassessments here, patient remains awake alert well-appearing vitals are stable, pulse ox of 100%, normal heart rate. Given
workup here, assessments, history, physical, etc., highly doubt PE, ACS, pericarditis, fracture, pneumothorax, etc. Discussed with patient importance of follow-up promptly and reasons to return to the ER. Patient had concerns that this may be
related to her recent injection, I did explore adverse reactions and did not see her symptoms listed as common although this does not fully exclude a reaction to the medication I encouraged her to discuss further with her doctor.
ED Attending Note
-
Portions of this chart may have been created with voice recognition software.� Occasional wrong word or��sound alike� substitutions may have occurred due to the inherent limitations of voice recognition software.
Discharge Plan
Departure
Patient Disposition: Home (Routine Discharge)
Date of Disposition: 06/30/25
Time of Disposition: 20:27
Patient with high blood pressure during this ER visit?: Yes
Condition: Good
Discharge Problem:
Chest pain
Instructions: Chest Pain PCP Follow Up, BLOOD PRESSURE
Prescriptions:
No Action
docusate sodium 100 MG capsule
200 mg PO HS
sertraline 100 MG tablet
100 mg PO HS
fenofibrate 160 MG tablet
160 mg PO HS
acetaminophen 325 MG tablet
650 mg PO DAILYPRN PRN (Reason: mild pain)
alprazolam 1 MG tablet
2 mg PO HS
Patient Comments:
06/11/2024: last filled 06/10/24, 60 tabs for 30 days from [place]
Vraylar 3 MG capsule
3 mg PO HS
ondansetron 4 mg tablet,disintegrating
4 mg PO TIDPRN PRN (Reason: nausea/vomiting) Qty: 10 0RF
famotidine [Pepcid] 40 mg Tablet
40 mg PO HS
trazodone 150 mg Tablet
100 mg PO HS
Patient Comments:
06/08/24: Patient had plans to decrease dose to 100mg tonight.
levothyroxine 150 mcg Tablet
150 mcg PO HS
cholecalciferol (vitamin D3) [Vitamin D3] 125 mcg (5,000 unit) Tablet
125 mcg PO HS
gabapentin 300 mg Capsule
300 mg PO HS
fluticasone propion-salmeterol [Wixela Inhub] 500-50 mcg/dose Blister With Device
1 inh INHALATION R DAILY PRN (Reason: Lung/Breathing Issues)
pantoprazole 40 mg Tablet,Delayed Release (Dr/Ec)
40 mg PO BID 30 Days Qty: 60 0RF
hyoscyamine sulfate 0.125 mg Tablet
0.125 mg PO Q4H
metoclopramide HCl [Reglan] 10 mg Tablet
10 mg PO Q4H
ondansetron HCl 4 mg tablet
4 mg PO Q8H PRN (Reason: nausea and vomiting) Qty: 15 0RF
diclofenac sodium 75 mg tablet,delayed release (DR/EC)
75 mg PO BID Qty: 10 0RF
Referrals:
UNKNOWN - PT DOES,NOT KNOW [Family Provider]
Activity Restrictions/Additional Instructions:
IF YOU DEVELOP INCREASING NEW OR PERSISTENT PAIN, FEVER, TROUBLE BREATHING, VOMITING, DIZZINESS, SWELLING, OR OTHER WORRISOME SIGNS, PLEASE RETURN TO THE ER IMMEDIATELY! PLEASE FOLLOW-UP WITH YOUR DOCTOR TOMORROW.
Interventions
Interventions:
*Risk Screen - Suicide Last Done: 06/30/25 16:32
*General Assessment Last Done: 06/30/25 18:59
*Neglect/Abuse Screening Last Done: 06/30/25 16:32
*ED COVID-19 Vaccine History Last Done: 06/30/25 18:59
*ED Influenza Vaccine History Last Done: 06/30/25 18:59
ED- Cardiac Assessment Last Done: 06/30/25 18:17
Discharge Date and Time
Print Language: [place]
[2025-06-30 20:00] VITALS: BP 107/74
[2025-06-30 20:20] LABS: Troponin I < 0.012 ng/ml
[2025-06-30 20:51] VITALS: BP 122/80
== END 2025-06-30 20:59 | disposition home or self-care (01) ==
LOC: EMR 16:25
PROVIDERS: Emergency Medicine; EMERGENCY PHYSICIAN Emergency Medicine; FAMILY PHYSICIAN Nurse Practitioner Adult Health
DX: R07.89 Other chest pain (principal); M54.9 Dorsalgia, unspecified; E03.9 Hypothyroidism, unspecified; E78.00 Pure hypercholesterolemia, unspecified; G47.30 Sleep apnea, unspecified; J45.909 Unspecified asthma, uncomplicated; K50.90 Crohn's disease, unspecified, without complications; Z87.891 Personal history of nicotine dependence; Z85.41 Personal history of malignant neoplasm of cervix uteri
CPT/HCPCS: 99284; 96372; 80053; 84484; 84703; 85025; 93005

== ENCOUNTER 2025-07-09 10:17 | Emergency (ER) | payer BC, SELFPAY ==
[2025-07-09 10:18] VITALS: BP 124/83
--- NOTE | 2025-07-09 11:10 | ED.GENMED ---
History of Present Illness
General
Chief Complaint: Urinary Symptoms
Source: patient
Exam Limitations: none
Time Seen by Provider: 07/09/25 10:55
Nursing documentation reviewed up to this point in time: agreed with
History of Present Illness
History of Present Illness:
50-year-old female with history of asthma, sleep apnea with CPAP, HLD, Crohn's disease, GERD, IBS, Evelyn's thyroiditis, ovarian cancer with chemo and radiation treatments, anxiety, bipolar disorder, PTSD, presents from her PCP office where she
was evaluated for lower abdominal pain. She states her doctor sent her here for a possible Crohn's flare but she states this feels nothing like that as she has had normal bowel movements for the past few weeks, no diarrhea. She states her pain is
actually lower near both sides of her groin and points to each side of the mons pubis to identify where her pain is. She states her pain is no more than 2/10 most of the time and sometimes goes to 5/10.
She did have bilateral hernia repairs in 2018, tummy tuck in 2020, bilateral oophorectomy in 2012 she has had her fallopian tubes removed for ovarian cancer. She denies N/V/D/C.
Past History
Past History
ED Past Medical History: Asthma, Cancer (ovarian and cervical cancer ), GERD, Hypercholesterolemia, Hypothyroidism, Psychiatric (anxiety, Bipolar, PTSD, Depression) and Other (Migraines, Sleep apnea uses CPAP, Bowel obstruction, Fissure, Eczema,
ovarian and cervical cancer, Crohn's)
ED Past Surgical History: , Gynecological (hysthysterectomy, bilateral oophorectomy. Breast augmentation, ectopic , exploratory laparotomy with lymph node removal and lysis of adhesions in the right hemipelvis) and Other
(Abdominoplasty 2020, bilateral inguinal hernia repairs 10/2024, Spincterotomy, Deviated septum surgery, Hemorrhoids)
Social History
Tobacco: Former smoker
Alcohol: None
Drug: None
Personal:
Living: with family
Employment: Not employed
Family History
Family History: Other (CAD, diabetes, thyroid disease, renal failure)
Review of Systems
Review of Systems
Allergies reviewed?: Yes
All Other Systems: ROS reviewed and negative except as documented in HPI and ROS
Phy Exam
Physical Exam
Physical Exam:
GENERAL: No acute distress. A&Ox3.
CONSTITUTIONAL: Afebrile.
EYES: clear, conjunctivae normal
ENMT: moist mucus membranes, Pharynx nl
RESPIRATORY: Regular respirations, nonlabored, lungs clear.
CARDIOVASCULAR: Regular rate and rhythm, no murmurs, no rubs.
GI: Soft, nontender, normal BS
: point tender over lateral R and lateral L mons pubis. Groin areas non tender.
MUSCULOSKELETAL: Moves with ease. Well perfused.
SKIN: Warm, dry, pink
PSYCH: Normal mood and affect. Well kept, interactive and appropriate
NEUROLOGIC: Awake, alert and oriented. No focal neurological deficits
Course
Orders/Labs/Results
Orders:
Orders
07/09/25 11:09
Urinalysis Reflex To Culture Urgent
Date Specimen was Collected: 07/09/25
Time Specimen was Collected: 11:03
07/09/25 11:28
US Groin (Imaging Only) LT Urgent
Comment:
Reason For Exam: pain
07/09/25 11:33
US Groin (Imaging Only) RT Urgent
Comment:
Reason For Exam: pain
07/09/25 11:41
Complete Blood Count/With Diff Urgent
Comprehensive Metabolic Panel Urgent
07/09/25 15:26
Ketorolac [Toradol] 15 mg IV NOW STA
07/09/25 15:57
CT Abd/Pel (IV only)-DH only Urgent
Comment:
Reason For Exam: bilateral inguinal pain
Abnormal Lab Results
07/09/25
11:41
MCH 31.2 H pg
(27.0-31.0)
MCHC 32.3 L g/dL
(33.0-37.0)
Immature Gran % 0.6 H %
(0-0.5)
Carbon Dioxide 31 H mmol/L
(22-30)
Creatinine 1.1 H mg/dL
(0.6-1.0)
07/09/25 11:41
07/09/25 11:41
Vital Signs
Initial and Last Documented VS:
Initial Vital Signs
Temp Pulse Resp BP Pulse Ox
97.9 F 74 20 124/83 99
07/09/25 10:18 07/09/25 10:18 07/09/25 10:18 07/09/25 10:18 07/09/25 10:18
Last Documented Vital Signs
Temp Pulse Resp BP Pulse Ox
97.9 F 78 18 139/87 97
07/09/25 10:18 07/09/25 16:00 07/09/25 16:00 07/09/25 16:00 07/09/25 16:00
Food Taster consulted with Physician
Food Taster consulted with physician?: Yes
Name of Physician Consulted: Cherelle
MDM/Problems Addressed
Differential Diagnosis Includes:
inguinal hernia, groin strain
MDM/Problems Addressed:
50-year-old female with history of asthma, sleep apnea with CPAP, HLD, Crohn's disease, GERD, IBS, Evelyn's thyroiditis, ovarian cancer with chemo and radiation treatments, anxiety, bipolar disorder, PTSD, presents from her PCP office where she
was evaluated for lower abdominal pain. She states her doctor sent her here for a possible Crohn's flare but she states this feels nothing like that as she has had normal bowel movements for the past few weeks, no diarrhea. She states her pain is
actually lower near both sides of her groin and points to each side of the mons pubis to identify where her pain is. She states her pain is no more than 2/10 most of the time and sometimes goes to 5/10.
She did have bilateral hernia repairs in 2019, tummy tuck in 2020, bilateral oophorectomy in 2012 she has had her fallopian tubes removed for ovarian cancer. She denies N/V/D/C.
She is calm and in no acute distress. She is afebrile. She is point tender over the right lateral mons pubis and point tender over the left lateral mons pubis. Her abdomen is totally nontender to deep palpation in all areas.
I am hesitant to do CAT scan as she has had numerous imaging in the past. She is in agreement and asks if we can simply do an ultrasound.
Ultrasound ordered.
CBC normal
CMP normal
UA negative
3:15 PM:
Discussed risk of radiation with her hx of numerous imaging. With pain immediately over the mons pubis/groin area, I suggested US. With no abdominal symptoms, this is reasonable. She agrees
Ultrasound bilateral groins radiology report read: Small bilateral morphologically unremarkable appearing groin lymph nodes. Specifically no fluid collection or peristalsing loops of bowel to confirm hernia reveals no acute abnormality. I gave
patient copies of her ultrasound reports. I explained that her blood work and urine show nothing worrisome.
I offered her Toradol for pain and initially she declined but then accepted it.
She is in tears, stating she has PTSD because in the past, for over a year she has had pains' they kept doing CAT scan after CAT scan and telling me that they could find nothing and finally Dr. Mantilla looked at one of the CAT scans and found out
that the mesh was all crumpled up and he had to go in and fix it.' She states this is what she is afraid of now.
Will proceed to CT scan.
CT abdomen pelvis radiology report read: No significant focal abnormality in the right or left groin including no findings to confirm hernia.
Subcentimeter low-attenuation right lobe hepatic lesion again too small to characterize, possibly a hemangioma, stable.
Patient is calm, pleasant and stable for discharge. Copy of CT report given to her
She states she will follow-up with Dr. Mantilla
*Pulse Oximetry
SaO2: 99
Oxygen Mode of Delivery: Room air
Patient hypoxic: not evaluated
*Critical Care Note
Total Time (30-74mins, 75-104mins- exclusive of procedures): Not Applicable
ED Attending Note
-
Portions of this chart may have been created with voice recognition software.� Occasional wrong word or��sound alike� substitutions may have occurred due to the inherent limitations of voice recognition software.
Discharge Plan
Departure
Patient Disposition: Home (Routine Discharge)
Date of Disposition: 07/09/25
Time of Disposition: 17:07
Patient with high blood pressure during this ER visit?: No
Condition: Good
Discharge Problem:
Groin pain
Instructions: Groin Strain (DC), Abdominal Pain
Prescriptions:
No Action
docusate sodium 100 MG capsule
200 mg PO HS
sertraline 100 MG tablet
100 mg PO HS
fenofibrate 160 MG tablet
160 mg PO HS
acetaminophen 325 MG tablet
650 mg PO DAILYPRN PRN (Reason: mild pain)
alprazolam 1 MG tablet
2 mg PO HS
Patient Comments:
06/11/2024: last filled 06/10/24, 60 tabs for 30 days from [facility]
Vraylar 3 MG capsule
3 mg PO HS
ondansetron 4 mg tablet,disintegrating
4 mg PO TIDPRN PRN (Reason: nausea/vomiting) Qty: 10 0RF
famotidine [Pepcid] 40 mg Tablet
40 mg PO HS
trazodone 150 mg Tablet
100 mg PO HS
Patient Comments:
06/08/24: Patient had plans to decrease dose to 100mg tonight.
levothyroxine 150 mcg Tablet
150 mcg PO HS
cholecalciferol (vitamin D3) [Vitamin D3] 125 mcg (5,000 unit) Tablet
125 mcg PO HS
gabapentin 300 mg Capsule
300 mg PO HS
fluticasone propion-salmeterol [Wixela Inhub] 500-50 mcg/dose Blister With Device
1 inh INHALATION R DAILY PRN (Reason: Lung/Breathing Issues)
pantoprazole 40 mg Tablet,Delayed Release (Dr/Ec)
40 mg PO BID 30 Days Qty: 60 0RF
hyoscyamine sulfate 0.125 mg Tablet
0.125 mg PO Q4H
metoclopramide HCl [Reglan] 10 mg Tablet
10 mg PO Q4H
ondansetron HCl 4 mg tablet
4 mg PO Q8H PRN (Reason: nausea and vomiting) Qty: 15 0RF
diclofenac sodium 75 mg tablet,delayed release (DR/EC)
75 mg PO BID Qty: 10 0RF
Referrals:
Jolanta Saavedra CRNP [Family Provider, Internal Medicine]
Activity Restrictions/Additional Instructions:
As we discussed, nothing worrisome in your workup here today. Your blood work is normal, your urine is normal and your ultrasounds show nothing worrisome.
Heating pad, ibuprofen and follow-up with your doctor in 3 to 5 days if not much better by then.
Avoid any activity that strained the areas.
Interventions
Interventions:
*Risk Screen - Suicide Last Done: 07/09/25 10:18
*General Assessment Last Done: 07/09/25 10:18
*Neglect/Abuse Screening Last Done: 07/09/25 10:18
*ED- Fall Risk Assessment Last Done: 07/09/25 12:00
ED-Female Genitourinary Assessment Last Done: 07/09/25 12:00
Discharge Date and Time
Print Language: VIET[place]ESE
[2025-07-09 11:32] LABS: Urine Character Clear (Clear)
[2025-07-09 12:02] LABS: Hematocrit 41.2 % (37.0-47.0); Hemoglobin 13.3 g/dL (12.0-16.0); Mean Corp Hgb Conc. 32.3 g/dL (33.0-37.0); Mean Corpuscular Volume 96.7 fL (81.0-99.0); Nucleated Red Blood Cells % 0 %; Platelet Count 353 10^3/uL (130-400); Red Cell Dist. Width 13.5 % (11.5-14.5)
[2025-07-09 12:35] LABS: ALT (SGPT) 29 U/L (0-35); AST (SGOT) 26 U/L (14-36); Albumin 4.3 g/dl (3.5-5.0); Alkaline Phosphatase 46 U/L (38-126); Blood Urea Nitrogen 17 mg/dl (7-17); Calcium 9.8 mg/dl (8.4-10.2); Carbon Dioxide 31 mmol/L (22-30); Chloride 104 mmol/L (98-107); Glucose 91 mg/dl (70-99); Potassium 4.4 mmol/L (3.5-5.1); Sodium 137 mmol/L (135-145); Total Protein 7.1 g/dl (6.3-8.2); eGFR > 60.00
[2025-07-09] MEDS: TORADOL 15 MG IV (15:32)
[2025-07-09 16:00] VITALS: BP 139/87
== END 2025-07-09 17:00 | disposition home or self-care (01) ==
LOC: EMR 10:17
PROVIDERS: Registered Nurse; EMERGENCY PHYSICIAN Emergency Medicine; FAMILY PHYSICIAN Nurse Practitioner Adult Health
DX: R10.30 Lower abdominal pain, unspecified (principal); J45.909 Unspecified asthma, uncomplicated; G47.30 Sleep apnea, unspecified; E78.00 Pure hypercholesterolemia, unspecified; K21.9 Gastro-esophageal reflux disease without esophagitis; K58.9 Irritable bowel syndrome, unspecified; E06.3 Autoimmune thyroiditis; F41.9 Anxiety disorder, unspecified; F31.9 Bipolar disorder, unspecified; K50.90 Crohn's disease, unspecified, without complications; F43.10 Post-traumatic stress disorder, unspecified; G43.909 Migraine, unspecified, not intractable, without status migrainosus; Z85.41 Personal history of malignant neoplasm of cervix uteri; Z85.43 Personal history of malignant neoplasm of ovary; Z87.891 Personal history of nicotine dependence; Z92.3 Personal history of irradiation; Z92.21 Personal history of antineoplastic chemotherapy; Z88.1 Allergy status to other antibiotic agents; Z88.5 Allergy status to narcotic agent; Z91.013 Allergy to seafood; Z88.2 Allergy status to sulfonamides; Z88.8 Allergy status to other drugs, medicaments and biological substances; Z91.048 Other nonmedicinal substance allergy status
CPT/HCPCS: 99284; 96374; 74177; 76882; 80053; 81003; 85025; Q9967

== ENCOUNTER 2025-08-22 17:43 | Inpatient (IN) | payer BC, SELFPAY ==
[2025-08-22] VITALS (7 sets, daily range): BP systolic 111–136; BP diastolic 58–80; BMI 37.8; BMI 37.2
--- NOTE | 2025-08-22 11:58 | ED.GENMED ---
History of Present Illness
<Thomas Lo MD, Resident - Last Filed: 08/22/25 16:18>
General
Chief Complaint: Abdominal Pain
Source: patient
Time Seen by Provider: 08/22/25 11:39
History of Present Illness
History of Present Illness:
Patient is a 50-year-old female with past medical history significant for asthma, sleep apnea with CPAP, hyperlipidemia, Crohn's disease, GERD, IBS, Evelyn's thyroiditis, ovarian cancer s/p hysterectomy and bilateral oophorectomy, anxiety,
bipolar disorder, PTSD who presents with abdominal pain
Pain is in the periumbilical region, radiating to right lower quadrant, dull in nature, 5-6/10 in intensity, unrelated to food, pain keeping the patient from eating food, had breakfast yesterday, pain started in the afternoon, skipped dinner, took
Bentyl, Reglan, Gas-X that did not help with the pain. This morning she tried to have some breakfast but she threw up twice this morning. She tried reaching out to her patrol captain Dr. Monahan and primary care physician who suggested to come to
the ER for further evaluation.She is not on any medications for Crohn's disease but she feels like this is not how her Crohn's disease flares up.
Denies any travel history, sick contacts, fever, chills, chest pain, any blood or mucus in stool
She normally has loose stools
Past History
<Thoams Lo MD, Resident - Last Filed: 08/22/25 16:18>
Past History
ED Past Medical History: Asthma, Cancer (ovarian and cervical cancer ), GERD, Hypercholesterolemia, Hypothyroidism, Psychiatric (anxiety, Bipolar, PTSD, Depression) and Other (Migraines, Sleep apnea uses CPAP, Bowel obstruction, Fissure, Eczema,
ovarian and cervical cancer, Crohn's)
ED Past Surgical History: , Gynecological (hysthysterectomy, bilateral oophorectomy. Breast augmentation, ectopic , exploratory laparotomy with lymph node removal and lysis of adhesions in the right hemipelvis) and Other
(Abdominoplasty 2020, bilateral inguinal hernia repairs 10/2024, Spincterotomy, Deviated septum surgery, Hemorrhoids)
Social History
Tobacco: Former smoker
Alcohol: None
Drug: None
Personal:
Living: with family
Employment: Not employed
Family History
Family History: Other (CAD, diabetes, thyroid disease, renal failure)
Phy Exam
<Thomas Lo MD, Resident - Last Filed: 08/22/25 16:18>
General Physical Exam
General Presentation: well appearing and moderate distress (Due to pain)
General age: appears stated age
General Skin: warm and dry
General Habitus: normal
Cardiovascular Exam
Cardiovascular Exam: regular rate/rhythm, no edema, no murmur and normal peripheral pulses
Pulmonary Exam
Pulmonary Exam: lungs clear and no respiratory distress
Gastrointestinal Exam
Gastrointestinal Exam: normal bowel sounds, soft and tender (In periumbilical region, right upper and right lower quadrant)
Neurological Exam
Neurological Exam: alert and oriented x3
Musculoskeletal Exam
Musculoskeletal Exam: full ROM
Skin Exam
Skin Exam: normal color and warm/dry
Psychiatric Exam
Psychiatric Exam: normal mood/affect
Course
<Thomas Lo MD, Resident - Last Filed: 08/22/25 16:18>
Orders/Labs/Results
Orders:
Orders
08/22/25 11:51
Test Result ONCE
08/22/25 11:52
Complete Blood Count/With Diff Urgent
Comprehensive Metabolic Panel Urgent
HCG, Serum Qualitative Screen Urgent
Comment: Notify provider if positive test present
Lipase Urgent
Urinalysis Reflex To Culture Urgent
Date Specimen was Collected: 08/22/25
Time Specimen was Collected: 11:51
08/22/25 12:05
CT Abd/pelvis W Iv Cont Urgent
Comment:
Reason For Exam: abd pain
08/22/25 12:06
HYDROmorphone [Dilaudid] 0.5 mg IV NOW ONE
Ondansetron Injectable [Zofran] 4 mg IV NOW ONE
08/22/25 12:07
0.9% Sodium Chloride 250 ml [Nss] 250 ml IV BOLUS
08/22/25 12:18
0.9% Sodium Chloride 500 ml [Nss] 500 ml IV BOLUS
0.9% Sodium Chloride 500 ml [Nss] 500 ml IV BOLUS
08/22/25 13:19
Acetaminophen [Tylenol] 1,000 mg PO NOW ONE
08/22/25 14:15
Prochlorperazine [Compazine] 10 mg IV NOW ONE
08/22/25 15:47
Diphenhydramine [Benadryl] 25 mg IV NOW ONE
Abnormal Lab Results
08/22/25
11:52
MCHC 31.6 L g/dL
(33.0-37.0)
Carbon Dioxide 31 H mmol/L
(22-30)
Lipase 337 H U/L
(23-300)
08/22/25 11:52
08/22/25 11:52
Vital Signs
Initial and Last Documented VS:
Initial Vital Signs
Temp Pulse Resp BP Pulse Ox
97.8 F 77 18 122/76 100
08/22/25 10:25 08/22/25 10:25 08/22/25 10:25 08/22/25 10:25 08/22/25 10:25
Last Documented Vital Signs
Temp Pulse Resp BP Pulse Ox
97.8 F 77 18 118/69 95
08/22/25 10:25 08/22/25 16:13 08/22/25 16:13 08/22/25 16:13 08/22/25 16:13
<Grover Meyer MD - Last Filed: 08/22/25 12:55>
Orders/Labs/Results
Orders:
Orders
08/22/25 11:51
Test Result ONCE
08/22/25 11:52
Complete Blood Count/With Diff Urgent
Comprehensive Metabolic Panel Urgent
HCG, Serum Qualitative Screen Urgent
Comment: Notify provider if positive test present
Lipase Urgent
Urinalysis Reflex To Culture Urgent
Date Specimen was Collected: 08/22/25
Time Specimen was Collected: 11:51
08/22/25 12:05
CT Abd/pelvis W Iv Cont Urgent
Comment:
Reason For Exam: abd pain
08/22/25 12:06
HYDROmorphone [Dilaudid] 0.5 mg IV NOW ONE
Ondansetron Injectable [Zofran] 4 mg IV NOW ONE
08/22/25 12:07
0.9% Sodium Chloride 250 ml [Nss] 250 ml IV BOLUS
08/22/25 12:18
0.9% Sodium Chloride 500 ml [Nss] 500 ml IV BOLUS
0.9% Sodium Chloride 500 ml [Nss] 500 ml IV BOLUS
08/22/25 13:19
Acetaminophen [Tylenol] 1,000 mg PO NOW ONE
08/22/25 14:15
Prochlorperazine [Compazine] 10 mg IV NOW ONE
08/22/25 15:47
Diphenhydramine [Benadryl] 25 mg IV NOW ONE
Abnormal Lab Results
08/22/25
11:52
MCHC 31.6 L g/dL
(33.0-37.0)
Carbon Dioxide 31 H mmol/L
(22-30)
Lipase 337 H U/L
(23-300)
08/22/25 11:52
08/22/25 11:52
Vital Signs
Initial and Last Documented VS:
Initial Vital Signs
Temp Pulse Resp BP Pulse Ox
97.8 F 77 18 122/76 100
08/22/25 10:25 08/22/25 10:25 08/22/25 10:25 08/22/25 10:25 08/22/25 10:25
Last Documented Vital Signs
Temp Pulse Resp BP Pulse Ox
97.8 F 77 18 118/69 95
08/22/25 10:25 08/22/25 16:13 08/22/25 16:13 08/22/25 16:13 08/22/25 16:13
<Thomas Lo MD, Resident - Last Filed: 08/22/25 16:18>
MDM/Problems Addressed
Differential Diagnosis Includes:
Cholelithiasis/cholecystitis
Crohn's disease flare
Acute appendicitis
Nephrolithiasis
Pancreatitis
Gastroenteritis
IBS
MDM/Problems Addressed:
CBC and CMP within normal limits
CT abdomen/pelvis done
Patient developed itching-less likely contrast allergy-no shortness of breath-no urticaria-would give low-dose oral Benadryl
CT scan report shows no evidence of appendicitis, intestinal obstruction, inflammatory bowel process, nephrolithiasis, hydronephrosis ,cholecystitis or any other status
<Thomas Lo MD, Resident - Last Filed: 08/22/25 16:18>
*Pulse Oximetry
SaO2: 99
Oxygen Mode of Delivery: Room air
Patient hypoxic: no
*Critical Care Note
Total Time (30-74mins, 75-104mins- exclusive of procedures): Not Applicable
ED Attending Note
<Thomas Lo MD, Resident - Last Filed: 08/22/25 16:18>
-
Portions of this chart may have been created with voice recognition software.� Occasional wrong word or��sound alike� substitutions may have occurred due to the inherent limitations of voice recognition software.
<Grover Meyer MD - Last Filed: 08/22/25 12:55>
ED Attending Note
Patient seen and examined by attending physician: Yes
I performed a history and physical exam of patient and discussed management with resident, I reviewed resident's note and agree with documented findings and plan of care.: Yes
ED Attending Note:
I have seen and evaluated the patient with a [id number] encounter. I have spoken to the [NATALYA] and involved in the medical history, the physical exam, medical decision making.
Evaluation and management service: agree unless noted differently below.
Results interpretation: agree unless noted differently below.
50-year-old woman with history of newly diagnosed Crohn's currently not on medications, IBS presenting to the emergency department abdominal pain. Patient states that last night she developed periumbilical pain that radiated to her right lower she
also nausea vomiting diarrhea. No fevers. Some chills. No blood in her emesis or stool. She has had a total hysterectomy. No history of obstruction. She still has her appendix. During my evaluation patient does appear slightly uncomfortable.
She does have dry oral mucosa. Abdomen does show some tenderness to the right lower quadrant but is otherwise nondistended and soft. Differential is broad but consists of appendicitis versus gastroenteritis versus diverticulitis. Will check blood
work urinalysis and CT scan. Will pain control and give antiemetics.
Discharge Plan
Departure
Prescriptions:
No Action
docusate sodium 100 MG capsule
200 mg PO HS
sertraline 100 MG tablet
100 mg PO HS
fenofibrate 160 MG tablet
160 mg PO HS
acetaminophen 325 MG tablet
650 mg PO DAILYPRN PRN (Reason: mild pain)
alprazolam 1 MG tablet
2 mg PO HS
Patient Comments:
06/11/2024: last filled 06/10/24, 60 tabs for 30 days from [facility]
Vraylar 3 MG capsule
3 mg PO HS
ondansetron 4 mg tablet,disintegrating
4 mg PO TIDPRN PRN (Reason: nausea/vomiting) Qty: 10 0RF
famotidine [Pepcid] 40 mg Tablet
40 mg PO HS
trazodone 150 mg Tablet
100 mg PO HS
Patient Comments:
06/08/24: Patient had plans to decrease dose to 100mg tonight.
levothyroxine 150 mcg Tablet
150 mcg PO HS
cholecalciferol (vitamin D3) [Vitamin D3] 125 mcg (5,000 unit) Tablet
125 mcg PO HS
gabapentin 300 mg Capsule
300 mg PO HS
fluticasone propion-salmeterol [Wixela Inhub] 500-50 mcg/dose Blister With Device
1 inh INHALATION R DAILY PRN (Reason: Lung/Breathing Issues)
pantoprazole 40 mg Tablet,Delayed Release (Dr/Ec)
40 mg PO BID 30 Days Qty: 60 0RF
hyoscyamine sulfate 0.125 mg Tablet
0.125 mg PO Q4H
metoclopramide HCl [Reglan] 10 mg Tablet
10 mg PO Q4H
ondansetron HCl 4 mg tablet
4 mg PO Q8H PRN (Reason: nausea and vomiting) Qty: 15 0RF
diclofenac sodium 75 mg tablet,delayed release (DR/EC)
75 mg PO BID Qty: 10 0RF
Referrals:
Jolanta Saavedra CRNP [Family Provider, Internal Medicine]
Interventions
Interventions:
*Risk Screen - Suicide Last Done: 08/22/25 10:25
*General Assessment Last Done: 08/22/25 11:39
*Neglect/Abuse Screening Last Done: 08/22/25 11:39
*ED COVID-19 Vaccine History Last Done: 08/22/25 11:39
*ED Influenza Vaccine History Last Done: 08/22/25 11:39
[facility] Fall Risk Assessment Tool Last Done: 08/22/25 11:48
[id number] Assessment Last Done: 08/22/25 11:39
Discharge Date and Time
Print Language: [id number]
[2025-08-22 12:04] LABS: Hematocrit 43.0 % (37.0-47.0); Hemoglobin 13.6 g/dL (12.0-16.0); Mean Corp Hgb Conc. 31.6 g/dL (33.0-37.0); Mean Corpuscular Volume 94.7 fL (81.0-99.0); Nucleated Red Blood Cells % 0 %; Platelet Count 322 10^3/uL (130-400); Red Cell Dist. Width 13.5 % (11.5-14.5)
[2025-08-22 12:06] LABS: Urine Character Clear (Clear)
[2025-08-22 12:16] LABS: HCG, Serum Qualitative Screen Negative
[2025-08-22] MEDS: NSS 500 IV (12:19)
[2025-08-22] MEDS: ZOFRAN 4 MG IV (12:20)
[2025-08-22] MEDS: DILAUDID 0.5 MG IV ×2 (12:20→23:37)
[2025-08-22 12:33] LABS: ALT (SGPT) 35 U/L (0-35); AST (SGOT) 36 U/L (14-36); Albumin 4.7 g/dl (3.5-5.0); Alkaline Phosphatase 46 U/L (38-126); Blood Urea Nitrogen 17 mg/dl (7-17); Calcium 9.7 mg/dl (8.4-10.2); Carbon Dioxide 31 mmol/L (22-30); Chloride 101 mmol/L (98-107); Estimated Creatinine Clearance 86 ml/min; Glucose 98 mg/dl (70-99); Lipase 337 U/L (23-300); Potassium 4.4 mmol/L (3.5-5.1); Sodium 138 mmol/L (135-145); Total Protein 7.7 g/dl (6.3-8.2); eGFR > 60.00
[2025-08-22] MEDS: TYLENOL 1000 MG PO (13:29)
[2025-08-22] MEDS: COMPAZINE 10 MG IV (14:31)
[2025-08-22] MEDS: BENADRYL 25 MG IV ×2 (15:55→19:57)
--- NOTE | 2025-08-22 17:14 | HPS.HSE ---
Family Physician
-
Family Physician: RAYMON Gomes
Chief Complaint
-
Abdominal pain for 1 day duration
History of Present Illness
50 years old female presented to the hospital with abdominal pain. Patient reported right-sided abdominal pain with nausea/vomiting. No fever or chills but felt warm. In the ER, she did not have leukocytosis. CAT scan with intravenous contrast
did not show acute findings. Patient reported that she was compliant with her medications. She took her as needed medications but did not help with abdominal discomfort.
Medical History
Past Medical History
Past Medical History: Reports Other ( Asthma, Cancer (Ovarian and cervical cancer ), GERD, Hypercholesterolemia, Hyperthyroidism, Psychiatric (anxiety, Bipolar, PTSD, Depression ) and Other (Migraines, Sleep apnea uses CPAP, Bowel obstruction,
Fissure, Eczema))
Past Surgical History: Reports Other (No recent major surgery)
Social History
Tobacco: Non-smoker
Alcohol: None
Drug: None
Personal: Single
Living: With Family
Employment: Not Employed
Family History
Family History: Other (Mother AR 69, father multiple myeloma age 71 history of kidney stone closing renal failure reportedly 1 brother patient estranged from))
Allergies / Home Medications
Allergies reflects when Allergies were last updated in [facility].
Home Medications with original date entered in [facility]
Allergy/Medication List:
Allergies
Allergy/AdvReac Type Severity Reaction Status Date / Time
adhesive Allergy Rash Verified 08/22/25 10:25
doxycycline Allergy Shortness Verified 08/22/25 10:25
of Breath
escitalopram (From Lexapro) Allergy Tongue Verified 08/22/25 10:25
Swelling
hydromorphone (From Dilaudid) Allergy Itching Verified 08/22/25 10:25
methylprednisolone (From Allergy Rash Verified 08/22/25 10:25
Medrol)
prednisone Allergy suicidal Verified 08/22/25 10:25
tendencies
shellfish derived Allergy Anaphylaxis Verified 08/22/25 10:25
Sulfa (Sulfonamide Allergy Swelling, Verified 08/22/25 10:25
Antibiotics) vomits
triazolam Allergy anger Verified 08/22/25 10:25
issues,
'lashes
out'
Home Medications
acetaminophen 325 mg tablet 650 mg PO DAILYPRN PRN mild pain 06/28/20
alprazolam 1 mg tablet 1 mg PO HS Mental Health/Anxiety 06/28/20
cariprazine 3 mg capsule (Vraylar) 3 mg PO HS Mental Health/Anxiety 06/28/20
sertraline 100 mg tablet 100 mg PO HS Mental Health/Anxiety 06/28/20
cholecalciferol (vitamin D3) 125 mcg (5,000 unit) tablet (Vitamin D3) 125 mcg PO HS Supplement 01/26/24
famotidine 40 mg tablet (Pepcid) 40 mg PO HS Gastrointestinal Issue 01/26/24
gabapentin 300 mg capsule 300 mg PO HS neuropathic pain 05/14/24
hyoscyamine sulfate 0.125 mg tablet 0.125 mg PO BID 01/14/25
metoclopramide HCl 10 mg tablet (Reglan) 10 mg PO BID 01/14/25
evolocumab 140 mg/mL subcutaneous pen injector (Repatha SureClick) 140 mg SC Q2W 08/22/25
fenofibrate 160 mg tablet 160 mg PO HS High Cholesterol 08/22/25
guar gum 1 tbsp PO DAILY 08/22/25
hydrocodone 10 mg-acetaminophen 325 mg tablet 1 tab PO BIDPRN PRN severe pains 08/22/25
levothyroxine 137 mcg tablet (Synthroid) 137 mcg PO HS Thyroid 08/22/25
omeprazole 40 mg capsule,delayed release 40 mg PO HS Gastrointestinal Issue 08/22/25
trazodone 100 mg tablet 100 mg PO HS Sleep 08/22/25
Review of Systems
-
History Source: Patient
A 12 point ROS was completed and negative except as noted: Yes
Constitutional: Denies Fever, Weight Loss or Chills
EENT: Denies Sore Throat
Respiratory: Denies Cough
Cardiac: Denies Chest Pain
Abdomen/GI: Reports Abdominal Pain, Nausea and Vomiting
: Denies Frequency, Flank Pain, Difficulty Voiding, Urgency or Bleeding
Musculoskeletal: Denies Joint Pain or Joint Swelling
Skin: Denies Itching or Rash
Neurological: Denies Headache or Numbness
Endocrine: Denies Temp Intolerance
Hematologic/Lymphatic: Denies Bruising
Psych: Denies Panic Disorder
Physical Exam
Vital Signs
Vital Signs
Temp Pulse Resp BP Pulse Ox
97.8 F 77 18 118/69 95
08/22/25 10:25 08/22/25 16:13 08/22/25 16:13 08/22/25 16:13 08/22/25 16:13
Physical Exam
General: Comfortable and Conversant
HEENT: Moist mucous membranes and Atraumatic
Respiratory: Clear
Cardiac: S1/S2
GI: Soft (Right side) and Tender (Right side, no guarding)
Genito-urinary: No costovertebral tender; No Morel
Musculoskeletal: No Clubbing and No Cyanosis
Skin: Warm and Dry
Neuro: AO x 3 and Nonfocal/grossly intact
Psych: Calm and Intact Judgment/Insight
Laboratory Results
-
08/22/25 11:52
08/22/25 11:52
Laboratory Results
Total Bilirubin 0.6 mg/dl (0.2-1.3) 08/22/25 11:52
AST 36 U/L (14-36) 08/22/25 11:52
ALT 35 U/L (0-35) 08/22/25 11:52
Alkaline Phosphatase 46 U/L (38-126) 08/22/25 11:52
Lipase 337 U/L (23-300) H 08/22/25 11:52
Impression/Plan
-
50 years old female presented with right-sided abdominal pain
# Abdominal pain, mostly right-sided associated with nausea and vomiting
On presentation, no fever or leukocytosis
CAT scan with IV contrast did not show acute findings.
Patient is a presenting with right-sided abdominal pain with nausea and vomiting. It seems recurrent with some chronicity because she needed hospitalization for the same complaint. Mildly elevated lipase with normal pancreas on imaging
No warning signs of infection with lack of fever, leukocytosis.
This could be functional or related decreased motility no formal diagnosis of gastroparesis . Will continue with home medication but add IV Compazine because it worked before and add IV Dilaudid for severe pain. Continue with Tylenol
As needed.
Patient follows with GI Dr. Monahan. Will request evaluation.
Patient denies current nausea urinary symptoms/ and would like low-fat diet.
# Mild elevation in lipase�unclear etiology
Will re-check
#Asthma-no acute exacerbation
-Continue Wixela or equivalent
#GERD
# HLD
-Patient on Repatha 140 Mg SQ every 2 weeks
#Hypothyroidism
-Continue levothyroxine 150 mcg p.o. daily, continue fenofibrate
#PTSD
#Bipolar disorder
#Anxiety/Depression
-Continue alprazolam 1 mg p.o. at bedtime, Zoloft & Trazodone. Oral Vraylar 3 mg at bedtime
#Migraines hx-no current headache
#Sleep apnea/CPAP
#Obesity, BMI 37
#Insomnia
Other PMH:
Ovarian and cervical cancer status post hysterectomy bilateral oophorectomy exploratory lap with lymph node removal and lysis of adhesions in the right hemipelvis
Bowel obstruction
Fissure
Eczema
Former smoker quit 2006 prior 10-year 2 pack a day
DVT prophylaxis
SQ heparin.
Full code
Total time spent to see the patient, examined the patient, reviewed data and lab result, discuss treatment plan with patient, ER doctor, nursing staff around 75 minutes
[2025-08-22] MEDS: DILAUDID 1 MG IV (17:26)
--- NOTE | 2025-08-22 19:33 | PTCARENOTE ---
Pt c/o of 6/10 abdominal pain in RLQ. Also c/o nausea, stated that Zofran did not work. Pt looked flush with some redness in the chest and face. C/o itching in abdomen, face and upper back. Pt states that this sometimes happens when she receives
Dilaudid, which she was given in the ED. House provider TT. One time dose of Benadryl ordered and given. Compazine given for nausea. Charlotte 7.5 given for pain. Will continue to monitor.
[2025-08-22] MEDS: COMPAZINE 5 MG IV (19:56)
[2025-08-22] MEDS: NORCO 7.5/325 1 TABLET PO (19:57)
[2025-08-22] MEDS: LEVSIN 0.125 MG PO (19:58)
[2025-08-22] MEDS: HEPARIN 5000 UNITS SC (20:02)
--- NOTE | 2025-08-22 20:34 | PTCARENOTE ---
Pt c/o of 03/24 pain in the RLQ. Pt was given Hydrocodone @ 1956 with relief for a few hours, but pain has worsened with ambulation. House provider TT. One time dose of Dilaudid 0.5 mg was ordered and given. Will continue to monitor.
[2025-08-22] MEDS: SYNTHROID 137 MCG PO (21:37)
[2025-08-22] MEDS: DESYREL 100 MG PO (21:37)
[2025-08-22] MEDS: TRICOR 145 MG PO (21:37)
[2025-08-22] MEDS: PEPCID 40 MG PO (21:37)
[2025-08-22] MEDS: VITAMIN D3 (cholecalciferol) 125 MCG PO (21:37)
[2025-08-22] MEDS: NEURONTIN 300 MG PO (21:37)
[2025-08-22] MEDS: XANAX 1 MG PO (21:37)
[2025-08-22] MEDS: NON-FORMULARY ITEM 3 MG PO (21:38)
[2025-08-22] MEDS: ZOLOFT 100 MG PO (21:38)
[2025-08-22] MEDS: PROTONIX PO (21:40)
[2025-08-22] MEDS: PROTONIX 40 MG PO (22:22)
[2025-08-23] MEDS: COMPAZINE 5 MG IV ×3 (05:35→18:13)
[2025-08-23] MEDS: DILAUDID 1 MG IV ×2 (05:35→15:41)
[2025-08-23 07:30] VITALS: BP 117/64
[2025-08-23] MEDS: LEVSIN 0.125 MG PO ×2 (07:54→20:08)
[2025-08-23] MEDS: HEPARIN 5000 UNITS SC ×2 (07:54→20:07)
--- NOTE | 2025-08-23 09:27 | CON.GI ---
Addendum entered and electronically signed by Amadeo Gusman MD 08/23/25 12:28:
Patient seen and examined, agree with nurse practitioner note. The patient is a 50-year-old female with complicated past medical history as noted, with abdominal pain. She states that this pain is different from her chronic pains that she has had
in the past, and describes her pain in the right lower quadrant, from her umbilicus to her hip, though without radiation to her back. This was worse with light touch starting over the weekend, as well as with hip flexion. There is no relationship
to eating or defecation. She has occasional loose stools though this is her norm, and has no bloody diarrhea which she states usually has when her more GI symptoms are flaring. She has a chronic history of multiple GI issues including delayed
gastric emptying on chronic Reglan, recent probable diagnosis of Crohn's based on elevated fecal calprotectin and capsule endoscopy, as well as hernia with removal of mesh, lysis of adhesions and inguinal hernias with mesh in October. On admission
here CT scan with IV contrast showed no acute findings, no appendicitis, obstruction, bowel inflammatory process. Ultrasound showed steatosis though otherwise essentially unremarkable. On exam she has significant tenderness with light touch in the
right lower quadrant, no obvious rash.
1. Right lower quadrant pain: Acute, different from her other pains in the past, with essentially negative CT scan and labs making etiologies such as appendicitis, IBD flare etc. unlikely. Given pain with light touch and worse with position and
hip flexion could be more musculoskeletal, possibly radicular. Other etiologies including early zoster are not excluded to do seem less likely. Again, with negative CT scan and symptoms that are new for her, doubt related to other underlying GI
issues. At this point we will continue supportive care. Will advance diet and continued observe to see if there is any relationship to eating. If symptoms are worsening may check appendix ultrasound or repeat CT though we will hold on this for
now. Will watch for rash eruption. If still no improvement may consider lumbar spine imaging though we will hold on this for now.
Addendum entered and electronically signed by RAYMON Davis 08/23/25 11:23:
QTC stable ok to resume compazine PRN
Original Note:
Consultation
-
Date/Time Consultation Requested: 08/22/25 184
Date/Time Consultation Performed: 08/23/25 09
Requesting Provider: Zen Cardenas MD
Performing Provider: RAYMON Cid, William Gusman MD
Reason for Consultation: abdominal pain
Medical History
Chief Complaint / HPI
Chief Complaint: abdominal pain, rectal bleeding
History of Present Illness:
Pt is a 50 year old female with a past medical history of asthma, h/o ovarian and cervical cancer (s/p hysterectomy, b/l oophorectomy and distant hx radiation in past ), sleep apnea with cpap,hernia with removal of mesh and KIRSTIN 2023 then b/l
inguinal hernia with mesh 10/2024, GERD bipolar, clot in arm, obesity, diverticulosis, breast CA breast deduction/removal of implants, pulm nodule, anal fissure (s/ps fissurectomy and sphincterotomy 2021), and hemorrhoids, PTSD, gastroparesis on
chronic reglan, and newly diagnosed crohns disease. In review with patient hx IBS with flares. She has recent work up with Dr. Monahan with noted elevated fecal calprotectin of 538 in April 2025 and capsule with concern for Small bowel crohns with
some erythema at IC valve. On last visit in June she discussed Skyrizi but states she is due for spinal stimulator in September and was holding off til placement. She now presents with onset of abdominal pain and concern for flare of symptoms.
Pt currently admits to 7 /10 abdominal pain. Pain is worse with pressure and feeling of increased bloating on right side. She also admits to nausea and vomiting with hx gastroparesis and some diarrhea. She takes reglan 10mg TID for last 7
month with Vrylar without difficulty though noted with interaction. She also gets EKG on a regular basis with use. She also admits to occasional rectal bleeding but no current bleeding. She otherwise denies dysphagia, constipation or black
stools. Labs on admission with lipase of 337 and otherwise normal.
08/22/25 CT Abd/pelvis W Iv Cont
1. No CT abnormalities identified to explain the patient's symptoms.
2. No evidence of appendicitis, intestinal obstruction, bowel inflammatory process, nephrolithiasis, hydronephrosis, cholecystitis, or abscess formation.
Prior GI Workup
05/2025 VCE: erythema at ICV, ? tiny AVM.� No masses
05/2025 Fecal calprotectin 538
02/[address] Monahan� �IH, L sided tics, TI normal, 3mm hyperplastic rectal polyp, random bx neg for microscopic colitis. recall 5 years
01/2025 CTAP diffuse hepatic steatosis, splenomegaly, prior abdominal plasty
06/2024 F0-1
06/2024 MRI normal fatty liver
12/[address] Monahan� gastritis, neg for HP or EoE or celiac
06/[address] Monahan hemorrhoids random bx all normal neg for colitis.
06/2023 HIDA normal
05/2023 CTAP IV oral contrast unremarkable no gallstones
05/2023 Abd US fatty liver, no gallstones. small biliary sludge.
04/2023 CTAP IV and oral contrast small hemangiomas, diverticulosis, some post surgical stranding in R abdomen
[id number] fecal amparo 7
01/[address] Solis normal recall 5yrs
11/[address] Solis gastritis, esophagitis neg for Hpylori. Recall 5yrs.
Past Medical History
Past Medical History: GERD, Hypercholesterolemia, Psychiatric (anxiety, bipolar, PTSD) and Other (asthma, h/o ovarian and cervical cancer (s/p hysterectomy, b/l oophorectomy), prior h/o anal fissure (s/ps fissurectomy and sphincterotomy 2021),
crohns disease, and hemorrhoids, sleep apnea with c-pap, IBS, hashomoto thyroiditis, ,ernia with mesh, bipolar, clot in in arm, obesity, diverticulosis)
Past Surgical History: , Gynecological (oophrectomy, hysterectomy) and Other ( sinus surgery, breast reduction and removal of implants, mass removed right ovary, right fallopean tube surgery, removal of ventral hernia, KIRSTIN ,, thern lap b/l
inguinal hernia repair with mesh - linson )
Social History
Tobacco: Former Smoker
Alcohol: None
Drug: None
Personal:
Living: With Family
Employment: Not Employed
Family History
Family History: Other (father with hx colon CA, no family hx IBD)
Allergies / Home Medications
Allergy/AdvReac Type Severity Reaction Status Date / Time
adhesive Allergy Rash Verified 08/22/25 10:25
doxycycline Allergy Shortness Verified 08/22/25 10:25
of Breath
escitalopram (From Lexapro) Allergy Tongue Verified 08/22/25 10:25
Swelling
hydromorphone (From Dilaudid) Allergy Itching Verified 08/22/25 10:25
methylprednisolone (From Allergy Rash Verified 08/22/25 10:25
Medrol)
prednisone Allergy suicidal Verified 08/22/25 10:25
tendencies
shellfish derived Allergy Anaphylaxis Verified 08/22/25 10:25
Sulfa (Sulfonamide Allergy Swelling, Verified 08/22/25 10:25
Antibiotics) vomits
triazolam Allergy anger Verified 08/22/25 10:25
issues,
'lashes
out'
�Medication �Instructions �Recorded
acetaminophen 325 mg tablet 650 mg PO DAILYPRN PRN mild pain 06/28/20
alprazolam 1 mg tablet 1 mg PO HS Mental Health/Anxiety 06/28/20
cariprazine 3 mg capsule (Vraylar) 3 mg PO HS Mental Health/Anxiety 06/28/20
sertraline 100 mg tablet 100 mg PO HS Mental Health/Anxiety 06/28/20
cholecalciferol (vitamin D3) 125 125 mcg PO HS Supplement 01/26/24
mcg (5,000 unit) tablet (Vitamin
D3)
famotidine 40 mg tablet (Pepcid) 40 mg PO HS Gastrointestinal Issue 01/26/24
gabapentin 300 mg capsule 300 mg PO HS neuropathic pain 05/14/24
hyoscyamine sulfate 0.125 mg tablet 0.125 mg PO BID SECRETIONS 01/14/25
metoclopramide HCl 10 mg tablet 10 mg PO BID Gastrointestinal Issue 01/14/25
(Reglan)
evolocumab 140 mg/mL subcutaneous 140 mg SC Q2W High Cholesterol 08/22/25
pen injector (Rashid Dubon)
fenofibrate 160 mg tablet 160 mg PO HS High Cholesterol 08/22/25
guar gum 1 tbsp PO DAILY Supplement 08/22/25
hydrocodone 10 mg-acetaminophen 1 tab PO BIDPRN PRN severe pains 08/22/25
325 mg tablet
levothyroxine 137 mcg tablet 137 mcg PO HS Thyroid 08/22/25
(Synthroid)
omeprazole 40 mg capsule,delayed 40 mg PO HS Gastrointestinal Issue 08/22/25
release
trazodone 100 mg tablet 100 mg PO HS Sleep 08/22/25
Review of Systems
-
History Source: Patient
Constitutional: Reports No Symptoms
EENT: Reports No Symptoms
Respiratory: Reports Other (feeling of need to take double breath with pain)
Cardiac: Reports No Symptoms
Abdomen/GI: Reports Abdominal Pain, Nausea, Vomiting and Diarrhea
: Reports No Symptoms
Musculoskeletal: Reports Other (back pain due for stimulator with nerve issue)
Skin: Reports No Symptoms
Neurological: Reports Weakness
Endocrine: Reports No Symptoms
Hematologic/Lymphatic: Reports Bleeding (occasional )
Vital Signs
Temp Pulse Resp BP Pulse Ox
97.6 F 71 16 117/64 98
08/23/25 07:30 08/23/25 07:30 08/23/25 07:30 08/23/25 07:30 08/23/25 07:30
Physical Exam
Exam
General: Well Developed, Well Nourished and No Apparent Distress
HEENT: Normocephalic and Anicteric
Respiratory: Clear
Cardiac: Regular Rhythm
GI: Soft, Non Distended and Tender (with mlid guarding mid and upper abdomen worse right side )
Musculoskeletal: No Clubbing and No Cyanosis
Skin: Warm and Dry
Neuro: Awake, Alert and AO x 3
Psych: Calm
Results
WBC 5.4 10^3/uL (4.8-10.8) 08/22/25 11:52
Hgb 13.6 g/dL (12.0-16.0) 08/22/25 11:52
Hct 43.0 % (37.0-47.0) 08/22/25 11:52
MCV 94.7 fL (81.0-99.0) 08/22/25 11:52
Plt Count 322 10^3/uL (130-400) 08/22/25 11:52
Absolute Neuts (auto) 3.4 10^3/uL (1.4-6.5) 08/22/25 11:52
Sodium 138 mmol/L (135-145) 08/22/25 11:52
Potassium 4.4 mmol/L (3.5-5.1) 08/22/25 11:52
Chloride 101 mmol/L (98-107) 08/22/25 11:52
Carbon Dioxide 31 mmol/L (22-30) H 08/22/25 11:52
BUN 17 mg/dl (7-17) 08/22/25 11:52
Creatinine 1.0 mg/dL (0.6-1.0) 08/22/25 11:52
Calcium 9.7 mg/dl (8.4-10.2) 08/22/25 11:52
Total Bilirubin 0.6 mg/dl (0.2-1.3) 08/22/25 11:52
AST 36 U/L (14-36) 08/22/25 11:52
ALT 35 U/L (0-35) 08/22/25 11:52
Alkaline Phosphatase 46 U/L (38-126) 08/22/25 11:52
Lipase 337 U/L (23-300) H 08/22/25 11:52
Assessment / Plan
-
Pt is a 50 year old female with a past medical history of asthma, h/o ovarian and cervical cancer (s/p hysterectomy, b/l oophorectomy and distant hx radiation in past ), sleep apnea with cpap,hernia with removal of mesh and KIRSTIN 2023 then b/l
inguinal hernia with mesh 10/2024, GERD bipolar, clot in arm, obesity, diverticulosis, breast CA breast deduction/removal of implants, pulm nodule, anal fissure (s/ps fissurectomy and sphincterotomy 2021), and hemorrhoids, PTSD, gastroparesis on
chronic reglan, and newly diagnosed crohns disease. In review with patient hx IBS with flares. She has recent work up with Dr. Monahan with noted elevated fecal calprotectin of 538 in April 2025 and capsule with concern for Small bowel crohns with
some erythema at IC valve. On last visit in June she discussed Skyrizi but states she is due for spinal stimulator in September and was holding off til placement. She now presents with onset of abdominal pain and concern for flare of symptoms. Pt
currently admits to 7 /10 abdominal pain on admission . Pain is worse with pressure and feeling of increased bloating on right side. She also admits to nausea and vomiting with hx gastroparesis and some diarrhea. She takes reglan 10mg TID for
last 7 month with Vrylar without difficulty though noted with interaction. She also gets EKG on a regular basis with use. She also admits to occasional rectal bleeding but no current bleeding. Labs on admission with lipase of 337 and otherwise
normal.
08/22/25 CT Abd/pelvis W Iv Cont
1. No CT abnormalities identified to explain the patient's symptoms.
2. No evidence of appendicitis, intestinal obstruction, bowel inflammatory process, nephrolithiasis, hydronephrosis, cholecystitis, or abscess formation.
Prior GI Workup
05/2025 VCE: erythema at ICV, ? tiny AVM.� No masses
05/2025 Fecal calprotectin 538
02/[address] Monahan� �IH, L sided tics, TI normal, 3mm hyperplastic rectal polyp, random bx neg for microscopic colitis. recall 5 years
01/2025 CTAP diffuse hepatic steatosis, splenomegaly, prior abdominal plasty
06/2024 F0-1
06/2024 MRI normal fatty liver
12/[address] Monahan� gastritis, neg for HP or EoE or celiac
06/[address] Monahan hemorrhoids random bx all normal neg for colitis.
06/2023 HIDA normal
05/2023 CTAP IV oral contrast unremarkable no gallstones
05/2023 Abd US fatty liver, no gallstones. small biliary sludge.
04/2023 CTAP IV and oral contrast small hemangiomas, diverticulosis, some post surgical stranding in R abdomen
16181 fecal amparo 7
01/[address] Solis normal recall 5yrs
11/[address] Solis gastritis, esophagitis neg for Hpylori. Recall 5yrs.
-abdominal pain
-mild lipase elevation on admission
-occasional rectal bleeding
-hx elevated fecal amparo and capsule with erythema IC valve with concern for crohns disease
-hx abdominal hernia with removal of mesh with LOS 2023 then b/l inguinal hernia with mesh 10/2024
-gastroparesis with chronic reglan use and vomiting on admission
-spinal nerve issue due for or September
other med problems:
asthma, h/o ovarian and cervical cancer (s/p hysterectomy, b/l oophorectomy and distant hx radiation in past ), sleep apnea with cpap,, GERD bipolar, clot in arm, obesity, diverticulosis, breast CA breast deduction/removal of implants, pulm nodule,
anal fissure (s/ps fissurectomy and sphincterotomy 2021), and hemorrhoids, PTSD
PLAN:
etiology of abdominal pain with nausea and vomiting related to crohns flare, infectious such as norovirus, adhesive disease with hx multiple hernia interventions vs radiation related with hx radiation 20 + years ago vs other
for US abdomen with mild lipase elevation
check fecal amparo and stool studies with diarrhea with symptoms
Ct as noted with some limitation without oral contrast -- can consider repeat with oral if continued pain
reviewed with pharmacy to add back Reglan with vomiting this am -- pt with intervention with Vraylar but tolerating last 7 months
will hold compazine with reglan RTC use
will check EKG with close monitor for QTC
decrease to clear diet with vomiting this am can advance if tolerating ltater today
will review with Dr. Gusman any role for steroid with hx concern for new IBD without current medication started
pain control per hospitalist team
-
-
Thank you for consultation and allowing me to participate in the patient's care. Please call the physician relations representative GI physician during the after hours with any questions or concerns.
[2025-08-23] MEDS: NON-FORMULARY ITEM 140 MG SC (09:29)
--- NOTE | 2025-08-23 09:41 | W.PN.HOSP.TC ---
Today's Communication/Plan
-
.
Assessment / Plan
Assessment / Plan
Physical Exam
General: Comfortable and Conversant
HEENT: Moist mucous membranes and Atraumatic
Respiratory: Clear
Cardiac: S1/S2
GI: Soft (Right side) and Tender (Right side/ central, no guarding)
Genito-urinary: No costovertebral tender; No Morel
Musculoskeletal: No Clubbing and No Cyanosis
Skin: Warm and Dry
Neuro: AO x 3 and Nonfocal/grossly intact
Psych: Calm and Intact Judgment/Insight
50 years old female presented with right-sided abdominal pain
# Abdominal pain, mostly right-sided/ central associated with nausea and vomiting
On presentation, no fever or leukocytosis
CAT scan with IV contrast did not show acute findings.
Patient reports her pain did not improve. She still required Dilaudid for pain and she had vomiting with 2-3 times watery diarrhea, nonbloody. She reports the pain still right-sided sometimes central periumbilical. Discussed with GI doctor. Will
do ultrasound and follow-up.
Patient follows with GI Dr. Monahan. Will request evaluation.
# Acute diarrhea,
Abdomen soft. Patient raises concern about Crohn's disease of flareup. Will discuss with GI
# Mild elevation in lipase�unclear etiology
#Asthma-no acute exacerbation
-Continue Wixela or equivalent
#GERD
# HLD
-Patient on Repatha 140 Mg SQ every 2 weeks
#Hypothyroidism
-Continue levothyroxine 150 mcg p.o. daily, continue fenofibrate
#PTSD
#Bipolar disorder
#Anxiety/Depression
-Continue alprazolam 1 mg p.o. at bedtime, Zoloft & Trazodone. Oral Vraylar 3 mg at bedtime
#Migraines hx-no current headache
#Sleep apnea/CPAP
#Obesity, BMI 37
#Insomnia
Other PMH:
Ovarian and cervical cancer status post hysterectomy bilateral oophorectomy exploratory lap with lymph node removal and lysis of adhesions in the right hemipelvis
Bowel obstruction
Fissure
Eczema
Former smoker quit 2006 prior 10-year 2 pack a day
DVT prophylaxis
SQ heparin.
Full code
Total time spent to see the patient, examined the patient, reviewed data and lab result, discuss treatment plan with patient, GI doctor, nursing staff around 57 minutes
Anticipated Discharge: 24 - 48 hours
Subjective/Interval History
-
Date of Service: August 23, 2025
She has right sided and central abdominal pain
Vomiting
Diarrhea
Objective Data
-
Vital Signs:
Vital Signs
Temp Pulse Resp BP Pulse Ox
97.6 F 71 16 117/64 98
08/23/25 07:30 08/23/25 07:30 08/23/25 07:30 08/23/25 07:30 08/23/25 07:30
I&O
08/22/25 08/23/25 08/24/25
06:59 06:59 06:59
Intake Total 960 / 960
Balance 960 / 960
[2025-08-23] MEDS: REGLAN 10 MG PO ×2 (10:33→15:41)
[2025-08-23] MEDS: NORCO 7.5/325 1 TABLET PO (12:12)
[2025-08-23 15:06] VITALS: BP 100/55
[2025-08-23] MEDS: NEURONTIN 300 MG PO (21:14)
[2025-08-23] MEDS: VITAMIN D3 (cholecalciferol) 125 MCG PO (21:14)
[2025-08-23] MEDS: PEPCID 40 MG PO (21:14)
[2025-08-23] MEDS: PROTONIX 40 MG PO (21:14)
[2025-08-23] MEDS: ZOLOFT 100 MG PO (21:14)
[2025-08-23] MEDS: DESYREL 100 MG PO (21:14)
[2025-08-23] MEDS: XANAX 1 MG PO (21:14)
[2025-08-23] MEDS: SYNTHROID 137 MCG PO (21:14)
[2025-08-23] MEDS: NON-FORMULARY ITEM 3 MG PO (21:14)
[2025-08-23] MEDS: TRICOR 145 MG PO (21:14)
[2025-08-23 23:30] VITALS: BP 97/52
[2025-08-24 06:52] LABS: Hematocrit 38.4 % (37.0-47.0); Hemoglobin 12.8 g/dL (12.0-16.0); Mean Corp Hgb Conc. 33.3 g/dL (33.0-37.0); Mean Corpuscular Volume 91.9 fL (81.0-99.0); Platelet Count 280 10^3/uL (130-400); Red Cell Dist. Width 13.5 % (11.5-14.5)
[2025-08-24 07:00] VITALS: BP 129/62
[2025-08-24 07:11] LABS: ALT (SGPT) 33 U/L (0-35); AST (SGOT) 35 U/L (14-36); Albumin 4.1 g/dl (3.5-5.0); Alkaline Phosphatase 45 U/L (38-126); Blood Urea Nitrogen 13 mg/dl (7-17); Calcium 9.5 mg/dl (8.4-10.2); Carbon Dioxide 31 mmol/L (22-30); Chloride 101 mmol/L (98-107); Estimated Creatinine Clearance 85 ml/min; Glucose 108 mg/dl (70-99); Lipase 168 U/L (23-300); Potassium 4.1 mmol/L (3.5-5.1); Sodium 138 mmol/L (135-145); Total Protein 6.6 g/dl (6.3-8.2); eGFR > 60.00
--- NOTE | 2025-08-24 07:14 | W.PN.GI.CBS2 ---
Today's Communication / Plan
-
Please see assessment and plan for details.
Assessment / Plan
-
1. Right lower quadrant pain: With multiple other GI issues, though this pain is different, with superficial touch and worse with position, likely more neuropathic, possibly radicular, abdominal wall, less likely early zoster. Given location
appendicitis is not completely excluded though does seem less likely given CAT scan. CT scan also did not show any significant inflammation, obstruction, fluid collection etc., and other etiologies such as Crohn's flare seem very unlikely. Some
of her nausea and vomiting is likely narcotic related now, and exam is otherwise benign. At this point we discussed continued supportive care, will advance diet when there is less narcotic need. Will check ultrasound of the appendix though again
appendicitis seems less likely. Will await stool studies as ordered.
2. History of Crohn's disease: With mildly elevated fecal calprotectin and ileal erythema noted on PillCam, to start Skyrizi in the future. Again doubt that this is related to Crohn's disease given CT scan and previous workup.
3. History of gastroparesis: Likely multifactorial, on chronic Reglan, now with some vomiting which is likely more narcotic related. Will continue liquids for now, antiemetics and supportive care. Will advance diet when narcotic need is less.
Subjective
Subjective
Date of Service: August 24, 2025
Patient still complains of right sided, right lower quadrant pain, still worse with movement and light touch. Did not tolerate lunch or dinner, with vomiting afterwards, still taking narcotics. Did have bowel movement yesterday, no bloody stools.
Objective
Data Reviewed
Laboratory Data:
Laboratory Results
08/24/25 06:06
08/24/25 06:06
Laboratory Results
Total Bilirubin 0.6 mg/dl (0.2-1.3) 08/24/25 06:06
AST 35 U/L (14-36) 08/24/25 06:06
ALT 33 U/L (0-35) 08/24/25 06:06
Alkaline Phosphatase 45 U/L (38-126) 08/24/25 06:06
Lipase 168 U/L (23-300) 08/24/25 06:06
Vital Signs and I&O:
Vital Signs
Temp Pulse Resp BP Pulse Ox
97.5 F 68 16 97/52 94
08/23/25 23:30 08/23/25 23:30 08/23/25 23:30 08/23/25 23:30 08/23/25 23:30
I&O
08/23/25 08/24/25 08/25/25
06:59 06:59 06:59
Intake Total 960 / 960 600 / 600
Balance 960 / 960 600 / 600
Physical Exam
Physical Exam
General: NAD
Abdomen: normal bowel sounds, soft, mild right lower quadrant tenderness, with superficial touch, no rash, no rebound
[2025-08-24] MEDS: DILAUDID 1 MG IV ×3 (08:18→21:30)
[2025-08-24] MEDS: HEPARIN 5000 UNITS SC ×2 (08:23→20:27)
[2025-08-24] MEDS: LEVSIN 0.125 MG PO ×2 (08:24→20:37)
[2025-08-24] MEDS: REGLAN 10 MG PO ×3 (08:34→17:45)
--- NOTE | 2025-08-24 09:01 | W.PN.HOSP.TC ---
Addendum entered and electronically signed by Zen Cardenas MD 08/24/25 18:03:
Addendum
ESR came back normal but was also normal in 2019 but CRP is elevated.
Will do low-dose trial of IV steroid.
Discussed with patient, she agreed to try steroid. She reported the prednisone side effect of suicidal thoughts happen years ago when she was a very high dose and for prolonged time. She has had steroids since then multiple times with no side
effects or reaction.
IV site is inflamed, infiltration reaction. Does not seem consistent with thrombophlebitis, will do warm compresses and recheck again. Patient does not have pain but feels skin irritation
Discussed with nursing staff
End
Original Note:
Today's Communication/Plan
-
.
Assessment / Plan
Assessment / Plan
Physical Exam
General: Comfortable and Conversant
HEENT: Moist mucous membranes and Atraumatic
Respiratory: Clear
Cardiac: S1/S2
GI: Soft (Right side) and Tender (Right side/ central, no guarding)
Genito-urinary: No costovertebral tender; No Morel
Musculoskeletal: No Clubbing and No Cyanosis
Skin: Warm and Dry
Neuro: AO x 3 and Nonfocal/grossly intact
Psych: Calm and Intact Judgment/Insight
50 years old female presented with right-sided abdominal pain
# Abdominal pain, mostly right-sided/ central associated with nausea and vomiting
On presentation, no fever or leukocytosis
CAT scan with IV contrast did not show acute findings.
Abdominal US no acute findings, c/w hepatic steatosis
repeat CBC & CMP & lipase all normal.
Her pain seems is less although she is still requiring IV pain medicine. I d/w GI, will do US of appendix but less likely. Will check CRP , if elevated, trial of steroid for possible colitis flare-up.
Patient follows with GI Dr. Monahan as OP.
# Acute diarrhea,
Abdomen soft. Patient raises concern about Crohn's disease of flareup. d/w with GI. Sent for infectious panel, negative C. difficile, no stool leukocytes, further microbes pending
# Mild elevation in lipase�unclear etiology
#Asthma-no acute exacerbation
-Continue Wixela or equivalent
#GERD
# HLD
-Patient on Repatha 140 Mg SQ every 2 weeks
#Hypothyroidism
-Continue levothyroxine 150 mcg p.o. daily, continue fenofibrate
#PTSD
#Bipolar disorder
#Anxiety/Depression
-Continue alprazolam 1 mg p.o. at bedtime, Zoloft & Trazodone. Oral Vraylar 3 mg at bedtime
#Migraines hx-no current headache
#Sleep apnea/CPAP
#Obesity, BMI 37
#Insomnia
Other PMH:
Ovarian and cervical cancer status post hysterectomy bilateral oophorectomy exploratory lap with lymph node removal and lysis of adhesions in the right hemipelvis
Bowel obstruction
Fissure
Eczema
Former smoker quit 2006 prior 10-year 2 pack a day
DVT prophylaxis
SQ heparin.
Full code
Total time spent to see the patient, examined the patient, reviewed data and lab result, discuss treatment plan with patient, GI doctor, nursing staff around 57 minutes
Anticipated Discharge: 24 - 48 hours
Subjective/Interval History
-
Date of Service: August 24, 2025
She feels slightly better but still is requiring IV pain medicine & IV Compazine
Objective Data
-
Labs:
Laboratory Results
08/24/25
06:06
WBC 6.7
Hgb 12.8
Hct 38.4
Plt Count 280
Sodium 138
Potassium 4.1
Chloride 101
Carbon Dioxide 31 H
BUN 13
Creatinine 1.0
Glucose 108 H
Calcium 9.5
Total Bilirubin 0.6
AST 35
ALT 33
Alkaline Phosphatase 45
Vital Signs:
Vital Signs
Temp Pulse Resp BP Pulse Ox
97.9 F 78 16 129/62 97
08/24/25 07:00 08/24/25 07:00 08/24/25 07:00 08/24/25 07:00 08/24/25 07:00
I&O
08/23/25 08/24/25 08/25/25
06:59 06:59 06:59
Intake Total 960 / 960 600 / 600
Balance 960 / 960 600 / 600
[2025-08-24] MEDS: COMPAZINE 5 MG IV (10:10)
[2025-08-24 15:00] VITALS: BP 108/54
[2025-08-24 16:13] LABS: C-Reactive Protein 13.50 mg/L (0.0-10.00)
[2025-08-24] MEDS: SOLU-MEDROL PF 20 MG IV (18:21)
[2025-08-24] MEDS: NEURONTIN 300 MG PO (21:20)
[2025-08-24] MEDS: PEPCID 40 MG PO (21:20)
[2025-08-24] MEDS: VITAMIN D3 (cholecalciferol) 125 MCG PO (21:20)
[2025-08-24] MEDS: NON-FORMULARY ITEM 3 MG PO (21:20)
[2025-08-24] MEDS: TRICOR 145 MG PO (21:20)
[2025-08-24] MEDS: XANAX 1 MG PO (21:23)
[2025-08-24] MEDS: ZOLOFT 100 MG PO (21:24)
[2025-08-24] MEDS: SYNTHROID 137 MCG PO (21:24)
[2025-08-24] MEDS: DESYREL 100 MG PO (21:24)
[2025-08-24] MEDS: PROTONIX PO (21:48)
[2025-08-24 23:00] VITALS: BP 100/52
[2025-08-25] MEDS: SOLU-MEDROL PF 20 MG IV (06:15)
[2025-08-25] MEDS: TYLENOL 650 MG PO (06:15)
--- NOTE | 2025-08-25 06:16 | W.PN.GI.CBS2 ---
Today's Communication / Plan
-
Please see assessment and plan for details.
Assessment / Plan
-
1. Right lower quadrant pain: With multiple other GI issues, though this pain is different, with superficial touch and worse with position, likely more neuropathic, possibly radicular, abdominal wall, less likely early zoster. CT scan also did
not show any significant inflammation, obstruction, fluid collection etc., and other etiologies such as Crohn's flare seem very unlikely. CRP was mildly elevated, though sed rate and fecal leukocytes were negative. She has improved after starting
Solu-Medrol, may also be helpful if had some radicular component of her pain as well. At this point we will advance diet,, would complete 5 days total of steroids, would discharge on prednisone 40 mg.
2. History of Crohn's disease: With mildly elevated fecal calprotectin and ileal erythema noted on PillCam, to start Skyrizi in the future. Her CRP is mildly elevated, though sed rate and fecal leukocytes negative, though she has improved after
dose of Solu-Medrol. Again, as above with finished a short course of steroids
3. History of gastroparesis: Likely multifactorial, on chronic Reglan, now with some vomiting which is likely more narcotic related, overall improved. Will advance diet
We will sign off now, please call back with any further questions.
Subjective
Subjective
Date of Service: August 25, 2025
Patient feeling okay, feels that pain is improved. She tolerated full liquids without difficulty, no further nausea or vomiting, no fever or chills. She had 2 soft formed bowel movements without blood yesterday.
Objective
Data Reviewed
Laboratory Data:
Laboratory Results
08/24/25 06:06
08/24/25 06:06
Laboratory Results
Total Bilirubin 0.6 mg/dl (0.2-1.3) 08/24/25 06:06
AST 35 U/L (14-36) 08/24/25 06:06
ALT 33 U/L (0-35) 08/24/25 06:06
Alkaline Phosphatase 45 U/L (38-126) 08/24/25 06:06
Lipase 168 U/L (23-300) 08/24/25 06:06
Vital Signs and I&O:
Vital Signs
Temp Pulse Resp BP Pulse Ox
97.1 F 70 16 100/52 91
08/24/25 23:00 08/24/25 23:00 08/24/25 23:00 08/24/25 23:00 08/24/25 23:00
I&O
08/23/25 08/24/25 08/25/25
06:59 06:59 06:59
Intake Total 960 / 960 600 / 600 1375 / 1375
Balance 960 / 960 600 / 600 1375 / 1375
Physical Exam
Physical Exam
General: NAD
Abdomen: normal bowel sounds, soft, mild right lower quadrant tenderness, no masses or bruits, no ascites
[2025-08-25 07:00] VITALS: BP 137/73
[2025-08-25] MEDS: LEVSIN 0.125 MG PO (07:34)
[2025-08-25] MEDS: REGLAN 10 MG PO (07:34)
[2025-08-25] MEDS: HEPARIN 5000 UNITS SC (07:34)
--- NOTE | 2025-08-25 09:05 | W.PN.HOSP.TC ---
Today's Communication/Plan
-
Discharge
Assessment / Plan
Assessment / Plan
Physical Exam
General: Comfortable and Conversant
HEENT: Moist mucous membranes and Atraumatic
Respiratory: Clear
Cardiac: S1/S2
GI: Softno tenderness, no guarding,
Genito-urinary: No costovertebral tender; No Morel
Musculoskeletal: No Clubbing and No Cyanosis
Skin: Warm and Dry
Neuro: AO x 3 and Nonfocal/grossly intact, gait is normal.
Psych: Calm and Intact Judgment/Insight
50 years old female presented with right-sided abdominal pain
# Abdominal pain, mostly right-sided/ central associated with nausea and vomiting
Resolved. Doing much better
On presentation, no fever or leukocytosis repeat blood work no leukocytosis.
CAT scan with IV contrast did not show acute findings.
Abdominal US no acute findings, c/w hepatic steatosis
repeat CBC & CMP & lipase all normal. Mildly elevated CRP. Normal ESR. Discussed with GI, possible narcotic induced vomiting, abdominal discomfort. Trial of short course of steroid. Patient received Solu-Medrol with good improvement. Discussed
with GI, discharged on prednisone 40 mg for total of 5 days.
Patient follows with GI Dr. Monahan as OP.
# Acute diarrhea, resolved
Abdomen soft. Sent for infectious panel, negative C. difficile, no stool leukocytes, further microbes negative
# Mild elevation in lipase�unclear etiology, later resolved
#Asthma-no acute exacerbation
-Continue Wixela or equivalent
#GERD
# HLD
-Patient on Repatha 140 Mg SQ every 2 weeks
#Hypothyroidism
-Continue levothyroxine 150 mcg p.o. daily, continue fenofibrate
#PTSD
#Bipolar disorder
#Anxiety/Depression
-Continue alprazolam 1 mg p.o. at bedtime, Zoloft & Trazodone. Oral Vraylar 3 mg at bedtime
#Migraines hx-no current headache
#Sleep apnea/CPAP
#Obesity, BMI 37
#Insomnia
Other PMH:
Ovarian and cervical cancer status post hysterectomy bilateral oophorectomy exploratory lap with lymph node removal and lysis of adhesions in the right hemipelvis
Bowel obstruction
Fissure
Eczema
Former smoker quit 2006 prior 10-year 2 pack a day
DVT prophylaxis
SQ heparin.
Full code
Patient reported that she has prescription of as needed medications including pain medicine, nausea medicine and prednisone at home. Sent a prescription of prednisone in case she does not have enough tablets
Total discharge time spent to see the patient, examined the patient, reviewed data and lab result, discuss discharge plan with patient, GI doctor, nursing staff around 69 minutes
Anticipated Discharge: Today
Subjective/Interval History
-
Date of Service: August 25, 2025
No chest pain
No abdominal pain, much better. Tolerating diet. No diarrhea. No vomiting or nausea
She is requesting discharge as soon as possible
Objective Data
-
Vital Signs:
Vital Signs
Temp Pulse Resp BP Pulse Ox
97.6 F 76 16 137/73 96
08/25/25 07:00 08/25/25 07:00 08/25/25 07:00 08/25/25 07:00 08/25/25 07:00
I&O
08/24/25 08/25/25 08/26/25
06:59 06:59 06:59
Intake Total 600 / 600 1375 / 1375
Balance 600 / 600 1375 / 1375
[2025-08-25] MEDS: FLUZONE (6 mos+) 2025-2026 FORMULA 0.5 ML IM (10:20)
--- NOTE | 2025-08-25 10:39 | CM ---
patient discharged today
IMM n/a
no needs
PLAN: Home, no needs
--- NOTE | 2025-08-25 15:41 | W.DCSUMMARY ---
Discharge Summary
Discharge Data
Date of Admission: 08/22/25
Date of Discharge: 08/25/25
-
Pending Results: No
Hospital Course
50 years old female presented with abdominal pain. She reported that pain has been going on for a few days associated with nausea, vomiting and diarrhea. Nonbloody diarrhea. Abdominal pain was mostly right-sided. Scan of the abdomen and pelvis
with IV contrast did not show acute inflammation or etiology for the abdominal pain. She did not have fever or leukocytosis. She was admitted to the hospital. Patient reported history of chron's disease. She takes Reglan for gastroparesis. She
reported similar episodes in the past requiring opioid pain medications. She takes opioids at home as needed also. She was evaluated by GI doctor. Ultrasound of the abdomen and specifically to the appendix came back unremarkable. Repeat the
blood work did not show leukocytosis. ESR was normal. CRP was mildly elevated. She was empirically started on steroid with good clinical improvement. She was able to tolerate diet. She started to have less diarrhea and no nausea. She remained
hemodynamicaaly stable. She was advised to follow with her primary [employer] pay technician Dr. Monahan. GI recommended short course of oral prednisone. She was discharged home in stable condition.
Discharge Plan
-
Patient Disposition: Home (Routine Discharge)
Discharge Diagnosis/Procedures: Abdominal pain
You are followed by GI doctor. You were given pain medication, antinausea medication. The stool test came back normal. The blood work was unremarkable. You were given Compazine.
You were started on steroid therapy. GI doctor recommended oral prednisone upon discharge for short-term.
Diet: As tolerated
Referrals:
Jolanta Saavedra CRNP [Family Provider, Internal Medicine]
Prescriptions:
New
prednisone 20 mg tablet
40 mg PO DAILY Qty: 8 0RF
Continued
sertraline 100 MG tablet
100 mg PO HS
acetaminophen 325 MG tablet
650 mg PO DAILYPRN PRN (Reason: mild pain)
alprazolam 1 MG tablet
1 mg PO HS
Vraylar 3 MG capsule
3 mg PO HS
famotidine [Pepcid] 40 mg Tablet
40 mg PO HS
cholecalciferol (vitamin D3) [Vitamin D3] 125 mcg (5,000 unit) Tablet
125 mcg PO HS
gabapentin 300 mg Capsule
300 mg PO HS
hyoscyamine sulfate 0.125 mg Tablet
0.125 mg PO BID
metoclopramide HCl [Reglan] 10 mg Tablet
10 mg PO BID
hydrocodone-acetaminophen 10-325 mg Tablet
1 tab PO BIDPRN PRN (Reason: severe pains)
omeprazole 40 mg Capsule,Delayed Release(Dr/Ec)
40 mg PO HS
guar gum Packet
1 tbsp PO DAILY
trazodone 100 mg Tablet
100 mg PO HS
Repatha SureClick 140 mg/mL Pen Injector
140 mg SC Q2W
fenofibrate 160 mg Tablet
160 mg PO HS
levothyroxine [Synthroid] 137 mcg Tablet
137 mcg PO HS
Discharge Orders:
Discharge Patient (As Directed); Ordered 08/25/25
Ordered By: Zen Cardenas
Discharge Date and Time
Discharge Date/Time: 08/25/25 10:37
Print Language: AZERI
== END 2025-08-25 10:37 | disposition home or self-care (01) | DRG 392 ==
LOC: 3 WEST ACU 17:43
PROVIDERS: Emergency Medicine; Nurse Practitioner Adult Health; ADMITTING PHYSICIAN Internal Medicine; CONSULT PHYSICIAN Internal Medicine Gastroenterology; EMERGENCY PHYSICIAN Student in an Organized Health Care Education/Training Program; FAMILY PHYSICIAN Nurse Practitioner Adult Health
DX: R10.31 Right lower quadrant pain (principal); R11.2 Nausea with vomiting, unspecified; R19.7 Diarrhea, unspecified; K21.9 Gastro-esophageal reflux disease without esophagitis; K31.84 Gastroparesis; E78.00 Pure hypercholesterolemia, unspecified; F43.10 Post-traumatic stress disorder, unspecified; F41.9 Anxiety disorder, unspecified; F31.9 Bipolar disorder, unspecified; G43.909 Migraine, unspecified, not intractable, without status migrainosus; G47.30 Sleep apnea, unspecified; E66.9 Obesity, unspecified; G47.00 Insomnia, unspecified; J45.909 Unspecified asthma, uncomplicated; E11.43 Type 2 diabetes mellitus with diabetic autonomic (poly)neuropathy; E03.9 Hypothyroidism, unspecified; Z68.37 Body mass index [BMI] 37.0-37.9, adult; Z79.890 Hormone replacement therapy; Z87.891 Personal history of nicotine dependence
CPT/HCPCS: 74177; 76700; 76705; 80053; 81003; 83690; 83993; 84703; 85025; 85027; 85652; 86140; 87045; 87046; 87324; 87328; 87329; 87427; 87449; 87798; 89055; 90656; 93005; 96361; 96374; 96375; 99285; G0008; Q9967